=== PATIENT | male | born 1970 | race Caucasian/White ===

== ENCOUNTER 2016-05-10 11:49 | Emergency (ER) | payer OTHER | END 2016-05-10 15:48 | disposition home or self-care (01) | DX: K57.30 Diverticulosis of large intestine without perforation or abscess without bleeding (principal); R74.0 Nonspecific elevation of levels of transaminase and lactic acid dehydrogenase [LDH]; K76.0 Fatty (change of) liver, not elsewhere classified; F10.10 Alcohol abuse, uncomplicated; I10 Essential (primary) hypertension; Z79.82 Long term (current) use of aspirin ==

== ENCOUNTER 2018-08-27 08:00 | Outpatient (CLI) | payer OTHER | END 2018-08-27 23:59 | disposition home or self-care (01) | LOC: LAB.R 08:00 | PROVIDERS: ATTEND Family Medicine | DX: R21 Rash and other nonspecific skin eruption (principal) | CPT/HCPCS: 87070; 87077; 87181; 87205 ==

== ENCOUNTER 2019-07-21 15:35 | Outpatient (CLI) | payer OTHER ==
[2019-07-21 18:18] LABS: BASOPHILS # (AUTO) 0.1 10^3/uL (0.0-0.1); BASOPHILS % (AUTO) 0.9 %; EOSINOPHILS % (AUTO) 0.4 %; HGB - HEMOGLOBIN 16.4 g/dL (14.0-18.0); LYMPHOCYTES # (AUTO) 1.3 10^3/uL (1.5-3.5); LYMPHOCYTES % (AUTO) 12.2 %; MEAN CORPUSCULAR HEMOGLOBIN 33.3 pg (27.0-31.0); MEAN CORPUSCULAR HGB CONC 33.5 g/dL (32.0-36.0); MEAN CORPUSCULAR VOLUME 99.4 fL (80.0-94.0); MEAN PLATELET VOLUME 9.2 fL (7.4-11.4); MONOCYTES # (AUTO) 1.2 10^3/uL (0.0-1.0); MONOCYTES % (AUTO) 11.7 %; NEUTROPHILS # (AUTO) 7.9 10^3/uL (1.5-6.6); NEUTROPHILS % (AUTO) 74.4 %; PLT - PLATELET COUNT 211 10^3/uL (130-450); RED BLOOD COUNT 4.93 10^6/uL (4.70-6.10); RED CELL DISTRIBUTION WIDTH 13.1 % (12.0-15.0); WHITE BLOOD COUNT 10.6 x10^3/uL (4.8-10.8)
[2019-07-21 18:40] LABS: HB2 TOTAL 16.8 g/dL; HEMOGLOBIN A1C 0.66 g/dL; HEMOGLOBIN A1C % 5.7 % (4.6-6.2)
[2019-07-21 18:43] LABS: ALBUMIN 4.1 g/dL (3.2-5.5); ALBUMIN/GLOBULIN RATIO 1.1 (1.0-2.2); ALKALINE PHOSPHATASE 159 IU/L (42-121); ALT ALANINE AMINOTRANSFERASE 44 IU/L (10-60); AST ASPARTATE AMINOTRANSFERASE 69 IU/L (10-42); BUN - BLOOD UREA NITROGEN 8 mg/dL (6-20); CARBON DIOXIDE - CO2 22 mmol/L (21-32); CHLORIDE 97 mmol/L (101-111); CHOL/HDL RATIO 3.6 (<5.0); CHOLESTEROL 208 mg/dL; CREATININE 0.8 mg/dL (0.6-1.2); GLUCOSE 164 mg/dL (70-100); HDL CHOLESTEROL 58 mg/dL; LDL CHOLESTEROL,CALCULATED 132 mg/dL; LDL/HDL RATIO 2.3 (<3.6); SODIUM 133 mmol/L (135-145); TOTAL PROTEIN 7.8 g/dL (6.7-8.2); VLDL CHOLESTEROL 18 mg/dL
== END 2019-07-21 23:59 | disposition home or self-care (01) ==
LOC: LAB.WCP 15:35
PROVIDERS: ATTEND Physician Assistant Medical
DX: F10.10 Alcohol abuse, uncomplicated (principal); R74.8 Abnormal levels of other serum enzymes; I10 Essential (primary) hypertension; R73.01 Impaired fasting glucose; G89.29 Other chronic pain; M79.673 Pain in unspecified foot
CPT/HCPCS: 36415; 80053; 80061; 82607; 83036; 83721; 84443; 85025

== ENCOUNTER 2019-07-21 15:59 | Outpatient (CLI) | payer OTHER ==
--- NOTE | 2019-07-21 18:37 | XRAY Report ---
Reason: COUGH, CHRONIC Procedure Date: 07/21/2019 Accession Number: [id number] / [id number] Procedure: XR - Chest 2 View X-Ray CPT Code: 14009 Final Report FULL RESULT: EXAM: CHEST RADIOGRAPHY EXAM DATE: 07/21/2019 04:04 PM. CLINICAL HISTORY: COUGH, CHRONIC. COMPARISON: ABDOMEN/PELVIS W/O 05/10/2016 12:24 PM. TECHNIQUE: 2 views. FINDINGS: Lungs/Pleura: No focal opacities evident. No peribronchial cuffing or interstitial abnormality. No pleural effusion. No pneumothorax. Normal volumes. Mediastinum: Heart and mediastinal contours are unremarkable. Other: None. IMPRESSION: Normal 2-view chest radiography. [facility]
--- NOTE | 2019-07-21 18:39 | XRAY Report ---
Reason: COUGH, CHRONIC, FOOT PAIN, CHRONIC Procedure Date: 07/21/2019 Accession Number: [id number] / [id number] Procedure: XR - Foot 2 View BILAT CPT Code: Final Report FULL RESULT: EXAMS: 1. Right Foot Radiography 2. Left Foot Radiography EXAM DATE: 07/21/2019 04:04 PM. CLINICAL HISTORY: FOOT PAIN, CHRONIC. COMPARISON: None. TECHNIQUE: 3 views each foot. FINDINGS: Right: Bones: Normal. No fractures or bone lesions. Joints: Normal. No subluxations. Soft Tissues: Normal. No soft tissue swelling. Left: Bones: Bipartite medial and lateral first metatarsal sesamoids. No fractures or bone lesions. Joints: Normal. No subluxations. Soft Tissues: Normal. No soft tissue swelling. IMPRESSION: Normal bilateral feet radiography. [facility]
== END 2019-07-21 16:00 | disposition home or self-care (01) ==
LOC: DI 15:59
PROVIDERS: ATTEND Physician Assistant Medical
DX: R05 Cough (principal); M79.671 Pain in right foot; M79.672 Pain in left foot
CPT/HCPCS: 71046

== ENCOUNTER 2019-12-20 07:14 | Outpatient (CLI) | payer OTHER ==
[2019-12-20 12:35] LABS: CREATININE 0.7 mg/dL (0.6-1.2)
[2019-12-20 12:54] LABS: HB2 TOTAL 16.3 g/dL; HEMOGLOBIN A1C 0.61 g/dL; HEMOGLOBIN A1C % 5.6 % (4.6-6.2)
== END 2019-12-20 23:59 | disposition home or self-care (01) ==
LOC: LAB.WCP 07:14
PROVIDERS: ATTEND Physician Assistant Medical
DX: R73.01 Impaired fasting glucose (principal); R74.8 Abnormal levels of other serum enzymes; G89.29 Other chronic pain; Z12.5 Encounter for screening for malignant neoplasm of prostate; M79.673 Pain in unspecified foot
CPT/HCPCS: 36415; 80048; 82607; 83036; 84153

== ENCOUNTER 2020-02-03 12:41 | Outpatient (CLI) | payer OTHER | END 2020-02-03 12:42 | disposition home or self-care (01) | LOC: COV 12:41 | PROVIDERS: ATTEND Family Medicine | DX: Z20.828 Contact with and (suspected) exposure to other viral communicable diseases (principal) ==

== ENCOUNTER 2021-02-23 08:00 | Outpatient (CLI) | payer OTHER ==
[2021-02-23 11:46] LABS: BASOPHILS # (AUTO) 0.1 10^3/uL (0.0-0.1); BASOPHILS % (AUTO) 0.9 %; EOSINOPHILS # (AUTO) 0.1 10^3/uL (0.0-0.7); EOSINOPHILS % (AUTO) 1.9 %; HCT - HEMATOCRIT 45.6 % (42.0-52.0); HGB - HEMOGLOBIN 15.2 g/dL (14.0-18.0); LYMPHOCYTES # (AUTO) 2.3 10^3/uL (1.5-3.5); LYMPHOCYTES % (AUTO) 35.5 %; MEAN CORPUSCULAR HEMOGLOBIN 34.1 pg (27.0-31.0); MEAN CORPUSCULAR HGB CONC 33.3 g/dL (32.0-36.0); MEAN CORPUSCULAR VOLUME 102.2 fL (80.0-94.0); MEAN PLATELET VOLUME 10.5 fL (7.4-11.4); MONOCYTES # (AUTO) 0.8 10^3/uL (0.0-1.0); MONOCYTES % (AUTO) 12.8 %; NEUTROPHILS # (AUTO) 3.1 10^3/uL (1.5-6.6); NEUTROPHILS % (AUTO) 48.1 %; PLT - PLATELET COUNT 152 10^3/uL (130-450); RED BLOOD COUNT 4.46 10^6/uL (4.70-6.10); RED CELL DISTRIBUTION WIDTH 12.7 % (12.0-15.0); WHITE BLOOD COUNT 6.4 x10^3/uL (4.8-10.8)
[2021-02-23 12:10] LABS: ALBUMIN 3.8 g/dL (3.2-5.5); ALBUMIN/GLOBULIN RATIO 1.2 (1.0-2.2); ALKALINE PHOSPHATASE 217 IU/L (42-121); ALT ALANINE AMINOTRANSFERASE 113 IU/L (10-60); AST ASPARTATE AMINOTRANSFERASE 152 IU/L (10-42); BILIRUBIN,TOTAL 2.5 mg/dL (0.2-1.0); BUN - BLOOD UREA NITROGEN 8 mg/dL (6-20); CALCIUM 9.3 mg/dL (8.5-10.3); CARBON DIOXIDE - CO2 24 mmol/L (21-32); CHLORIDE 99 mmol/L (101-111); CHOL/HDL RATIO 3.3 (<5.0); CHOLESTEROL 192 mg/dL; CREATININE 0.7 mg/dL (0.6-1.2); GFR - MDRD 118 (>89); GLUCOSE 131 mg/dL (70-100); HDL CHOLESTEROL 58 mg/dL; LDL CHOLESTEROL,CALCULATED 102 mg/dL; LDL/HDL RATIO 1.8 (<3.6); POTASSIUM 3.8 mmol/L (3.5-5.0); SODIUM 136 mmol/L (135-145); TOTAL PROTEIN 7.1 g/dL (6.7-8.2); TRIGLYCERIDES 158 mg/dL; VLDL CHOLESTEROL 32 mg/dL
[2021-02-23 12:22] LABS: THYROID STIMULATING HORMONE 2.18 uIU/mL (0.34-5.60)
[2021-02-23 12:52] LABS: ESTIMATED AVERAGE GLUCOSE 100 mg/dL (70-100); HEMOGLOBIN A1c% 5.1 % (4.27-6.07)
== END 2021-02-23 23:59 | disposition home or self-care (01) ==
LOC: LAB.WCP 08:00
PROVIDERS: ATTEND Physician Assistant Medical
DX: Z00.00 Encounter for general adult medical examination without abnormal findings (principal); R73.01 Impaired fasting glucose; E78.00 Pure hypercholesterolemia, unspecified; Z12.5 Encounter for screening for malignant neoplasm of prostate; B35.1 Tinea unguium
CPT/HCPCS: 36415; 80053; 80061; 80076; 82248; 83036; 83721; 84153; 84443; 85025

== ENCOUNTER 2022-07-15 07:58 | Outpatient (CLI) | payer OTHER | END 2022-07-15 07:59 | disposition critical access hospital (66) | LOC: EMS 07:58 | DX: R53.1 Weakness (principal) | CPT/HCPCS: A0425; A0429 ==

== ENCOUNTER 2022-07-15 08:20 | Inpatient (IN) | payer OTHER ==
--- NOTE | 2022-07-15 08:49 | ED Physician Documentation ---
PD HPI SYNCOPE - Stated complaint Stated Complaint: GENERALIZED WEAKNESS/DEPRESSED - Chief complaint Chief Complaint: General - History obtained from History obtained from: Patient - History of Present Illness Witnessed: Unwitnessed (he had weakness with slump/fall to ground without apparent injury.Unable to get up due to weakness. Mother called eMS.) Timing - onset: Today (General weakness for the last several days to week progressively worse. Slumped to the floor with weakness and could not get up today. EMS was called. History of alcoholism that has been worse the last month since getting laid off from a long-term job. History of depression and alcoholism.) Preceding symptoms: Light headed, Generalized weakness. No: Headache, Chest pain, Abdominal pain Associated symptoms: No: Headache, Chest pain Contributing factors: Decreased PO intake (per Mother, but has been drinking alcohol (and not much other intake) for the past several weeks.). No: Recent med change Injury occurred: No: Head injury, Neck injury Treatment [employer]: Fluids Similar symptoms before: Has not had sx before (mother states he has not had this degree of weakness nor alcohol intkae in the past.) Recently seen: Not recently seen Review of Systems Constitutional: reports: Fatigue. denies: Fever, Chills, Weight Loss Nose: denies: Rhinorrhea / runny nose, Congestion Throat: denies: Sore throat Cardiac: denies: Chest pain / pressure, Palpitations Respiratory: denies: Dyspnea, Cough GI: denies: Abdominal Pain, Nausea, Vomiting, Diarrhea Skin: reports: Other (has gotten jaundice color the past 1-2 weeks.) Neurologic: reports: Generalized weakness, Near syncope (today), Confused, Altered mental status (worsening the past several days.). denies: Syncope PD PAST MEDICAL HISTORY - Past Medical History Cardiovascular: Hypertension Endocrine/Autoimmune: None Musculoskeletal: Other (the patient has had steady weight gain over the past 25 years. Had been fit when younger, in . then did not regulate eating and is now over 400 lbs. As recent as a month ago, though, he was ambulatory and went to work daily. ) - Present Medications Home Medications: Ambulatory Orders Medication Instructions Recorded Confirmed Omeprazole 20 mg PO DAILY 05/10/16 07/15/22 Gabapentin [Neurontin] 2 cap PO TID 07/15/22 07/15/22 - Allergies Allergies/Adverse Reactions: Allergies Allergy/AdvReac Type Severity Reaction Status Date / Time No Known Drug Allergies Allergy Verified 05/10/16 11:59 - Living Situation Living Situation: reports: With family (mother) Living Arrangement: reports: At home, Other (patient had been in when younger. Did 2 tours and then discharged. Worked at a company in [employer] the past 25 years. the company structure changed and he was laid off 4 weeks ago. got more depressed when that happened and had been drinking more heavily, not eating, getting weaker 4 wks. ) - Social History Does the pt smoke?: No Smoking Status: Never smoker Does the pt drink ETOH?: Yes ETOH Use: Other (drinking regularly with some liver involvement for many years. Particularly heavy drinking the past 4 weeks. ) Does the pt have substance abuse?: No - POLST Patient has POLST: No PD ED PE NORMAL - Vitals Vital signs reviewed: Yes - General General: Other (BMI 61. General weakness with unable to lift legs up off cart. ) - HEENT HEENT: Atraumatic - Neck Neck: Supple, no meningeal sign, No adenopathy - Cardiac Cardiac: RRR, No murmur - Respiratory Respiratory: No respiratory distress, Clear bilaterally - Abdomen Abdomen: Normal bowel sounds, Soft, Non distended. No: No organomegaly (unable to really palpate liver size due to obesity. ) - Back Back: No CVA TTP - Derm Derm: No: Normal color (jaundice and icteric.) Results - Vitals Vitals: Vital Signs - 24 hr 07/15/22 07/15/22 08:25 10:00 Temperature 36.4 C L Heart Rate 100 99 Respiratory 28 H 28 H Rate Blood Pressure 120/72 129/71 O2 Saturation 96 95 Oxygen O2 Source Room air - Labs Labs: Laboratory Tests 07/15/22 07/15/22 07/15/22 09:54 09:54 09:54 WBC 6.4 RBC 3.85 L Hgb 13.1 L Hct 37.2 L MCV 96.6 H MCH 34.0 H MCHC 35.2 RDW 12.8 Plt Count 79 L MPV 9.5 Neut # (Auto) 5.1 Lymph # (Auto) 0.4 L [place] # (Auto) 0.9 Eos # (Auto) 0.0 Baso # (Auto) 0.0 Absolute Nucleated RBC 0.00 Nucleated RBC % 0.0 Sodium 114 L* Potassium 4.0 Chloride 83 L Carbon Dioxide 15 L Anion Gap 16.0 H BUN 8 Creatinine 0.6 Estimated GFR (MDRD) 141 Glucose 149 H Calcium 8.4 L Magnesium 1.7 Total Bilirubin 13.0 H AST 153 H ALT 47 Alkaline Phosphatase 382 H Ammonia 69.6 H Total Creatine Kinase 393 H Total Protein 6.6 L Albumin 3.0 L Globulin 3.6 Albumin/Globulin Ratio 0.8 L Lipase 36 TSH Ethyl Alcohol 103.7 SARS-CoV-2 (PCR) 07/15/22 07/15/22 09:54 10:12 WBC RBC Hgb Hct MCV MCH MCHC RDW Plt Count MPV Neut # (Auto) Lymph # (Auto) [place] # (Auto) Eos # (Auto) Baso # (Auto) Absolute Nucleated RBC Nucleated RBC % Sodium Potassium Chloride Carbon Dioxide Anion Gap BUN Creatinine Estimated GFR (MDRD) Glucose Calcium Magnesium Total Bilirubin AST ALT Alkaline Phosphatase Ammonia Total Creatine Kinase Total Protein Albumin Globulin Albumin/Globulin Ratio Lipase TSH 2.59 Ethyl Alcohol SARS-CoV-2 (PCR) NOT DETECTED PD Medical Decision Making - ED course Complexity details: reviewed results, re-evaluated patient, considered differential, d/w patient, d/w family (mother) Reviewed Lab Results: Patient with severe hyponatremia at 114. Kidney function is adequate. His bilirubin is severely elevated at 13. Alk phos and lipase are normal. Seems like primary alcoholic liver disease. Amylase is 70. Likely exacerbated by recent poor oral intake and dehydration and possible viral illness. I ordered CBC and chemistry panel as well as more specific tests of lipase and ammonia level. Looking for source of infection, we did do a respiratory panel and a viral viral test, and chest x-ray. Social Determinants of Health: lives with mother. Is not getting counseling currently. Heavy alcohol use and will no doubt get withdrawal. acute liver injury from alcohol. low sodium from poor nutrition. ED course: The patient with acute general weakness over the last week or 2. He has had a little bit of a cough and general malaise according to himself and his mother. His mother is supplementing information as he is somewhat confused. Reportedly the patient has been drinking alcohol heavily over the last 4 weeks in particular though a long-term issue as well. He was laid off from his job of 25 years 4 weeks ago and has been more depressed than baseline and drinking more heavily. He has not been eating much in the last week or so and had some cough. He was now weak enough to be unable to get up on his own and EMS was called. He was given some IV fluids. He did have obvious icterus and some jaundice. Consideration also for electrolyte abnormality and ammonia level given the apparently new jaundice. These were ordered reviewed and evaluated as noted above. His sodium level was critically low and would be likely main force causing his general weakness and confusion. However the elevated pneumonia may be contributing as well and consider also just dehydration. His ALK level was fairly low at this point so I would be prepared for withdrawal and we will watch for that. Subsequently talking with the hospitalist, given the above test results and the patient condition, it was decided to place the patient in the ICU for closer observation. Potential for seizures, altered mental status, respiratory problems etc. - Critical Care Time(min): 50 Time Includes: Direct patient care, Reassess patient, Document care Data interpretation: Labs, Pulse ox, CXR Procedures excluded from critical care time: EKG Departure - Departure Disposition: 66 [facility] DC/Xfer Clinical Impression: Acute hyponatremia, Elevated bilirubin, Alcoholic liver disease, Alcoholism, Depression, Dehydration Condition: Stable Discharge Date/Time: 07/15/22 11:58
[2022-07-15] MEDS ORDERED: THIAMINE INJ 100 MG in SODIUM CHLORIDE 0.9% 50 ML IV STA (09:44)
[2022-07-15] MEDS ORDERED: SODIUM CHLORIDE 0.9% 1,000 ML IV STA ×2 (09:44→11:14)
[2022-07-15] MEDS ORDERED: THIAMINE INJ 100 MG, MAGNESIUM SULFATE 2 GM, MULTIVITAMIN 10 ML, FOLIC ACID INJ 1 MG in... IV ONE ×5 (09:44)
[2022-07-15 09:59] LABS: BASOPHILS % (AUTO) 0.3 %; EOSINOPHILS % (AUTO) 0.2 %; HCT - HEMATOCRIT 37.2 % (42.0-52.0); HGB - HEMOGLOBIN 13.1 g/dL (14.0-18.0); LYMPHOCYTES # (AUTO) 0.4 10^3/uL (1.5-3.5); LYMPHOCYTES % (AUTO) 5.5 %; MEAN CORPUSCULAR HGB CONC 35.2 g/dL (32.0-36.0); MEAN CORPUSCULAR VOLUME 96.6 fL (80.0-94.0); MEAN PLATELET VOLUME 9.5 fL (7.4-11.4); MONOCYTES # (AUTO) 0.9 10^3/uL (0.0-1.0); MONOCYTES % (AUTO) 13.5 %; NEUTROPHILS # (AUTO) 5.1 10^3/uL (1.5-6.6); NEUTROPHILS % (AUTO) 79.9 %; PLT - PLATELET COUNT 79 10^3/uL (130-450); RED BLOOD COUNT 3.85 10^6/uL (4.70-6.10); RED CELL DISTRIBUTION WIDTH 12.8 % (12.0-15.0); WHITE BLOOD COUNT 6.4 x10^3/uL (4.8-10.8)
[2022-07-15 10:13] LABS: ALBUMIN/GLOBULIN RATIO 0.8 (1.0-2.2); CALCIUM 8.4 mg/dL (8.5-10.3); CREATININE 0.6 mg/dL (0.6-1.2); ETOH - ETHANOL 103.7 mg/dL; MAGNESIUM 1.7 mg/dL (1.7-2.8); TOTAL PROTEIN 6.6 g/dL (6.7-8.2)
[2022-07-15] MEDS ORDERED: PROCHLORPERAZINE 10 MG/2 ML VIAL IVP PRN (11:15)
[2022-07-15] MEDS ORDERED: LORazepam 1 MG TABLET PO PRN (11:23)
[2022-07-15] MEDS ORDERED: MULTIVITAMIN 10 ML, THIAMINE INJ 100 MG, FOLIC ACID INJ 1 MG in SODIUM CHLORIDE 0.9% 1,... IV SCH (12:00)
[2022-07-15 12:41] LABS: INR 1.8 (0.8-1.2); PT - PROTHROMBIN TIME 19.3 secs (9.9-12.6)
[2022-07-15 12:46] LABS: BASOPHILS % (AUTO) 0.3 %; EOSINOPHILS % (AUTO) 0.3 %; HCT - HEMATOCRIT 37.7 % (42.0-52.0); HGB - HEMOGLOBIN 13.3 g/dL (14.0-18.0); LYMPHOCYTES # (AUTO) 0.6 10^3/uL (1.5-3.5); LYMPHOCYTES % (AUTO) 9.1 %; MEAN CORPUSCULAR HEMOGLOBIN 34.2 pg (27.0-31.0); MEAN CORPUSCULAR HGB CONC 35.3 g/dL (32.0-36.0); MEAN CORPUSCULAR VOLUME 96.9 fL (80.0-94.0); MEAN PLATELET VOLUME 9.9 fL (7.4-11.4); MONOCYTES # (AUTO) 0.9 10^3/uL (0.0-1.0); MONOCYTES % (AUTO) 12.7 %; NEUTROPHILS # (AUTO) 5.4 10^3/uL (1.5-6.6); NEUTROPHILS % (AUTO) 76.9 %; PLT - PLATELET COUNT 87 10^3/uL (130-450); RED BLOOD COUNT 3.89 10^6/uL (4.70-6.10); RED CELL DISTRIBUTION WIDTH 12.9 % (12.0-15.0); WHITE BLOOD COUNT 7.1 x10^3/uL (4.8-10.8)
[2022-07-15 12:49] LABS: ALBUMIN/GLOBULIN RATIO 0.9 (1.0-2.2); CALCIUM 8.3 mg/dL (8.5-10.3); CREATININE 0.6 mg/dL (0.6-1.2); TOTAL PROTEIN 6.5 g/dL (6.7-8.2)
[2022-07-15 12:55] LABS: CALCIUM, IONIZED 1.04 mmol/L (1.15-1.33); VBG PH 7.397 (7.31-7.41)
[2022-07-15 12:58] LABS: MAGNESIUM 1.7 mg/dL (1.7-2.8); PHOSPHORUS 1.8 mg/dL (2.5-4.6)
--- NOTE | 2022-07-15 12:58 | PHARMACY PROGRESS NOTE ---
- Best Possible Medication History Admit Date and Time: 07/15/22 1115 Processed by: Pharmacy Medication History completed: Yes Patient Interview: Completed Secondary Source(s): Pharmacy records (Pt never picked up Santa at [facility] or [facility].) As the person ultimately responsible for medication therapy, providers are able to order a medication from an existing home medication list in [facility] via the "Reconcile Routine" prior to Confirmation of that medication by sales support manager. Such practice is discouraged except when the physician, in their clinical judgment, deems that a medical need exists for a medication without regard to previous use.
[2022-07-15 13:08] LABS: MUDS CUTOFF CONCENTRATIONS CUTOFF CONC BELOW:
[2022-07-15 13:35] LABS: AMPHETAMINE SCREEN,URINE NEGATIVE (NEGATIVE); BARBITURATE SCREEN,UR NEGATIVE (NEGATIVE); BENZODIAZEPINES SCREEN, URINE NEGATIVE (NEGATIVE); COCAINE SCREEN URINE NEGATIVE (NEGATIVE); METHADONE SCREEN, URINE NEGATIVE (NEGATIVE); METHAMPHETAMINES SCREEN, URINE NEGATIVE (NEGATIVE); OPIATE SCREEN, URINE NEGATIVE (NEGATIVE); OXYCODONE SCREEN, URINE NEGATIVE (NEGATIVE); PROPOXYPHENE SCREEN, URINE NEGATIVE (NEGATIVE); THC CANNABINOID SCREEN, URINE NEGATIVE (NEGATIVE); TRICYCLIC ANTIDEPRESSANT,URINE NEGATIVE (NEGATIVE)
[2022-07-15] MEDS: chlordiazePOXIDE 25 MG CAPSULE PO SCH ×2 (14:17→20:14)
[2022-07-15] MEDS: MAGNESIUM OXIDE 400 MG TABLET PO SCH ×2 (15:15→21:45)
--- NOTE | 2022-07-15 15:16 | HISTORY & PHYSICAL EXAMINATION ---
Chief Complaint - Chief Complaint Chief Complaint: Weakness, fall at home and too weak to get up History of Present Illness - Admitted From Admitted From:: ED - History Obtained From History obtained from: ED provider, the patient, the patient's mother at bedside - History of Present Illness HPI Comment/Other: This is a 52-year-old white male with a history of morbid obesity, alcohol abuse who remotely went through 2 months of inpatient alcohol rehab, history of hypertension and neuropathy. The patient has been a drinker of about 5 beers per day, 16 ounce steel beer. He has been compliant with amlodipine for blood pressure, prior to that used to take lisinopril. He also goes to a specialist for his neuropathy and takes gabapentin, saw a work from home for his redness of his anterior shins. 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 He became very depressed because of this, became a recluse and did not go out of the house, did not reach out to any friends or even have contact with family. He would order his beer to be delivered by [employer] from a [employer] store. He started to increase his beer intake up to 12 large cans or more, of beer per day. In the last several days he has had worsened weakness and did not get out of the bed much and ate nothing for a week. He did continue to drink beer. He denied any fevers, nausea, vomiting, or diarrhea. In the last 2 days he said he was feeling weaker when walking to the bathroom, and his knees felt like they were going to buckle. This morning when he got out of bed after walking down a flight of stairs, his knees did buckle and he fell forward. He does not think he landed on his face, or knees. He did not blackout, since he remembers the entire event. He was too weak to get up and crawled in the direction of the couch but was too weak to get onto the couch. He then called his mother. The family called an ambulance who brought him to the ER. In the ED he was found to have morbid obesity, he weighs 194.5 kg with a BMI of 61.5, he was feeling weak and had photophobia, he could not reposition himself in his bed or turn independently due to weakness. Nurses had to help him undress into a gown and hold a urinal, because he said his arms were too weak to hold it. VS were stable. Lab work showed that he has severe Hyponatremia with sodium of 114, normal BUN/creatinine, AST 153, ALT 47, Alk phos 382, ammonia 69, Calcium 8.3, phosphorus 1.8, albumin 3.0. White blood count 6.4, hemoglobin 13.1 with MCV 96 point, plt count 79, INR elevated at 1.8. A serum alcohol level is 103. His last alcohol drink was last night. He did admit that he was very depressed and that he has been a recluse. He did not say he was suicidal or had any ideas. The mother at bedside adds that his sister thinks he has severe PTSD from serving in the [employer]. The patient himself is asking for Social Work to help him get into alcohol rehab again. Right now, the patient complains of dyspnea, as he is supine at this moment, but does not have any pain. He does describe GERD symptoms currently and says that his hands and fingers are shaking and his jaw is starting to shake Patient will be admitted to the ICU on the Hospitalist service to manage early alcohol withdrawal, severe hyponatremia likely from beer potomania, and alcoholic liver disease. History - Past Medical History Cardiovascular: reports: Hypertension Neuro: reports: Peripheral neuropathy Psych: reports: Depression Derm: reports: Other Other Past Medical History: unknown skin disorder - Family & Social History Family History: Mother: Alive and Well, Father: Alive and Well, Sister: Alive and Well Living arrangement: At home Living Situation: Alone Social History Notes: He lives alone in an apartment. He normally drives a car. He has been self isolating for the past 1 month and admits that he is very depressed. He smokes no cigarettes, uses no marijuana or any illicit drugs. Alcohol is beer intake, up to 12 beers per day of 16 ounce cans - POLST Patient has POLST: No Meds/Allgy - Home Medications Home Medications: Ambulatory Orders Medication Instructions Recorded Confirmed Omeprazole 20 mg PO DAILY 05/10/16 07/15/22 Gabapentin [Neurontin] 2 cap PO TID 07/15/22 07/15/22 - Allergies Allergies/Adverse Reactions: Allergies Allergy/AdvReac Type Severity Reaction Status Date / Time No Known Drug Allergies Allergy Verified 05/10/16 11:59 Review of Systems - Constitutional Constitutional: reports: Fatigue, Weakness, Poor appetite, Weight gain (He tells his parents that he is just sick of how morbidly overweight he is which makes him depressed) - Respiratory Respiratory: reports: Orthopnea - Gastrointestinal Gastrointestinal: reports: Diarrhea (On and off for the past 2-week), Reflux/heartburn - Musculoskeletal Musculoskeletal: reports: Muscle weakness - Integumentary Integumentary: reports: Rash (of anterior shins) - Neurological Neurological: reports: Other (Numbness, pain and tingling of feet, Gabapentin helps. 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) - Psychiatric Psychiatric: reports: Depression (He denies being suicidal or having any ideas) - All Other Systems All Other Systems: reports: Reviewed and negative Exam - Vital Signs Reviewed Vital Signs: Yes Vital Signs: Vital Signs x48h Temp Pulse Pulse Resp BP BP Pulse Ox 07/15/22 15:00 105 H 125/73 31 L 07/15/22 13:00 98 29 H 138/74 H 95 07/15/22 12:00 36.5 C 97 30 H 158/78 H 97 07/15/22 11:54 98 30 H 159/91 H 96 07/15/22 10:00 99 28 H 129/71 95 07/15/22 08:25 36.4 C L 100 28 H 120/72 96 O2 Flow Rate 07/15/22 15:00 93 07/15/22 13:00 07/15/22 12:00 07/15/22 11:54 07/15/22 10:00 07/15/22 08:25 - Physical Exam General Appearance: positive: Mild distress (He is grunting while breathing, is supine in bed) Eyes Bilateral: positive: EOMI, Other (Sclerae are icteric. There is no nys tagmus) ENT: positive: Dry mucous membranes Neck: positive: Other (Cannot evaluate JVP due to morbid obese) Respiratory: positive: Breath sounds nml (Anteriorly, however very distant breath sounds because of his morbid obesity) Cardiovascular: positive: Regular rate & rhythm (Very distant heart sounds, no murmurs are appreciated) Abdomen: positive: Other (Morbidly obese with a pannus. Nontender. Cannot rule out organomegaly or ascites. No guarding or rebound. No spider medusa veins. Probably normal bowel sounds.) Skin: positive: Warm, Dry, Other (icteric) Extremities: positive: Non-tender, Other (1+ edema to the knees, 1+ edema of the posterior thighs. Anterior shins have a red rash that is raised.) Neurologic/Psychiatric: positive: Oriented x3, Other (His jaw is tremulous and hands are shaking. He is moving all extremities spontaneously but very slowly and with great effort. He could bend his knees minimally. Could not push against resistance. Sensation was not tested.) Conclusion/Plan - Problem List (1) Hyponatremia Conclusion/Plan: This is in the presence of volume overload making beer potomania the most likely etiology. In addition he is eating no solids for about a week. Plan: Admit the patient to the ICU, on telemetry Start rehydration with NS The goal sodium correction is 6 to 8 mEq per 24 hours Free water restriction ordered in his diet Follow serum sodium every 6 hours Follow BMP daily Follow Mag, Ca and phosphate daily and replace if low Possibly we will need to use a loop diuretic for diuresing his edema (2) Alcoholism Conclusion/Plan: He was already been chronically drinking 5 16-oz cans of beer per day, then over the last 1 month, as he got more depressed, this has increased to 12 cans/day or more. He is already starting to get tremulous, in early withdrawal. Plan: We will order a CIWA protocol with IV as needed Ativan dosing We will start scheduled Librium 25 mg every 6 hours We will start banana bag and plan to give this for several days. We will transition over to MVI and thiamine orally when he starts to take a diet He is requesting help from his alcohol abuse and has already been in inpatient rehab for 2 months, when he was younger. We will ask for social work to see him in consultation while here Currently he is lucid, alert and oriented x3 and not encephalopathic. With an ammonia level mildly elevated at 70, will not order Lactulose. Follow his clinical status and folloe his ammonia level daily. Will continue his gabapentin for his neuropathy (3) Elevated LFTs Conclusion/Plan: These are consistent with alcohol use with AST greater than ALT, elevated INR and thrombocytopenia. Bilirubin and elevated alk phos could be from liver disease but also consider gallbladder however he gives no complaints of pain, nausea or vomiting. His calculated MELD score (new) is 23 points, which gives him a 27-32% estimated 3-month mortality. Plan: Avoid hepatotoxins Follow liver tests daily Consider CT abdomen/pelvis His condition is considered critical (4) GERD (gastroesophageal reflux disease) Conclusion/Plan: He denies any hematemesis or melena Plan: We will order Pepcid twice daily as stress ulcer prrophylaxis, not his home dose of omeprazole once daily His DVT prophylaxis will not be with Lovenox, will use SCDs (5) Diarrhea Conclusion/Plan: He denied to me any nausea, vomiting or diarrhea but told his nurse he gets intermittent watery diarrhea for the past 2 weeks. It is over the last 1 week that he is taking in no solids, only liquids in the form of beer. Plan: We will test his stool for bacteria and C. difficile If these are negative, then we could begin as needed Imodium, However with his elevated ammonia level we will also be considering the use of Lactulose, which will add to diarrhea (6) Edema Conclusion/Plan: The patient may have right heart failure from his morbid obesity and obesity hypoventilation syndrome. Alternatively he may have cardiomyopathy from his alcohol intake. No EKG was done in the ER therefore an EKG was ordered once he entered the ICU. The EKG showed (I interpreted) sinus tachycardia, rate 100, incomplete left bundle branch block, left anterior fascicular block, poor R wave progression. There is no old EKG available for comparison. Plan: We will obtain a complete Echo Once we see his I's and O's, we will very likely start a loop diuretic which will probably help eliminate free water as we give IV NS and also will treat the leg edema. (7) Weakness Conclusion/Plan: He has severe generalized muscle weakness, was too weak to even hold his urinal. He does have a mild CK elevation in the 300s, which could have happened from the fall he sustained this morning. 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 Plan: We will give IV fluid in the form of a banana bag at 100 cc/hr, until he can orally hydrate and take a diet Follow CK daily He will eventually need PT and OT evaluation (8) Morbid obesity with BMI of 60.0-69.9, adult Conclusion/Plan: Some portion of his weight is water weight, by clinical eval but he has already been previously morbidly obese even before this excessive fluid intake Plan: This complicates all of his care including any chance for a liver transplant We will order regular diet, he has no appetite yet however. We will order nutrition consult I have asked staff to try to get him a bariatric bed (9) Depression Conclusion/Plan: His mother describes that he has been depressed at a low level for many years and by losing his job 1 month ago this was "the last straw" and he spiraled into being a recluse, self isolating, drinking more than double the alcohol he usually drinks and not eating. His mom says that he did not describe any suicidal ideations Plan: Will order social work consult, to determine if one-to-one monitoring is needed If he survives this ICU stay and if his liver has some recovery, he wants treatment for his severe depression, also his alcoholism (10) Hx of essential hypertension Conclusion/Plan: He says he used to be on lisinopril and more recently on amlodipine. However the reconciled medication list shows no blood pressure meds. His blood pressure here is running normal in the 120s over 80s. Plan: No BP meds need to be started currently (11) Intertriginous dermatitis associated with moisture Conclusion/Plan: The patient has a dark red rash in all of his many skin folds. He has no history of diabetes but does have somewhat elevated glucose on a spot glucose check. The patient may have developed pancreatic insufficiency and DM, from his many years of alcohol abuse, or have DM associated with his morbid obesity. Plan: Will order nystatin powder empirically to skin folds We will obtain an A1c - Lab Results Fish Bones: 07/15/22 12:26 07/15/22 17:31 - Diagnostic Imaging Results Diagnostic Imaging Results: positive: Final report reviewed - EKG Results EKG Interpreted Independently: Yes EKG Comparison: Old EKG unavailable EKG Findings: Sinus tachycardia, rate 100, incomplete left bundle branch block with QRS duration 107 msec, LAFB, PRWP. No old EKG available for comparison. - Other Other Results/Comments: Attestation: The patient is expected to be discharged or transferred to another facility within 96 hours: Yes.
[2022-07-15] MEDS: NEUTRA-PHOS 250 MG TABLET PO SCH ×2 (15:33→18:21)
[2022-07-15] MEDS: SODIUM CHLORIDE FLUSH 0.9% 10 ML SYRINGE IVP SCH (18:10)
[2022-07-15] MEDS: ONDANSETRON 4 MG/2 ML VIAL IVP PRN (19:06)
[2022-07-15] MEDS: LORazepam 2 MG/ML VIAL IVP PRN (19:10)
[2022-07-15] MEDS: NYSTATIN POWDER 15 GM TOP SCH (20:13)
[2022-07-15] MEDS: CALCIUM CARBONATE CHEW 500 MG TABLET PO SCH (20:15)
[2022-07-15] MEDS ORDERED: FAMOTIDINE 20 MG TABLET PO SCH (21:00)
[2022-07-15] MEDS: GABAPENTIN 300 MG CAPSULE PO SCH (21:44)
[2022-07-15] MEDS: FAMOTIDINE 20 MG TABLET PO SCH (21:44)
[2022-07-16] MEDS: CALCIUM CARBONATE CHEW 500 MG TABLET PO SCH (01:00)
[2022-07-16] MEDS: SODIUM CHLORIDE FLUSH 0.9% 10 ML SYRINGE IVP SCH ×4 (01:00→20:46)
[2022-07-16] MEDS: chlordiazePOXIDE 25 MG CAPSULE PO SCH ×4 (01:00→17:31)
[2022-07-16] MEDS: ZINC OXIDE 20% OINT 30 GM TUBE TOP PRN ×2 (01:56→20:45)
[2022-07-16 04:45] LABS: BASOPHILS % (AUTO) 0.4 %; EOSINOPHILS # (AUTO) 0.1 10^3/uL (0.0-0.7); EOSINOPHILS % (AUTO) 1.1 %; HCT - HEMATOCRIT 33.7 % (42.0-52.0); LYMPHOCYTES # (AUTO) 0.6 10^3/uL (1.5-3.5); LYMPHOCYTES % (AUTO) 12.3 %; MEAN CORPUSCULAR HEMOGLOBIN 34.4 pg (27.0-31.0); MEAN CORPUSCULAR HGB CONC 35.6 g/dL (32.0-36.0); MEAN CORPUSCULAR VOLUME 96.6 fL (80.0-94.0); MEAN PLATELET VOLUME 9.7 fL (7.4-11.4); MONOCYTES # (AUTO) 0.8 10^3/uL (0.0-1.0); MONOCYTES % (AUTO) 17.6 %; NEUTROPHILS # (AUTO) 3.2 10^3/uL (1.5-6.6); NEUTROPHILS % (AUTO) 68.2 %; PLT - PLATELET COUNT 76 10^3/uL (130-450); RED BLOOD COUNT 3.49 10^6/uL (4.70-6.10); RED CELL DISTRIBUTION WIDTH 13.2 % (12.0-15.0); WHITE BLOOD COUNT 4.7 x10^3/uL (4.8-10.8)
[2022-07-16 04:51] LABS: VBG PH 7.461 (7.31-7.41)
[2022-07-16 04:52] LABS: CALCIUM, IONIZED 0.99 mmol/L (1.15-1.33)
[2022-07-16] MEDS ORDERED: CALCIUM GLUCONATE IN NS 0.9% 2,000 MG/100 ML BAG IV ONE (04:52)
[2022-07-16 05:05] LABS: ALBUMIN 2.5 g/dL (3.2-5.5); ALBUMIN/GLOBULIN RATIO 0.8 (1.0-2.2); BILIRUBIN,TOTAL 15.2 mg/dL (0.2-1.0); CALCIUM 7.8 mg/dL (8.5-10.3); CREATININE 0.8 mg/dL (0.6-1.2); PHOSPHORUS 1.7 mg/dL (2.5-4.6); POTASSIUM 3.8 mmol/L (3.5-5.0); TOTAL PROTEIN 5.8 g/dL (6.7-8.2)
[2022-07-16] MEDS ORDERED: POTASSIUM CHLORIDE 20 MEQ TABLET PO ONE (05:16)
--- NOTE | 2022-07-16 06:16 | PROVIDER PROGRESS NOTE ---
Objective - Vital Signs/Intake & Output Vital Signs: Vital Signs x48h Temp Pulse Resp BP Pulse Ox O2 Flow Rate 07/16/22 05:00 95 22 95/62 91 L 3 07/16/22 04:00 100 17 108/61 98 3 07/16/22 03:00 36.7 C 98 25 H 94/57 L 98 3 07/16/22 01:00 100 22 112/66 98 3 07/15/22 23:16 105 H 17 110/65 97 3 Intake & Output: Intake & Output 07/13/22 07/14/22 07/15/22 07/16/22 22:59 23:59 23:59 23:59 Intake Total 2721.0 1140.2 Output Total 550 0 Balance 2171.0 1140.2 - Lab Results Fish Bones: 07/16/22 04:27 07/16/22 04:27 Other Labs: Lab Results x24hrs 07/16/22 07/16/22 07/16/22 Range/Units 04:27 04:27 04:27 WBC (4.8-10.8) x10^3/uL RBC (4.70-6.10) 10^6/uL Hgb (14.0-18.0) g/dL Hct (42.0-52.0) % MCV (80.0-94.0) fL MCH (27.0-31.0) pg MCHC (32.0-36.0) g/dL RDW (12.0-15.0) % Plt Count (130-450) 10^3/uL MPV (7.4-11.4) fL Neut # (Auto) (1.5-6.6) 10^3/uL Lymph # (Auto) (1.5-3.5) 10^3/uL [place] # (Auto) (0.0-1.0) 10^3/uL Eos # (Auto) (0.0-0.7) 10^3/uL Baso # (Auto) (0.0-0.1) 10^3/uL Absolute Nucleated RBC x10^3/uL Nucleated RBC % /100WBC PT (9.9-12.6) secs INR (0.8-1.2) VBG pH 7.461 H (7.31-7.41) Ionized Calcium 0.99 L (1.15-1.33) mmol/L Sodium (135-145) mmol/L Potassium (3.5-5.0) mmol/L Chloride (101-111) mmol/L Carbon Dioxide (21-32) mmol/L Anion Gap (6-13) BUN (6-20) mg/dL Creatinine (0.6-1.2) mg/dL Estimated GFR (MDRD) (>89) Glucose (70-100) mg/dL Calcium (8.5-10.3) mg/dL Phosphorus (2.5-4.6) mg/dL Magnesium (1.7-2.8) mg/dL Total Bilirubin (0.2-1.0) mg/dL AST (10-42) IU/L ALT (10-60) IU/L Alkaline Phosphatase (42-121) IU/L Ammonia 105.0 H* (7-35) umol/L Total Creatine Kinase 383 H (22-269) IU/L Total Protein (6.7-8.2) g/dL Albumin (3.2-5.5) g/dL Globulin (2.1-4.2) g/dL Albumin/Globulin Ratio (1.0-2.2) Lipase (22-51) U/L TSH (0.34-5.60) uIU/mL Nasal Screen MRSA (PCR) (NEGATIVE) Stl C. diff Tox B Gene (NEGATIVE) Urine Opiates Screen (NEGATIVE) Ur Oxycodone Screen (NEGATIVE) Urine Methadone Screen (NEGATIVE) Ur Propoxyphene Screen (NEGATIVE) Ur Barbiturates Screen (NEGATIVE) Ur Tricyclics Screen (NEGATIVE) Ur Phencyclidine Scrn (NEGATIVE) Ur Amphetamine Screen (NEGATIVE) U Methamphetamines Scrn (NEGATIVE) U Benzodiazepines Scrn (NEGATIVE) Urine Cocaine Screen (NEGATIVE) U Cannabinoids Screen (NEGATIVE) Ethyl Alcohol mg/dL SARS-CoV-2 (PCR) 07/16/22 07/16/22 07/16/22 Range/Units 04:27 04:27 02:05 WBC 4.7 L (4.8-10.8) x10^3/uL RBC 3.49 L (4.70-6.10) 10^6/uL Hgb 12.0 L (14.0-18.0) g/dL Hct 33.7 L (42.0-52.0) % MCV 96.6 H (80.0-94.0) fL MCH 34.4 H (27.0-31.0) pg MCHC 35.6 (32.0-36.0) g/dL RDW 13.2 (12.0-15.0) % Plt Count 76 L (130-450) 10^3/uL MPV 9.7 (7.4-11.4) fL Neut # (Auto) 3.2 (1.5-6.6) 10^3/uL Lymph # (Auto) 0.6 L (1.5-3.5) 10^3/uL [place] # (Auto) 0.8 (0.0-1.0) 10^3/uL Eos # (Auto) 0.1 (0.0-0.7) 10^3/uL Baso # (Auto) 0.0 (0.0-0.1) 10^3/uL Absolute Nucleated RBC 0.00 x10^3/uL Nucleated RBC % 0.0 /100WBC PT (9.9-12.6) secs INR (0.8-1.2) VBG pH (7.31-7.41) Ionized Calcium (1.15-1.33) mmol/L Sodium 116 L* (135-145) mmol/L Potassium 3.8 (3.5-5.0) mmol/L Chloride 87 L (101-111) mmol/L Carbon Dioxide 18 L (21-32) mmol/L Anion Gap 11.0 (6-13) BUN 10 (6-20) mg/dL Creatinine 0.8 (0.6-1.2) mg/dL Estimated GFR (MDRD) 101 (>89) Glucose 150 H (70-100) mg/dL Calcium 7.8 L (8.5-10.3) mg/dL Phosphorus 1.7 L (2.5-4.6) mg/dL Magnesium 2.0 (1.7-2.8) mg/dL Total Bilirubin 15.2 H (0.2-1.0) mg/dL AST 145 H (10-42) IU/L ALT 46 (10-60) IU/L Alkaline Phosphatase 316 H (42-121) IU/L Ammonia (7-35) umol/L Total Creatine Kinase (22-269) IU/L Total Protein 5.8 L (6.7-8.2) g/dL Albumin 2.5 L (3.2-5.5) g/dL Globulin 3.3 (2.1-4.2) g/dL Albumin/Globulin Ratio 0.8 L (1.0-2.2) Lipase (22-51) U/L TSH (0.34-5.60) uIU/mL Nasal Screen MRSA (PCR) (NEGATIVE) Stl C. diff Tox B Gene NEGATIVE (NEGATIVE) Urine Opiates Screen (NEGATIVE) Ur Oxycodone Screen (NEGATIVE) Urine Methadone Screen (NEGATIVE) Ur Propoxyphene Screen (NEGATIVE) Ur Barbiturates Screen (NEGATIVE) Ur Tricyclics Screen (NEGATIVE) Ur Phencyclidine Scrn (NEGATIVE) Ur Amphetamine Screen (NEGATIVE) U Methamphetamines Scrn (NEGATIVE) U Benzodiazepines Scrn (NEGATIVE) Urine Cocaine Screen (NEGATIVE) U Cannabinoids Screen (NEGATIVE) Ethyl Alcohol mg/dL SARS-CoV-2 (PCR) 07/15/22 07/15/22 07/15/22 Range/Units 23:57 17:31 12:59 WBC (4.8-10.8) x10^3/uL RBC (4.70-6.10) 10^6/uL Hgb (14.0-18.0) g/dL Hct (42.0-52.0) % MCV (80.0-94.0) fL MCH (27.0-31.0) pg MCHC (32.0-36.0) g/dL RDW (12.0-15.0) % Plt Count (130-450) 10^3/uL MPV (7.4-11.4) fL Neut # (Auto) (1.5-6.6) 10^3/uL Lymph # (Auto) (1.5-3.5) 10^3/uL [place] # (Auto) (0.0-1.0) 10^3/uL Eos # (Auto) (0.0-0.7) 10^3/uL Baso # (Auto) (0.0-0.1) 10^3/uL Absolute Nucleated RBC x10^3/uL Nucleated RBC % /100WBC PT (9.9-12.6) secs INR (0.8-1.2) VBG pH (7.31-7.41) Ionized Calcium (1.15-1.33) mmol/L Sodium 119 L* 116 L* (135-145) mmol/L Potassium (3.5-5.0) mmol/L Chloride (101-111) mmol/L Carbon Dioxide (21-32) mmol/L Anion Gap (6-13) BUN (6-20) mg/dL Creatinine (0.6-1.2) mg/dL Estimated GFR (MDRD) (>89) Glucose (70-100) mg/dL Calcium (8.5-10.3) mg/dL Phosphorus (2.5-4.6) mg/dL Magnesium (1.7-2.8) mg/dL Total Bilirubin (0.2-1.0) mg/dL AST (10-42) IU/L ALT (10-60) IU/L Alkaline Phosphatase (42-121) IU/L Ammonia (7-35) umol/L Total Creatine Kinase (22-269) IU/L Total Protein (6.7-8.2) g/dL Albumin (3.2-5.5) g/dL Globulin (2.1-4.2) g/dL Albumin/Globulin Ratio (1.0-2.2) Lipase (22-51) U/L TSH (0.34-5.60) uIU/mL Nasal Screen MRSA (PCR) (NEGATIVE) Stl C. diff Tox B Gene (NEGATIVE) Urine Opiates Screen NEGATIVE (NEGATIVE) Ur Oxycodone Screen NEGATIVE (NEGATIVE) Urine Methadone Screen NEGATIVE (NEGATIVE) Ur Propoxyphene Screen NEGATIVE (NEGATIVE) Ur Barbiturates Screen NEGATIVE (NEGATIVE) Ur Tricyclics Screen NEGATIVE (NEGATIVE) Ur Phencyclidine Scrn NEGATIVE (NEGATIVE) Ur Amphetamine Screen NEGATIVE (NEGATIVE) U Methamphetamines Scrn NEGATIVE (NEGATIVE) U Benzodiazepines Scrn NEGATIVE (NEGATIVE) Urine Cocaine Screen NEGATIVE (NEGATIVE) U Cannabinoids Screen NEGATIVE (NEGATIVE) Ethyl Alcohol mg/dL SARS-CoV-2 (PCR) 07/15/22 07/15/22 07/15/22 Range/Units 12:47 12:36 12:26 WBC (4.8-10.8) x10^3/uL RBC (4.70-6.10) 10^6/uL Hgb (14.0-18.0) g/dL Hct (42.0-52.0) % MCV (80.0-94.0) fL MCH (27.0-31.0) pg MCHC (32.0-36.0) g/dL RDW (12.0-15.0) % Plt Count (130-450) 10^3/uL MPV (7.4-11.4) fL Neut # (Auto) (1.5-6.6) 10^3/uL Lymph # (Auto) (1.5-3.5) 10^3/uL [place] # (Auto) (0.0-1.0) 10^3/uL Eos # (Auto) (0.0-0.7) 10^3/uL Baso # (Auto) (0.0-0.1) 10^3/uL Absolute Nucleated RBC x10^3/uL Nucleated RBC % /100WBC PT (9.9-12.6) secs INR (0.8-1.2) VBG pH 7.397 (7.31-7.41) Ionized Calcium 1.04 L (1.15-1.33) mmol/L Sodium 115 L* (135-145) mmol/L Potassium 4.0 (3.5-5.0) mmol/L Chloride 85 L (101-111) mmol/L Carbon Dioxide 15 L (21-32) mmol/L Anion Gap 15.0 H (6-13) BUN 8 (6-20) mg/dL Creatinine 0.6 (0.6-1.2) mg/dL Estimated GFR (MDRD) 141 (>89) Glucose 136 H (70-100) mg/dL Calcium 8.3 L (8.5-10.3) mg/dL Phosphorus 1.8 L (2.5-4.6) mg/dL Magnesium 1.7 (1.7-2.8) mg/dL Total Bilirubin 13.0 H (0.2-1.0) mg/dL AST 155 H (10-42) IU/L ALT 44 (10-60) IU/L Alkaline Phosphatase 382 H (42-121) IU/L Ammonia (7-35) umol/L Total Creatine Kinase (22-269) IU/L Total Protein 6.5 L (6.7-8.2) g/dL Albumin 3.0 L (3.2-5.5) g/dL Globulin 3.5 (2.1-4.2) g/dL Albumin/Globulin Ratio 0.9 L (1.0-2.2) Lipase (22-51) U/L TSH (0.34-5.60) uIU/mL Nasal Screen MRSA (PCR) (NEGATIVE) Stl C. diff Tox B Gene (NEGATIVE) Urine Opiates Screen (NEGATIVE) Ur Oxycodone Screen (NEGATIVE) Urine Methadone Screen (NEGATIVE) Ur Propoxyphene Screen (NEGATIVE) Ur Barbiturates Screen (NEGATIVE) Ur Tricyclics Screen (NEGATIVE) Ur Phencyclidine Scrn (NEGATIVE) Ur Amphetamine Screen (NEGATIVE) U Methamphetamines Scrn (NEGATIVE) U Benzodiazepines Scrn (NEGATIVE) Urine Cocaine Screen (NEGATIVE) U Cannabinoids Screen (NEGATIVE) Ethyl Alcohol mg/dL SARS-CoV-2 (PCR) 07/15/22 07/15/22 07/15/22 Range/Units 12:26 12:26 11:58 WBC 7.1 (4.8-10.8) x10^3/uL RBC 3.89 L (4.70-6.10) 10^6/uL Hgb 13.3 L (14.0-18.0) g/dL Hct 37.7 L (42.0-52.0) % MCV 96.9 H (80.0-94.0) fL MCH 34.2 H (27.0-31.0) pg MCHC 35.3 (32.0-36.0) g/dL RDW 12.9 (12.0-15.0) % Plt Count 87 L (130-450) 10^3/uL MPV 9.9 (7.4-11.4) fL Neut # (Auto) 5.4 (1.5-6.6) 10^3/uL Lymph # (Auto) 0.6 L (1.5-3.5) 10^3/uL [place] # (Auto) 0.9 (0.0-1.0) 10^3/uL Eos # (Auto) 0.0 (0.0-0.7) 10^3/uL Baso # (Auto) 0.0 (0.0-0.1) 10^3/uL Absolute Nucleated RBC 0.00 x10^3/uL Nucleated RBC % 0.0 /100WBC PT 19.3 H (9.9-12.6) secs INR 1.8 H (0.8-1.2) VBG pH (7.31-7.41) Ionized Calcium (1.15-1.33) mmol/L Sodium (135-145) mmol/L Potassium (3.5-5.0) mmol/L Chloride (101-111) mmol/L Carbon Dioxide (21-32) mmol/L Anion Gap (6-13) BUN (6-20) mg/dL Creatinine (0.6-1.2) mg/dL Estimated GFR (MDRD) (>89) Glucose (70-100) mg/dL Calcium (8.5-10.3) mg/dL Phosphorus (2.5-4.6) mg/dL Magnesium (1.7-2.8) mg/dL Total Bilirubin (0.2-1.0) mg/dL AST (10-42) IU/L ALT (10-60) IU/L Alkaline Phosphatase (42-121) IU/L Ammonia (7-35) umol/L Total Creatine Kinase (22-269) IU/L Total Protein (6.7-8.2) g/dL Albumin (3.2-5.5) g/dL Globulin (2.1-4.2) g/dL Albumin/Globulin Ratio (1.0-2.2) Lipase (22-51) U/L TSH (0.34-5.60) uIU/mL Nasal Screen MRSA (PCR) NEGATIVE (NEGATIVE) Stl C. diff Tox B Gene (NEGATIVE) Urine Opiates Screen (NEGATIVE) Ur Oxycodone Screen (NEGATIVE) Urine Methadone Screen (NEGATIVE) Ur Propoxyphene Screen (NEGATIVE) Ur Barbiturates Screen (NEGATIVE) Ur Tricyclics Screen (NEGATIVE) Ur Phencyclidine Scrn (NEGATIVE) Ur Amphetamine Screen (NEGATIVE) U Methamphetamines Scrn (NEGATIVE) U Benzodiazepines Scrn (NEGATIVE) Urine Cocaine Screen (NEGATIVE) U Cannabinoids Screen (NEGATIVE) Ethyl Alcohol mg/dL SARS-CoV-2 (PCR) 07/15/22 07/15/22 07/15/22 Range/Units 10:12 09:54 09:54 WBC (4.8-10.8) x10^3/uL RBC (4.70-6.10) 10^6/uL Hgb (14.0-18.0) g/dL Hct (42.0-52.0) % MCV (80.0-94.0) fL MCH (27.0-31.0) pg MCHC (32.0-36.0) g/dL RDW (12.0-15.0) % Plt Count (130-450) 10^3/uL MPV (7.4-11.4) fL Neut # (Auto) (1.5-6.6) 10^3/uL Lymph # (Auto) (1.5-3.5) 10^3/uL [place] # (Auto) (0.0-1.0) 10^3/uL Eos # (Auto) (0.0-0.7) 10^3/uL Baso # (Auto) (0.0-0.1) 10^3/uL Absolute Nucleated RBC x10^3/uL Nucleated RBC % /100WBC PT (9.9-12.6) secs INR (0.8-1.2) VBG pH (7.31-7.41) Ionized Calcium (1.15-1.33) mmol/L Sodium (135-145) mmol/L Potassium (3.5-5.0) mmol/L Chloride (101-111) mmol/L Carbon Dioxide (21-32) mmol/L Anion Gap (6-13) BUN (6-20) mg/dL Creatinine (0.6-1.2) mg/dL Estimated GFR (MDRD) (>89) Glucose (70-100) mg/dL Calcium (8.5-10.3) mg/dL Phosphorus (2.5-4.6) mg/dL Magnesium (1.7-2.8) mg/dL Total Bilirubin (0.2-1.0) mg/dL AST (10-42) IU/L ALT (10-60) IU/L Alkaline Phosphatase (42-121) IU/L Ammonia 69.6 H (7-35) umol/L Total Creatine Kinase (22-269) IU/L Total Protein (6.7-8.2) g/dL Albumin (3.2-5.5) g/dL Globulin (2.1-4.2) g/dL Albumin/Globulin Ratio (1.0-2.2) Lipase (22-51) U/L TSH 2.59 (0.34-5.60) uIU/mL Nasal Screen MRSA (PCR) (NEGATIVE) Stl C. diff Tox B Gene (NEGATIVE) Urine Opiates Screen (NEGATIVE) Ur Oxycodone Screen (NEGATIVE) Urine Methadone Screen (NEGATIVE) Ur Propoxyphene Screen (NEGATIVE) Ur Barbiturates Screen (NEGATIVE) Ur Tricyclics Screen (NEGATIVE) Ur Phencyclidine Scrn (NEGATIVE) Ur Amphetamine Screen (NEGATIVE) U Methamphetamines Scrn (NEGATIVE) U Benzodiazepines Scrn (NEGATIVE) Urine Cocaine Screen (NEGATIVE) U Cannabinoids Screen (NEGATIVE) Ethyl Alcohol mg/dL SARS-CoV-2 (PCR) NOT DETECTED 07/15/22 07/15/22 Range/Units 09:54 09:54 WBC 6.4 (4.8-10.8) x10^3/uL RBC 3.85 L (4.70-6.10) 10^6/uL Hgb 13.1 L (14.0-18.0) g/dL Hct 37.2 L (42.0-52.0) % MCV 96.6 H (80.0-94.0) fL MCH 34.0 H (27.0-31.0) pg MCHC 35.2 (32.0-36.0) g/dL RDW 12.8 (12.0-15.0) % Plt Count 79 L (130-450) 10^3/uL MPV 9.5 (7.4-11.4) fL Neut # (Auto) 5.1 (1.5-6.6) 10^3/uL Lymph # (Auto) 0.4 L (1.5-3.5) 10^3/uL [place] # (Auto) 0.9 (0.0-1.0) 10^3/uL Eos # (Auto) 0.0 (0.0-0.7) 10^3/uL Baso # (Auto) 0.0 (0.0-0.1) 10^3/uL Absolute Nucleated RBC 0.00 x10^3/uL Nucleated RBC % 0.0 /100WBC PT (9.9-12.6) secs INR (0.8-1.2) VBG pH (7.31-7.41) Ionized Calcium (1.15-1.33) mmol/L Sodium 114 L* (135-145) mmol/L Potassium 4.0 (3.5-5.0) mmol/L Chloride 83 L (101-111) mmol/L Carbon Dioxide 15 L (21-32) mmol/L Anion Gap 16.0 H (6-13) BUN 8 (6-20) mg/dL Creatinine 0.6 (0.6-1.2) mg/dL Estimated GFR (MDRD) 141 (>89) Glucose 149 H (70-100) mg/dL Calcium 8.4 L (8.5-10.3) mg/dL Phosphorus (2.5-4.6) mg/dL Magnesium 1.7 (1.7-2.8) mg/dL Total Bilirubin 13.0 H (0.2-1.0) mg/dL AST 153 H (10-42) IU/L ALT 47 (10-60) IU/L Alkaline Phosphatase 382 H (42-121) IU/L Ammonia (7-35) umol/L Total Creatine Kinase 393 H (22-269) IU/L Total Protein 6.6 L (6.7-8.2) g/dL Albumin 3.0 L (3.2-5.5) g/dL Globulin 3.6 (2.1-4.2) g/dL Albumin/Globulin Ratio 0.8 L (1.0-2.2) Lipase 36 (22-51) U/L TSH (0.34-5.60) uIU/mL Nasal Screen MRSA (PCR) (NEGATIVE) Stl C. diff Tox B Gene (NEGATIVE) Urine Opiates Screen (NEGATIVE) Ur Oxycodone Screen (NEGATIVE) Urine Methadone Screen (NEGATIVE) Ur Propoxyphene Screen (NEGATIVE) Ur Barbiturates Screen (NEGATIVE) Ur Tricyclics Screen (NEGATIVE) Ur Phencyclidine Scrn (NEGATIVE) Ur Amphetamine Screen (NEGATIVE) U Methamphetamines Scrn (NEGATIVE) U Benzodiazepines Scrn (NEGATIVE) Urine Cocaine Screen (NEGATIVE) U Cannabinoids Screen (NEGATIVE) Ethyl Alcohol 103.7 mg/dL SARS-CoV-2 (PCR) Assessment/Plan - Problem List (1) Acute hyponatremia Impression: worsening. 119 to 116. add NaCl 1gm po BID
[2022-07-16] MEDS: NEUTRA-PHOS 250 MG TABLET PO SCH ×2 (06:35→08:09)
[2022-07-16] MEDS: GABAPENTIN 300 MG CAPSULE PO SCH ×3 (06:35→21:55)
[2022-07-16] MEDS: NYSTATIN POWDER 15 GM TOP SCH ×2 (08:09→20:45)
[2022-07-16] MEDS: SODIUM CHLORIDE 1 GM TABLET PO SCH ×3 (08:09→20:45)
[2022-07-16] MEDS: FAMOTIDINE 20 MG TABLET PO SCH ×2 (08:09→20:45)
[2022-07-16] MEDS: ONDANSETRON 4 MG/2 ML VIAL IVP PRN (08:12)
[2022-07-16] MEDS: LACTULOSE 10 GM /15 ML UDC PO SCH (08:51)
[2022-07-16 09:42] LABS: FOLATE 8.12 ng/mL (5.90 - >24.8)
[2022-07-16 11:04] LABS: ESTIMATED AVERAGE GLUCOSE 105 mg/dL (70-100); HEMOGLOBIN A1c% 5.3 % (4.27-6.07)
[2022-07-16] MEDS: THIAMINE 100 MG TABLET PO SCH (11:30)
[2022-07-16] MEDS: PRENATAL VITAMIN TABLET PO SCH (11:30)
[2022-07-16] MEDS: LACTOBACILLUS RHAMNOSUS GG CAPSULE PO SCH (11:30)
[2022-07-16] MEDS ORDERED: PSYLLIUM PACKET PO ONE (12:00)
--- NOTE | 2022-07-16 13:33 | PROVIDER PROGRESS NOTE ---
Subjective - Prog Note Date Prog Note Date: 07/16/22 Prog Note Time: 13:26 - Subjective Pt reports feeling: Improved Subjective: Pt states he's feeling "better" but would like some rest. Current Medications - Current Medications Current Medications: Active Medications Generic Name Dose Route Start Last Admin Trade Name Freq PRN Reason Stop Dose Admin Chlordiazepoxide HCl 25 mg 07/15/22 13:30 07/16/22 11:30 Chlordiazepoxide 25 Mg Capsule PO 25 mg Q6HR KANU Administration Famotidine 20 mg 07/15/22 21:00 07/16/22 08:09 Famotidine 20 Mg Tablet PO 20 mg BID KANU Administration Gabapentin 600 mg 07/15/22 22:00 07/16/22 06:35 Gabapentin 300 Mg Capsule PO 600 mg TID KANU Administration Sodium Chloride 1,000 mls @ 250 mls/hr 07/16/22 14:00 Normal Saline 0.9% IV .Q4H KANU Lactobacillus Rhamnosus 1 cap 07/16/22 11:00 07/16/22 11:30 Lactobacillus Rhamnosus Gg Capsule PO 1 cap DAILY KANU Administration Lactulose 10 gm 07/16/22 09:00 07/16/22 08:51 Lactulose 10 Gm /15 Ml Udc PO 10 gm DAILY KANU Administration Lorazepam 2 mg 07/15/22 12:50 07/15/22 19:10 Lorazepam 2 Mg/Ml Vial IVP 2 mg Q30M PRN Administration CIWA >8 Protocol Multi-Ingredient Ointment 1 applic 07/16/22 01:24 07/16/22 01:56 Zinc Oxide 20% Oint 30 Gm Tube TOP 1 applic PRN PRN Administration Skin Care Nystatin 1 applic 07/15/22 21:00 07/16/22 08:09 Nystatin Powder 15 Gm TOP 1 applic BID KANU Administration Ondansetron HCl 4 mg 07/15/22 11:15 07/16/22 08:12 Ondansetron 4 Mg/2 Ml Vial IVP 4 mg Q6HR PRN Administration Nausea / Vomiting Multivit/Folic Acid/Iron 1 tab 07/16/22 11:00 07/16/22 11:30 Vitamin Tablet PO 1 tab DAILYWM KANU Administration Prochlorperazine Edisylate 10 mg 07/15/22 11:15 Prochlorperazine 10 Mg/2 Ml Vial IVP Q6HR PRN Nausea / Vomiting Sodium Chloride 10 ml 07/15/22 17:00 07/16/22 08:08 Sodium Chloride Flush 0.9% 10 Ml Syringe IVP 10 ml 0100,0900,1700 KANU Administration Sodium Chloride 10 ml 07/15/22 11:15 Sodium Chloride Flush 0.9% 10 Ml Syringe IVP PRN PRN NEEDED PER PROVIDER ORDERS Sodium Chloride 1 gm 07/16/22 06:14 07/16/22 08:10 Sodium Chloride 1 Gm Tablet PO Not Given BID KANU Thiamine HCl 100 mg 07/16/22 11:00 07/16/22 11:30 Thiamine 100 Mg Tablet PO 100 mg DAILY KANU Administration Omeprazole 20 mg PO DAILY 05/10/16 Gabapentin [Neurontin] 2 cap PO TID 07/15/22 Objective - Vital Signs/Intake & Output Vital Signs: Vital Signs x48h Temp Pulse Resp BP Pulse Ox O2 Flow Rate 07/16/22 13:00 93 20 89/50 L 100 3 07/16/22 12:00 100 25 H 91/54 L 99 3 07/16/22 11:00 96 23 93/53 L 95 3 07/16/22 10:04 91 16 95/63 96 3 07/16/22 09:00 95 17 95/61 98 3 07/16/22 08:16 104/56 L 07/16/22 08:00 36.7 C 92 22 93 2 07/16/22 07:00 96 21 113/67 98 3 Intake & Output: Intake & Output 07/13/22 07/14/22 07/15/22 07/16/22 22:59 23:59 23:59 23:59 Intake Total 2721.0 1790.2 Output Total 550 442 Balance 2171.0 1348.2 - Objective General Appearance: positive: Mild distress (Grunting with breathing, bed raised.) Neck: positive: Other (Difficulty with evaluating JVD) Respiratory: positive: Breath sounds nml (Listened anteriorly, with distant so unding breath sounds d/t obesity.) Cardiovascular: positive: Regular rate & rhythm (Reg rate and rhythym, distant heart sounds.), Irregularly irregular Abdomen: positive: Non-tender, No organomegaly, Other (No guarding, rebound, or tenderness) Skin: positive: Warm Neurologic/Psychiatric: positive: Oriented x3 (Speaking in full sentences.) - Lab Results Fish Bones: 07/16/22 04:27 07/16/22 17:33 Other Labs: Lab Results x24hrs 07/16/22 07/16/22 07/16/22 Range/Units 11:26 04:27 04:27 WBC (4.8-10.8) x10^3/uL RBC (4.70-6.10) 10^6/uL Hgb (14.0-18.0) g/dL Hct (42.0-52.0) % MCV (80.0-94.0) fL MCH (27.0-31.0) pg MCHC (32.0-36.0) g/dL RDW (12.0-15.0) % Plt Count (130-450) 10^3/uL MPV (7.4-11.4) fL Neut # (Auto) (1.5-6.6) 10^3/uL Lymph # (Auto) (1.5-3.5) 10^3/uL [place] # (Auto) (0.0-1.0) 10^3/uL Eos # (Auto) (0.0-0.7) 10^3/uL Baso # (Auto) (0.0-0.1) 10^3/uL Absolute Nucleated RBC x10^3/uL Nucleated RBC % /100WBC VBG pH 7.461 H (7.31-7.41) Ionized Calcium 0.99 L (1.15-1.33) mmol/L Sodium 116 L* (135-145) mmol/L Potassium (3.5-5.0) mmol/L Chloride (101-111) mmol/L Carbon Dioxide (21-32) mmol/L Anion Gap (6-13) BUN (6-20) mg/dL Creatinine (0.6-1.2) mg/dL Estimated GFR (MDRD) (>89) Glucose (70-100) mg/dL Estimat Average Glucose (70-100) mg/dL Hemoglobin A1c % (4.27-6.07) % Calcium (8.5-10.3) mg/dL Phosphorus (2.5-4.6) mg/dL Magnesium (1.7-2.8) mg/dL Total Bilirubin (0.2-1.0) mg/dL AST (10-42) IU/L ALT (10-60) IU/L Alkaline Phosphatase (42-121) IU/L Ammonia (7-35) umol/L Total Creatine Kinase (22-269) IU/L Total Protein (6.7-8.2) g/dL Albumin (3.2-5.5) g/dL Globulin (2.1-4.2) g/dL Albumin/Globulin Ratio (1.0-2.2) Vitamin B12 404 (180-914) pg/mL Folate 8.12 (5.90 - >24.8) ng/mL Nasal Screen MRSA (PCR) (NEGATIVE) Stl C. diff Tox B Gene (NEGATIVE) Urine Opiates Screen (NEGATIVE) Ur Oxycodone Screen (NEGATIVE) Urine Methadone Screen (NEGATIVE) Ur Propoxyphene Screen (NEGATIVE) Ur Barbiturates Screen (NEGATIVE) Ur Tricyclics Screen (NEGATIVE) Ur Phencyclidine Scrn (NEGATIVE) Ur Amphetamine Screen (NEGATIVE) U Methamphetamines Scrn (NEGATIVE) U Benzodiazepines Scrn (NEGATIVE) Urine Cocaine Screen (NEGATIVE) U Cannabinoids Screen (NEGATIVE) 07/16/22 07/16/22 07/16/22 Range/Units 04:27 04:27 04:27 WBC (4.8-10.8) x10^3/uL RBC (4.70-6.10) 10^6/uL Hgb (14.0-18.0) g/dL Hct (42.0-52.0) % MCV (80.0-94.0) fL MCH (27.0-31.0) pg MCHC (32.0-36.0) g/dL RDW (12.0-15.0) % Plt Count (130-450) 10^3/uL MPV (7.4-11.4) fL Neut # (Auto) (1.5-6.6) 10^3/uL Lymph # (Auto) (1.5-3.5) 10^3/uL [place] # (Auto) (0.0-1.0) 10^3/uL Eos # (Auto) (0.0-0.7) 10^3/uL Baso # (Auto) (0.0-0.1) 10^3/uL Absolute Nucleated RBC x10^3/uL Nucleated RBC % /100WBC VBG pH (7.31-7.41) Ionized Calcium (1.15-1.33) mmol/L Sodium (135-145) mmol/L Potassium (3.5-5.0) mmol/L Chloride (101-111) mmol/L Carbon Dioxide (21-32) mmol/L Anion Gap (6-13) BUN (6-20) mg/dL Creatinine (0.6-1.2) mg/dL Estimated GFR (MDRD) (>89) Glucose (70-100) mg/dL Estimat Average Glucose 105 H (70-100) mg/dL Hemoglobin A1c % 5.3 (4.27-6.07) % Calcium (8.5-10.3) mg/dL Phosphorus (2.5-4.6) mg/dL Magnesium (1.7-2.8) mg/dL Total Bilirubin (0.2-1.0) mg/dL AST (10-42) IU/L ALT (10-60) IU/L Alkaline Phosphatase (42-121) IU/L Ammonia 105.0 H* (7-35) umol/L Total Creatine Kinase 383 H (22-269) IU/L Total Protein (6.7-8.2) g/dL Albumin (3.2-5.5) g/dL Globulin (2.1-4.2) g/dL Albumin/Globulin Ratio (1.0-2.2) Vitamin B12 (180-914) pg/mL Folate (5.90 - >24.8) ng/mL Nasal Screen MRSA (PCR) (NEGATIVE) Stl C. diff Tox B Gene (NEGATIVE) Urine Opiates Screen (NEGATIVE) Ur Oxycodone Screen (NEGATIVE) Urine Methadone Screen (NEGATIVE) Ur Propoxyphene Screen (NEGATIVE) Ur Barbiturates Screen (NEGATIVE) Ur Tricyclics Screen (NEGATIVE) Ur Phencyclidine Scrn (NEGATIVE) Ur Amphetamine Screen (NEGATIVE) U Methamphetamines Scrn (NEGATIVE) U Benzodiazepines Scrn (NEGATIVE) Urine Cocaine Screen (NEGATIVE) U Cannabinoids Screen (NEGATIVE) 07/16/22 07/16/22 07/16/22 Range/Units 04:27 04:27 02:05 WBC 4.7 L (4.8-10.8) x10^3/uL RBC 3.49 L (4.70-6.10) 10^6/uL Hgb 12.0 L (14.0-18.0) g/dL Hct 33.7 L (42.0-52.0) % MCV 96.6 H (80.0-94.0) fL MCH 34.4 H (27.0-31.0) pg MCHC 35.6 (32.0-36.0) g/dL RDW 13.2 (12.0-15.0) % Plt Count 76 L (130-450) 10^3/uL MPV 9.7 (7.4-11.4) fL Neut # (Auto) 3.2 (1.5-6.6) 10^3/uL Lymph # (Auto) 0.6 L (1.5-3.5) 10^3/uL [place] # (Auto) 0.8 (0.0-1.0) 10^3/uL Eos # (Auto) 0.1 (0.0-0.7) 10^3/uL Baso # (Auto) 0.0 (0.0-0.1) 10^3/uL Absolute Nucleated RBC 0.00 x10^3/uL Nucleated RBC % 0.0 /100WBC VBG pH (7.31-7.41) Ionized Calcium (1.15-1.33) mmol/L Sodium 116 L* (135-145) mmol/L Potassium 3.8 (3.5-5.0) mmol/L Chloride 87 L (101-111) mmol/L Carbon Dioxide 18 L (21-32) mmol/L Anion Gap 11.0 (6-13) BUN 10 (6-20) mg/dL Creatinine 0.8 (0.6-1.2) mg/dL Estimated GFR (MDRD) 101 (>89) Glucose 150 H (70-100) mg/dL Estimat Average Glucose (70-100) mg/dL Hemoglobin A1c % (4.27-6.07) % Calcium 7.8 L (8.5-10.3) mg/dL Phosphorus 1.7 L (2.5-4.6) mg/dL Magnesium 2.0 (1.7-2.8) mg/dL Total Bilirubin 15.2 H (0.2-1.0) mg/dL AST 145 H (10-42) IU/L ALT 46 (10-60) IU/L Alkaline Phosphatase 316 H (42-121) IU/L Ammonia (7-35) umol/L Total Creatine Kinase (22-269) IU/L Total Protein 5.8 L (6.7-8.2) g/dL Albumin 2.5 L (3.2-5.5) g/dL Globulin 3.3 (2.1-4.2) g/dL Albumin/Globulin Ratio 0.8 L (1.0-2.2) Vitamin B12 (180-914) pg/mL Folate (5.90 - >24.8) ng/mL Nasal Screen MRSA (PCR) (NEGATIVE) Stl C. diff Tox B Gene NEGATIVE (NEGATIVE) Urine Opiates Screen (NEGATIVE) Ur Oxycodone Screen (NEGATIVE) Urine Methadone Screen (NEGATIVE) Ur Propoxyphene Screen (NEGATIVE) Ur Barbiturates Screen (NEGATIVE) Ur Tricyclics Screen (NEGATIVE) Ur Phencyclidine Scrn (NEGATIVE) Ur Amphetamine Screen (NEGATIVE) U Methamphetamines Scrn (NEGATIVE) U Benzodiazepines Scrn (NEGATIVE) Urine Cocaine Screen (NEGATIVE) U Cannabinoids Screen (NEGATIVE) 07/15/22 07/15/22 07/15/22 Range/Units 23:57 17:31 12:59 WBC (4.8-10.8) x10^3/uL RBC (4.70-6.10) 10^6/uL Hgb (14.0-18.0) g/dL Hct (42.0-52.0) % MCV (80.0-94.0) fL MCH (27.0-31.0) pg MCHC (32.0-36.0) g/dL RDW (12.0-15.0) % Plt Count (130-450) 10^3/uL MPV (7.4-11.4) fL Neut # (Auto) (1.5-6.6) 10^3/uL Lymph # (Auto) (1.5-3.5) 10^3/uL [place] # (Auto) (0.0-1.0) 10^3/uL Eos # (Auto) (0.0-0.7) 10^3/uL Baso # (Auto) (0.0-0.1) 10^3/uL Absolute Nucleated RBC x10^3/uL Nucleated RBC % /100WBC VBG pH (7.31-7.41) Ionized Calcium (1.15-1.33) mmol/L Sodium 119 L* 116 L* (135-145) mmol/L Potassium (3.5-5.0) mmol/L Chloride (101-111) mmol/L Carbon Dioxide (21-32) mmol/L Anion Gap (6-13) BUN (6-20) mg/dL Creatinine (0.6-1.2) mg/dL Estimated GFR (MDRD) (>89) Glucose (70-100) mg/dL Estimat Average Glucose (70-100) mg/dL Hemoglobin A1c % (4.27-6.07) % Calcium (8.5-10.3) mg/dL Phosphorus (2.5-4.6) mg/dL Magnesium (1.7-2.8) mg/dL Total Bilirubin (0.2-1.0) mg/dL AST (10-42) IU/L ALT (10-60) IU/L Alkaline Phosphatase (42-121) IU/L Ammonia (7-35) umol/L Total Creatine Kinase (22-269) IU/L Total Protein (6.7-8.2) g/dL Albumin (3.2-5.5) g/dL Globulin (2.1-4.2) g/dL Albumin/Globulin Ratio (1.0-2.2) Vitamin B12 (180-914) pg/mL Folate (5.90 - >24.8) ng/mL Nasal Screen MRSA (PCR) (NEGATIVE) Stl C. diff Tox B Gene (NEGATIVE) Urine Opiates Screen NEGATIVE (NEGATIVE) Ur Oxycodone Screen NEGATIVE (NEGATIVE) Urine Methadone Screen NEGATIVE (NEGATIVE) Ur Propoxyphene Screen NEGATIVE (NEGATIVE) Ur Barbiturates Screen NEGATIVE (NEGATIVE) Ur Tricyclics Screen NEGATIVE (NEGATIVE) Ur Phencyclidine Scrn NEGATIVE (NEGATIVE) Ur Amphetamine Screen NEGATIVE (NEGATIVE) U Methamphetamines Scrn NEGATIVE (NEGATIVE) U Benzodiazepines Scrn NEGATIVE (NEGATIVE) Urine Cocaine Screen NEGATIVE (NEGATIVE) U Cannabinoids Screen NEGATIVE (NEGATIVE) 07/15/22 Range/Units 11:58 WBC (4.8-10.8) x10^3/uL RBC (4.70-6.10) 10^6/uL Hgb (14.0-18.0) g/dL Hct (42.0-52.0) % MCV (80.0-94.0) fL MCH (27.0-31.0) pg MCHC (32.0-36.0) g/dL RDW (12.0-15.0) % Plt Count (130-450) 10^3/uL MPV (7.4-11.4) fL Neut # (Auto) (1.5-6.6) 10^3/uL Lymph # (Auto) (1.5-3.5) 10^3/uL [place] # (Auto) (0.0-1.0) 10^3/uL Eos # (Auto) (0.0-0.7) 10^3/uL Baso # (Auto) (0.0-0.1) 10^3/uL Absolute Nucleated RBC x10^3/uL Nucleated RBC % /100WBC VBG pH (7.31-7.41) Ionized Calcium (1.15-1.33) mmol/L Sodium (135-145) mmol/L Potassium (3.5-5.0) mmol/L Chloride (101-111) mmol/L Carbon Dioxide (21-32) mmol/L Anion Gap (6-13) BUN (6-20) mg/dL Creatinine (0.6-1.2) mg/dL Estimated GFR (MDRD) (>89) Glucose (70-100) mg/dL Estimat Average Glucose (70-100) mg/dL Hemoglobin A1c % (4.27-6.07) % Calcium (8.5-10.3) mg/dL Phosphorus (2.5-4.6) mg/dL Magnesium (1.7-2.8) mg/dL Total Bilirubin (0.2-1.0) mg/dL AST (10-42) IU/L ALT (10-60) IU/L Alkaline Phosphatase (42-121) IU/L Ammonia (7-35) umol/L Total Creatine Kinase (22-269) IU/L Total Protein (6.7-8.2) g/dL Albumin (3.2-5.5) g/dL Globulin (2.1-4.2) g/dL Albumin/Globulin Ratio (1.0-2.2) Vitamin B12 (180-914) pg/mL Folate (5.90 - >24.8) ng/mL Nasal Screen MRSA (PCR) NEGATIVE (NEGATIVE) Stl C. diff Tox B Gene (NEGATIVE) Urine Opiates Screen (NEGATIVE) Ur Oxycodone Screen (NEGATIVE) Urine Methadone Screen (NEGATIVE) Ur Propoxyphene Screen (NEGATIVE) Ur Barbiturates Screen (NEGATIVE) Ur Tricyclics Screen (NEGATIVE) Ur Phencyclidine Scrn (NEGATIVE) Ur Amphetamine Screen (NEGATIVE) U Methamphetamines Scrn (NEGATIVE) U Benzodiazepines Scrn (NEGATIVE) Urine Cocaine Screen (NEGATIVE) U Cannabinoids Screen (NEGATIVE) ABX Reporting Has patient been on IV antibiotics over the past 48 hours?: No Assessment/Plan - Problem List (1) Hyponatremia Impression: Continue rehydration with NS The goal sodium correction is 6 to 8 mEq per 24 hours Free water restriction ordered in his diet Follow serum sodium every 6 hours Follow BMP daily Follow Mag, Ca and phosphate daily and replace if low Possibly we will need to use a loop diuretic for diuresing his edema (2) Alcoholism Impression: IV ativan prn Continue Librium 25mg every 6 hours Continue banana bag and plan to give over several days. Transition over to multivitamin inj and thiamine orally when able to start oral diet Continue gabapentin for neuropathy (3) Elevated LFTs Impression: Avoid hepatotoxins Follow liver tests daily
[2022-07-16] MEDS: SODIUM CHLORIDE 0.9% 1,000 ML IV SCH ×3 (14:20→22:01)
[2022-07-16] MEDS ORDERED: SODIUM CHLORIDE 0.9% 1,000 ML IV ONE (17:19)
[2022-07-16 17:53] LABS: GLUCOSE, URINE (UA) NEGATIVE (NEGATIVE); KETONES,URINE (UA) TRACE mg/dL (NEGATIVE); LEUKOCYTE ESTERASE, URINE TRACE (NEGATIVE); NITRITE,URINE POSITIVE (NEGATIVE); OCCULT BLOOD,URINE LARGE (NEGATIVE); PH,URINE 5.5 PH (5.0-7.5); PROTEIN,URINE 30 mg/dL (NEGATIVE); UROBILINOGEN,URINE 2 E.U./dL (NORMAL)
[2022-07-16 17:57] LABS: BILIRUBIN,URINE LARGE (NEGATIVE); CLARITY,URINE CLOUDY (CLEAR); ICTOTEST,URINE POSITIVE
[2022-07-16 18:19] LABS: SQUAMOUS EPITHELIAL CELL,UR FEW Squamous (<= Few)
[2022-07-16 18:20] LABS: BACTERIA,URINE Few /HPF (None Seen); CASTS, URINE 3-5 Course Granular /LPF
--- NOTE | 2022-07-16 18:53 | Ultrasound Report ---
PROCEDURE: Duplex Ext Veins Right INDICATIONS: right leg pain and hypotension TECHNIQUE: Real-time imaging, as well as color and pulse Doppler interrogation, were performed of the lower extr emity deep veins from the inguinal ligament to the popliteal fossa. COMPARISON: None. FINDINGS: Limited exam with poor visualization of multiple segments of the deep venous extremity vei ns due to body habitus and lower extremity soft tissue thickness. In particular the calf veins are no t well identified. The deep veins are normally compressible, and free of intraluminal thrombus. [place] r and pulse Doppler demonstrate normal phasic intraluminal flow. There is normal augmentation respon se to distal compression maneuver. IMPRESSION: No gross evidence of DVT. Limited study due to body habitus. Reviewed by: Javier Ley MD on 07/16/2022 6:52 PM PDT Approved by: Javier Ley MD on 07/16/2022 6:52 PM PDT Station ID: [id number]
[2022-07-16] MEDS ORDERED: SODIUM CHLORIDE 0.9% 1,000 ML IV SCH (19:00)
--- NOTE | 2022-07-16 19:45 | ANESTHESIA PROCEDURE NOTE ---
Anesth Central Line Template - Central Line Central Line Preparation: Consent Obtained, Time out completed, Ultrasound used, Sterile prep and drape Central line location: Right IJ Central line type: Triple lumen Central line catheter tip site resides: Superior vena cava (SVC) Central line aftercare: Chlorhexidine disc placed, Secured, Placement confirmed, No complications, Pt tolerated well Other Info/Details: Right neck prepped with chlorohexadine. Full sterile drape, gown, gloves and mask utilized. Right IJ identified under ultrasound. Total of 4ml of 1% lidocaine injected for skin localization. Vein accesses with 18G introducer needle under US guidance. Wire advanced with ease. A triple lumen catheter was inserted over the wire and advanced 20cm. Wire removed. All ports aspirate heme and flush with ease. Line sutured in place. CXR shows tip at cavoatrial junction.
--- NOTE | 2022-07-16 20:16 | XRAY Report ---
PROCEDURE: Chest for Line Placement INDICATIONS: Central Line Placement TECHNIQUE: One view of the chest was acquired. COMPARISON: 07/21/2019. FINDINGS: Surgical changes and devices: There is a right internal jugular catheter with the tip in the region of the cavoatrial junction. Lungs and pleura: No definite pneumothorax, with evaluation limited by semiupright technique. No ple ural effusions. There is pulmonary vascular prominence suggestive of mild edema. Mediastinum: Mediastinal contours appear widened which may be due to portable technique and low lung volumes. Heart size is at upper limits of normal. Bones and chest wall: No suspicious bony lesions. Overlying soft tissues appear unremarkable. IMPRESSION: 1. No definite evidence of pneumothorax. 2. Pulmonary vascular prominence just of a mild pulmonary edema. Reviewed by: Arnulfo Toscano MD on 07/16/2022 8:15 PM PDT Approved by: Arnulfo Toscano MD on 07/16/2022 8:15 PM PDT Station ID: [id number]
[2022-07-16] MEDS: SODIUM CHLORIDE FLUSH 0.9% 10 ML SYRINGE IVP PRN ×4 (20:46→22:55)
[2022-07-16 21:19] LABS: CALCIUM 7.9 mg/dL (8.5-10.3); CREATININE 0.8 mg/dL (0.6-1.2); POTASSIUM 3.9 mmol/L (3.5-5.0)
[2022-07-17] MEDS: chlordiazePOXIDE 25 MG CAPSULE PO SCH ×4 (00:14→18:06)
[2022-07-17] MEDS: SODIUM CHLORIDE FLUSH 0.9% 10 ML SYRINGE IVP PRN ×5 (00:15→22:04)
[2022-07-17] MEDS: NOREPINEPHRINE/0.9 % NS 8 MG/250 ML BAG IV SCH ×2 (00:15→18:07)
[2022-07-17 05:24] LABS: BASOPHILS # (AUTO) 0.1 10^3/uL (0.0-0.1); BASOPHILS % (AUTO) 0.7 %; EOSINOPHILS # (AUTO) 0.3 10^3/uL (0.0-0.7); EOSINOPHILS % (AUTO) 4.3 %; HCT - HEMATOCRIT 34.6 % (42.0-52.0); HGB - HEMOGLOBIN 12.1 g/dL (14.0-18.0); LYMPHOCYTES % (AUTO) 13.4 %; MEAN CORPUSCULAR HEMOGLOBIN 34.7 pg (27.0-31.0); MEAN CORPUSCULAR VOLUME 99.1 fL (80.0-94.0); MEAN PLATELET VOLUME 9.5 fL (7.4-11.4); MONOCYTES % (AUTO) 13.5 %; NEUTROPHILS # (AUTO) 4.8 10^3/uL (1.5-6.6); NEUTROPHILS % (AUTO) 67.1 %; NRBC ABSOLUTE COUNT (AUTO) 0.02 x10^3/uL; NUCLEATED RED BLOOD CELLS AUTO 0.3 /100WBC; PLT - PLATELET COUNT 118 10^3/uL (130-450); RED BLOOD COUNT 3.49 10^6/uL (4.70-6.10); RED CELL DISTRIBUTION WIDTH 13.9 % (12.0-15.0); WHITE BLOOD COUNT 7.2 x10^3/uL (4.8-10.8)
[2022-07-17 05:25] LABS: CALCIUM, IONIZED 1.09 mmol/L (1.15-1.33); VBG PH 7.341 (7.31-7.41)
[2022-07-17 05:36] LABS: PHOSPHORUS 2.1 mg/dL (2.5-4.6)
[2022-07-17 05:39] LABS: ALBUMIN 2.7 g/dL (3.2-5.5); ALBUMIN/GLOBULIN RATIO 0.8 (1.0-2.2); BILIRUBIN,TOTAL 20.4 mg/dL (0.2-1.0); CALCIUM 8.3 mg/dL (8.5-10.3); CREATININE 0.7 mg/dL (0.6-1.2)
[2022-07-17] MEDS: SODIUM CHLORIDE 0.9% 1,000 ML IV SCH ×2 (06:02→20:11)
[2022-07-17] MEDS: GABAPENTIN 300 MG CAPSULE PO SCH ×3 (06:02→21:04)
[2022-07-17] MEDS: NEUTRA-PHOS 250 MG TABLET PO SCH ×2 (06:18→08:24)
[2022-07-17] MEDS: SODIUM CHLORIDE 1 GM TABLET PO SCH ×2 (08:21→21:04)
[2022-07-17] MEDS: CALCIUM CARBONATE CHEW 500 MG TABLET PO SCH ×2 (08:21→12:20)
[2022-07-17] MEDS: PRENATAL VITAMIN TABLET PO SCH (08:23)
[2022-07-17] MEDS: FAMOTIDINE 20 MG TABLET PO SCH ×2 (08:24→21:04)
[2022-07-17] MEDS: THIAMINE 100 MG TABLET PO SCH (08:24)
[2022-07-17] MEDS: LACTOBACILLUS RHAMNOSUS GG CAPSULE PO SCH (08:24)
[2022-07-17] MEDS: LACTULOSE 10 GM /15 ML UDC PO SCH (08:25)
[2022-07-17] MEDS: NYSTATIN POWDER 15 GM TOP SCH ×3 (08:31→21:04)
[2022-07-17] MEDS: ZINC OXIDE 20% OINT 30 GM TUBE TOP PRN ×2 (08:31→21:04)
[2022-07-17] MEDS: SODIUM CHLORIDE FLUSH 0.9% 10 ML SYRINGE IVP SCH ×3 (09:05→21:29)
[2022-07-17] MEDS: CARBOXYMETHYLCELLULOSE OPHTH DROPS EACHEYE PRN ×2 (12:28→21:40)
--- NOTE | 2022-07-17 14:50 | CT Report ---
PROCEDURE: ABDOMEN/PELVIS WO INDICATIONS: rising bilirubin TECHNIQUE: Noncontrast 5 mm thick sections acquired from the diaphragms to the symphysis. 5 mm coronal and sagi ttal reformats were then performed. For radiation dose reduction, the following was used: automated exposure control, adjustment of mA and/or kV according to patient size. COMPARISON: 05/10/2016 FINDINGS: Image quality: Study limited secondary to moderate patient motion artifact, patient positioning, and patient's upper extremities positioned over his abdomen which causes significant hardening artifact.. The lateral most margins of the right abdomen and pelvis have been excluded on this study. Lung bases: Bibasilar atelectasis. Possible trace right pleural effusion. Mild patchy groundglass op acities of the left lower lobe. Small hiatal hernia. Heart: Heart size is normal. Coronary artery calcifications. ABDOMEN: Liver: Mild hepatomegaly. No findings of biliary ductal dilatation. No focal intrahepatic abnormali ties. Gallbladder:Unremarkable. Biliary ducts: Unremarkable. No biliary ductal dilatation. Pancreas: Pancreas is normal in shape and contour without peripancreatic inflammation. Spleen: Mild splenomegaly. Adrenal Glands: No adrenal nodules. Kidneys and Ureters: Bilateral kidneys demonstrate normal size without hydronephrosis. Bilateral ur eters are normal in course and caliber. No perinephric or periureteral stranding. Stomach and Bowel: Stomach, small bowel loops, and colon are unremarkable. Mild colonic diverticu losis of the descending colon and descending colon without evidence for acute diverticulitis. Peritoneum: No abnormal intraperitoneal fluid. No free air. Ventral Wall: No hernia. Abdominal Nodes: No retroperitoneal or mesenteric adenopathy by size criteria. Vessels: Aorta and inferior vena cava are normal in size. Atherosclerotic vascular calcifications. PELVIS: Pelvic Organs: Unremarkable as visualized. Bladder: Unremarkable. Urinary bladder wall is normal for degree of distention. Pelvic Nodes: No pathologically enlarged pelvic lymph nodes. Miscellaneous: No inguinal hernias seen. Bones: No acute compression fractures. No suspicious osseous lesions. IMPRESSION: 1. Limited CT evaluation of the abdomen and pelvis as described above. Within these limitations, no a cute abnormalities identified. 2. Mild hepatosplenomegaly. No evidence for biliary ductal dilatation. 3. Colonic diverticulosis without acute diverticulitis. 4. Atherosclerotic vascular disease. 5. Mild patchy groundglass opacities of the left lower lobe as well as dependent bilateral lung bases . Findings are likely related to atelectasis. However, early airspace disease/pneumonia may have a si milar appearance. Recommend clinical correlation. Reviewed by: Juan José Coronado MD on 07/17/2022 1:49 PM [place] Approved by: Juan José Coronado MD on 07/17/2022 1:49 PM [place] Station ID: [id number]
[2022-07-17 18:10] LABS: CALCIUM, IONIZED 1.1 mmol/L (1.15-1.33); VBG PH 7.31 (7.31-7.41)
--- NOTE | 2022-07-17 20:42 | PROVIDER PROGRESS NOTE ---
Progress Note July 17, 2022 8:20 PM With yesterday evening's hypotension, I asked anesthesia to put in a central line. That was placed last night. And I also started Levophed on him. No clear reason for why this patient is hypotensive. Patient is still slightly sluggish, speech is slowed and slightly slurred. But no tremors, no tachycardia. He has responded to the Levophed I started yesterday. Mean arterial pressure has been greater than 65 and at most he needed 6 mics. Urine output improved. He says other than back pain from being in the hospital bed, he does not have any change in discomfort or pain. He denies any chest pain. Relies on the nurses completely for transitioning him in the bed. He cannot roll over on his own, and he does try and sit up and stand but were afraid he is going to fall. We have been using a Kaci lift. Mom is at the bedside today. I was not able to speak to her at the bedside. But I did call her at home to let her know that I did a CAT scan looking for causes for his liver failure. Bilirubin continues to rise. Patient really does not describe any increased pain or nausea in his abdomen or epigastrium or right upper quadrant. The CT scan shows bibasilar atelectasis, mild patchy groundglass opacities at the lung bases. The liver has mild hepatomegaly, but no biliary ductal dilatation, no focal intrahepatic abnormalities. The biliary ducts are unremarkable. The pancreas is normal in shape and contour without peripancreatic inflammation. Mild splenomegaly. Kidneys do not have hydrone phrosis. Small bowel is unremarkable. Exam: Temperature is 37.2. Heart rate is 89. Blood pressure is 106/54. Respirations 15. 97% on room air. Morbidly obese white male at 201 kg, 5 foot 10 inches tall He is speaking to me, speech is slow, psychomotor slowing but he recognizes in the hospital, that his mom is here, but he cannot remember how he got here Neck is too thick for me to assess for JVD but it is supple Coarse upper airway sounds in the mid lungs, diminished breath sounds at the bases, occasional cough but no respiratory distress. He falls asleep and has snoring open mouth breathing. Regular rate and rhythm with distant cardiac tones A hugely obese abdomen pannus that I really cannot feel for any organomegaly. No tenderness. Hypoactive bowel sounds. Tello catheter is draining dark lesvia urine. Legs are huge, with 1+ edema. Neurologically psychomotor slowing of speech and thought process, forgetful Skin has a fungal rash of armpits, intertriginous folds, pannus Labs: Sodium on admission is 114, he is 124 since July 17. Potassium is 4.0, chloride 94, BUN 12, creatinine 0.7, fasting glucose 130, calcium 8.3, phosphorus 2.1 Bilirubin is 20.4 and was 13 on admission. It has been steadily rising. AST is 132. Came down a little bit from yesterday's 145. He was 153 on admission. ALT is normal today. Alk phos is 312. Ammonia is 78.8. CK is 201. I looked at urinalysis yesterday to see if he had a UTI. He was nitrite positive, trace leukocyte Estrace, but he had squamous cells and a few bacteria. Culture has no growth between yesterday and today. I did blood cultures yesterday looking for infection causing his hypotension and blood cultures are negative. Radiology: Abdomen pelvis CT was ordered because of hypotension, rising bili and results stated in HPI. Chest x-ray was ordered yesterday because I was looking for infection again. He had pulmonary vascular prominence, mild. But no acute infiltrate. I check troponin yesterday to make sure there is no [place], troponin was 35. Repeat troponin 3 hours later was 27. Not significant. Assessment/plan 1. Hypotension. Differential diagnosis for me included infection, [place], drug reaction. Bleeding. So far my work-up has been negative for any any signs of [place], and no source of infection identified other than sketchy infiltrate on CT of the chest. Hemoglobin is stable. No hematochezia. No hematemesis I put him on Levophed and he is responded to that with good urine output, improved blood pressure. But again no clear reason why he is hypotensive. I am still little loss to explain the hypotension. We will continue to support with Levophed. 2. Liver failure. As manifested by rising bilirubin. But CT of the abdomen does not show stones, only mild cirrhosis. I have discussed the MELD score with his mom. Explained that he does have a high risk of mortality from this especially in the next 3 months. She is hopeful that he will able to stop drinking and that his liver will recover. At this time I explained that it is mainly supportive care that I will offer with IV fluids for hydration, antiemetics, pain medicine, etc. I did discuss the case with radiology yesterday evening. I did discuss MRCP and whether this would help me make a diagnosis. However with no stone seen on CT, no gallbladder pathology or ductal dilatation, and MRCP would not be helpful at this time according to radiology 3. Hyponatremia. Slowly resolving with normal saline IV fluids. Restriction of free water. He still has edema but have avoided giving him loop diuretic to avoid intravascular depletion. 4. Alcohol abuse. Has been transition from banana bag to oral vitamins in the form of multivitamin with folic acid, and thiamine. He is still on Librium 25 mg p.o. every 6 hours. This may be contributing to some of his sedation. As such I will stop that. Physical therapy is trying to work with this gentleman. Big risk for falling and his weight is alarming with regards to the damage due to himself or someone else. We will could try to slowly work with him. Hopefully he will be able to return to home with home health rehab. 5. Hepatic encephalopathy with an ammonia level of 105 yesterday. He is on lactulose and today's ammonia level is 78.8. I do not know how much of his encephalopathy is from the ammonia or the Librium. I am hoping with stopping the Librium he will wake up a little bit more. 6. Hypocalcemia. Calcium carbonate 1250 mg every 4 hours x2 doses. Recheck tomorrow.
[2022-07-17] MEDS: LORazepam 2 MG/ML VIAL IVP PRN ×2 (21:29→22:04)
[2022-07-18] MEDS: SODIUM CHLORIDE FLUSH 0.9% 10 ML SYRINGE IVP PRN ×2 (05:16)
[2022-07-18] MEDS: GABAPENTIN 300 MG CAPSULE PO SCH ×2 (05:17→13:13)
[2022-07-18 06:11] LABS: CALCIUM, IONIZED 1.11 mmol/L (1.15-1.33); VBG PH 7.257 (7.31-7.41)
[2022-07-18 06:13] LABS: BASOPHILS # (AUTO) 0.1 10^3/uL (0.0-0.1); BASOPHILS % (AUTO) 0.8 %; EOSINOPHILS # (AUTO) 0.2 10^3/uL (0.0-0.7); EOSINOPHILS % (AUTO) 2.5 %; HCT - HEMATOCRIT 33.7 % (42.0-52.0); HGB - HEMOGLOBIN 11.8 g/dL (14.0-18.0); LYMPHOCYTES # (AUTO) 1.1 10^3/uL (1.5-3.5); MEAN CORPUSCULAR HEMOGLOBIN 35.2 pg (27.0-31.0); MEAN CORPUSCULAR VOLUME 100.6 fL (80.0-94.0); MEAN PLATELET VOLUME 9.2 fL (7.4-11.4); MONOCYTES # (AUTO) 1.4 10^3/uL (0.0-1.0); NEUTROPHILS # (AUTO) 4.8 10^3/uL (1.5-6.6); NEUTROPHILS % (AUTO) 63.1 %; PLT - PLATELET COUNT 140 10^3/uL (130-450); RED BLOOD COUNT 3.35 10^6/uL (4.70-6.10); RED CELL DISTRIBUTION WIDTH 14.7 % (12.0-15.0); WHITE BLOOD COUNT 7.7 x10^3/uL (4.8-10.8)
[2022-07-18 06:41] LABS: ALBUMIN 2.4 g/dL (3.2-5.5); ALBUMIN/GLOBULIN RATIO 0.7 (1.0-2.2); BILIRUBIN,TOTAL 21.9 mg/dL (0.2-1.0); CALCIUM 8.2 mg/dL (8.5-10.3); CREATININE 0.7 mg/dL (0.6-1.2); MAGNESIUM 2.3 mg/dL (1.7-2.8); PHOSPHORUS 2.8 mg/dL (2.5-4.6); POTASSIUM 3.8 mmol/L (3.5-5.0); TOTAL PROTEIN 5.8 g/dL (6.7-8.2)
[2022-07-18] MEDS ORDERED: POTASSIUM CHLORIDE 20 MEQ TABLET PO ONE (08:00)
[2022-07-18] MEDS: SODIUM CHLORIDE 0.9% 1,000 ML IV SCH ×2 (09:10→22:40)
[2022-07-18] MEDS: LACTULOSE 10 GM /15 ML UDC PO SCH ×2 (09:10→21:07)
[2022-07-18] MEDS: CALCIUM CARBONATE CHEW 500 MG TABLET PO SCH ×2 (09:10→13:13)
[2022-07-18] MEDS: NYSTATIN POWDER 15 GM TOP SCH ×2 (09:10→21:14)
[2022-07-18] MEDS: PRENATAL VITAMIN TABLET PO SCH (09:11)
[2022-07-18] MEDS: FAMOTIDINE 20 MG TABLET PO SCH ×2 (09:11→21:08)
[2022-07-18] MEDS: SODIUM CHLORIDE 1 GM TABLET PO SCH ×2 (09:11→21:14)
[2022-07-18] MEDS: LACTOBACILLUS RHAMNOSUS GG CAPSULE PO SCH (09:11)
[2022-07-18] MEDS: SODIUM CHLORIDE FLUSH 0.9% 10 ML SYRINGE IVP SCH ×2 (09:11→16:25)
[2022-07-18] MEDS: NOREPINEPHRINE/0.9 % NS 8 MG/250 ML BAG IV SCH ×2 (09:15→16:24)
[2022-07-18] MEDS: THIAMINE 100 MG TABLET PO SCH (09:15)
[2022-07-18] MEDS ORDERED: FUROSEMIDE 40 MG/4 ML VIAL IVP STA (13:23)
[2022-07-18] MEDS: LORazepam 2 MG/ML VIAL IVP PRN (18:08)
--- NOTE | 2022-07-18 18:37 | PROVIDER PROGRESS NOTE ---
Progress Note July 18, 2022 6:30 PM The patient continues to have psychomotor slowing with slurred speech. He will respond to my voice, is awake, he knows he is in the hospital. But when I found him this morning he was laying almost completely on his back, and was attempting to feed himself laying on his back. His food tray was at a 45 degree angle with pancakes on his chest, around his neck. I told him that he cannot eat laying down and he has to be set up. I also let the nurses know. Levophed has still been ongoing since July 16. His mean arterial pressure is 65-68. Systolic is in the low 90s. Urine output was at 25 cc an hour this morning, and is dropped to less than 20 cc an hour this afternoon. Creatinine continues to be normal. No fever, no chills, no cough. No abdominal pain. He says that other than aching all over, he really does not have any new complaints. Exam: Temperature is 36.7, heart rate 94, blood pressure 105/56. Respirations 20. He is 99% saturated on 3 L. He is altered between 3 L and 2 L since admission on July 15. Fluid balance has been positive since admission. As of today he is overall +9414 cc at the time of this dictation. He is a morbidly obese, slow to respond white male with severe jaundice. Moist oral mucosa I really cannot access neck for JVD because of his short neck and obesity Diminished breath sounds at the bases, slow unlabored respiration, overall poor air movement due to his weight probably causing compression atelectasis but no respiratory distress. Distant cardiac tones of regular rate and rhythm Abdomen is hugely obese, soft, hypoactive bowel sounds. Using the heel of my hand I press deeply in the right upper quadrant, epigastrium, umbilicus area, and cannot reproduce any pain whatsoever. He says none of this hurts. It does not feel comfortable having me palpating that deeply but it does not hurt. Tello is draining brown-lesvia urine Extremities are hugely obese, edematous and he is moving all extremities. Neurologically psychomotor slowing, sometimes takes quite a bit of time to think about what have asked him and then respond. Sometimes up to a 10-second pause. He is moving all extremities spontaneously. No tremor, no asterixis. Lab: Sodium 114 on admission and is now 128. He continues to slowly rise Potassium is 3.8, BUN 14, creatinine 0.7. In spite of his hypotension and low urine output, his creatinine has remained normal Total bili is 21.9. Yesterday he was 20.4. On admission he was 13.0. AST continues to slowly go down at 112. ALT has been normal and is 51 today. When he was admitted we were worried about rhabdo because of his fall, and his CK was 393. Today CK is 171. White cell count has been normal throughout his stay and is 7.7 today. Hemoglobin is 11.8. Platelets 140. When he was admitted platelets were 79. Abdomen and pelvis CT were done because of hypotension and I was looking for source of infection and his liver had mild hepatosplenomegaly but no biliary ductal dilatation, no diverticulitis, and he had patchy groundglass opacities of the left lower lobe. Assessment/plan 1. Hypotension. With diminishing urine output. Differential diagnosis that I have thought about included infection, [place], drug reaction, GI bleeding. Troponin has been negative. White cell count and other indication of infection with fever and has not been present. Urinalysis has been done and negative. Blood cultures have been done and negative. Hemoglobin is slowly drifting down but no evidence of GI bleed causing hypotension or hepatic encephalopathy.CT of the abdomen is not identifying any source of infection such as cholecystitis, pancreatitis, common bile duct stone etc. Levophed ordered July 16. And it is working at keeping his blood pressure up but no clear reason that I can see for his hypotension. Plan: Continue blood pressure support with Levophed. I may consider changing to dopamine said it is vasoconstrictive. I worry about him going into hepatorenal failure.Lasix 40 mg IV push x1 to see if I can increase his urine output 2. Liver failure. Liver enzymes have improved but bilirubin continues to rise. I did consult with Dr. Pa who is on-call gastroenterology for [facility]. She says that bilirubin will lag behind liver enzymes and improving. She recommends increasing the lactulose, starting rifaximin at 550 mg, and I asked about steroids. She feels that as long as there is no GI bleed, and that there is no indication of infection, he could tolerate 1 mg/kg of methylprednisolone. When I explained that he is 200 kg she did not feel that 200 mg of methylprednisolone will be indicated and asked me to just aim for 40 mg a day for 5 days. I will also add pantoprazole 40 mg IV push daily to be stomach protective. I discussed this problem with his mom again today. Went over all the details. She feels like she wants to keep a positive attitude because this is her son and she does not want to think about him dying. She wants to know what we are going to do after he is recovered. I did know quite what she was referring to but she asked about rehab. I explained that we would give him a list of rehab facilities. If he is at all interested in doing that social work can expedite his getting there. But he has to want to do it on his own. 3. Hyponatremia that is resolving with normal saline IV fluids. Restriction of free water. He has gained 6 kg, most likely water weight with his edema. He is over 9 L positive with fluid balance. Plan: Lasix 40 mg IV push once and reassess labs tomorrow as well as weight 4. Alcohol abuse. Initially was on banana bags. Transition to a multivitamin orally. He was on Librium and CIWA protocol. Librium was stopped July 17. So far still psychomotor slowing. I am hoping that the lactulose increase will help. 5. Hepatic encephalopathy. Increase lactulose dose.I will go from 10 mg p.o. daily to 10 mg p.o. twice daily. In reviewing his med list he is on gabapentin 600 mg p.o. 3 times daily. I am trying to diminish as much sedation as possible so we will stop that and reassess to see if he really needs it. I am also hoping it will decrease the amount of sedative effect he is getting 6. Hypocalcemia. Repeat calcium is 8.2 but when corrected for albumin is normal. Continue to monitor and supplement.
[2022-07-18] MEDS ORDERED: PANTOPRAZOLE 40 MG VIAL IVP SCH (19:00)
[2022-07-18] MEDS: methylPREDNISolone SUCCINATE 40 MG/ML VIAL IVP SCH (19:59)
[2022-07-18] MEDS: rifAXIMin 550 MG TABLET PO SCH (21:11)
[2022-07-19 04:29] LABS: BASOPHILS % (AUTO) 0.4 %; EOSINOPHILS % (AUTO) 0.4 %; HCT - HEMATOCRIT 37.9 % (42.0-52.0); HGB - HEMOGLOBIN 12.5 g/dL (14.0-18.0); LYMPHOCYTES # (AUTO) 0.5 10^3/uL (1.5-3.5); LYMPHOCYTES % (AUTO) 8.5 %; MEAN CORPUSCULAR HEMOGLOBIN 34.2 pg (27.0-31.0); MEAN CORPUSCULAR VOLUME 103.6 fL (80.0-94.0); MEAN PLATELET VOLUME 8.8 fL (7.4-11.4); MONOCYTES # (AUTO) 0.3 10^3/uL (0.0-1.0); MONOCYTES % (AUTO) 5.4 %; NEUTROPHILS # (AUTO) 4.4 10^3/uL (1.5-6.6); NEUTROPHILS % (AUTO) 80.9 %; PLT - PLATELET COUNT 124 10^3/uL (130-450); RED BLOOD COUNT 3.66 10^6/uL (4.70-6.10); RED CELL DISTRIBUTION WIDTH 15.1 % (12.0-15.0); WHITE BLOOD COUNT 5.4 x10^3/uL (4.8-10.8)
[2022-07-19 04:41] LABS: ALBUMIN 2.5 g/dL (3.2-5.5); ALBUMIN/GLOBULIN RATIO 0.7 (1.0-2.2); BILIRUBIN,TOTAL 23.8 mg/dL (0.2-1.0); CALCIUM 8.3 mg/dL (8.5-10.3); CREATININE 1.1 mg/dL (0.6-1.2); POTASSIUM 4.2 mmol/L (3.5-5.0); TOTAL PROTEIN 6.1 g/dL (6.7-8.2)
[2022-07-19] MEDS: SODIUM CHLORIDE FLUSH 0.9% 10 ML SYRINGE IVP SCH ×2 (09:48→10:31)
[2022-07-19] MEDS: FAMOTIDINE 20 MG TABLET PO SCH (09:49)
[2022-07-19] MEDS: SODIUM CHLORIDE 1 GM TABLET PO SCH ×2 (09:51→23:22)
[2022-07-19] MEDS: THIAMINE 100 MG TABLET PO SCH (09:51)
[2022-07-19] MEDS: LACTOBACILLUS RHAMNOSUS GG CAPSULE PO SCH (09:52)
[2022-07-19] MEDS: LACTULOSE 10 GM /15 ML UDC PO SCH ×2 (09:53→21:13)
[2022-07-19] MEDS: PRENATAL VITAMIN TABLET PO SCH (10:22)
[2022-07-19] MEDS: rifAXIMin 550 MG TABLET PO SCH ×2 (10:24→23:22)
[2022-07-19] MEDS: methylPREDNISolone SUCCINATE 40 MG/ML VIAL IVP SCH ×2 (10:26→10:30)
[2022-07-19] MEDS: PANTOPRAZOLE 40 MG TABLET PO SCH (11:01)
[2022-07-19] MEDS: SODIUM CHLORIDE 0.9% 1,000 ML IV SCH (12:36)
[2022-07-19] MEDS: NYSTATIN POWDER 15 GM TOP SCH ×2 (12:37→21:21)
--- NOTE | 2022-07-19 13:04 | PROVIDER PROGRESS NOTE ---
Subjective - Prog Note Date Prog Note Date: 07/19/22 Prog Note Time: 13:02 - Subjective Pt reports feeling: No change Subjective: Patient continues to have slurred speech. He is responsive to orders, is awake, and knows he's in the ICU. He's been moved to a bariatric bed this morning. Mom helped to feed him this morning. Objective - Vital Signs/Intake & Output Vital Signs: Vital Signs x48h Temp Pulse Resp BP Pulse Ox O2 Flow Rate 07/19/22 12:00 91 18 127/73 94 1 07/19/22 11:40 1 07/19/22 11:00 90 14 114/75 98 1 07/19/22 10:00 87 14 125/77 97 1 07/19/22 09:45 37.0 C 07/19/22 09:00 87 14 125/77 97 1 07/19/22 07:00 90 20 122/62 97 1 07/19/22 06:00 91 18 106/65 97 1 Intake & Output: Intake & Output 07/16/22 07/17/22 07/18/22 07/19/22 23:59 23:59 23:59 23:59 Intake Total 4660.200 2723.249 2996.313 1144.188 Output Total 663 9186 392 9694 Balance 3997.200 7486.697 2721.313 -10.812 - Objective General Appearance: positive: Other (Obese and jaundiced) Neck: positive: Other (Hard to determine JVD due to body habitus) Respiratory: positive: No respiratory distress, Other (No respiratory distress, distant lung sounds more likely than not d/t body habitus) Cardiovascular: positive: Other (Regular rate and rhytym but sounds are distant more likely than not d/t body habitus.) Abdomen: positive: Non-tender, Abnml bowel sounds (hypoactive) Skin: positive: Other (Jaundiced, L inverted nipple, L upper outer quad with oozing sebaceous cyst, and bilateral non blanching erythamatous buttocks.) Neurologic/Psychiatric: positive: Oriented x3, Slurred/abnml speech (Slurred speech more likely than not d/t liver encephalopathy.) - Lab Results Fish Bones: 07/19/22 04:04 07/19/22 04:04 Other Labs: Lab Results x24hrs 07/19/22 07/19/22 Range/Units 04:04 04:04 WBC 5.4 (4.8-10.8) x10^3/uL RBC 3.66 L (4.70-6.10) 10^6/uL Hgb 12.5 L (14.0-18.0) g/dL Hct 37.9 L (42.0-52.0) % MCV 103.6 H (80.0-94.0) fL MCH 34.2 H (27.0-31.0) pg MCHC 33.0 (32.0-36.0) g/dL RDW 15.1 H (12.0-15.0) % Plt Count 124 L (130-450) 10^3/uL MPV 8.8 (7.4-11.4) fL Neut # (Auto) 4.4 (1.5-6.6) 10^3/uL Lymph # (Auto) 0.5 L (1.5-3.5) 10^3/uL Owsley # (Auto) 0.3 (0.0-1.0) 10^3/uL Eos # (Auto) 0.0 (0.0-0.7) 10^3/uL Baso # (Auto) 0.0 (0.0-0.1) 10^3/uL Absolute Nucleated RBC 0.00 x10^3/uL Nucleated RBC % 0.0 /100WBC Sodium 127 L (135-145) mmol/L Potassium 4.2 (3.5-5.0) mmol/L Chloride 98 L (101-111) mmol/L Carbon Dioxide 19 L (21-32) mmol/L Anion Gap 10.0 (6-13) BUN 18 (6-20) mg/dL Creatinine 1.1 (0.6-1.2) mg/dL Estimated GFR (MDRD) 70 L (>89) Glucose 158 H (70-100) mg/dL Calcium 8.3 L (8.5-10.3) mg/dL Total Bilirubin 23.8 H (0.2-1.0) mg/dL AST 109 H (10-42) IU/L ALT 53 (10-60) IU/L Alkaline Phosphatase 342 H (42-121) IU/L Total Protein 6.1 L (6.7-8.2) g/dL Albumin 2.5 L (3.2-5.5) g/dL Globulin 3.6 (2.1-4.2) g/dL Albumin/Globulin Ratio 0.7 L (1.0-2.2) Assessment/Plan - Problem List (1) Alcoholic liver disease Impression: Bilirubin continues to rise (07/18: 21.9, today 07/19:23.8). Per last note, consult with Dr. Pa states increasing lactulose dose, starting rifaximin 550 along w/ methylprednisolone 1mg/kg for the treatment of his alcoholic liver disease and pantoprazole 40mg IV push for stomach ulcer protection. However, Dr. Pa did not feel it necessary to give 200mg of steroids and aim for 40mg a day for 5 days. As such, patient is to continue lactulose, rifaximin 550mg, 40mg methylpredisolone, and pantoprazole 40mg IV push for the management of Alcoholic liver disease and failure. Monitor for improvement. MELD 3.0 score is 29 points which equates to an estimated 76.5% indication for short term survival and approximately a 19.6% chance of mortality for patient's with end stage liver disease for considerations for liver transplant. Maddrey discrimination score is 54.6 points at this time, where >32 indicateds poor prognosis and would benefit from glucocorticoid therapy. Patient is currently on mehtylpredisolone. (2) Hepatic encephalopathy Impression: Patient has his dose of lactulose increased from 10mg po daily to twice daily. Pt still shows psychomotor slowing, will consider increasing dose but will monitor for now. (3) Hyponatremia Impression: Hypornatremia slowly improving with normal saline IV fluids. Continue to restrict free water. (4) Alcoholism Impression: Initially was on banana bags and transitioned to multivit orally. Was on librium and CIWA protocol, but librium stopped 07/17. Pt is on lactulose with should help with the psychomotor slowing, however, this is still present at this time. Will continue to monitor. (5) Hypocalcemia Impression: Repeat calcium is 8.3 today, will continue to monitor and supplement.
[2022-07-19] MEDS: OFLOXACIN 0.3% OPHTH DROPS EACHEYE SCH (23:22)
[2022-07-20] MEDS: NOREPINEPHRINE/0.9 % NS 8 MG/250 ML BAG IV SCH ×2 (00:57→15:41)
[2022-07-20] MEDS: SODIUM CHLORIDE FLUSH 0.9% 10 ML SYRINGE IVP SCH ×4 (01:05→15:42)
[2022-07-20] MEDS: OFLOXACIN 0.3% OPHTH DROPS EACHEYE SCH ×6 (01:05→21:35)
[2022-07-20] MEDS: SODIUM CHLORIDE 0.9% 1,000 ML IV SCH ×2 (01:06→15:42)
[2022-07-20] MEDS: PANTOPRAZOLE 40 MG TABLET PO SCH (06:07)
[2022-07-20] MEDS ORDERED: PANTOPRAZOLE 40 MG TABLET PO SCH (07:00)
[2022-07-20 08:33] LABS: BASOPHILS % (AUTO) 0.3 %; EOSINOPHILS % (AUTO) 0.4 %; HCT - HEMATOCRIT 36.3 % (42.0-52.0); HGB - HEMOGLOBIN 12.4 g/dL (14.0-18.0); LYMPHOCYTES # (AUTO) 0.7 10^3/uL (1.5-3.5); LYMPHOCYTES % (AUTO) 9.3 %; MEAN CORPUSCULAR HEMOGLOBIN 34.8 pg (27.0-31.0); MEAN CORPUSCULAR HGB CONC 34.2 g/dL (32.0-36.0); MEAN PLATELET VOLUME 8.6 fL (7.4-11.4); MONOCYTES % (AUTO) 13.5 %; NEUTROPHILS # (AUTO) 5.6 10^3/uL (1.5-6.6); NEUTROPHILS % (AUTO) 74.7 %; PLT - PLATELET COUNT 147 10^3/uL (130-450); RED BLOOD COUNT 3.56 10^6/uL (4.70-6.10); RED CELL DISTRIBUTION WIDTH 15.8 % (12.0-15.0); WHITE BLOOD COUNT 7.4 x10^3/uL (4.8-10.8)
[2022-07-20 08:55] LABS: ALBUMIN 2.4 g/dL (3.2-5.5); ALBUMIN/GLOBULIN RATIO 0.7 (1.0-2.2); BILIRUBIN,TOTAL 21.3 mg/dL (0.2-1.0); CALCIUM 8.4 mg/dL (8.5-10.3); CREATININE 0.9 mg/dL (0.6-1.2); POTASSIUM 3.8 mmol/L (3.5-5.0); TOTAL PROTEIN 5.8 g/dL (6.7-8.2)
[2022-07-20] MEDS: LACTULOSE 10 GM /15 ML UDC PO SCH ×2 (09:06→21:34)
[2022-07-20] MEDS: rifAXIMin 550 MG TABLET PO SCH ×2 (09:08→21:35)
[2022-07-20] MEDS: PRENATAL VITAMIN TABLET PO SCH (09:10)
[2022-07-20] MEDS: LACTOBACILLUS RHAMNOSUS GG CAPSULE PO SCH (09:11)
[2022-07-20] MEDS: SODIUM CHLORIDE 1 GM TABLET PO SCH ×2 (09:12→21:35)
[2022-07-20] MEDS: THIAMINE 100 MG TABLET PO SCH (09:13)
[2022-07-20] MEDS: NYSTATIN POWDER 15 GM TOP SCH ×2 (09:25→21:35)
--- NOTE | 2022-07-20 11:05 | PROVIDER PROGRESS NOTE ---
Subjective - Prog Note Date Prog Note Date: 07/20/22 Prog Note Time: 11:34 - Subjective Subjective: he is laying on his back, fork in right hand, asleep and food in his mouth. wakes to say he's eating and I told him that he has to sit up to eat bc he could aspirate. Denies pain, just sleepy. Current Medications - Current Medications Current Medications: Active Medications Carboxymethylcellulose (Carboxymethylcellulose Ophth Drops) 1 drops EACHEYE PRN PRN PRN Reason: Dry Eye Last Admin: 07/17/22 21:40 Dose: 1 drops Sodium Chloride (Normal Saline 0.9%) 1,000 mls @ 75 mls/hr IV .[id number] [facility] Last Admin: 07/20/22 01:06 Dose: 75 mls/hr NOREPINEPHRINE/0.9 % NS (Levophed 8 Mg/250-0.9% Nacl) 8 mg in 250 mls @ 15 mls/hr IV .[id number] [facility]; Protocol Last Admin: 07/20/22 00:57 Dose: Not Given Lactobacillus Rhamnosus (Lactobacillus Rhamnosus Gg Capsule) 1 cap PO DAILY [facility] Last Admin: 07/20/22 09:11 Dose: 1 cap Lactulose (Lactulose 10 Gm /15 Ml Udc) 10 gm PO BID [facility] Last Admin: 07/20/22 09:06 Dose: 10 gm Lorazepam (Lorazepam 2 Mg/Ml Vial) 2 mg IVP Q30M PRN; Protocol PRN Reason: CIWA >8 Last Admin: 07/18/22 18:08 Dose: 2 mg Methylprednisolone (Methylprednisolone Succinate 40 Mg/Ml Vial) 40 mg IVP DAILY [facility] Last Admin: 07/19/22 10:30 Dose: 40 mg Multi-Ingredient Ointment (Zinc Oxide 20% Oint 30 Gm Tube) 1 applic TOP PRN PRN PRN Reason: Skin Care Last Admin: 07/17/22 21:04 Dose: 1 applic Nystatin (Nystatin Powder 15 Gm) 1 applic TOP BID [facility] Last Admin: 07/20/22 09:25 Dose: 1 applic Ofloxacin (Ofloxacin 0.3% Ophth Drops) 2 drops EACHEYE Q4HR [facility] Stop: 07/22/22 08:59 Last Admin: 07/20/22 09:15 Dose: 2 drops Ondansetron HCl (Ondansetron 4 Mg/2 Ml Vial) 4 mg IVP Q6HR PRN PRN Reason: Nausea / Vomiting Last Admin: 07/16/22 08:12 Dose: 4 mg Pantoprazole Sodium (Pantoprazole 40 Mg Tablet) 40 mg PO QDAC [facility] Last Admin: 07/20/22 06:07 Dose: 40 mg Multivit/Folic Acid/Iron ( Vitamin Tablet) 1 tab PO DAILYWM [facility] Last Admin: 07/20/22 09:10 Dose: 1 tab Prochlorperazine Edisylate (Prochlorperazine 10 Mg/2 Ml Vial) 10 mg IVP Q6HR PRN PRN Reason: Nausea / Vomiting Rifaximin (Rifaximin 550 Mg Tablet) 550 mg PO BID [facility] Last Admin: 07/20/22 09:08 Dose: 550 mg Sodium Chloride (Sodium Chloride Flush 0.9% 10 Ml Syringe) 10 ml IVP 0100,0900,1700 [facility] Last Admin: 07/20/22 09:13 Dose: 10 ml Sodium Chloride (Sodium Chloride Flush 0.9% 10 Ml Syringe) 10 ml IVP PRN PRN PRN Reason: NEEDED PER PROVIDER ORDERS Last Admin: 07/18/22 05:16 Dose: 10 ml Sodium Chloride (Sodium Chloride 1 Gm Tablet) 1 gm PO BID [facility] Last Admin: 07/20/22 09:12 Dose: 1 gm Sodium Chloride (Sodium Chloride Flush 0.9% 10 Ml Syringe) 20 ml IVP PRN PRN PRN Reason: After Blood Draw Last Admin: 07/18/22 05:16 Dose: 20 ml Thiamine HCl (Thiamine 100 Mg Tablet) 100 mg PO DAILY [facility] Last Admin: 07/20/22 09:13 Dose: 100 mg Zinc Oxide (Cod Liver Oil/Zinc Oxide 113 Gm Tube) 113 gm TOP PRN PRN PRN Reason: Skin Care Omeprazole 20 mg PO DAILY 05/10/16 Gabapentin [Neurontin] 2 cap PO TID 07/15/22 Objective - Vital Signs/Intake & Output Reviewed Vital Signs: Yes Vital Signs: Vital Signs x48h Temp Pulse Resp BP Pulse Ox O2 Flow Rate 07/20/22 10:00 84 12 103/59 L 92 07/20/22 09:00 88 17 100/65 93 07/20/22 08:00 36.7 C 91 17 121/73 94 1 07/20/22 07:00 84 13 109/75 95 1 07/20/22 06:00 87 18 123/75 96 1 07/20/22 05:00 87 16 119/81 H 96 1 07/20/22 04:00 92 20 134/83 H 96 1 Intake & Output: Intake & Output 07/17/22 07/18/22 07/19/22 07/20/22 23:59 23:59 23:59 23:59 Intake Total 2723.249 2996.313 8924.338 3079.5 Output Total 7596 455 5608 817 Balance 1426.792 1191.313 249.094 210.5 - Objective General Appearance: positive: No acute distress, Lethargic, Other (jaundiced super obese white male, asleep with his fork in his hand and food in his mouth) Eyes Bilateral: positive: PERRL, EOMI Eyes: OU Scleral icterus ENT: positive: No signs of dehydration Neck: negative: Stiff neck Respiratory: positive: No respiratory distress, Other (very quiet air movement, unlabored. Has ALE by exam and observation. No previous hx of that.) Cardiovascular: positive: Regular rate & rhythm Abdomen: positive: Non-tender, Nml bowel sounds, Other (Tello draining brown, unable to assess for organomegaly due to super large panus) Skin: positive: Warm, Dry Extremities: positive: Full ROM, Pedal edema Neurologic/Psychiatric: positive: Oriented x3, CN's nml (2-12), Motor nml - Lab Results Fish Bones: 07/20/22 08:27 07/20/22 08:27 Other Labs: Lab Results x24hrs 07/20/22 07/20/22 Range/Units 08:27 08:27 WBC 7.4 (4.8-10.8) x10^3/uL RBC 3.56 L (4.70-6.10) 10^6/uL Hgb 12.4 L (14.0-18.0) g/dL Hct 36.3 L (42.0-52.0) % MCV 102.0 H (80.0-94.0) fL MCH 34.8 H (27.0-31.0) pg MCHC 34.2 (32.0-36.0) g/dL RDW 15.8 H (12.0-15.0) % Plt Count 147 (130-450) 10^3/uL MPV 8.6 (7.4-11.4) fL Neut # (Auto) 5.6 (1.5-6.6) 10^3/uL Lymph # (Auto) 0.7 L (1.5-3.5) 10^3/uL Gates # (Auto) 1.0 (0.0-1.0) 10^3/uL Eos # (Auto) 0.0 (0.0-0.7) 10^3/uL Baso # (Auto) 0.0 (0.0-0.1) 10^3/uL Absolute Nucleated RBC 0.00 x10^3/uL Nucleated RBC % 0.0 /100WBC Sodium 131 L (135-145) mmol/L Potassium 3.8 (3.5-5.0) mmol/L Chloride 103 (101-111) mmol/L Carbon Dioxide 21 (21-32) mmol/L Anion Gap 7.0 (6-13) BUN 22 H (6-20) mg/dL Creatinine 0.9 (0.6-1.2) mg/dL Estimated GFR (MDRD) 88 L (>89) Glucose 133 H (70-100) mg/dL Calcium 8.4 L (8.5-10.3) mg/dL Total Bilirubin 21.3 H (0.2-1.0) mg/dL AST 95 H (10-42) IU/L ALT 56 (10-60) IU/L Alkaline Phosphatase 361 H (42-121) IU/L Total Protein 5.8 L (6.7-8.2) g/dL Albumin 2.4 L (3.2-5.5) g/dL Globulin 3.4 (2.1-4.2) g/dL Albumin/Globulin Ratio 0.7 L (1.0-2.2) ABX Reporting Has patient been on IV antibiotics over the past 48 hours?: No Assessment/Plan - Problem List (1) Liver failure without hepatic coma Impression: From alcoholic liver disease. He presented as months of increasing beer drinking since he lost his job. On admission his bili and LFTs were elevated. INR 1.8. While his LFTs were improving, his bili lagged and continued to rise. I ordered a CT of abd to make sure I wasn't missing gallbladder disease or intraductal dilatation and that was negative. I did ask radiology if I needed to do an MRCP and he advised it wasn't necessary. Bili Peaked yesterday 07/19 at 23.8. Today is the first day it has come down slightly. Per phone call consult with Dr. Pa from GI @ [facility] on 07/19, she advised me to increase lactulose dose, starting rifaximin 550 along w/ methylprednisolone 1mg/kg for the treatment of his alcoholic liver disease and pantoprazole 40mg IV push for stomach ulcer protection. However, Dr. Pa did not feel it necessary to give 200mg of steroids and aim for 40mg a day for 5 days. My phone call to Dr. Pa was not a formal consult and was only an attempt on my part to seek advice in making sure I was maximizing his treatment. I don't know if my addition of meds made a difference or he was going to improve anyway, but I am cautiously optimistic about an improved prognosis if his bili is coming down. He is still w psychomotor slowing and keeps on being found asleep with food in his mouth when I examine him and have reiterated to staff to be in room with him when he eats or sit him up. MELD 3.0 score is 29 points which equates to an estimated 76.5% indication for short term survival and approximately a 19.6% chance of mortality for patient's with end stage liver disease for considerations for liver transplant. Maddrey discrimination score is 54.6 points at this time, where >32 indicateds poor prognosis and would benefit from glucocorticoid therapy. Patient is currently on methylpredisolone. Plan: continue the solumedrol 40 mg IVP for 5 days, the last dose would be 07/22/22 continue the lactulose 10 gram po bid continue rifaximin will continue daily CMP. (2) Hepatic encephalopathy Impression: Patient has his dose of lactulose increased from 10mg po daily to twice daily. While he is definitely more awake, responsive and oriented, pt still shows psychomotor slowing, will consider increasing dose but will monitor for now. He already has loose stools twice a day and I don't want to give him more diarrhea. (3) buttock skin rash I noticed it on exam when we rolled him over to a new bariatric bed yesterday. It covers the skin of both buttocks and is a result of being on his back and having the loose stool. WE are using wipes to clean and those wipes have barrier cream on them. I have also ordered nystatin powder to cover the rash as well as use in his intertriginous folds. While the skin is red and nonblanching, there is no skin ulcers or tears. (4) Hyponatremia Impression: On admission, he presented is almost meeting the criteria for beer Potomania. He was severely hyponatremic but not hypokalemic. Sodium in September admission was 114. By July 16 he was 118. By July 17 he was 124. July 18 he was 128 and today he is 131. So he is improving slowly as I would want for hyponatremia. I have not had to use D5. Plan: Continue using 1 L a day of normal saline until he is adequately taking enough p.o. intake on his own. (5) Alcoholism Impression: Initially was on banana bags and transitioned to multivit orally. Was on librium and CIWA protocol, but librium stopped 07/17. Pt is on lactulose with should help with the psychomotor slowing, however, this is still present at this time. Will continue to monitor. His mom would like him to go to rehab again. And I explained to her that we will certainly give him options and list of places for him to use. And we will even help him get there. But he has to make sure that leap himself. (6) Hypocalcemia Impression: Today's calcium is 8.4. Using low normal albumin at 3.2, his corrected calcium is 9. As such she is in normal range and does not need supplementation today. (7) Right breast nipple inversion Outpatient work up with mammo (8) boil Left anterior thigh that has come to a head. Apply hot compress today and if doesn't drain on it's own I will I&D. Area is ~2 cm. Domed. No surrounding cellulitis. Qualifiers: Liver failure chronicity: subacute Qualified Code(s): K72.00 - Acute and subacute hepatic failure without coma
[2022-07-20] MEDS: SODIUM CHLORIDE FLUSH 0.9% 10 ML SYRINGE IVP PRN (21:40)
[2022-07-21] MEDS: SODIUM CHLORIDE FLUSH 0.9% 10 ML SYRINGE IVP SCH ×3 (01:07→17:31)
[2022-07-21] MEDS: OFLOXACIN 0.3% OPHTH DROPS EACHEYE SCH ×6 (01:07→20:24)
[2022-07-21] MEDS: NOREPINEPHRINE/0.9 % NS 8 MG/250 ML BAG IV SCH (02:39)
[2022-07-21] MEDS: CALCIUM CARBONATE CHEW 500 MG TABLET PO PRN (04:14)
[2022-07-21] MEDS: SODIUM CHLORIDE FLUSH 0.9% 10 ML SYRINGE IVP PRN (04:19)
[2022-07-21] MEDS: COD LIVER OIL/ZINC OXIDE 113 GM TUBE TOP PRN ×2 (04:20→21:34)
[2022-07-21 04:34] LABS: BASOPHILS % (AUTO) 0.5 %; RED CELL DISTRIBUTION WIDTH 16.7 % (12.0-15.0)
[2022-07-21 04:36] LABS: EOSINOPHILS # (AUTO) 0.2 10^3/uL (0.0-0.7); EOSINOPHILS % (AUTO) 3.7 %; HCT - HEMATOCRIT 35.2 % (42.0-52.0); HGB - HEMOGLOBIN 11.8 g/dL (14.0-18.0); LYMPHOCYTES # (AUTO) 0.9 10^3/uL (1.5-3.5); LYMPHOCYTES % (AUTO) 14.7 %; MEAN CORPUSCULAR HEMOGLOBIN 34.7 pg (27.0-31.0); MEAN CORPUSCULAR HGB CONC 33.5 g/dL (32.0-36.0); MEAN CORPUSCULAR VOLUME 103.5 fL (80.0-94.0); MEAN PLATELET VOLUME 8.6 fL (7.4-11.4); MONOCYTES % (AUTO) 17.2 %; NEUTROPHILS # (AUTO) 3.6 10^3/uL (1.5-6.6); NEUTROPHILS % (AUTO) 61.4 %; PLT - PLATELET COUNT 146 10^3/uL (130-450); WHITE BLOOD COUNT 5.9 x10^3/uL (4.8-10.8)
[2022-07-21 04:46] LABS: CALCIUM, IONIZED 1.17 mmol/L (1.15-1.33); VBG PH 7.323 (7.31-7.41)
[2022-07-21 04:49] LABS: ALBUMIN 2.3 g/dL (3.2-5.5); ALBUMIN/GLOBULIN RATIO 0.7 (1.0-2.2); BILIRUBIN,TOTAL 18.2 mg/dL (0.2-1.0); CALCIUM 8.3 mg/dL (8.5-10.3); CREATININE 0.8 mg/dL (0.6-1.2); POTASSIUM 3.6 mmol/L (3.5-5.0); TOTAL PROTEIN 5.6 g/dL (6.7-8.2)
[2022-07-21] MEDS ORDERED: POTASSIUM CHLOR 20 MEQ/100 ML 20 MEQ/100 ML BAG IV ONE (04:51)
[2022-07-21 04:57] LABS: MAGNESIUM 2.2 mg/dL (1.7-2.8); PHOSPHORUS 2.3 mg/dL (2.5-4.6)
[2022-07-21] MEDS: PANTOPRAZOLE 40 MG TABLET PO SCH (06:08)
[2022-07-21] MEDS: SODIUM CHLORIDE 0.9% 1,000 ML IV SCH ×2 (06:10→17:30)
[2022-07-21] MEDS: PRENATAL VITAMIN TABLET PO SCH (07:50)
[2022-07-21] MEDS: LACTULOSE 10 GM /15 ML UDC PO SCH (07:50)
[2022-07-21] MEDS: LACTOBACILLUS RHAMNOSUS GG CAPSULE PO SCH (07:50)
[2022-07-21] MEDS: NYSTATIN POWDER 15 GM TOP SCH ×2 (07:51→20:13)
[2022-07-21] MEDS: methylPREDNISolone SUCCINATE 40 MG/ML VIAL IVP SCH (07:51)
[2022-07-21] MEDS: THIAMINE 100 MG TABLET PO SCH (07:52)
[2022-07-21] MEDS ORDERED: POTASSIUM PHOSPHATE 15 MMOL in SODIUM CHLORIDE 0.9% 250 ML IV ONE (08:00)
[2022-07-21] MEDS: SODIUM CHLORIDE 1 GM TABLET PO SCH ×2 (08:02→20:13)
[2022-07-21] MEDS: rifAXIMin 550 MG TABLET PO SCH ×2 (08:02→20:13)
--- NOTE | 2022-07-21 12:17 | PROVIDER PROGRESS NOTE ---
Progress Note July 21, 2022 11:59 AM He is supine. Has finished his breakfast. Glasses are half on half off and he readjust them for me so he can see me. Get the glasses on, and then promptly falls back asleep. But he denies any pain, cough, shortness of breath. Active Medications Calcium Carbonate/Glycine (Calcium Carbonate Chew 500 Mg Tablet) 500 mg PO BID PRN PRN Reason: Heartburn Last Admin: 07/21/22 04:14 Dose: 500 mg Carboxymethylcellulose (Carboxymethylcellulose Ophth Drops) 1 drops EACHEYE PRN PRN PRN Reason: Dry Eye Last Admin: 07/17/22 21:40 Dose: 1 drops Sodium Chloride (Normal Saline 0.9%) 1,000 mls @ 75 mls/hr IV .[id number] [facility] Last Infusion: 07/21/22 07:50 Dose: 75 mls/hr NOREPINEPHRINE/0.9 % NS (Levophed 8 Mg/250-0.9% Nacl) 8 mg in 250 mls @ 15 mls/hr IV .[id number] [facility]; Protocol Last Admin: 07/21/22 02:39 Dose: Not Given Lactobacillus Rhamnosus (Lactobacillus Rhamnosus Gg Capsule) 1 cap PO DAILY [facility] Last Admin: 07/21/22 07:50 Dose: 1 cap Lactulose (Lactulose 10 Gm /15 Ml Udc) 10 gm PO BID [facility] Last Admin: 07/21/22 07:50 Dose: 10 gm Lorazepam (Lorazepam 2 Mg/Ml Vial) 2 mg IVP Q30M PRN; Protocol PRN Reason: CIWA >8 Last Admin: 07/18/22 18:08 Dose: 2 mg Methylprednisolone (Methylprednisolone Succinate 40 Mg/Ml Vial) 40 mg IVP DAILY [facility] Last Admin: 07/21/22 07:51 Dose: 40 mg Multi-Ingredient Ointment (Zinc Oxide 20% Oint 30 Gm Tube) 1 applic TOP PRN PRN PRN Reason: Skin Care Last Admin: 07/17/22 21:04 Dose: 1 applic Nystatin (Nystatin Powder 15 Gm) 1 applic TOP BID [facility] Last Admin: 07/21/22 07:51 Dose: 1 applic Ofloxacin (Ofloxacin 0.3% Ophth Drops) 2 drops EACHEYE Q4HR [facility] Stop: 07/22/22 08:59 Last Admin: 07/21/22 07:51 Dose: 2 drops Ofloxacin (Ofloxacin 0.3% Ophth Drops) 2 drops EACHEYE QID [facility] Stop: 07/23/22 09:01 Ondansetron HCl (Ondansetron 4 Mg/2 Ml Vial) 4 mg IVP Q6HR PRN PRN Reason: Nausea / Vomiting Last Admin: 07/16/22 08:12 Dose: 4 mg Pantoprazole Sodium (Pantoprazole 40 Mg Tablet) 40 mg PO QDAC [facility] Last Admin: 07/21/22 06:08 Dose: 40 mg Multivit/Folic Acid/Iron ( Vitamin Tablet) 1 tab PO DAILYWM [facility] Last Admin: 07/21/22 07:50 Dose: 1 tab Prochlorperazine Edisylate (Prochlorperazine 10 Mg/2 Ml Vial) 10 mg IVP Q6HR PRN PRN Reason: Nausea / Vomiting Rifaximin (Rifaximin 550 Mg Tablet) 550 mg PO BID [facility] Last Admin: 07/21/22 08:02 Dose: 550 mg Sodium Chloride (Sodium Chloride Flush 0.9% 10 Ml Syringe) 10 ml IVP 0100,0900,1700 [facility] Last Admin: 07/21/22 07:52 Dose: 10 ml Sodium Chloride (Sodium Chloride Flush 0.9% 10 Ml Syringe) 10 ml IVP PRN PRN PRN Reason: NEEDED PER PROVIDER ORDERS Last Admin: 07/20/22 21:40 Dose: 30 ml Sodium Chloride (Sodium Chloride 1 Gm Tablet) 1 gm PO BID [facility] Last Admin: 07/21/22 08:02 Dose: 1 gm Sodium Chloride (Sodium Chloride Flush 0.9% 10 Ml Syringe) 20 ml IVP PRN PRN PRN Reason: After Blood Draw Last Admin: 07/21/22 04:19 Dose: 20 ml Thiamine HCl (Thiamine 100 Mg Tablet) 100 mg PO DAILY [facility] Last Admin: 07/21/22 07:52 Dose: 100 mg Zinc Oxide (Cod Liver Oil/Zinc Oxide 113 Gm Tube) 113 gm TOP PRN PRN PRN Reason: Skin Care Last Admin: 07/21/22 04:20 Dose: 1 applic Home: Omeprazole 20 mg PO DAILY 05/10/16 Gabapentin [Neurontin] 2 cap PO TID 07/15/22 Exam: Temperature 37.1, heart rate 89, blood pressure 130/90, respirations 24, 95% on room air 5 feet 10 inches tall, 210 kg when he was admitted he was 194 kg. Yesterday's urine output was 1427. This morning he has urinated 595 since midnight last night. Still encephalopathic with psychomotor slowing. Continues to know where he is, what town it is, and why he is here. Conjunctivitis markedly improved/started eyedrops. Distant cardiac tones with a regular rate and rhythm No respiratory distress with clear lungs that are diminished at the bases Huge abdominal pannus from superobesity with quiet bowel sounds, nontender and he is eating anywhere between 25 to 100% of his meals. He is having approximately 2 semiformed bowel movements a day with his lactulose. Extremities continue to have 1+ edema of his legs, buttock. Skin of buttock has a rash on it but there is no skin breakdown. Left anterior thigh boil has ruptured on its own and is draining serosanguineous fluid. The redness and heat have diminished considerably Neurological: Oriented to place, person, and why he is here. Not oriented to time. Psychomotor slowing still present with slow but then takes slurred speech but slowly improving every day. Lab: Sodium 135. Since admission he has been slowly responding to IV fluids where sodium was 114 on admission and today he is normal at 135. Potassium 3.6. BUN 23, creatinine 0.8. Fasting glucose 113. Calcium is 8.3 and corrected calcium is normal. Phosphorus low at 2.3. Magnesium normal at 2.2 Bilirubin peaked at 23.8 on July 19. He is 18.2 today. AST is 121, ALT is 61, alk phos 330. White cell count is normal at 5.9. Throughout his entire stay he has not had an elevated white cell count. Hemoglobin 11.8. Hematocrit 35.2. Platelets dropped to 76 on July 16 and he is 146 today Assessment/Plan (1) Liver failure without hepatic coma Impression: From alcoholic liver disease. NO change from yesterday. He presented as months of increasing beer drinking since he lost his job. On admission his bili and LFTs were elevated. INR 1.8. While his LFTs were improving, his bili lagged and continued to rise. I ordered a CT of abd to make sure I wasn't missing gallbladder disease or intraductal dilatation and that was negative. I did ask radiology if I needed to do an MRCP and he advised it wasn't necessary. Bili Peaked 07/19 at 23.8. Bili has been slowly coming down since that day. Per phone call consult with Dr. Pa from GI @ [facility] on 07/19, she advised me to increase lactulose dose, starting rifaximin 550 along w/ methylprednisolone 1mg/kg for the treatment of his alcoholic liver disease and pantoprazole 40mg IV push for stomach ulcer protection. However, Dr. Pa did not feel it necessary to give 200mg of steroids and aim for 40mg a day for 5 days. My phone call to Dr. Pa was not a formal consult and was only an attempt on my part to seek advice in making sure I was maximizing his treatment. I don't know if my addition of meds made a difference or he was going to improve anyway, but I am cautiously optimistic about an improved prognosis if his bili is coming down. He is still w psychomotor slowing and keeps on being found asleep with food in his mouth when I examine him and have reiterated to staff to be in room with him when he eats or sit him up. MELD 3.0 score is 29 points which equates to an estimated 76.5% indication for short term survival and approximately a 19.6% chance of mortality for patient's with end stage liver disease for considerations for liver transplant. Maddrey discrimination score is 54.6 points at this time, where >32 indicateds poor prognosis and would benefit from glucocorticoid therapy. Patient is currently on methylpredisolone. Plan: continue the solumedrol 40 mg IVP for 5 days, the last dose would be 07/22/22, tomorrow continue the lactulose 10 gram po bid continue rifaximin will continue daily CMP. (2) Hepatic encephalopathy Impression: Patient has his dose of lactulose increased from 10mg po daily to twice daily. While he is definitely more awake, responsive and oriented, pt still shows psychomotor slowing, will consider increasing dose but will monitor for now. He already has loose stools twice a day and I don't want to give him more diarrhea. (3) buttock skin rash I noticed it on exam when we rolled him over to a new bariatric bed 07/19. It covers the skin of both buttocks and is a result of being on his back and having the loose stool. WE are using wipes to clean and those wipes have barrier cream on them. I have also ordered nystatin powder to cover the rash as well as use in his intertriginous folds. While the skin is red and nonblanching, there is no skin ulcers or tears. (4) Hyponatremia finally resolved as of today Impression: On admission, he presented is almost meeting the criteria for beer Potomania. He was severely hyponatremic but not hypokalemic. Sodium in September admission was 114. By July 16 he was 118. By July 17 he was 124. July 18 he was 128 and today he is 135. Plan: Continue using 1 L a day of normal saline until he is adequately taking enough p.o. intake on his own. (5) Alcoholism Impression: Initially was on banana bags and transitioned to multivit orally. Was on librium and CIWA protocol, but librium stopped 07/17. Pt is on lactulose with should help with the psychomotor slowing, however, this is still present at this time. Will continue to monitor. His mom would like him to go to rehab again. And I explained to her that we will certainly give him options and list of places for him to use. And we will even help him get there. But he has to make sure that leap himself. (6) Hypocalcemia Impression: Today's calcium is 8.2. Using low normal albumin at 3.2, his corrected calcium is 9. As such he is in normal range and does not need supplementation today. (7) Right breast nipple inversion Outpatient work up with mammo (8) boil Left anterior thigh that has come to a head. Patient scratched it and boil ruptured, no cellulitis. Qualifiers: Liver failure chronicity: subacute Qualified Code(s): K72.00 - Acute and subacute hepatic failure without coma (9) conjunctivitis almost resolved. (10) Hypotension From the to the he required Levophed to keep his blood pressure up and to maintain his urine output. 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 It was still on the market so I discontinued it today. I look for signs of infection. Repeated blood cultures, urinalysis, chest x-ray and no source of infection found. He may have been intravascularly depleted due to cirrhosis and alcoholism. He was not having an VT. No lactic acidosis. In any case is all resolved and I will take the norepi off the MAR
[2022-07-21 14:42] LABS: PHOSPHORUS 2.3 mg/dL (2.5-4.6); POTASSIUM 3.9 mmol/L (3.5-5.0)
[2022-07-21] MEDS: NEUTRA-PHOS 250 MG TABLET PO SCH ×2 (14:58→17:30)
[2022-07-21] MEDS: LACTULOSE 10 GM/15 ML BOTTLE PO SCH (20:24)
[2022-07-22] MEDS: OFLOXACIN 0.3% OPHTH DROPS EACHEYE SCH ×7 (00:08→20:14)
[2022-07-22] MEDS: SODIUM CHLORIDE 0.9% 1,000 ML IV SCH ×2 (00:11→06:38)
[2022-07-22] MEDS: SODIUM CHLORIDE FLUSH 0.9% 10 ML SYRINGE IVP SCH ×3 (01:53→15:34)
[2022-07-22] MEDS: SODIUM CHLORIDE FLUSH 0.9% 10 ML SYRINGE IVP PRN ×2 (01:53→05:00)
[2022-07-22] MEDS: COD LIVER OIL/ZINC OXIDE 113 GM TUBE TOP PRN ×2 (02:24→23:47)
[2022-07-22 05:28] LABS: CALCIUM, IONIZED 1.17 mmol/L (1.15-1.33); MEAN CORPUSCULAR HEMOGLOBIN 34.4 pg (27.0-31.0); VBG PH 7.311 (7.31-7.41)
[2022-07-22 05:34] LABS: BASOPHILS % (AUTO) 0.3 %; EOSINOPHILS # (AUTO) 0.1 10^3/uL (0.0-0.7); EOSINOPHILS % (AUTO) 1.1 %; HCT - HEMATOCRIT 35.8 % (42.0-52.0); HGB - HEMOGLOBIN 11.9 g/dL (14.0-18.0); LYMPHOCYTES % (AUTO) 15.3 %; MEAN CORPUSCULAR HGB CONC 33.2 g/dL (32.0-36.0); MEAN CORPUSCULAR VOLUME 103.5 fL (80.0-94.0); MEAN PLATELET VOLUME 8.6 fL (7.4-11.4); MONOCYTES % (AUTO) 15.5 %; NEUTROPHILS % (AUTO) 62.4 %; PLT - PLATELET COUNT 154 10^3/uL (130-450); RED BLOOD COUNT 3.46 10^6/uL (4.70-6.10); WHITE BLOOD COUNT 6.3 x10^3/uL (4.8-10.8)
[2022-07-22 05:40] LABS: ALBUMIN 2.2 g/dL (3.2-5.5); ALBUMIN/GLOBULIN RATIO 0.7 (1.0-2.2); BILIRUBIN,TOTAL 16.7 mg/dL (0.2-1.0); CALCIUM 8.4 mg/dL (8.5-10.3); CREATININE 0.7 mg/dL (0.6-1.2); MAGNESIUM 2.3 mg/dL (1.7-2.8); PHOSPHORUS 2.9 mg/dL (2.5-4.6); POTASSIUM 3.6 mmol/L (3.5-5.0); TOTAL PROTEIN 5.5 g/dL (6.7-8.2)
[2022-07-22] MEDS ORDERED: POTASSIUM CHLORIDE 20 MEQ TABLET PO ONE ×2 (06:00→11:10)
[2022-07-22] MEDS: PANTOPRAZOLE 40 MG TABLET PO SCH (06:20)
[2022-07-22] MEDS: LACTULOSE 10 GM/15 ML BOTTLE PO SCH ×2 (08:19→20:14)
[2022-07-22] MEDS: methylPREDNISolone SUCCINATE 40 MG/ML VIAL IVP SCH (08:34)
[2022-07-22] MEDS: rifAXIMin 550 MG TABLET PO SCH ×2 (08:44→20:14)
[2022-07-22] MEDS: LACTOBACILLUS RHAMNOSUS GG CAPSULE PO SCH (08:44)
[2022-07-22] MEDS: PRENATAL VITAMIN TABLET PO SCH (08:45)
[2022-07-22] MEDS: SODIUM CHLORIDE 1 GM TABLET PO SCH ×2 (08:45→20:14)
[2022-07-22] MEDS: THIAMINE 100 MG TABLET PO SCH (08:46)
[2022-07-22] MEDS: ENOXAPARIN 40 MG/0.4 ML SYRINGE SUBQ SCH (08:51)
[2022-07-22] MEDS: NYSTATIN POWDER 15 GM TOP SCH ×2 (09:45→20:14)
[2022-07-22 13:13] LABS: GLUCOSE, URINE (UA) 250 mg/dL (NEGATIVE); KETONES,URINE (UA) NEGATIVE (NEGATIVE); LEUKOCYTE ESTERASE, URINE SMALL (NEGATIVE); NITRITE,URINE POSITIVE (NEGATIVE); OCCULT BLOOD,URINE MODERATE (NEGATIVE); PROTEIN,URINE NEGATIVE (NEGATIVE); UROBILINOGEN,URINE 2 E.U./dL (NORMAL)
[2022-07-22 13:19] LABS: BILIRUBIN,URINE LARGE (NEGATIVE); CLARITY,URINE HAZY (CLEAR); ICTOTEST,URINE POSITIVE
--- NOTE | 2022-07-22 13:20 | PROVIDER PROGRESS NOTE ---
Progress Note July 30, 2022 1:13 PM Continues to be encephalopathic. But he is appropriate. But nursing reports that I am usually seeing him in the morning or when I have just woken him up. He is sometimes on the phone chattering away with a normal conversation patterning so I am may be getting him at the wrong time of the day. He is complaining of right upper quadrant pain. He is already had an abdomen pelvis CT on July 17 as I was looking for any type of obstructive lesions that were giving him his elevated bilirubin. That was negative. He continues to be eating 100% of his food. White cell count is normal. No fever. Bilirubin continues to come down today. Exam: Temperature is 37 degrees, heart rate 81, blood pressure 124/74, respirations 16, 95% on room air 210 kg, 5 feet 10 inches tall.Water intake is picking up. Today's fluid intake was 1620 cc. This contributed substantially to his overall intake of 3590. He did urinate 1315cc as of this note. Jaundice is fading. Still jaundiced, still yellow but not nearly as intense as he was 2 days ago. I really cannot assess his neck for JVD because of the girth but it is supple Diminished breath sounds in the axilla and anteriorly but no crackles, rhonchi, wheezing and no increased respiratory effort or tachypnea. Nipple inversion without any breast masses still present. Regular rate and rhythm Hugely obese pannus with hypoactive bowel sounds. I hear normal bowel sounds, and Although he is complaining of right upper quadrant pain earlier this morning, my current exam shows no pain at all. I pressed very hard in his right upper quadrant and epigastrium and there is no pain. Still having up to 2 liquid stools a day due to the lactulose. But his buttocks are improving. Instead of being so intensely red and irritated, the redness is starting to fade. No open ulcers. No skin breakdown. Extremities very large because of his obesity, and he had 2+ edema, which is gr adually fading. Still has trace to 1+ edema but it is getting better. Skin exam had the breakdown of his buttocks, and he had the boil on his left anterior thigh that he scratched on his own and interrupted 2 days ago. There is no surrounding cellulitis or heat around that small boil. Alert and oriented to person, place, not so much the date. Following commands. Speech is slow and normal. And again nursing comments that he is much faster and much more alert but I seem to be catching him when he is asleep and waking him up. Lab: Sodium is now been normal since July 21 at 137 Potassium has been normal today. 3.6. BUN is 21, creatinine is 0.7. Bilirubin continues to come down to 16.7. He peaked at 23.8. AST is 113. ALT is 67. White cell count is normal at 6.3. Hemoglobin 11.9. Platelets 154 Nursing was concerned about the color of his urine. It is dark yellow/lesvia. Moderate occult blood, positive nitrites, large bilirubin, urobilinogen is high, small amount of leukocyte esterase, squamous cells present, many bacteria (culture was done July 16 and it was negative) culture will be submitted today Assessment/Plan (1) Liver failure without hepatic coma Impression: From alcoholic liver disease. No substantial changes on exam for 2 days. He presented as months of increasing beer drinking since he lost his job. On admission his bili and LFTs were elevated. INR 1.8. While his LFTs were improving, his bili lagged and continued to rise. I ordered a CT of abd to make sure I wasn't missing gallbladder disease or intraductal dilatation and that was negative. I did ask radiology if I needed to do an MRCP and he advised it wasn't necessary. Bili Peaked 07/19 at 23.8. Bili has been slowly coming down since that day. Per phone call consult with Dr. Pa from GI @ [facility] on 07/19, she advised me to increase lactulose dose, starting rifaximin 550 along w/ methylprednisolone 1mg/kg for the treatment of his alcoholic liver disease and pantoprazole 40mg IV push for stomach ulcer protection. However, Dr. Pa did not feel it necessary to give 200mg of steroids and aim for 40mg a day for 5 days. My phone call to Dr. Pa was not a formal consult and was only an attempt on my part to seek advice in making sure I was maximizing his treatment. I don't know if my addition of meds made a difference or he was going to improve anyway, but I am cautiously optimistic about an improved prognosis if his bili is coming down. He is still w psychomotor slowing and keeps on being found asleep with food in his mouth when I examine him and have reiterated to staff to be in room with him when he eats or sit him up. But today the RN notes that he is very chatty. He is on the phone talking to people. Talking with mom. Family. I seem to be catching him when I am waking him up. MELD 3.0 score is 29 points which equates to an estimated 76.5% indication for short term survival and approximately a 19.6% chance of mortality for patient's with end stage liver disease for considerations for liver transplant. Maddrey discrimination score is 54.6 points at this time, where >32 indicateds poor prognosis and would benefit from glucocorticoid therapy. Patient is currently on methylpredisolone Day #5. Plan: continue the solumedrol 40 mg IVP for 5 days, the last dose would be today so I will stop continue the lactulose 10 gram po bid continue rifaximin will continue daily CMP. continue with PT/OT (2) Hepatic encephalopathy Impression: Patient has his dose of lactulose increased from 10mg po daily to twice daily. While he is definitely more awake, responsive and oriented, pt still shows psychomotor slowing. He already has loose stools twice a day and I don't want to give him more diarrhea I am not increasing his dose. I had also stopped his gabapentin. He was on 600 mg twice a day. Nursing asked today if he should be resumed on that medicine and I am holding off on that until he is more alert. Physical therapy work with him today. They used a Kaci lift to get him up to a chair. He did struggle to maintain his alertness during their evaluation and therapy. He had some knee pain. He is requiring max assist. Required max assist for sitting balance as well. He is dependent in the bed and needs help to sit upright, or to rollover. Not able to use his left arm to help himself. But was able to use his right arm to reach his face and here for grooming. He fatigues very easily. They want to continue skilled OT and PT services to address his poor bed mobility, transfers, balance, activities of daily living independence, and strength to enable him to return to his previous level of function where he was completely independent. I am anticipating he is getting need prolonged rehab at a [facility] facility to get him to that point. (3) buttock skin rash I noticed it on exam when we rolled him over to a new bariatric bed 07/19. It covers the skin of both buttocks and is a result of being on his back and having the loose stool. WE are using wipes to clean and those wipes have barrier cream on them. I have also ordered nystatin powder to cover the rash as well as use in his intertriginous folds. While the skin is red and nonblanching, there is no skin ulcers or tears. Nursing also asked if he should be in his home clotrimazole. I explained that he is on nystatin here so I do not think he needs his home clotrimazole. However he does take mometasone steroid ointment for his lower extremities. And I will order that for him. (4) Hyponatremia finally resolved as of 07/21 Impression: On admission, he presented is almost meeting the criteria for beer Potomania. He was severely hyponatremic but not hypokalemic. Sodium on admission was 114. By July 16 he was 118. By July 17 he was 124. July 18 he was 128 and by 07/21 he was 135. Today he is 137. Plan: stop NS and reiterate that he is on restricted oral fluid intake to 1500 cc/day (5) Alcoholism Impression: Initially was on banana bags and transitioned to multivit orally. Was on librium and CIWA protocol, but librium stopped 07/17. Pt is on lactulose with should help with the psychomotor slowing, however, this is still present at this time. Will continue to monitor. His mom would like him to go to rehab again. And I explained to her that we will certainly give him options and list of places for him to use. And we will even help him get there. But he has to make sure that leap himself. (6) Hypocalcemia Impression: His corrected calcium using low normal albumin p.o. of 3.2 is 9.2. He does not need calcium supplementation. (7) Right breast nipple inversion Outpatient work up with mammo (8) boil Left anterior thigh that has come to a head. Patient scratched it and boil ruptured, no cellulitis. Qualifiers: Liver failure chronicity: subacute Qualified Code(s): K72.00 - Acute and subacute hepatic failure without coma (9) conjunctivitis almost resolved. (10) Hypotension From the to the he required Levophed to keep his blood pressure up and to maintain his urine output. He has been off of it since licensed optical dispenser hours of the . It was still on the market so I discontinued it today. I look for signs of infection. Repeated blood cultures, urinalysis, chest x-ray and no source of infection found. He may have been intravascularly depleted due to cirrhosis and alcoholism. He was not having an NM. No lactic acidosis. (11) Abnormal urinary constituents. His first urinalysis was also as abnormal but was negative in its growth. He does not have any symptoms of urgency, and frequency but with a psychomotor slowing identified contrast his history. But he does not have a fever, he does not have an elevated white cell count. I will not treat this abnormal urina lysis unless culture comes back positive
[2022-07-22 13:24] LABS: BACTERIA,URINE Many /HPF (None Seen); CASTS, URINE 0-2 WBC Casts /LPF; RBC,URINE 0-5 /HPF (0-5); SQUAMOUS EPITHELIAL CELL,UR FEW Squamous (<= Few)
[2022-07-22] MEDS: traMADol 50 MG TABLET PO PRN (20:14)
[2022-07-22] MEDS: CLOTRIMAZOLE 1% CREAM 15 GM TUBE TOP SCH (20:16)
[2022-07-22] MEDS ORDERED: MOMETASONE TOP SCH (21:00)
[2022-07-22] MEDS: ZINC OXIDE 20% OINT 30 GM TUBE TOP PRN (23:47)
[2022-07-22] MEDS: MOMETASONE FUROATE 0.1% TOP PRN (23:47)
[2022-07-23] MEDS: LORazepam 2 MG/ML VIAL IVP PRN (00:08)
[2022-07-23] MEDS: SODIUM CHLORIDE FLUSH 0.9% 10 ML SYRINGE IVP SCH ×3 (01:05→15:59)
[2022-07-23] MEDS: PANTOPRAZOLE 40 MG TABLET PO SCH (06:04)
[2022-07-23 06:11] LABS: BASOPHILS % (AUTO) 0.4 %; EOSINOPHILS % (AUTO) 1.2 %; HCT - HEMATOCRIT 36.2 % (42.0-52.0); HGB - HEMOGLOBIN 12.2 g/dL (14.0-18.0); LYMPHOCYTES % (AUTO) 16.9 %; MEAN CORPUSCULAR HEMOGLOBIN 34.7 pg (27.0-31.0); MEAN CORPUSCULAR HGB CONC 33.7 g/dL (32.0-36.0); MEAN CORPUSCULAR VOLUME 102.8 fL (80.0-94.0); MEAN PLATELET VOLUME 8.7 fL (7.4-11.4); MONOCYTES % (AUTO) 12.4 %; NEUTROPHILS % (AUTO) 62.7 %; PLT - PLATELET COUNT 162 10^3/uL (130-450); RED BLOOD COUNT 3.52 10^6/uL (4.70-6.10); RED CELL DISTRIBUTION WIDTH 17.2 % (12.0-15.0); WHITE BLOOD COUNT 6.7 x10^3/uL (4.8-10.8)
[2022-07-23 06:17] LABS: ABNORMAL LYMPHS % (MANUAL) 0 %
[2022-07-23 06:32] LABS: CALCIUM, IONIZED 1.16 mmol/L (1.15-1.33); VBG PH 7.317 (7.31-7.41)
[2022-07-23 06:36] LABS: ALBUMIN 2.4 g/dL (3.2-5.5); ALBUMIN/GLOBULIN RATIO 0.8 (1.0-2.2); BILIRUBIN,TOTAL 15.6 mg/dL (0.2-1.0); CALCIUM 8.4 mg/dL (8.5-10.3); CREATININE 0.7 mg/dL (0.6-1.2); MAGNESIUM 2.4 mg/dL (1.7-2.8); PHOSPHORUS 2.9 mg/dL (2.5-4.6); POTASSIUM 3.7 mmol/L (3.5-5.0); TOTAL PROTEIN 5.5 g/dL (6.7-8.2)
[2022-07-23 07:04] LABS: BAND NEUTROPHILS % (MANUAL) 11 %; BASOPHILS # (MANUAL) 0.1 10^3/uL (0-0.1); BASOPHILS % (MANUAL) 1 %; DIFFERENTIAL COMMENT MANUAL DIFFERENTIAL; EOSINOPHILS # (MANUAL) 0.2 10^3/uL (0-0.7); LYMPHOCYTES # (MANUAL) 0.9 10^3/uL (1.5-3.5); LYMPHOCYTES % (MANUAL) 12 %; METAMYELOCYTES % (MANUAL) 1 %; MONOCYTES # (MANUAL) 0.9 10^3/uL (0.0-1.0); MYELOCYTES % (MANUAL) 1 %; NEUTROPHILS # (MANUAL) 4.4 10^3/uL (1.5-6.6); REACTIVE LYMPHS % (MANUAL) 2 %
[2022-07-23] MEDS ORDERED: POTASSIUM CHLORIDE 20 MEQ TABLET PO ONE (08:00)
[2022-07-23] MEDS: ENOXAPARIN 40 MG/0.4 ML SYRINGE SUBQ SCH (08:11)
[2022-07-23] MEDS: PRENATAL VITAMIN TABLET PO SCH (08:11)
[2022-07-23] MEDS: CARBOXYMETHYLCELLULOSE OPHTH DROPS EACHEYE PRN (08:12)
[2022-07-23] MEDS: THIAMINE 100 MG TABLET PO SCH (08:12)
[2022-07-23] MEDS: LACTOBACILLUS RHAMNOSUS GG CAPSULE PO SCH (08:12)
[2022-07-23] MEDS: SODIUM CHLORIDE 1 GM TABLET PO SCH ×2 (08:12→20:22)
[2022-07-23] MEDS: CALCIUM CARBONATE CHEW 500 MG TABLET PO PRN (08:12)
[2022-07-23] MEDS: ZINC OXIDE 20% OINT 30 GM TUBE TOP PRN ×2 (08:12→20:22)
[2022-07-23] MEDS: LACTULOSE 10 GM/15 ML BOTTLE PO SCH ×2 (08:13→20:22)
[2022-07-23] MEDS: NYSTATIN POWDER 15 GM TOP SCH ×2 (08:13→20:23)
[2022-07-23] MEDS: MOMETASONE FUROATE 0.1% TOP PRN (08:14)
[2022-07-23] MEDS: OFLOXACIN 0.3% OPHTH DROPS EACHEYE SCH ×4 (08:15→20:23)
[2022-07-23] MEDS: CLOTRIMAZOLE 1% CREAM 15 GM TUBE TOP SCH ×2 (08:15→20:22)
[2022-07-23] MEDS: rifAXIMin 550 MG TABLET PO SCH ×2 (09:12→20:22)
--- NOTE | 2022-07-23 19:18 | PROVIDER PROGRESS NOTE ---
Subjective - Subjective Pt reports feeling: Improved (His mother at bedside answered for him and was wiping his forehead at the time) Objective - Vital Signs/Intake & Output Vital Signs: Vital Signs Temp Pulse Resp BP Pulse Ox 07/23/22 15:27 36.6 C 100 23 111/83 H 95 Intake & Output: Intake & Output 07/20/22 07/21/22 07/22/22 07/23/22 23:59 23:59 23:59 23:59 Intake Total 2635.0 3590.0 3062.50 1030 Output Total 1427 1315 1265 985 Balance 1208.0 2275.0 1797.50 45 - Objective General Appearance: positive: No acute distress, Lethargic Eyes Bilateral: positive: EOMI, Other (Eyes are half closed, he closes them completely at midsentence but only speaks in short sentences. Sclerae are ictric.) Eyes: OU Scleral icterus ENT: positive: ENT inspection nml, Other (Poor oral hygiene) Neck: positive: Other (Cannot evaluate JVP due to morbid obesity) Respiratory: positive: No respiratory distress Cardiovascular: positive: Regular rate & rhythm Abdomen: positive: Other (Very obese with a very large pannus down to knees, red skin in folds. Dark, icteric skin) Skin: positive: Warm, Dry, Other (ictyeric) Extremities: positive: Non-tender, Other (4+ edema to the hips, lower arms also edematous) Neurologic/Psychiatric: positive: Oriented x3, Depressed mood/affect, Other (Lethargic, speaks in short sentences. Eyes are mostly closed.) - Lab Results Fish Bones: 07/26/22 06:35 07/28/22 06:00 Other Labs: Lab Results x24hrs 07/23/22 07/23/22 07/23/22 Range/Units 11:25 05:45 05:45 WBC (4.8-10.8) x10^3/uL RBC (4.70-6.10) 10^6/uL Hgb (14.0-18.0) g/dL Hct (42.0-52.0) % MCV (80.0-94.0) fL MCH (27.0-31.0) pg MCHC (32.0-36.0) g/dL RDW (12.0-15.0) % Plt Count (130-450) 10^3/uL MPV (7.4-11.4) fL Neut # (Auto) Lymph # (Auto) Patrick # (Auto) Eos # (Auto) Baso # (Auto) Absolute Nucleated RBC Total Counted Band Neuts % (Manual) (0 - 10) % Reactive Lymphs % (Man) % Abnorm Lymph % (Manual) % Metamyelocytes % ( - 0) % Myelocytes % ( - 0) % Nucleated RBC % Neutrophils # (Manual) (1.5-6.6) 10^3/uL Lymphocytes # (Manual) (1.5-3.5) 10^3/uL Monocytes # (Manual) (0.0-1.0) 10^3/uL Eosinophils # (Manual) (0-0.7) 10^3/uL Basophils # (Manual) (0-0.1) 10^3/uL Differential Comment RBC Morph Micro Appear (NORMAL) VBG pH 7.317 (7.31-7.41) Ionized Calcium 1.16 (1.15-1.33) mmol/L Sodium 141 (135-145) mmol/L Potassium 3.7 (3.5-5.0) mmol/L Chloride 108 (101-111) mmol/L Carbon Dioxide 25 (21-32) mmol/L Anion Gap 8.0 (6-13) BUN 20 (6-20) mg/dL Creatinine 0.7 (0.6-1.2) mg/dL Estimated GFR (MDRD) 118 (>89) Glucose 104 H (70-100) mg/dL Calcium 8.4 L (8.5-10.3) mg/dL Phosphorus 2.9 (2.5-4.6) mg/dL Magnesium 2.4 (1.7-2.8) mg/dL Total Bilirubin 15.6 H (0.2-1.0) mg/dL AST 119 H (10-42) IU/L ALT 75 H (10-60) IU/L Alkaline Phosphatase 300 H (42-121) IU/L Ammonia 46.9 H (7-35) umol/L Total Protein 5.5 L (6.7-8.2) g/dL Albumin 2.4 L (3.2-5.5) g/dL Globulin 3.1 (2.1-4.2) g/dL Albumin/Globulin Ratio 0.8 L (1.0-2.2) 07/23/22 Range/Units 05:45 WBC 6.7 (4.8-10.8) x10^3/uL RBC 3.52 L (4.70-6.10) 10^6/uL Hgb 12.2 L (14.0-18.0) g/dL Hct 36.2 L (42.0-52.0) % MCV 102.8 H (80.0-94.0) fL MCH 34.7 H (27.0-31.0) pg MCHC 33.7 (32.0-36.0) g/dL RDW 17.2 H (12.0-15.0) % Plt Count 162 (130-450) 10^3/uL MPV 8.7 (7.4-11.4) fL Neut # (Auto) Not Reportable Lymph # (Auto) Not Reportable Patrick # (Auto) Not Reportable Eos # (Auto) Not Reportable Baso # (Auto) Not Reportable Absolute Nucleated RBC Not Reportable Total Counted 100 Band Neuts % (Manual) 11 H (0 - 10) % Reactive Lymphs % (Man) 2 % Abnorm Lymph % (Manual) 0 % Metamyelocytes % 1 H ( - 0) % Myelocytes % 1 H ( - 0) % Nucleated RBC % Not Reportable Neutrophils # (Manual) 4.4 (1.5-6.6) 10^3/uL Lymphocytes # (Manual) 0.9 L (1.5-3.5) 10^3/uL Monocytes # (Manual) 0.9 (0.0-1.0) 10^3/uL Eosinophils # (Manual) 0.2 (0-0.7) 10^3/uL Basophils # (Manual) 0.1 (0-0.1) 10^3/uL Differential Comment MANUAL DIFFERENTIAL RBC Morph Micro Appear 1+ HYPOCHROMASIA (NORMAL) VBG pH (7.31-7.41) Ionized Calcium (1.15-1.33) mmol/L Sodium (135-145) mmol/L Potassium (3.5-5.0) mmol/L Chloride (101-111) mmol/L Carbon Dioxide (21-32) mmol/L Anion Gap (6-13) BUN (6-20) mg/dL Creatinine (0.6-1.2) mg/dL Estimated GFR (MDRD) (>89) Glucose (70-100) mg/dL Calcium (8.5-10.3) mg/dL Phosphorus (2.5-4.6) mg/dL Magnesium (1.7-2.8) mg/dL Total Bilirubin (0.2-1.0) mg/dL AST (10-42) IU/L ALT (10-60) IU/L Alkaline Phosphatase (42-121) IU/L Ammonia (7-35) umol/L Total Protein (6.7-8.2) g/dL Albumin (3.2-5.5) g/dL Globulin (2.1-4.2) g/dL Albumin/Globulin Ratio (1.0-2.2) Assessment/Plan - Problem List (1) Liver failure without hepatic coma Impression: From alcoholic liver disease. No substantial changes on exam for 2 days. He presented as months of increasing beer drinking since he lost his job. On admission his bili and LFTs were elevated. INR 1.8. While his LFTs were improving, his bili lagged and continued to rise. He got a CT of abd to check for gallbladder disease or intraductal dilatation and that was negative. We did ask radiology if I needed to do an MRCP and he advised it wasn't necessary. Bili peaked on 07/19 at 23.8. Bili has been slowly coming down since that day. Per phone call consult with Dr. Pa from GI @ [facility] on 07/19, she advised us to increase lactulose dose, starting rifaximin 550 along w/ methylprednisolone 1mg/kg for the treatment of his alcoholic liver disease and pantoprazole 40mg IV push for stomach ulcer protection. However, Dr. Pa did not feel it necessary to give 200mg of steroids and aim for 40mg a day for 5 days. The phone call to Dr. Pa was not a formal consult and was only an attempt to seek advice in maximizing his treatment. He still has psychomotor slowing and keeps on being found asleep with food in his mouth (the last Hospitalist reiterated to staff to be in room with him when he eats or to sit him up). MELD 3.0 score is 29 points which equates to an estimated 76.5% indication for short term survival and approximately a 19.6% chance of mortality for patient's with end stage liver disease for considerations for liver transplant. Maddrey discrimination score is 54.6 points, and >32 indicates poor prognosis and would benefit from glucocorticoid therapy. Patient received solumedrol 40 mg IVP for 5 days, the last dose was on 07/22/22. Plan: continue the lactulose 10 gram po bid continue rifaximin will continue following daily CMP. continue trying to work with PT/OT, he has not been able to even sit up and dangle yet, due to generalized weakness (2) Hepatic encephalopathy Impression: Patient has his dose of lactulose increased from 10mg po daily to twice daily. While he is definitely more awake, responsive and oriented, pt still shows psychomotor slowing. He already has loose stools once -twice a day. We have also stopped his gabapentin which may have added to lethargy. He was on 600 mg twice a day. Physical therapy work with him today. They again used a Kaci lift to get him up to a chair.He is requiring max assist. Required max assist for sitting balance as well. He is dependent in the bed and needs help to sit upright, or to rollover. Able to use his right arm to reach his face for grooming. He fatigues very easily. They want to continue skilled OT and PT services to address his poor bed mobility, transfers, balance, activities of daily living independence, and strength to enable him to return to his previous level of function where he was completely independent. Plan: Continue Lctulose, Rifaximin and I am anticipating he will need prolonged rehab at a [facility] facility to get him back to being independant (3) Skin rash He has a red rash covering the skin of both buttocks and is a result of being on his back and having the loose stool. Plan: Cont wipes to clean and those wipes have barrier cream on them. Cont Nystatin powder to cover the rash as well as use in his intertriginous folds. While the skin is red and nonblanching, there is no skin ulcers or tears. Nursing also asked if he should be in his home clotrimazole. I explained that he is on nystatin here so I do not think he needs his home clotrimazole. However he does take mometasone steroid ointment for his lower extremities. And I will order that for him. (4) Alcoholism Impression: Initially was on banana bags and transitioned to multivit orally. Was on librium and CIWA protocol, but librium stopped 07/17. Pt is on lactulose with should help with the psychomotor slowing, however, this is still present at this time. Will continue to monitor. His mom would like him to go to rehab again. And I explained to her that we will certainly give him options and list of places for him to use. And we will even help him get there. But he has to make sure that leap himself. (5) Weakness He was so weak at admission that he had fallen before coming to the ER, and could not lift up his buttock in his bed by pushing up using his legs. He also admitted that over the past week beore admission, he had been mostly on his couch, hardly got up, did not eat, had his beer delivered to him by [employer]. Plan: PT and OT have started to work with him. Yesterday 07/22 was the first day that he was out of bed, was raised using a Kaci lift to sit in a bariatric chair. Continue with rehab as planned and he will likely need a SNF, due to severe deconditioning, which started from being bedridden at home (6) Right breast nipple inversion Outpatient work up with mammo (7) Boil Left anterior thigh that has come to a head. Patient scratched it and boil ruptured, no cellulitis. Qualifiers: Liver failure chronicity: subacute Qualified Code(s): K72.00 - Acute and subacute hepatic failure without coma (8) Conjunctivitis Resolved with eye drops (9) Hyponatremia Impression: Resolved as of 07/21 On admission, he presented is almost meeting the criteria for beer potomania. He was severely hyponatremic but not hypokalemic. Sodium on admission was 114. By July 16 Na was 118. By July 17 Na was 124. July 18 Na was 128 and by 07/21 his Na was 135. Today 07/23 Na is 141. A daily salt tablet was added (by Telemedicine dr). Plan: We have stopped NS He is on restricted oral fluid intake to 1500 cc/day (10) Hypotension From the to the he required Levophed to keep his blood pressure up and to maintain his urine output. He has been off of it since button sawyer hours of the . It was still on the market so I discontinued it today. I look for signs of infection. Repeated blood cultures, urinalysis, chest x-ray and no source of infection found. He may have been intravascularly depleted due to cirrhosis and alcoholism. He was not having an CT. No lactic acidosis. (11) Abnormal urinary constituents. His first urinalysis was also as abnormal but was negative in its growth. He does not have any symptoms of urgency, and frequency but with a psychomotor slowing. But he did not have a fever, he does not have an elevated white cell count. Plan: We did not treat this abnormal urinalysis unless culture comes back positive Qualifiers: Liver failure chronicity: subacute Qualified Code(s): K72.00 - Acute and subacute hepatic failure without coma
[2022-07-23] MEDS: traMADol 50 MG TABLET PO PRN (20:22)
[2022-07-24] MEDS: SODIUM CHLORIDE FLUSH 0.9% 10 ML SYRINGE IVP SCH ×2 (01:09→08:49)
[2022-07-24 05:11] LABS: BASOPHILS % (AUTO) 0.7 %; EOSINOPHILS % (AUTO) 3.4 %; HCT - HEMATOCRIT 36.1 % (42.0-52.0); HGB - HEMOGLOBIN 11.8 g/dL (14.0-18.0); MEAN CORPUSCULAR HGB CONC 32.7 g/dL (32.0-36.0); MEAN PLATELET VOLUME 8.7 fL (7.4-11.4); MONOCYTES % (AUTO) 10.5 %; NEUTROPHILS % (AUTO) 60.6 %; PLT - PLATELET COUNT 132 10^3/uL (130-450); RED BLOOD COUNT 3.47 10^6/uL (4.70-6.10); RED CELL DISTRIBUTION WIDTH 17.2 % (12.0-15.0); WHITE BLOOD COUNT 7.1 x10^3/uL (4.8-10.8)
[2022-07-24 05:16] LABS: ABNORMAL LYMPHS % (MANUAL) 0 %
[2022-07-24 05:24] LABS: ALBUMIN/GLOBULIN RATIO 0.7 (1.0-2.2); BILIRUBIN,TOTAL 14.8 mg/dL (0.2-1.0); CALCIUM 8.2 mg/dL (8.5-10.3); CREATININE 0.7 mg/dL (0.6-1.2); POTASSIUM 3.6 mmol/L (3.5-5.0)
[2022-07-24 05:36] LABS: BAND NEUTROPHILS % (MANUAL) 16 %; BASOPHILS # (MANUAL) 0.1 10^3/uL (0-0.1); BASOPHILS % (MANUAL) 1 %; EOSINOPHILS # (MANUAL) 0.2 10^3/uL (0-0.7); LYMPHOCYTES # (MANUAL) 1.6 10^3/uL (1.5-3.5); LYMPHOCYTES % (MANUAL) 23 %; METAMYELOCYTES % (MANUAL) 2 %; MONOCYTES # (MANUAL) 0.4 10^3/uL (0.0-1.0); MYELOCYTES % (MANUAL) 4 %; NEUTROPHILS # (MANUAL) 4.4 10^3/uL (1.5-6.6)
[2022-07-24 05:38] LABS: DIFFERENTIAL COMMENT MANUAL DIFFERENTIAL
[2022-07-24] MEDS: PANTOPRAZOLE 40 MG TABLET PO SCH (06:25)
[2022-07-24] MEDS ORDERED: POTASSIUM CHLORIDE 20 MEQ TABLET PO ONE (08:00)
[2022-07-24] MEDS: LACTOBACILLUS RHAMNOSUS GG CAPSULE PO SCH (08:47)
[2022-07-24] MEDS: rifAXIMin 550 MG TABLET PO SCH ×2 (08:47→20:53)
[2022-07-24] MEDS: ENOXAPARIN 40 MG/0.4 ML SYRINGE SUBQ SCH ×2 (08:47→20:52)
[2022-07-24] MEDS: THIAMINE 100 MG TABLET PO SCH (08:47)
[2022-07-24] MEDS: LACTULOSE 10 GM/15 ML BOTTLE PO SCH ×3 (08:48→22:42)
[2022-07-24] MEDS: CARBOXYMETHYLCELLULOSE OPHTH DROPS EACHEYE PRN (08:48)
[2022-07-24] MEDS: SODIUM CHLORIDE 1 GM TABLET PO SCH (08:48)
[2022-07-24] MEDS: OFLOXACIN 0.3% OPHTH DROPS EACHEYE SCH ×4 (08:48→20:52)
[2022-07-24] MEDS: PRENATAL VITAMIN TABLET PO SCH (08:48)
[2022-07-24] MEDS: CLOTRIMAZOLE 1% CREAM 15 GM TUBE TOP SCH ×2 (08:50→20:52)
[2022-07-24] MEDS: NYSTATIN POWDER 15 GM TOP SCH ×2 (08:50→20:53)
[2022-07-24] MEDS: FUROSEMIDE 20 MG/2 ML VIAL IVP SCH (11:33)
[2022-07-24] MEDS: traMADol 50 MG TABLET PO PRN ×2 (11:36→18:24)
--- NOTE | 2022-07-24 15:22 | PROVIDER PROGRESS NOTE ---
Assessment/Plan - Problem List (1) Liver failure without hepatic coma Qualifiers: Liver failure chronicity: subacute Qualified Code(s): K72.00 - Acute and subacute hepatic failure without coma Assessment/Plan: From alcoholic liver disease. He presented as months of increasing beer drinking since he lost his job. On admission his bili and LFTs were elevated. INR 1.8. While his LFTs were improving, his bili lagged and continued to rise. He got a CT of abd to check for gallbladder disease or intraductal dilatation and that was negative. Bili peaked on 07/19 at 23.8. Bili has been slowly coming down since that day. Per phone call consult with Dr. Pa from GI @ [facility] on 07/19, she advised us to increase lactulose dose, starting rifaximin 550 along w/ methylprednisolone 1mg/kg for the treatment of his alcoholic liver disease and pantoprazole 40mg IV push for stomach ulcer protection. However, Dr. Pa did not feel it necessary to give 200mg of steroids and aim for 40mg a day for 5 days. The phone call to Dr. Pa was not a formal consult and was only an attempt to seek advice in maximizing his treatment. He still has psychomotor slowing and keeps on being found asleep with food in his mouth (the last Hospitalist reiterated to staff to be in room with him when he eats or to sit him up). MELD 3.0 score is 29 points which equates to an estimated 76.5% indication for short term survival and approximately a 19.6% chance of mortality for patient's with end stage liver disease for considerations for liver transplant. Maddrey discrimination score is 54.6 points, and >32 indicates poor prognosis and would benefit from glucocorticoid therapy. Patient received solumedrol 40 mg IVP for 5 days, the last dose was on 07/22/22. Plan: continue the lactulose 10 gram po bid continue rifaximin will continue following daily CMP. continue trying to work with PT/OT. Now that he is out of the ICU on MedSurg status, will promote him getting into a chair even with a Kaci lift (2) Hepatic encephalopathy Impression: Patient has his dose of lactulose increased from 10mg po daily to twice daily. While he is definitely more awake, responsive and oriented, pt still shows psychomotor slowing. He already has loose stools once -twice a day. We have also stopped his gabapentin which may have added to lethargy. He was on 600 mg twice a day at home. Physical therapy work with him today. They used a Kaci lift to get him up to a chair. He did struggle to maintain his alertness during their evaluation and therapy. He had some knee pain. He is requiring max assist. Required max assist for sitting balance as well. He is dependent in the bed and needs help to sit upright, or to rollover. Not able to use his left arm to help himself. But was able to use his right arm to reach his face and here for grooming. He fatigues very easily. They want to continue skilled OT and PT services to address his poor bed mobility, transfers, balance, activities of daily living independence, and strength to enable him to return to his previous level of function where he was completely independent. I am anticipating he is getting need prolonged rehab at a retirement facility to get him to that point. (3) Skin rash He has a red rash covering the skin of both buttocks and is a result of being on his back and having the loose stool. WE are using wipes to clean and those wipes have barrier cream on them. I have also ordered nystatin powder to cover the rash as well as use in his intertriginous folds. While the skin is red and nonblanching, there is no skin ulcers or tears. Nursing also asked if he should be in his home clotrimazole. I explained that he is on nystatin here so I do not think he needs his home clotrimazole. However he does take mometasone steroid ointment for his lower extremities. And I will order that for him. (4) Alcoholism Impression: Initially was on banana bags and transitioned to multivit orally. Was on librium and CIWA protocol, but librium stopped 07/17. Pt is on lactulose with should help with the psychomotor slowing, however, this is still present at this time. Will continue to monitor. His mom would like him to go to rehab again. And I explained to her that we will certainly give him options and list of places for him to use. And we will even help him get there. But he has to make sure that leap himself. (5) Weakness He was so weak at admission that he had fallen before coming to the ER, and could not lift up his buttock in his bed by pushing up using his legs. He also admitted that over the past week beore admission, he had been mostly on his couch, hardly got up, did not eat, had his beer delivered to him by [employer]. Plan: PT and OT have started to work with him. Today is the first day that he has been out of bed, was raised using a Kaci lift to sit in a bariatric chair. Continue with rehab as planned and he will likely need a SNF, due to severe deconditioning which started from being bedridden at home (6) Right breast nipple inversion Outpatient work up with mammo (7) Boil Left anterior thigh that has come to a head. Patient scratched it and boil ruptured, no cellulitis. Qualifiers: Liver failure chronicity: subacute Qualified Code(s): K72.00 - Acute and subacute hepatic failure without coma (8) Conjunctivitis Resolved on eye drops (9) Hyponatremia Impression: Resolved as of 07/21 On admission, he presented is almost meeting the criteria for beer potomania. He was severely hyponatremic but not hypokalemic. Sodium on admission was 114. By July 16 Na was 118. By July 17 Na was 124. July 18 Na was 128 and by 07/21 his Na was 135. On 07/23 Na is 141. A daily salt tablet was added (by Telemedicine Dr). We have stopped NS Plan: Will stop the salt tablet He is on restricted oral fluid intake Will start Lasix (10) Hypotension From the to the he required Levophed to keep his blood pressure up and to maintain his urine output. He has been off of it since bedspread cutter hand hours of the . It was still on the market so I discontinued it today. I look for signs of infection. Repeated blood cultures, urinalysis, chest x-ray and no source of infection found. He may have been intravascularly depleted due to cirrhosis and alcoholism. He was not having an OK. No lactic acidosis. (11) Abnormal urinary constituents. His first urinalysis was also as abnormal but was negative in its growth. He does not have any symptoms of urgency, and frequency but with a psychomotor slowing. But he did not have a fever, he does not have an elevated white cell count. Plan: We did not treat this abnormal urinalysis unless culture comes back positive - Current Meds Current Meds: Current Medications Generic Name Dose Route Start Last Admin Trade Name Freq PRN Reason Stop Dose Admin Calcium Carbonate/Glycine 500 mg 07/21/22 03:51 07/23/22 08:12 Calcium Carbonate Chew 500 Mg Tablet PO 500 mg BID PRN Administration Heartburn Carboxymethylcellulose 1 drops 07/17/22 08:19 07/24/22 08:48 Carboxymethylcellulose Ophth Drops EACHEYE 1 drops PRN PRN Administration Dry Eye Clotrimazole 15 applic 07/22/22 21:00 07/24/22 08:50 Clotrimazole 1% Cream 15 Gm Tube TOP 1 applic BID KANU Administration Furosemide 20 mg 07/24/22 11:00 07/24/22 11:33 Furosemide 20 Mg/2 Ml Vial IVP 20 mg DAILY KANU Administration Lactobacillus Rhamnosus 1 cap 07/16/22 11:00 07/24/22 08:47 Lactobacillus Rhamnosus Gg Capsule PO 1 cap DAILY KANU Administration Lactulose 10 gm 07/24/22 14:00 07/24/22 14:10 Lactulose 10 Gm/15 Ml Bottle PO 10 gm TID KANU Administration Multi-Ingredient Ointment 1 applic 07/16/22 01:24 07/23/22 20:22 Zinc Oxide 20% Oint 30 Gm Tube TOP 1 applic PRN PRN Administration Skin Care Nystatin 1 applic 07/15/22 21:00 07/24/22 08:50 Nystatin Powder 15 Gm TOP 15 applic BID KANU Administration Ofloxacin 2 drops 07/22/22 09:00 07/24/22 11:33 Ofloxacin 0.3% Ophth Drops EACHEYE 07/27/22 08:59 1 drops QID KANU Administration Ondansetron HCl 4 mg 07/15/22 11:15 07/16/22 08:12 Ondansetron 4 Mg/2 Ml Vial IVP 4 mg Q6HR PRN Administration Nausea / Vomiting Pantoprazole Sodium 40 mg 07/19/22 11:00 07/24/22 06:25 Pantoprazole 40 Mg Tablet PO 40 mg QDAC KANU Administration Mometasone Furoate 1 each 07/22/22 17:00 07/23/22 08:14 0.1% Ointment TOP 1 each BID PRN Administration ITCHING Multivit/Folic Acid/Iron 1 tab 07/16/22 11:00 07/24/22 08:48 Vitamin Tablet PO 1 tab DAILYWM KANU Administration Prochlorperazine Edisylate 10 mg 07/15/22 11:15 07/22/22 23:58 Prochlorperazine 10 Mg/2 Ml Vial IVP 10 mg Q6HR PRN Administration Nausea / Vomiting Rifaximin 550 mg 07/18/22 21:00 07/24/22 08:47 Rifaximin 550 Mg Tablet PO 550 mg BID KANU Administration Sodium Chloride 10 ml 07/15/22 11:15 07/22/22 01:53 Sodium Chloride Flush 0.9% 10 Ml Syringe IVP 10 ml PRN PRN Administration NEEDED PER PROVIDER ORDERS Sodium Chloride 20 ml 07/16/22 22:36 07/22/22 05:00 Sodium Chloride Flush 0.9% 10 Ml Syringe IVP 20 ml PRN PRN Administration After Blood Draw Thiamine HCl 100 mg 07/16/22 11:00 07/24/22 08:47 Thiamine 100 Mg Tablet PO 100 mg DAILY KANU Administration Tramadol HCl 25 mg 07/22/22 18:35 07/24/22 11:36 Tramadol 50 Mg Tablet PO 25 mg Q4HR PRN Administration Moderate Pain (Level 4-6) Zinc Oxide 113 gm 07/19/22 17:01 07/22/22 23:47 Cod Liver Oil/Zinc Oxide 113 Gm Tube TOP 1 applic PRN PRN Administration Skin Care - Lab Result Fish Bone Diagrams: 07/26/22 06:35 07/28/22 06:00 - Additional Planning My Orders: My Active Orders 07/24/22 10:49 Echo Transthoracic w/Definity [ECHO] Routine 07/24/22 11:00 FUROSEMIDE INJ 20mg VIAL [LASIX INJ 20mg VIAL] 20 mg IVP DAILY 07/24/22 11:34 Telemetry-Discontinue [RC] .ONCE 07/24/22 14:00 Lactulose 10 gm PO TID Subjective - Subjective Patient Reports: Other (He is minimally more active but still keeps his eyes closed most of the day, answers in short sentences but has no complaints) Objective Vital Signs: Vital Signs - 24 hr 07/23/22 07/23/22 07/24/22 15:27 19:38 00:00 Temperature 36.6 C 36.9 C Heart Rate [ 100 93 89 Monitoring electrodes] Respiratory 23 21 18 Rate Blood Pressure 117/64 124/79 [Left Radial artery] Blood Pressure 111/83 H [Right Radial artery] O2 Saturation 95 94 96 07/24/22 07/24/22 07/24/22 05:00 07:39 08:32 Temperature 36.6 C 36.7 C Heart Rate [ 85 95 Monitoring electrodes] Respiratory 17 19 Rate Blood Pressure 115/66 [Left Radial artery] Blood Pressure 123/71 [Right Radial artery] O2 Saturation 97 95 07/24/22 12:21 Temperature 36.9 C Heart Rate [ 92 Monitoring electrodes] Respiratory 19 Rate Blood Pressure [Left Radial artery] Blood Pressure 109/74 [Right Radial artery] O2 Saturation 93 Oxygen O2 Source Room air I&O (Last 24 Hrs): Intake and Output Totals x24h 07/22/22 07/23/22 07/24/22 23:59 23:59 23:59 Intake Total 3062.50 1030 600 Output Total 1265 1145 890 Balance 1797.50 -115 -290 General: Other (Lethargic) HEENT: Mucous membr. moist/pink, Other (icteric sclerae) Neck: Other (Cannot evaluate JVP due to morbid obesity) Neuro: Other (Has generalized weakness. Is lethargic, mostly keeps his eyes closed, answers in short sentences) Cardiovascular: Regular rate Respiratory: No respiratory distress Abdomen: Other (Distended with firmness, possible fluid wave, morbidly obese with pannus nearly down to his knees. Redness and skin fold) Genitourinary: Other (Has Tello catheter in) Extremities: Other (4+ edema of the lower extremities up to the hips) - Results Results: Laboratory Results WBC 7.1 x10^3/uL (4.8-10.8) 07/24/22 05:04 RBC 3.47 10^6/uL (4.70-6.10) L 07/24/22 05:04 Hgb 11.8 g/dL (14.0-18.0) L 07/24/22 05:04 Hct 36.1 % (42.0-52.0) L 07/24/22 05:04 MCV 104.0 fL (80.0-94.0) H 07/24/22 05:04 MCH 34.0 pg (27.0-31.0) H 07/24/22 05:04 MCHC 32.7 g/dL (32.0-36.0) 07/24/22 05:04 RDW 17.2 % (12.0-15.0) H 07/24/22 05:04 Plt Count 132 10^3/uL (130-450) 07/24/22 05:04 MPV 8.7 fL (7.4-11.4) 07/24/22 05:04 Neut # (Auto) Not Reportable 07/24/22 05:04 Lymph # (Auto) Not Reportable 07/24/22 05:04 Coffey # (Auto) Not Reportable 07/24/22 05:04 Eos # (Auto) Not Reportable 07/24/22 05:04 Baso # (Auto) Not Reportable 07/24/22 05:04 Absolute Nucleated RBC Not Reportable 07/24/22 05:04 Total Counted 100 07/24/22 05:04 Band Neuts % (Manual) 16 % (0-10) H 07/24/22 05:04 Reactive Lymphs % (Man) 2 % 07/23/22 05:45 Abnorm Lymph % (Manual) 0 % 07/24/22 05:04 Metamyelocytes % 2 % (-0) H 07/24/22 05:04 Myelocytes % 4 % (-0) H 07/24/22 05:04 Nucleated RBC % Not Reportable 07/24/22 05:04 Neutrophils # (Manual) 4.4 10^3/uL (1.5-6.6) 07/24/22 05:04 Lymphocytes # (Manual) 1.6 10^3/uL (1.5-3.5) 07/24/22 05:04 Monocytes # (Manual) 0.4 10^3/uL (0.0-1.0) 07/24/22 05:04 Eosinophils # (Manual) 0.2 10^3/uL (0-0.7) 07/24/22 05:04 Basophils # (Manual) 0.1 10^3/uL (0-0.1) 07/24/22 05:04 Differential Comment MANUAL DIFFERENTIAL 07/24/22 05:04 RBC Morph Micro Appear 2+ TARGET CELLS (NORMAL) 1+ HYPOCHROMASIA (NORMAL) 07/24/22 05:04 RBC Morph Micro Appear 2+ TARGET CELLS (NORMAL) 1+ HYPOCHROMASIA (NORMAL) 07/24/22 05:04 PT 19.3 secs (9.9-12.6) H 07/15/22 12:26 INR 1.8 (0.8-1.2) H 07/15/22 12:26 VBG pH 7.317 (7.31-7.41) 07/23/22 05:45 Ionized Calcium 1.16 mmol/L (1.15-1.33) 07/23/22 05:45 Sodium 138 mmol/L (135-145) 07/24/22 05:04 Potassium 3.6 mmol/L (3.5-5.0) 07/24/22 05:04 Chloride 107 mmol/L (101-111) 07/24/22 05:04 Carbon Dioxide 25 mmol/L (21-32) 07/24/22 05:04 Anion Gap 6.0 (6-13) 07/24/22 05:04 BUN 20 mg/dL (6-20) 07/24/22 05:04 Creatinine 0.7 mg/dL (0.6-1.2) 07/24/22 05:04 Estimated GFR (MDRD) 118 (>89) 07/24/22 05:04 Glucose 100 mg/dL (70-100) 07/24/22 05:04 Estimat Average Glucose 105 mg/dL (70-100) H 07/16/22 04:27 Hemoglobin A1c % 5.3 % (4.27-6.07) 07/16/22 04:27 Calcium 8.2 mg/dL (8.5-10.3) L 07/24/22 05:04 Phosphorus 2.9 mg/dL (2.5-4.6) 07/23/22 05:45 Magnesium 2.4 mg/dL (1.7-2.8) 07/23/22 05:45 Total Bilirubin 14.8 mg/dL (0.2-1.0) H 07/24/22 05:04 AST 136 IU/L (10-42) H 07/24/22 05:04 ALT 85 IU/L (10-60) H 07/24/22 05:04 Alkaline Phosphatase 282 IU/L (42-121) H 07/24/22 05:04 Ammonia 51.6 umol/L (7-35) H 07/24/22 05:04 Total Creatine Kinase 171 IU/L (22-269) 07/18/22 05:18 Troponin I High Sens 27.6 ng/L (2.3-19.7) H* 07/16/22 20:52 Total Protein 5.0 g/dL (6.7-8.2) L 07/24/22 05:04 Albumin 2.0 g/dL (3.2-5.5) L 07/24/22 05:04 Globulin 3.0 g/dL (2.1-4.2) 07/24/22 05:04 Albumin/Globulin Ratio 0.7 (1.0-2.2) L 07/24/22 05:04 Lipase 36 U/L (22-51) 07/15/22 09:54 Vitamin B12 404 pg/mL (180-914) 07/16/22 04:27 Folate 8.12 ng/mL (5.90 - >24.8) 07/16/22 04:27 TSH 2.59 uIU/mL (0.34-5.60) 07/15/22 09:54 Urine Color DARK YELLOW 07/22/22 12:50 Urine Clarity HAZY (CLEAR) 07/22/22 12:50 Urine pH 6.0 PH (5.0-7.5) 07/22/22 12:50 Ur Specific [place] 1.020 (1.002-1.030) 07/22/22 12:50 Urine Protein NEGATIVE mg/dL (NEGATIVE) 07/22/22 12:50 Urine Glucose (UA) 250 mg/dL (NEGATIVE) H 07/22/22 12:50 Urine Ketones NEGATIVE mg/dL (NEGATIVE) 07/22/22 12:50 Urine Occult Blood MODERATE (NEGATIVE) H 07/22/22 12:50 Urine Nitrite POSITIVE (NEGATIVE) H 07/22/22 12:50 Urine Bilirubin LARGE (NEGATIVE) H 07/22/22 12:50 Urine Urobilinogen 2 E.U./dL (NORMAL) H 07/22/22 12:50 Ur Leukocyte Esterase SMALL (NEGATIVE) H 07/22/22 12:50 Urine RBC 0-5 /HPF (0-5) 07/22/22 12:50 Urine WBC 6-10 /HPF (0-3) H 07/22/22 12:50 Ur Squamous Epith Cells FEW Squamous (<= Few) 07/22/22 12:50 Urine Bacteria Many /HPF (None Seen) H 07/22/22 12:50 Urine Casts 0-2 WBC Casts /LPF 07/22/22 12:50 Urine Culture Comments INDICATED 07/22/22 12:50 Nasal Screen MRSA (PCR) NEGATIVE (NEGATIVE) 07/15/22 11:58 Stl C. diff Tox B Gene NEGATIVE (NEGATIVE) 07/16/22 02:05 Urine Opiates Screen NEGATIVE (NEGATIVE) 07/15/22 12:59 Ur Oxycodone Screen NEGATIVE (NEGATIVE) 07/15/22 12:59 Urine Methadone Screen NEGATIVE (NEGATIVE) 07/15/22 12:59 Ur Propoxyphene Screen NEGATIVE (NEGATIVE) 07/15/22 12:59 Ur Barbiturates Screen NEGATIVE (NEGATIVE) 07/15/22 12:59 Ur Tricyclics Screen NEGATIVE (NEGATIVE) 07/15/22 12:59 Ur Phencyclidine Scrn NEGATIVE (NEGATIVE) 07/15/22 12:59 Ur Amphetamine Screen NEGATIVE (NEGATIVE) 07/15/22 12:59 U Methamphetamines Scrn NEGATIVE (NEGATIVE) 07/15/22 12:59 U Benzodiazepines Scrn NEGATIVE (NEGATIVE) 07/15/22 12:59 Urine Cocaine Screen NEGATIVE (NEGATIVE) 07/15/22 12:59 U Cannabinoids Screen NEGATIVE (NEGATIVE) 07/15/22 12:59 Ethyl Alcohol 103.7 mg/dL 07/15/22 09:54 SARS-CoV-2 (PCR) NOT DETECTED 07/15/22 10:12
[2022-07-24] MEDS: ZINC OXIDE 20% OINT 30 GM TUBE TOP PRN (17:38)
[2022-07-24] MEDS: SODIUM CHLORIDE FLUSH 0.9% 10 ML SYRINGE IVP PRN (17:47)
[2022-07-24] MEDS: CALCIUM CARBONATE CHEW 500 MG TABLET PO PRN (18:15)
[2022-07-25 05:53] LABS: BASOPHILS # (AUTO) 0.1 10^3/uL (0.0-0.1); BASOPHILS % (AUTO) 0.7 %; EOSINOPHILS # (AUTO) 0.1 10^3/uL (0.0-0.7); EOSINOPHILS % (AUTO) 1.7 %; HCT - HEMATOCRIT 36.6 % (42.0-52.0); HGB - HEMOGLOBIN 11.8 g/dL (14.0-18.0); LYMPHOCYTES # (AUTO) 1.2 10^3/uL (1.5-3.5); LYMPHOCYTES % (AUTO) 14.5 %; MEAN CORPUSCULAR HEMOGLOBIN 33.5 pg (27.0-31.0); MEAN CORPUSCULAR HGB CONC 32.2 g/dL (32.0-36.0); MEAN PLATELET VOLUME 9.4 fL (7.4-11.4); MONOCYTES # (AUTO) 0.8 10^3/uL (0.0-1.0); MONOCYTES % (AUTO) 9.2 %; NEUTROPHILS # (AUTO) 5.6 10^3/uL (1.5-6.6); NEUTROPHILS % (AUTO) 69.1 %; PLT - PLATELET COUNT 142 10^3/uL (130-450); RED BLOOD COUNT 3.52 10^6/uL (4.70-6.10); RED CELL DISTRIBUTION WIDTH 17.2 % (12.0-15.0); WHITE BLOOD COUNT 8.1 x10^3/uL (4.8-10.8)
[2022-07-25 06:09] LABS: ALBUMIN 2.1 g/dL (3.2-5.5); ALBUMIN/GLOBULIN RATIO 0.6 (1.0-2.2); BILIRUBIN,TOTAL 17.3 mg/dL (0.2-1.0); CALCIUM 8.4 mg/dL (8.5-10.3); CREATININE 0.8 mg/dL (0.6-1.2); POTASSIUM 3.4 mmol/L (3.5-5.0); TOTAL PROTEIN 5.4 g/dL (6.7-8.2)
[2022-07-25] MEDS: LACTULOSE 10 GM/15 ML BOTTLE PO SCH ×3 (06:49→21:58)
[2022-07-25] MEDS: PANTOPRAZOLE 40 MG TABLET PO SCH (06:49)
[2022-07-25] MEDS: LACTOBACILLUS RHAMNOSUS GG CAPSULE PO SCH (08:00)
[2022-07-25] MEDS: PRENATAL VITAMIN TABLET PO SCH (08:00)
[2022-07-25] MEDS: ENOXAPARIN 40 MG/0.4 ML SYRINGE SUBQ SCH ×2 (08:00→21:55)
[2022-07-25] MEDS: rifAXIMin 550 MG TABLET PO SCH ×2 (08:00→21:55)
[2022-07-25] MEDS: THIAMINE 100 MG TABLET PO SCH (08:00)
[2022-07-25] MEDS: FUROSEMIDE 20 MG/2 ML VIAL IVP SCH (08:00)
[2022-07-25] MEDS: CLOTRIMAZOLE 1% CREAM 15 GM TUBE TOP SCH ×2 (08:01→21:56)
[2022-07-25] MEDS: OFLOXACIN 0.3% OPHTH DROPS EACHEYE SCH ×4 (08:01→21:55)
[2022-07-25] MEDS: NYSTATIN POWDER 15 GM TOP SCH ×2 (08:01→21:55)
[2022-07-25] MEDS: POTASSIUM CHLORIDE 10 MEQ CAPSULE PO SCH (14:28)
--- NOTE | 2022-07-25 18:12 | PROVIDER PROGRESS NOTE ---
Assessment/Plan - Problem List (1) Liver failure without hepatic coma Qualifiers: Liver failure chronicity: subacute Qualified Code(s): K72.00 - Acute and subacute hepatic failure without coma Assessment/Plan: He has liver failure from alcoholic liver disease. He presented with months of increased beer drinking after he lost his job. On admission his bili and LFTs were elevated. INR 1.8. While his LFTs were improving, his bili improvement lagg ed. He got a CT of abd to check for gallbladder disease or intraductal dilatation and that was negative. We did ask radiology if I needed to do an MRCP and he advised it wasn't necessary. Labs were all reviewed. Bili peaked on 07/19 at 23.8. Bili has plateaued at 14-16. Per phone call consult with Dr. Pa from GI @ [facility] on 07/19, she advised us to increase lactulose dose, starting rifaximin 550 along w/ methylprednisolone 1mg/kg for the treatment of his alcoholic liver disease and pantoprazole 40mg IV push for stomach ulcer protection. However, Dr. Pa did not feel it necessary to give 200mg of steroids and aim for 40mg a day for 5 days. The phone call to Dr. Pa was not a formal consult and was only an attempt to seek advice in maximizing his treatment. He had psychomotor slowing until today 07/26. His Maddrey score is 54.6 points, and >32 indicates poor prognosis and would benefit from glucocorticoid therapy. Patient received solumedrol 40 mg IVP for 5 days, the last dose was on 07/22/22. His MELD score is 29 points which equates to an estimated 76.5% indication for short term survival and approximately a 19.6% chance of mortality for patient's with end stage liver disease for considerations for liver transplant. Plan: continue the lactulose titrating to 2 loose BM's/day continue rifaximin will continue following daily CMP. continue to work with PT/OT (2) Hepatic encephalopathy Impression: Improved: Today he is alert, able to keep eyes open and speaks with normal sentences but still has some psychomotor slowing, and generalized weakness, wants to be in bed.. Physical therapy worked with him today. A Kaci lift needed to be used to put him in a bariatric chair. He kept requesting to be put back into bed Plan: Cont PT and OT and he will likley need prolonged rehab at a long term facility Will adjust Lactulose for elevated Ammonia and titrate to 2 BMs/day. (3) Anasarca He developed anasarca while in the ICU from receiving iv saline for his severe hyponatremia. He was also on a salt tablet daily. The salt tablet was stopped 2 days ago. IV Lasix was started. His fluid restriction was changed from free water restriction to a total liquid restricted down to 2000 cc/day (1000 cc with meals, 1000 cc for nursing) Plan: Continue with IV Lasix Follow BMP daily and magnesium daily Follow I's and O's and daily weight. (4) Skin rash Rash covering the skin of both buttocks and is a result of being on his back and having the loose stool. Plan: Continue hygiene and nystatin powder Shower planned when he can tolerate sitting in a bariatric chair in shower (5) Weakness He had fallen before coming to the ER and was so weak at admission that he could not lift up his buttocks when in his bed by pushing up using his legs. He also admitted that over the past week before admission, he had been mostly on his couch, hardly got up, did not eat, had his beer delivered to him by [employer]. Plan: Cont PT and OT Hope to have him at least use bedside commode Continue with rehab as planned and he will likely need a SNF, due to severe deconditioning which started from being bedridden at home (6) Alcoholism Impression: Initially he was on iv banana bags and transitioned to multivit and thiamin orally whgen he was able to swallow. He needed librium and CIWA protocol, but librium stopped 07/17. Pt is on lactulose for his high Ammonia level and confusion and psychomotor slowing. Plan: Continue present meds and abstinence from alcohol. (7) Right breast nipple inversion Plan: Outpatient work up with mammo (8) Hyponatremia Resolved as of 07/21 On admission, he presented is almost meeting the criteria for beer potomania. He was severely hyponatremic at 114 but not hypokalemic. He was on saline in the ICU. A daily salt tablet was added (by Telemedicine ). By July 16 Na was 118. By July 17 Na was 124. July 18 Na was 128 and by 07/21 his Na was 135. On 07/23 Na was 141. Plan: Remain off the the salt tablet, due to persistent anasarca Cont on restricted total fluid intake/day Cont Lasix for the anasarca Follow BMP daily (9) Hypotension Resolved From July 16 to the he required Levophed to keep his blood pressure up and to maintain his urine output. We looked for signs of infection, repeated blood cultures, urinalysis, chest x-ray and no source of infection was found. He was not having an NC. No lactic acidosis. Suspect he was intravascularly depleted due to cirrhosis and alcoholism. (10) Abnormal urinary constituents. His first urinalysis showed bacteriuria but was negative in its growth. He did not have any symptoms of urgency, and frequency but did have AMS (psychomotor slowing). He did not have a fever or an elevated white cell count. We did not treat this abnormal urinalysis (11) Boil Left anterior thigh that has come to a head. Patient scratched it and boil ruptured, no cellulitis. (12) Conjunctivitis Resolved on eye drops - Current Meds Current Meds: Current Medications Generic Name Dose Route Start Last Admin Trade Name Freq PRN Reason Stop Dose Admin Calcium Carbonate/Glycine 500 mg 07/21/22 03:51 07/24/22 18:15 Calcium Carbonate Chew 500 Mg Tablet PO 500 mg BID PRN Administration Heartburn Carboxymethylcellulose 1 drops 07/17/22 08:19 07/24/22 08:48 Carboxymethylcellulose Ophth Drops EACHEYE 1 drops PRN PRN Administration Dry Eye Clotrimazole 15 applic 07/22/22 21:00 07/25/22 08:01 Clotrimazole 1% Cream 15 Gm Tube TOP 15 applic BID KANU Administration Enoxaparin Sodium 40 mg 07/24/22 09:41 07/25/22 08:00 Enoxaparin 40 Mg/0.4 Ml Syringe SUBQ 40 mg BID KANU Administration Furosemide 20 mg 07/24/22 11:00 07/25/22 08:00 Furosemide 20 Mg/2 Ml Vial IVP 20 mg DAILY KANU Administration Lactobacillus Rhamnosus 1 cap 07/16/22 11:00 07/25/22 08:00 Lactobacillus Rhamnosus Gg Capsule PO 1 cap DAILY KANU Administration Lactulose 10 gm 07/24/22 14:00 07/25/22 14:23 Lactulose 10 Gm/15 Ml Bottle PO 10 gm TID KANU Administration Multi-Ingredient Ointment 1 applic 07/16/22 01:24 07/24/22 17:38 Zinc Oxide 20% Oint 30 Gm Tube TOP 1 applic PRN PRN Administration Skin Care Nystatin 1 applic 07/15/22 21:00 07/25/22 08:01 Nystatin Powder 15 Gm TOP 1 applic BID KANU Administration Ofloxacin 2 drops 07/22/22 09:00 07/25/22 17:11 Ofloxacin 0.3% Ophth Drops EACHEYE 07/27/22 08:59 2 drops QID KANU Administration Ondansetron HCl 4 mg 07/15/22 11:15 07/16/22 08:12 Ondansetron 4 Mg/2 Ml Vial IVP 4 mg Q6HR PRN Administration Nausea / Vomiting Pantoprazole Sodium 40 mg 07/19/22 11:00 07/25/22 06:49 Pantoprazole 40 Mg Tablet PO 40 mg QDAC KANU Administration Mometasone Furoate 1 each 07/22/22 17:00 07/23/22 08:14 0.1% Ointment TOP 1 each BID PRN Administration ITCHING Potassium Chloride 20 meq 07/25/22 12:00 07/25/22 14:28 Potassium Chloride 10 Meq Capsule PO 20 meq DAILYWM KANU Administration Multivit/Folic Acid/Iron 1 tab 07/16/22 11:00 07/25/22 08:00 Vitamin Tablet PO 1 tab DAILYWM KANU Administration Prochlorperazine Edisylate 10 mg 07/15/22 11:15 07/22/22 23:58 Prochlorperazine 10 Mg/2 Ml Vial IVP 10 mg Q6HR PRN Administration Nausea / Vomiting Rifaximin 550 mg 07/18/22 21:00 07/25/22 08:00 Rifaximin 550 Mg Tablet PO 550 mg BID KANU Administration Sodium Chloride 10 ml 07/15/22 11:15 07/24/22 17:47 Sodium Chloride Flush 0.9% 10 Ml Syringe IVP 30 ml PRN PRN Administration NEEDED PER PROVIDER ORDERS Sodium Chloride 20 ml 07/16/22 22:36 07/22/22 05:00 Sodium Chloride Flush 0.9% 10 Ml Syringe IVP 20 ml PRN PRN Administration After Blood Draw Thiamine HCl 100 mg 07/16/22 11:00 07/25/22 08:00 Thiamine 100 Mg Tablet PO 100 mg DAILY KANU Administration Tramadol HCl 25 mg 07/22/22 18:35 07/24/22 18:24 Tramadol 50 Mg Tablet PO 25 mg Q4HR PRN Administration Moderate Pain (Level 4-6) Zinc Oxide 113 gm 07/19/22 17:01 07/22/22 23:47 Cod Liver Oil/Zinc Oxide 113 Gm Tube TOP 1 applic PRN PRN Administration Skin Care - Lab Result Fish Bone Diagrams: 07/26/22 06:35 07/28/22 06:00 - Additional Planning My Orders: My Active Orders 07/25/22 12:00 Potassium Chloride [Micro-K] 20 meq PO DAILYWM Subjective - Subjective Patient Reports: Other (More talkative today, keeps his eyes open when talking but still has generalized weakness, prefers to be in a bed and not sitting up in a chair) Objective Vital Signs: Vital Signs - 24 hr 07/24/22 07/24/22 07/25/22 20:00 23:30 04:32 Temperature 36.2 C L 36.6 C 37.0 C Heart Rate [ 91 86 Brachial] Heart Rate [ 86 Monitoring electrodes] Heart Rate [ Radial] Respiratory 24 24 22 Rate Blood Pressure 105/65 [Left Brachial artery] Blood Pressure 109/61 102/56 L [Right Radial artery] O2 Saturation 94 97 97 07/25/22 07/25/22 07/25/22 08:20 11:27 16:00 Temperature 36.3 C L 36.4 C L 36.4 C L Heart Rate [ 113 H Brachial] Heart Rate [ Monitoring electrodes] Heart Rate [ 91 84 Radial] Respiratory 22 24 24 Rate Blood Pressure [Left Brachial artery] Blood Pressure 135/78 H 91/51 L 93/54 L [Right Radial artery] O2 Saturation 100 97 94 Oxygen O2 Source Room air I&O (Last 24 Hrs): Intake and Output Totals x24h 07/23/22 07/24/22 07/25/22 23:59 23:59 23:59 Intake Total 1030 1290 480 Output Total 1145 1165 1250 Balance -115 125 -770 General: Alert, Other (Icteric) HEENT: Mucous membr. moist/pink, Other (Icteric sclerae) Neck: Other (Cannot evaluate JVP due to morbid obesity) Neuro: Alert, Non Focal, Other (Starting to keep his eyes open much more and speaks in longer sentences) Cardiovascular: Regular rate Respiratory: No respiratory distress Abdomen: Other (Distended, firm, possible fluid wave, has morbid obesity with a pannus down to his knees. Redness and skin fold) Extremities: No clubbing, Other (3+ edema to the groin) - Results Results: Laboratory Results WBC 8.1 x10^3/uL (4.8-10.8) 07/25/22 05:43 RBC 3.52 10^6/uL (4.70-6.10) L 07/25/22 05:43 Hgb 11.8 g/dL (14.0-18.0) L 07/25/22 05:43 Hct 36.6 % (42.0-52.0) L 07/25/22 05:43 MCV 104.0 fL (80.0-94.0) H 07/25/22 05:43 MCH 33.5 pg (27.0-31.0) H 07/25/22 05:43 MCHC 32.2 g/dL (32.0-36.0) 07/25/22 05:43 RDW 17.2 % (12.0-15.0) H 07/25/22 05:43 Plt Count 142 10^3/uL (130-450) 07/25/22 05:43 MPV 9.4 fL (7.4-11.4) 07/25/22 05:43 Neut # (Auto) 5.6 10^3/uL (1.5-6.6) 07/25/22 05:43 Lymph # (Auto) 1.2 10^3/uL (1.5-3.5) L 07/25/22 05:43 [place] # (Auto) 0.8 10^3/uL (0.0-1.0) 07/25/22 05:43 Eos # (Auto) 0.1 10^3/uL (0.0-0.7) 07/25/22 05:43 Baso # (Auto) 0.1 10^3/uL (0.0-0.1) 07/25/22 05:43 Absolute Nucleated RBC 0.00 x10^3/uL 07/25/22 05:43 Total Counted 100 07/24/22 05:04 Band Neuts % (Manual) 16 % (0-10) H 07/24/22 05:04 Reactive Lymphs % (Man) 2 % 07/23/22 05:45 Abnorm Lymph % (Manual) 0 % 07/24/22 05:04 Metamyelocytes % 2 % (-0) H 07/24/22 05:04 Myelocytes % 4 % (-0) H 07/24/22 05:04 Nucleated RBC % 0.0 /100WBC 07/25/22 05:43 Neutrophils # (Manual) 4.4 10^3/uL (1.5-6.6) 07/24/22 05:04 Lymphocytes # (Manual) 1.6 10^3/uL (1.5-3.5) 07/24/22 05:04 Monocytes # (Manual) 0.4 10^3/uL (0.0-1.0) 07/24/22 05:04 Eosinophils # (Manual) 0.2 10^3/uL (0-0.7) 07/24/22 05:04 Basophils # (Manual) 0.1 10^3/uL (0-0.1) 07/24/22 05:04 Differential Comment MANUAL DIFFERENTIAL 07/24/22 05:04 RBC Morph Micro Appear 2+ TARGET CELLS (NORMAL) 1+ HYPOCHROMASIA (NORMAL) 07/24/22 05:04 RBC Morph Micro Appear 2+ TARGET CELLS (NORMAL) 1+ HYPOCHROMASIA (NORMAL) 07/24/22 05:04 PT 19.3 secs (9.9-12.6) H 07/15/22 12:26 INR 1.8 (0.8-1.2) H 07/15/22 12:26 VBG pH 7.317 (7.31-7.41) 07/23/22 05:45 Ionized Calcium 1.16 mmol/L (1.15-1.33) 07/23/22 05:45 Sodium 137 mmol/L (135-145) 07/25/22 05:43 Potassium 3.4 mmol/L (3.5-5.0) L 07/25/22 05:43 Chloride 106 mmol/L (101-111) 07/25/22 05:43 Carbon Dioxide 24 mmol/L (21-32) 07/25/22 05:43 Anion Gap 7.0 (6-13) 07/25/22 05:43 BUN 21 mg/dL (6-20) H 07/25/22 05:43 Creatinine 0.8 mg/dL (0.6-1.2) 07/25/22 05:43 Estimated GFR (MDRD) 101 (>89) 07/25/22 05:43 Glucose 112 mg/dL (70-100) H 07/25/22 05:43 Estimat Average Glucose 105 mg/dL (70-100) H 07/16/22 04:27 Hemoglobin A1c % 5.3 % (4.27-6.07) 07/16/22 04:27 Calcium 8.4 mg/dL (8.5-10.3) L 07/25/22 05:43 Phosphorus 2.9 mg/dL (2.5-4.6) 07/23/22 05:45 Magnesium 2.4 mg/dL (1.7-2.8) 07/23/22 05:45 Total Bilirubin 17.3 mg/dL (0.2-1.0) H 07/25/22 05:43 AST 117 IU/L (10-42) H 07/25/22 05:43 ALT 88 IU/L (10-60) H 07/25/22 05:43 Alkaline Phosphatase 277 IU/L (42-121) H 07/25/22 05:43 Ammonia 51.6 umol/L (7-35) H 07/24/22 05:04 Total Creatine Kinase 171 IU/L (22-269) 07/18/22 05:18 Troponin I High Sens 27.6 ng/L (2.3-19.7) H* 07/16/22 20:52 Total Protein 5.4 g/dL (6.7-8.2) L 07/25/22 05:43 Albumin 2.1 g/dL (3.2-5.5) L 07/25/22 05:43 Globulin 3.3 g/dL (2.1-4.2) 07/25/22 05:43 Albumin/Globulin Ratio 0.6 (1.0-2.2) L 07/25/22 05:43 Lipase 36 U/L (22-51) 07/15/22 09:54 Vitamin B12 404 pg/mL (180-914) 07/16/22 04:27 Folate 8.12 ng/mL (5.90 - >24.8) 07/16/22 04:27 TSH 2.59 uIU/mL (0.34-5.60) 07/15/22 09:54 Urine Color DARK YELLOW 07/22/22 12:50 Urine Clarity HAZY (CLEAR) 07/22/22 12:50 Urine pH 6.0 PH (5.0-7.5) 07/22/22 12:50 Ur Specific [place] 1.020 (1.002-1.030) 07/22/22 12:50 Urine Protein NEGATIVE mg/dL (NEGATIVE) 07/22/22 12:50 Urine Glucose (UA) 250 mg/dL (NEGATIVE) H 07/22/22 12:50 Urine Ketones NEGATIVE mg/dL (NEGATIVE) 07/22/22 12:50 Urine Occult Blood MODERATE (NEGATIVE) H 07/22/22 12:50 Urine Nitrite POSITIVE (NEGATIVE) H 07/22/22 12:50 Urine Bilirubin LARGE (NEGATIVE) H 07/22/22 12:50 Urine Urobilinogen 2 E.U./dL (NORMAL) H 07/22/22 12:50 Ur Leukocyte Esterase SMALL (NEGATIVE) H 07/22/22 12:50 Urine RBC 0-5 /HPF (0-5) 07/22/22 12:50 Urine WBC 6-10 /HPF (0-3) H 07/22/22 12:50 Ur Squamous Epith Cells FEW Squamous (<= Few) 07/22/22 12:50 Urine Bacteria Many /HPF (None Seen) H 07/22/22 12:50 Urine Casts 0-2 WBC Casts /LPF 07/22/22 12:50 Urine Culture Comments INDICATED 07/22/22 12:50 Nasal Screen MRSA (PCR) NEGATIVE (NEGATIVE) 07/15/22 11:58 Stl C. diff Tox B Gene NEGATIVE (NEGATIVE) 07/16/22 02:05 Urine Opiates Screen NEGATIVE (NEGATIVE) 07/15/22 12:59 Ur Oxycodone Screen NEGATIVE (NEGATIVE) 07/15/22 12:59 Urine Methadone Screen NEGATIVE (NEGATIVE) 07/15/22 12:59 Ur Propoxyphene Screen NEGATIVE (NEGATIVE) 07/15/22 12:59 Ur Barbiturates Screen NEGATIVE (NEGATIVE) 07/15/22 12:59 Ur Tricyclics Screen NEGATIVE (NEGATIVE) 07/15/22 12:59 Ur Phencyclidine Scrn NEGATIVE (NEGATIVE) 07/15/22 12:59 Ur Amphetamine Screen NEGATIVE (NEGATIVE) 07/15/22 12:59 U Methamphetamines Scrn NEGATIVE (NEGATIVE) 07/15/22 12:59 U Benzodiazepines Scrn NEGATIVE (NEGATIVE) 07/15/22 12:59 Urine Cocaine Screen NEGATIVE (NEGATIVE) 07/15/22 12:59 U Cannabinoids Screen NEGATIVE (NEGATIVE) 07/15/22 12:59 Ethyl Alcohol 103.7 mg/dL 07/15/22 09:54 SARS-CoV-2 (PCR) NOT DETECTED 07/15/22 10:12
[2022-07-26] MEDS: PANTOPRAZOLE 40 MG TABLET PO SCH (06:42)
[2022-07-26] MEDS: LACTULOSE 10 GM/15 ML BOTTLE PO SCH ×2 (06:42→14:30)
[2022-07-26 07:35] LABS: BASOPHILS # (AUTO) 0.1 10^3/uL (0.0-0.1); BASOPHILS % (AUTO) 0.8 %; EOSINOPHILS # (AUTO) 0.1 10^3/uL (0.0-0.7); EOSINOPHILS % (AUTO) 1.8 %; HCT - HEMATOCRIT 34.6 % (42.0-52.0); HGB - HEMOGLOBIN 11.6 g/dL (14.0-18.0); LYMPHOCYTES # (AUTO) 1.1 10^3/uL (1.5-3.5); LYMPHOCYTES % (AUTO) 14.5 %; MEAN CORPUSCULAR HEMOGLOBIN 34.6 pg (27.0-31.0); MEAN CORPUSCULAR HGB CONC 33.5 g/dL (32.0-36.0); MEAN CORPUSCULAR VOLUME 103.3 fL (80.0-94.0); MEAN PLATELET VOLUME 10.2 fL (7.4-11.4); MONOCYTES # (AUTO) 0.7 10^3/uL (0.0-1.0); MONOCYTES % (AUTO) 8.4 %; NEUTROPHILS # (AUTO) 5.5 10^3/uL (1.5-6.6); NEUTROPHILS % (AUTO) 70.4 %; PLT - PLATELET COUNT 130 10^3/uL (130-450); RED BLOOD COUNT 3.35 10^6/uL (4.70-6.10); RED CELL DISTRIBUTION WIDTH 17.3 % (12.0-15.0); WHITE BLOOD COUNT 7.9 x10^3/uL (4.8-10.8)
[2022-07-26 07:41] LABS: ALBUMIN 2.1 g/dL (3.2-5.5); ALBUMIN/GLOBULIN RATIO 0.6 (1.0-2.2); BILIRUBIN,TOTAL 16.2 mg/dL (0.2-1.0); CALCIUM 8.1 mg/dL (8.5-10.3); CREATININE 0.7 mg/dL (0.6-1.2); POTASSIUM 3.4 mmol/L (3.5-5.0); TOTAL PROTEIN 5.4 g/dL (6.7-8.2)
[2022-07-26] MEDS: THIAMINE 100 MG TABLET PO SCH (08:07)
[2022-07-26] MEDS: PRENATAL VITAMIN TABLET PO SCH (08:07)
[2022-07-26] MEDS: POTASSIUM CHLORIDE 10 MEQ CAPSULE PO SCH (08:07)
[2022-07-26] MEDS: rifAXIMin 550 MG TABLET PO SCH ×2 (08:08→22:41)
[2022-07-26] MEDS: CLOTRIMAZOLE 1% CREAM 15 GM TUBE TOP SCH ×2 (08:08→22:41)
[2022-07-26] MEDS: ENOXAPARIN 40 MG/0.4 ML SYRINGE SUBQ SCH ×2 (08:08→22:41)
[2022-07-26] MEDS: OFLOXACIN 0.3% OPHTH DROPS EACHEYE SCH ×4 (08:08→22:41)
[2022-07-26] MEDS: LACTOBACILLUS RHAMNOSUS GG CAPSULE PO SCH (08:08)
[2022-07-26] MEDS: NYSTATIN POWDER 15 GM TOP SCH ×2 (08:09→22:41)
[2022-07-26] MEDS: FUROSEMIDE 20 MG/2 ML VIAL IVP SCH (08:09)
--- NOTE | 2022-07-26 14:56 | PROVIDER PROGRESS NOTE ---
Assessment/Plan - Problem List (1) Liver failure without hepatic coma Qualifiers: Liver failure chronicity: subacute Qualified Code(s): K72.00 - Acute and subacute hepatic failure without coma Assessment/Plan: He has liver failure from alcoholic liver disease. He presented with months of increased beer drinking after he lost his job. On admission his bili and LFTs were elevated. INR 1.8. While his LFTs were improving, his bili improvement lagg ed. He got a CT of abd to check for gallbladder disease or intraductal dilatation and that was negative. We did ask radiology if I needed to do an MRCP and he advised it wasn't necessary. Labs were all reviewed. Bili peaked on 07/19 at 23.8. Bili has plateaued at 14-16. Per phone call consult with Dr. Pa from GI @ [facility] on 07/19, she advised us to increase lactulose dose, starting rifaximin 550 along w/ methylprednisolone 1mg/kg for the treatment of his alcoholic liver disease and pantoprazole 40mg IV push for stomach ulcer protection. However, Dr. Pa did not feel it necessary to give 200mg of steroids and aim for 40mg a day for 5 days. The phone call to Dr. Pa was not a formal consult and was only an attempt to seek advice in maximizing his treatment. He had psychomotor slowing until today 07/26. His Maddrey score is 54.6 points, and >32 indicates poor prognosis and would benefit from glucocorticoid therapy. Patient received solumedrol 40 mg IVP for 5 days, the last dose was on 07/22/22. His MELD score is 29 points which equates to an estimated 76.5% indication for short term survival and approximately a 19.6% chance of mortality for patient's with end stage liver disease for considerations for liver transplant. Plan: continue the lactulose titrating to 2 loose BM's/day continue rifaximin will continue following daily CMP. continue to work with PT/OT (2) Hepatic encephalopathy Impression: Improved: Today he is alert, oriented, able to keep eyes open and speaks with normal sentences and has no psychomotor slowing. Patient had his dose of lactulose increased from 10mg po twice daily to TID and c/o many loose BMs a day. We have had him off his gabapentin which may have added to lethargy and today he is requesting it, for his neuropathy. Physical therapy worked with him today. He was able to shuffle several steps to sit up in a chair. With OT he is addressing his poor bed mobility, transfers, activities. Plan: Cont PT and OT and he will likley need prolonged rehab at a retirement facility Will remove Tello and encourage using the commode and a urinal, he may use bedside commode or bathroom toilet. Will decrease Lactulose and titrate to 2 BMs/day. (3) Anasarca He developed anasarca while in the ICU from receiving iv saline for his severe hyponatremia. He was also on a salt tablet daily. The salt tablet was stopped 2 days ago. IV Lasix was started. His fluid restriction was changed from free water restriction to a total liquid restricted down to 2000 cc/day (1000 cc with meals, 1000 cc for nursing) Plan: Continue with IV Lasix Follow BMP daily and magnesium daily Follow I's and O's and daily weight. 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 Plan: Continue hygiene and nystatin powder We will order shower (5) Weakness He had fallen before coming to the ER and was so weak at admission that he could not lift up his buttocks when in his bed by pushing up using his legs. He also admitted that over the past week before admission, he had been mostly on his couch, hardly got up, did not eat, had his beer delivered to him by [employer]. Plan: Cont PT and OT We will allow use of the toilet in the bathroom or may use bedside We will discontinue his Tello since he is awake now and can hold a urinal Continue with rehab as planned and he will likely need a SNF, due to severe deconditioning which started from being bedridden at home (6) Alcoholism Impression: Initially he was on iv banana bags and transitioned to multivit and thiamin orally whgen he was able to swallow. He needed librium and CIWA protocol, but librium stopped 07/17. Pt is on lactulose for his high Ammonia level and confusion and psychomotor slowing. Plan: Continue present meds and abstinence from alcohol. We will have the patient seen for substance abuse with social work evmaricruz. now that he is communicative (7) Right breast nipple inversion Plan: Outpatient work up with mammo (8) Hyponatremia Resolved as of 07/21 On admission, he presented is almost meeting the criteria for beer potomania. He was severely hyponatremic at 114 but not hypokalemic. He was on saline in the ICU. A daily salt tablet was added (by Telemedicine Dr). By July 16 Na was 118. By July 17 Na was 124. July 18 Na was 128 and by 07/21 his Na was 135. On 07/23 Na was 141. Plan: Remain off the the salt tablet, due to persistent anasarca Cont on restricted total fluid intake/day Cont Lasix for the anasarca Follow BMP daily (9) Hypotension Resolved From July 16 to the he required Levophed to keep his blood pressure up and to maintain his urine output. We looked for signs of infection, repeated blood cultures, urinalysis, chest x-ray and no source of infection was found. He was not having an DC. No lactic acidosis. Suspect he was intravascularly depleted due to cirrhosis and alcoholism. (10) Abnormal urinary constituents. His first urinalysis showed bacteriuria but was negative in its growth. He did not have any symptoms of urgency, and frequency but did have AMS (psychomotor slowing). He did not have a fever or an elevated white cell count. We did not treat this abnormal urinalysis (11) Boil Left anterior thigh that has come to a head. Patient scratched it and boil ruptured, no cellulitis. (12) Conjunctivitis Resolved on eye drops - Current Meds Current Meds: Current Medications Generic Name Dose Route Start Last Admin Trade Name Freq PRN Reason Stop Dose Admin Calcium Carbonate/Glycine 500 mg 07/21/22 03:51 07/24/22 18:15 Calcium Carbonate Chew 500 Mg Tablet PO 500 mg BID PRN Administration Heartburn Carboxymethylcellulose 1 drops 07/17/22 08:19 07/24/22 08:48 Carboxymethylcellulose Ophth Drops EACHEYE 1 drops PRN PRN Administration Dry Eye Clotrimazole 15 applic 07/22/22 21:00 07/26/22 08:08 Clotrimazole 1% Cream 15 Gm Tube TOP 15 applic BID KANU Administration Enoxaparin Sodium 40 mg 07/24/22 09:41 07/26/22 08:08 Enoxaparin 40 Mg/0.4 Ml Syringe SUBQ 40 mg BID KANU Administration Furosemide 20 mg 07/24/22 11:00 07/26/22 08:09 Furosemide 20 Mg/2 Ml Vial IVP 20 mg DAILY KANU Administration Lactobacillus Rhamnosus 1 cap 07/16/22 11:00 07/26/22 08:08 Lactobacillus Rhamnosus Gg Capsule PO 1 cap DAILY KANU Administration Lactulose 10 gm 07/24/22 14:00 07/26/22 14:30 Lactulose 10 Gm/15 Ml Bottle PO 10 gm TID KANU Administration Multi-Ingredient Ointment 1 applic 07/16/22 01:24 07/24/22 17:38 Zinc Oxide 20% Oint 30 Gm Tube TOP 1 applic PRN PRN Administration Skin Care Nystatin 1 applic 07/15/22 21:00 07/26/22 08:09 Nystatin Powder 15 Gm TOP 1 applic BID KANU Administration Ofloxacin 2 drops 07/22/22 09:00 07/26/22 13:13 Ofloxacin 0.3% Ophth Drops EACHEYE 07/27/22 08:59 2 drops QID KANU Administration Ondansetron HCl 4 mg 07/15/22 11:15 07/16/22 08:12 Ondansetron 4 Mg/2 Ml Vial IVP 4 mg Q6HR PRN Administration Nausea / Vomiting Pantoprazole Sodium 40 mg 07/19/22 11:00 07/26/22 06:42 Pantoprazole 40 Mg Tablet PO 40 mg QDAC KANU Administration Mometasone Furoate 1 each 07/22/22 17:00 07/23/22 08:14 0.1% Ointment TOP 1 each BID PRN Administration ITCHING Potassium Chloride 20 meq 07/25/22 12:00 07/26/22 08:07 Potassium Chloride 10 Meq Capsule PO 20 meq DAILYWM KANU Administration Multivit/Folic Acid/Iron 1 tab 07/16/22 11:00 07/26/22 08:07 Vitamin Tablet PO 1 tab DAILYWM KANU Administration Prochlorperazine Edisylate 10 mg 07/15/22 11:15 07/22/22 23:58 Prochlorperazine 10 Mg/2 Ml Vial IVP 10 mg Q6HR PRN Administration Nausea / Vomiting Rifaximin 550 mg 07/18/22 21:00 07/26/22 08:08 Rifaximin 550 Mg Tablet PO 550 mg BID KANU Administration Sodium Chloride 10 ml 07/15/22 11:15 07/24/22 17:47 Sodium Chloride Flush 0.9% 10 Ml Syringe IVP 30 ml PRN PRN Administration NEEDED PER PROVIDER ORDERS Sodium Chloride 20 ml 07/16/22 22:36 07/22/22 05:00 Sodium Chloride Flush 0.9% 10 Ml Syringe IVP 20 ml PRN PRN Administration After Blood Draw Thiamine HCl 100 mg 07/16/22 11:00 07/26/22 08:07 Thiamine 100 Mg Tablet PO 100 mg DAILY KANU Administration Tramadol HCl 25 mg 07/22/22 18:35 07/24/22 18:24 Tramadol 50 Mg Tablet PO 25 mg Q4HR PRN Administration Moderate Pain (Level 4-6) Zinc Oxide 113 gm 07/19/22 17:01 07/22/22 23:47 Cod Liver Oil/Zinc Oxide 113 Gm Tube TOP 1 applic PRN PRN Administration Skin Care - Lab Result Fish Bone Diagrams: 07/26/22 06:35 07/26/22 06:35 - Additional Planning My Orders: My Active Orders 07/26/22 Lunch Hepatic/Renal Diet [DIET] 07/26/22 11:59 Shower [RC] ONCE 07/27/22 05:00 AMMONIA [CHEM] DAILYLAB CMP [COMPREHENSIVE METABOLIC PANEL] [CHEM] DAILYLAB 07/28/22 05:00 CMP [COMPREHENSIVE METABOLIC PANEL] [CHEM] DAILYLAB 07/29/22 05:00 CMP [COMPREHENSIVE METABOLIC PANEL] [CHEM] DAILYLAB Subjective - Subjective Patient Reports: Feeling Better, Other (He is sitting up in a chair and requesting to go back to bed to eat, says that he likes having his Tello in o that he does not have to get out of bed to urinate, is asking why he has not been getting in his Gabapentin) Objective Vital Signs: Vital Signs - 24 hr 07/25/22 07/25/22 07/26/22 16:00 20:00 00:11 Temperature 36.4 C L 36.4 C L 36.5 C Heart Rate [ 113 H Brachial] Heart Rate [ 92 102 H Radial] Respiratory 24 22 24 Rate Blood Pressure 93/54 L 90/54 L 95/55 L [Right Radial artery] O2 Saturation 94 97 98 07/26/22 07/26/22 07/26/22 04:00 08:00 12:00 Temperature 36.4 C L 36.9 C 36.9 C Heart Rate [ Brachial] Heart Rate [ 80 80 88 Radial] Respiratory 24 Rate Blood Pressure 115/62 99/54 L 108/69 [Right Radial artery] O2 Saturation 98 99 100 Oxygen O2 Source Room air I&O (Last 24 Hrs): Intake and Output Totals x24h 07/24/22 07/25/22 07/26/22 23:59 23:59 23:59 Intake Total 1290 1070 870 Output Total 1165 1950 1275 Balance 125 -880 -405 General: Alert, Oriented x3, Other (Morbidly obese, anicteric) HEENT: Mucous membr. moist/pink, Other (Icteric skin and sclerae) Neck: Supple, Other (Cannot evaluate JVP due to morbid obesity) Neuro: Alert, Other (No longer has psychomotor slowing today) Cardiovascular: Regular rate Respiratory: No respiratory distress Abdomen: Other (Distended and massively obese, with a pannus nearly down to his knees. Red skin is in his skin fold) Genitourinary: Other (Has a Tello in place) Extremities: Other (4+ edema to his posterior hip) - Results Results: Laboratory Results WBC 7.9 x10^3/uL (4.8-10.8) 07/26/22 06:35 RBC 3.35 10^6/uL (4.70-6.10) L 07/26/22 06:35 Hgb 11.6 g/dL (14.0-18.0) L 07/26/22 06:35 Hct 34.6 % (42.0-52.0) L 07/26/22 06:35 MCV 103.3 fL (80.0-94.0) H 07/26/22 06:35 MCH 34.6 pg (27.0-31.0) H 07/26/22 06:35 MCHC 33.5 g/dL (32.0-36.0) 07/26/22 06:35 RDW 17.3 % (12.0-15.0) H 07/26/22 06:35 Plt Count 130 10^3/uL (130-450) 07/26/22 06:35 MPV 10.2 fL (7.4-11.4) 07/26/22 06:35 Neut # (Auto) 5.5 10^3/uL (1.5-6.6) 07/26/22 06:35 Lymph # (Auto) 1.1 10^3/uL (1.5-3.5) L 07/26/22 06:35 [place] # (Auto) 0.7 10^3/uL (0.0-1.0) 07/26/22 06:35 Eos # (Auto) 0.1 10^3/uL (0.0-0.7) 07/26/22 06:35 Baso # (Auto) 0.1 10^3/uL (0.0-0.1) 07/26/22 06:35 Absolute Nucleated RBC 0.00 x10^3/uL 07/26/22 06:35 Total Counted 100 07/24/22 05:04 Band Neuts % (Manual) 16 % (0-10) H 07/24/22 05:04 Reactive Lymphs % (Man) 2 % 07/23/22 05:45 Abnorm Lymph % (Manual) 0 % 07/24/22 05:04 Metamyelocytes % 2 % (-0) H 07/24/22 05:04 Myelocytes % 4 % (-0) H 07/24/22 05:04 Nucleated RBC % 0.0 /100WBC 07/26/22 06:35 Neutrophils # (Manual) 4.4 10^3/uL (1.5-6.6) 07/24/22 05:04 Lymphocytes # (Manual) 1.6 10^3/uL (1.5-3.5) 07/24/22 05:04 Monocytes # (Manual) 0.4 10^3/uL (0.0-1.0) 07/24/22 05:04 Eosinophils # (Manual) 0.2 10^3/uL (0-0.7) 07/24/22 05:04 Basophils # (Manual) 0.1 10^3/uL (0-0.1) 07/24/22 05:04 Differential Comment MANUAL DIFFERENTIAL 07/24/22 05:04 RBC Morph Micro Appear 2+ TARGET CELLS (NORMAL) 1+ HYPOCHROMASIA (NORMAL) 07/24/22 05:04 RBC Morph Micro Appear 2+ TARGET CELLS (NORMAL) 1+ HYPOCHROMASIA (NORMAL) 07/24/22 05:04 PT 19.3 secs (9.9-12.6) H 07/15/22 12:26 INR 1.8 (0.8-1.2) H 07/15/22 12:26 VBG pH 7.317 (7.31-7.41) 07/23/22 05:45 Ionized Calcium 1.16 mmol/L (1.15-1.33) 07/23/22 05:45 Sodium 138 mmol/L (135-145) 07/26/22 06:35 Potassium 3.4 mmol/L (3.5-5.0) L 07/26/22 06:35 Chloride 106 mmol/L (101-111) 07/26/22 06:35 Carbon Dioxide 24 mmol/L (21-32) 07/26/22 06:35 Anion Gap 8.0 (6-13) 07/26/22 06:35 BUN 21 mg/dL (6-20) H 07/26/22 06:35 Creatinine 0.7 mg/dL (0.6-1.2) 07/26/22 06:35 Estimated GFR (MDRD) 118 (>89) 07/26/22 06:35 Glucose 123 mg/dL (70-100) H 07/26/22 06:35 Estimat Average Glucose 105 mg/dL (70-100) H 07/16/22 04:27 Hemoglobin A1c % 5.3 % (4.27-6.07) 07/16/22 04:27 Calcium 8.1 mg/dL (8.5-10.3) L 07/26/22 06:35 Phosphorus 2.9 mg/dL (2.5-4.6) 07/23/22 05:45 Magnesium 2.4 mg/dL (1.7-2.8) 07/23/22 05:45 Total Bilirubin 16.2 mg/dL (0.2-1.0) H 07/26/22 06:35 AST 103 IU/L (10-42) H 07/26/22 06:35 ALT 85 IU/L (10-60) H 07/26/22 06:35 Alkaline Phosphatase 269 IU/L (42-121) H 07/26/22 06:35 Ammonia 46.7 umol/L (7-35) H 07/26/22 08:31 Total Creatine Kinase 171 IU/L (22-269) 07/18/22 05:18 Troponin I High Sens 27.6 ng/L (2.3-19.7) H* 07/16/22 20:52 Total Protein 5.4 g/dL (6.7-8.2) L 07/26/22 06:35 Albumin 2.1 g/dL (3.2-5.5) L 07/26/22 06:35 Globulin 3.3 g/dL (2.1-4.2) 07/26/22 06:35 Albumin/Globulin Ratio 0.6 (1.0-2.2) L 07/26/22 06:35 Lipase 36 U/L (22-51) 07/15/22 09:54 Vitamin B12 404 pg/mL (180-914) 07/16/22 04:27 Folate 8.12 ng/mL (5.90 - >24.8) 07/16/22 04:27 TSH 2.59 uIU/mL (0.34-5.60) 07/15/22 09:54 Urine Color DARK YELLOW 07/22/22 12:50 Urine Clarity HAZY (CLEAR) 07/22/22 12:50 Urine pH 6.0 PH (5.0-7.5) 07/22/22 12:50 Ur Specific [place] 1.020 (1.002-1.030) 07/22/22 12:50 Urine Protein NEGATIVE mg/dL (NEGATIVE) 07/22/22 12:50 Urine Glucose (UA) 250 mg/dL (NEGATIVE) H 07/22/22 12:50 Urine Ketones NEGATIVE mg/dL (NEGATIVE) 07/22/22 12:50 Urine Occult Blood MODERATE (NEGATIVE) H 07/22/22 12:50 Urine Nitrite POSITIVE (NEGATIVE) H 07/22/22 12:50 Urine Bilirubin LARGE (NEGATIVE) H 07/22/22 12:50 Urine Urobilinogen 2 E.U./dL (NORMAL) H 07/22/22 12:50 Ur Leukocyte Esterase SMALL (NEGATIVE) H 07/22/22 12:50 Urine RBC 0-5 /HPF (0-5) 07/22/22 12:50 Urine WBC 6-10 /HPF (0-3) H 07/22/22 12:50 Ur Squamous Epith Cells FEW Squamous (<= Few) 07/22/22 12:50 Urine Bacteria Many /HPF (None Seen) H 07/22/22 12:50 Urine Casts 0-2 WBC Casts /LPF 07/22/22 12:50 Urine Culture Comments INDICATED 07/22/22 12:50 Nasal Screen MRSA (PCR) NEGATIVE (NEGATIVE) 07/15/22 11:58 Stl C. diff Tox B Gene NEGATIVE (NEGATIVE) 07/16/22 02:05 Urine Opiates Screen NEGATIVE (NEGATIVE) 07/15/22 12:59 Ur Oxycodone Screen NEGATIVE (NEGATIVE) 07/15/22 12:59 Urine Methadone Screen NEGATIVE (NEGATIVE) 07/15/22 12:59 Ur Propoxyphene Screen NEGATIVE (NEGATIVE) 07/15/22 12:59 Ur Barbiturates Screen NEGATIVE (NEGATIVE) 07/15/22 12:59 Ur Tricyclics Screen NEGATIVE (NEGATIVE) 07/15/22 12:59 Ur Phencyclidine Scrn NEGATIVE (NEGATIVE) 07/15/22 12:59 Ur Amphetamine Screen NEGATIVE (NEGATIVE) 07/15/22 12:59 U Methamphetamines Scrn NEGATIVE (NEGATIVE) 07/15/22 12:59 U Benzodiazepines Scrn NEGATIVE (NEGATIVE) 07/15/22 12:59 Urine Cocaine Screen NEGATIVE (NEGATIVE) 07/15/22 12:59 U Cannabinoids Screen NEGATIVE (NEGATIVE) 07/15/22 12:59 Ethyl Alcohol 103.7 mg/dL 07/15/22 09:54 SARS-CoV-2 (PCR) NOT DETECTED 07/15/22 10:12
[2022-07-26] MEDS ORDERED: traMADol 50 MG TABLET PO PRN (14:57)
[2022-07-27] MEDS: PANTOPRAZOLE 40 MG TABLET PO SCH (06:28)
[2022-07-27 06:58] LABS: ALBUMIN/GLOBULIN RATIO 0.6 (1.0-2.2); BILIRUBIN,TOTAL 15.4 mg/dL (0.2-1.0); CALCIUM 8.2 mg/dL (8.5-10.3); CREATININE 0.7 mg/dL (0.6-1.2); POTASSIUM 3.4 mmol/L (3.5-5.0); TOTAL PROTEIN 5.2 g/dL (6.7-8.2)
[2022-07-27] MEDS ORDERED: LACTULOSE 10 GM/15 ML BOTTLE PO SCH (08:00)
[2022-07-27] MEDS: ENOXAPARIN 40 MG/0.4 ML SYRINGE SUBQ SCH ×2 (09:31→21:58)
[2022-07-27] MEDS: POTASSIUM CHLORIDE 10 MEQ CAPSULE PO SCH (09:32)
[2022-07-27] MEDS: rifAXIMin 550 MG TABLET PO SCH ×2 (09:32→21:57)
[2022-07-27] MEDS: FUROSEMIDE 20 MG/2 ML VIAL IVP SCH (09:32)
[2022-07-27] MEDS: LACTOBACILLUS RHAMNOSUS GG CAPSULE PO SCH (09:32)
[2022-07-27] MEDS: THIAMINE 100 MG TABLET PO SCH (09:32)
[2022-07-27] MEDS: PRENATAL VITAMIN TABLET PO SCH (09:33)
[2022-07-27] MEDS: SODIUM CHLORIDE FLUSH 0.9% 10 ML SYRINGE IVP PRN (09:33)
[2022-07-27] MEDS: traMADol 50 MG TABLET PO SCH ×2 (09:33→21:58)
[2022-07-27] MEDS: CLOTRIMAZOLE 1% CREAM 15 GM TUBE TOP SCH ×2 (10:18→21:57)
[2022-07-27] MEDS: NYSTATIN POWDER 15 GM TOP SCH ×2 (10:19→21:57)
[2022-07-27] MEDS: ZINC OXIDE 20% OINT 30 GM TUBE TOP PRN ×2 (12:45→13:42)
[2022-07-27] MEDS: GABAPENTIN 300 MG CAPSULE PO SCH ×2 (14:40→21:57)
--- NOTE | 2022-07-27 17:19 | PROVIDER PROGRESS NOTE ---
Assessment/Plan - Problem List (1) Liver failure without hepatic coma Qualifiers: Liver failure chronicity: subacute Qualified Code(s): K72.00 - Acute and subacute hepatic failure without coma Assessment/Plan: He has liver failure from alcoholic liver disease. He presented with months of increased beer drinking after he lost his job. On admission his bili and LFTs were elevated. INR 1.8. While his LFTs were improving, his bili improvement lagg ed. He got a CT of abd to check for gallbladder disease or intraductal dilatation and that was negative. We did ask radiology if I needed to do an MRCP and he advised it wasn't necessary. Labs were all reviewed. Bili peaked on 07/19 at 23.8. Bili has plateaued at 14-16. Per phone call consult with Dr. Pa from GI @ [facility] on 07/19, she advised us to increase lactulose dose, starting rifaximin 550 along w/ methylprednisolone 1mg/kg for the treatment of his alcoholic liver disease and pantoprazole 40mg IV push for stomach ulcer protection. However, Dr. Pa did not feel it necessary to give 200mg of steroids and aim for 40mg a day for 5 days. The phone call to Dr. Pa was not a formal consult and was only an attempt to seek advice in maximizing his treatment. He had psychomotor slowing until today 07/26. His Maddrey score is 54.6 points, and >32 indicates poor prognosis and would benefit from glucocorticoid therapy. Patient received solumedrol 40 mg IVP for 5 days, the last dose was on 07/22/22. His MELD score is 29 points which equates to an estimated 76.5% indication for short term survival and approximately a 19.6% chance of mortality for patient's with end stage liver disease for considerations for liver transplant. Plan: continue the lactulose titrating to 2 loose BM's/day continue rifaximin will continue following daily CMP. continue to work with PT/OT (2) Hepatic encephalopathy Impression: Improved: Yesterday and today he is alert, oriented, able to keep eyes open and speaks with normal sentences and has no psychomotor slowing. Patient had his dose of lactulose increased and c/o many loose BMs a day. We have had him off his gabapentin which may have added to lethargy and today he is requesting it, for his neuropathy. Physical therapy describes that he was able to shuffle several steps to sit up in a chair. With OT he is addressing his poor bed mobility, transfers, activities. Plan: Cont PT and OT and plan is for rehab at a senior care facility Ordered removal of Tello 07/26 and I encouraged using the commode and a urinal, and he may use bedside commode or bathroom toilet. Will decrease Lactulose to once a day and titrate to 2 BMs/day. I updated his mother about his status, outside the room today (3) Anasarca He developed anasarca while in the ICU from receiving iv saline for his severe hyponatremia. He was also on a salt tablet daily. The salt tablet was stopped 2 days ago. IV Lasix daily was started. His fluid restriction was changed from free water restriction to a total liquid restricted down to 2000 cc/day (1000 cc with meals, 1000 cc for nursing) Plan: Continue with IV Lasix Follow BMP daily and magnesium daily Follow I's and O's and daily weight. An Echo with Definbrian was ordered, as he may have alcoholic cardiomyopathy adding to the leg edema (4) Skin rash Rash covering the skin of both buttocks and is a result of being on his back and having the loose stool. Plan: Continue hygiene and nystatin powder We will order shower (5) Weakness He had fallen before coming to the ER and was so weak at admission that he could not lift up his buttocks when in his bed by pushing up using his legs. He also admitted that over the past week before admission, he had been mostly on his couch, hardly got up, did not eat, had his beer delivered to him by [employer]. Plan: Cont PT and OT We will allow use of the toilet in the bathroom or may use bedside commode Ordered discontinue his Tello on 07/27 since he was awake and can hold a urinal Continue with rehab as planned and he will likely need a SNF, due to severe deconditioning which started from being bedridden at home (6) Alcoholism Impression: Initially he was on iv banana bags and transitioned to multivit and thiamin orally whgen he was able to swallow. He needed librium and CIWA protocol, but librium stopped 07/17. Pt is on lactulose for his high Ammonia level and confusion and psychomotor slowing. Plan: Continue present meds and abstinence from alcohol. We will have the patient seen for substance abuse with social work re-eval, now that he is communicative (7) Right breast nipple inversion Plan: Outpatient work up with mammo (8) Hyponatremia Resolved as of 07/21 On admission, he presented is almost meeting the criteria for beer potomania. He was severely hyponatremic at 114 but not hypokalemic. He was on saline in the ICU. A daily salt tablet was added (by Telemedicine ). By July 16 Na was 118. By July 17 Na was 124. July 18 Na was 128 and by 07/21 his Na was 135. On 07/23 Na was 141. Plan: Remain off the the salt tablet, due to persistent anasarca Cont on restricted total fluid intake/day Cont Lasix for the anasarca Follow BMP daily (9) Hypotension Resolved From July 16 to the he required Levophed to keep his blood pressure up and to maintain his urine output. We looked for signs of infection, repeated blood cultures, urinalysis, chest x-ray and no source of infection was found. Priscilla bennett was not having an IA. No lactic acidosis. Suspect he was intravascularly depleted due to cirrhosis and alcoholism. (10) Abnormal urinary constituents. His first urinalysis showed bacteriuria but was negative in its growth. He did not have any symptoms of urgency, and frequency but did have AMS (psychomotor slowing). He did not have a fever or an elevated white cell count. We did not treat this abnormal urinalysis (11) Boil Left anterior thigh that has come to a head. Patient scratched it and boil ruptured, no cellulitis. (12) Conjunctivitis Resolved on eye drops - Current Meds Current Meds: Current Medications Generic Name Dose Route Start Last Admin Trade Name Freq PRN Reason Stop Dose Admin Calcium Carbonate/Glycine 500 mg 07/21/22 03:51 07/24/22 18:15 Calcium Carbonate Chew 500 Mg Tablet PO 500 mg BID PRN Administration Heartburn Carboxymethylcellulose 1 drops 07/17/22 08:19 07/24/22 08:48 Carboxymethylcellulose Ophth Drops EACHEYE 1 drops PRN PRN Administration Dry Eye Clotrimazole 15 applic 07/22/22 21:00 07/27/22 10:18 Clotrimazole 1% Cream 15 Gm Tube TOP 1 applic BID KANU Administration Enoxaparin Sodium 40 mg 07/24/22 09:41 07/27/22 09:31 Enoxaparin 40 Mg/0.4 Ml Syringe SUBQ 40 mg BID KANU Administration Furosemide 20 mg 07/24/22 11:00 07/27/22 09:32 Furosemide 20 Mg/2 Ml Vial IVP 20 mg DAILY KANU Administration Gabapentin 600 mg 07/27/22 14:00 07/27/22 14:40 Gabapentin 300 Mg Capsule PO 600 mg TID KANU Administration Lactobacillus Rhamnosus 1 cap 07/16/22 11:00 07/27/22 09:32 Lactobacillus Rhamnosus Gg Capsule PO 1 cap DAILY KANU Administration Multi-Ingredient Ointment 1 applic 07/16/22 01:24 07/27/22 13:42 Zinc Oxide 20% Oint 30 Gm Tube TOP 1 applic PRN PRN Administration Skin Care Nystatin 1 applic 07/15/22 21:00 07/27/22 10:19 Nystatin Powder 15 Gm TOP 1 applic BID KANU Administration Ondansetron HCl 4 mg 07/15/22 11:15 07/16/22 08:12 Ondansetron 4 Mg/2 Ml Vial IVP 4 mg Q6HR PRN Administration Nausea / Vomiting Pantoprazole Sodium 40 mg 07/19/22 11:00 07/27/22 06:28 Pantoprazole 40 Mg Tablet PO 40 mg QDAC KANU Administration Mometasone Furoate 1 each 07/22/22 17:00 07/23/22 08:14 0.1% Ointment TOP 1 each BID PRN Administration ITCHING Potassium Chloride 30 meq 07/27/22 08:00 07/27/22 09:32 Potassium Chloride 10 Meq Capsule PO 30 meq DAILYWM KANU Administration Multivit/Folic Acid/Iron 1 tab 07/16/22 11:00 07/27/22 09:33 Vitamin Tablet PO 1 tab DAILYWM KANU Administration Prochlorperazine Edisylate 10 mg 07/15/22 11:15 07/22/22 23:58 Prochlorperazine 10 Mg/2 Ml Vial IVP 10 mg Q6HR PRN Administration Nausea / Vomiting Rifaximin 550 mg 07/18/22 21:00 07/27/22 09:32 Rifaximin 550 Mg Tablet PO 550 mg BID KANU Administration Sodium Chloride 10 ml 07/15/22 11:15 07/27/22 09:33 Sodium Chloride Flush 0.9% 10 Ml Syringe IVP 10 ml PRN PRN Administration NEEDED PER PROVIDER ORDERS Sodium Chloride 20 ml 07/16/22 22:36 07/22/22 05:00 Sodium Chloride Flush 0.9% 10 Ml Syringe IVP 20 ml PRN PRN Administration After Blood Draw Thiamine HCl 100 mg 07/16/22 11:00 07/27/22 09:32 Thiamine 100 Mg Tablet PO 100 mg DAILY KANU Administration Tramadol HCl 25 mg 07/27/22 09:00 07/27/22 09:33 Tramadol 50 Mg Tablet PO Not Given BID KANU Zinc Oxide 113 gm 07/19/22 17:01 07/22/22 23:47 Cod Liver Oil/Zinc Oxide 113 Gm Tube TOP 1 applic PRN PRN Administration Skin Care - Lab Result Fish Bone Diagrams: 07/26/22 06:35 07/27/22 06:31 - Additional Planning My Orders: My Active Orders 07/27/22 08:00 Potassium Chloride [Micro-K] 30 meq PO DAILYWM 07/27/22 09:00 traMADol [Ultram] 25 mg PO BID 07/27/22 14:00 Gabapentin [Neurontin] 600 mg PO TID 07/28/22 05:00 AMMONIA [CHEM] DAILYLAB CMP [COMPREHENSIVE METABOLIC PANEL] [CHEM] DAILYLAB MAGNESIUM [CHEM] DAILYLAB 07/28/22 09:00 Lactulose 10 gm PO DAILY 07/29/22 05:00 CMP [COMPREHENSIVE METABOLIC PANEL] [CHEM] DAILYLAB Subjective - Subjective Patient Reports: Resting Comfortably (He apologized that he forgot to get OOB for all meals) Objective Vital Signs: Vital Signs - 24 hr 07/27/22 07/27/22 00:50 08:32 Temperature 36.6 C Heart Rate [ 80 89 Radial] Respiratory 18 20 Rate Blood Pressure 112/67 [Left Radial artery] Blood Pressure 113/59 L [Right Radial artery] O2 Saturation 98 99 Oxygen O2 Source Room air I&O (Last 24 Hrs): Intake and Output Totals x24h 07/25/22 07/26/22 07/27/22 23:59 23:59 23:59 Intake Total 1070 1050 1030 Output Total 1950 1275 100 Balance -880 -225 930 General: Alert, Oriented x3 HEENT: Mucous membr. moist/pink, Other (Icteric) Neck: Other (Cannot evaluate JVD P due to morbid obesity) Neuro: Alert, Non Focal Cardiovascular: Regular rate Respiratory: No respiratory distress Abdomen: Other (Distended plus obese with a pannus down to his knees, red skin in full) Extremities: No clubbing, Other (2+ edema to the posterior thighs) - Results Results: Laboratory Results WBC 7.9 x10^3/uL (4.8-10.8) 07/26/22 06:35 RBC 3.35 10^6/uL (4.70-6.10) L 07/26/22 06:35 Hgb 11.6 g/dL (14.0-18.0) L 07/26/22 06:35 Hct 34.6 % (42.0-52.0) L 07/26/22 06:35 MCV 103.3 fL (80.0-94.0) H 07/26/22 06:35 MCH 34.6 pg (27.0-31.0) H 07/26/22 06:35 MCHC 33.5 g/dL (32.0-36.0) 07/26/22 06:35 RDW 17.3 % (12.0-15.0) H 07/26/22 06:35 Plt Count 130 10^3/uL (130-450) 07/26/22 06:35 MPV 10.2 fL (7.4-11.4) 07/26/22 06:35 Neut # (Auto) 5.5 10^3/uL (1.5-6.6) 07/26/22 06:35 Lymph # (Auto) 1.1 10^3/uL (1.5-3.5) L 07/26/22 06:35 [place] # (Auto) 0.7 10^3/uL (0.0-1.0) 07/26/22 06:35 Eos # (Auto) 0.1 10^3/uL (0.0-0.7) 07/26/22 06:35 Baso # (Auto) 0.1 10^3/uL (0.0-0.1) 07/26/22 06:35 Absolute Nucleated RBC 0.00 x10^3/uL 07/26/22 06:35 Total Counted 100 07/24/22 05:04 Band Neuts % (Manual) 16 % (0-10) H 07/24/22 05:04 Reactive Lymphs % (Man) 2 % 07/23/22 05:45 Abnorm Lymph % (Manual) 0 % 07/24/22 05:04 Metamyelocytes % 2 % (-0) H 07/24/22 05:04 Myelocytes % 4 % (-0) H 07/24/22 05:04 Nucleated RBC % 0.0 /100WBC 07/26/22 06:35 Neutrophils # (Manual) 4.4 10^3/uL (1.5-6.6) 07/24/22 05:04 Lymphocytes # (Manual) 1.6 10^3/uL (1.5-3.5) 07/24/22 05:04 Monocytes # (Manual) 0.4 10^3/uL (0.0-1.0) 07/24/22 05:04 Eosinophils # (Manual) 0.2 10^3/uL (0-0.7) 07/24/22 05:04 Basophils # (Manual) 0.1 10^3/uL (0-0.1) 07/24/22 05:04 Differential Comment MANUAL DIFFERENTIAL 07/24/22 05:04 RBC Morph Micro Appear 2+ TARGET CELLS (NORMAL) 1+ HYPOCHROMASIA (NORMAL) 07/24/22 05:04 RBC Morph Micro Appear 2+ TARGET CELLS (NORMAL) 1+ HYPOCHROMASIA (NORMAL) 07/24/22 05:04 PT 19.3 secs (9.9-12.6) H 07/15/22 12:26 INR 1.8 (0.8-1.2) H 07/15/22 12:26 VBG pH 7.317 (7.31-7.41) 07/23/22 05:45 Ionized Calcium 1.16 mmol/L (1.15-1.33) 07/23/22 05:45 Sodium 136 mmol/L (135-145) 07/27/22 06:31 Potassium 3.4 mmol/L (3.5-5.0) L 07/27/22 06:31 Chloride 105 mmol/L (101-111) 07/27/22 06:31 Carbon Dioxide 24 mmol/L (21-32) 07/27/22 06:31 Anion Gap 7.0 (6-13) 07/27/22 06:31 BUN 19 mg/dL (6-20) 07/27/22 06:31 Creatinine 0.7 mg/dL (0.6-1.2) 07/27/22 06:31 Estimated GFR (MDRD) 118 (>89) 07/27/22 06:31 Glucose 122 mg/dL (70-100) H 07/27/22 06:31 Estimat Average Glucose 105 mg/dL (70-100) H 07/16/22 04:27 Hemoglobin A1c % 5.3 % (4.27-6.07) 07/16/22 04:27 Calcium 8.2 mg/dL (8.5-10.3) L 07/27/22 06:31 Phosphorus 2.9 mg/dL (2.5-4.6) 07/23/22 05:45 Magnesium 2.0 mg/dL (1.7-2.8) 07/27/22 06:31 Total Bilirubin 15.4 mg/dL (0.2-1.0) H 07/27/22 06:31 AST 105 IU/L (10-42) H 07/27/22 06:31 ALT 83 IU/L (10-60) H 07/27/22 06:31 Alkaline Phosphatase 269 IU/L (42-121) H 07/27/22 06:31 Ammonia 44.1 umol/L (7-35) H 07/27/22 06:31 Total Creatine Kinase 171 IU/L (22-269) 07/18/22 05:18 Troponin I High Sens 27.6 ng/L (2.3-19.7) H* 07/16/22 20:52 Total Protein 5.2 g/dL (6.7-8.2) L 07/27/22 06:31 Albumin 2.0 g/dL (3.2-5.5) L 07/27/22 06:31 Globulin 3.2 g/dL (2.1-4.2) 07/27/22 06:31 Albumin/Globulin Ratio 0.6 (1.0-2.2) L 07/27/22 06:31 Lipase 36 U/L (22-51) 07/15/22 09:54 Vitamin B12 404 pg/mL (180-914) 07/16/22 04:27 Folate 8.12 ng/mL (5.90 - >24.8) 07/16/22 04:27 TSH 2.59 uIU/mL (0.34-5.60) 07/15/22 09:54 Urine Color DARK YELLOW 07/22/22 12:50 Urine Clarity HAZY (CLEAR) 07/22/22 12:50 Urine pH 6.0 PH (5.0-7.5) 07/22/22 12:50 Ur Specific [place] 1.020 (1.002-1.030) 07/22/22 12:50 Urine Protein NEGATIVE mg/dL (NEGATIVE) 07/22/22 12:50 Urine Glucose (UA) 250 mg/dL (NEGATIVE) H 07/22/22 12:50 Urine Ketones NEGATIVE mg/dL (NEGATIVE) 07/22/22 12:50 Urine Occult Blood MODERATE (NEGATIVE) H 07/22/22 12:50 Urine Nitrite POSITIVE (NEGATIVE) H 07/22/22 12:50 Urine Bilirubin LARGE (NEGATIVE) H 07/22/22 12:50 Urine Urobilinogen 2 E.U./dL (NORMAL) H 07/22/22 12:50 Ur Leukocyte Esterase SMALL (NEGATIVE) H 07/22/22 12:50 Urine RBC 0-5 /HPF (0-5) 07/22/22 12:50 Urine WBC 6-10 /HPF (0-3) H 07/22/22 12:50 Ur Squamous Epith Cells FEW Squamous (<= Few) 07/22/22 12:50 Urine Bacteria Many /HPF (None Seen) H 07/22/22 12:50 Urine Casts 0-2 WBC Casts /LPF 07/22/22 12:50 Urine Culture Comments INDICATED 07/22/22 12:50 Nasal Screen MRSA (PCR) NEGATIVE (NEGATIVE) 07/15/22 11:58 Stl C. diff Tox B Gene NEGATIVE (NEGATIVE) 07/16/22 02:05 Urine Opiates Screen NEGATIVE (NEGATIVE) 07/15/22 12:59 Ur Oxycodone Screen NEGATIVE (NEGATIVE) 07/15/22 12:59 Urine Methadone Screen NEGATIVE (NEGATIVE) 07/15/22 12:59 Ur Propoxyphene Screen NEGATIVE (NEGATIVE) 07/15/22 12:59 Ur Barbiturates Screen NEGATIVE (NEGATIVE) 07/15/22 12:59 Ur Tricyclics Screen NEGATIVE (NEGATIVE) 07/15/22 12:59 Ur Phencyclidine Scrn NEGATIVE (NEGATIVE) 07/15/22 12:59 Ur Amphetamine Screen NEGATIVE (NEGATIVE) 07/15/22 12:59 U Methamphetamines Scrn NEGATIVE (NEGATIVE) 07/15/22 12:59 U Benzodiazepines Scrn NEGATIVE (NEGATIVE) 07/15/22 12:59 Urine Cocaine Screen NEGATIVE (NEGATIVE) 07/15/22 12:59 U Cannabinoids Screen NEGATIVE (NEGATIVE) 07/15/22 12:59 Ethyl Alcohol 103.7 mg/dL 07/15/22 09:54 SARS-CoV-2 (PCR) NOT DETECTED 07/15/22 10:12
[2022-07-28] MEDS: GABAPENTIN 300 MG CAPSULE PO SCH ×3 (05:53→21:35)
[2022-07-28] MEDS: PANTOPRAZOLE 40 MG TABLET PO SCH (05:53)
[2022-07-28 06:25] LABS: ALBUMIN/GLOBULIN RATIO 0.6 (1.0-2.2); BILIRUBIN,TOTAL 14.5 mg/dL (0.2-1.0); CALCIUM 8.1 mg/dL (8.5-10.3); CREATININE 0.9 mg/dL (0.6-1.2); POTASSIUM 3.6 mmol/L (3.5-5.0); TOTAL PROTEIN 5.3 g/dL (6.7-8.2)
[2022-07-28] MEDS: ZINC OXIDE 20% OINT 30 GM TUBE TOP PRN ×2 (07:45→21:57)
[2022-07-28] MEDS: LACTOBACILLUS RHAMNOSUS GG CAPSULE PO SCH (08:05)
[2022-07-28] MEDS: POTASSIUM CHLORIDE 10 MEQ CAPSULE PO SCH (08:05)
[2022-07-28] MEDS: rifAXIMin 550 MG TABLET PO SCH ×2 (08:05→21:35)
[2022-07-28] MEDS: THIAMINE 100 MG TABLET PO SCH (08:06)
[2022-07-28] MEDS: PRENATAL VITAMIN TABLET PO SCH (08:06)
[2022-07-28] MEDS: ENOXAPARIN 40 MG/0.4 ML SYRINGE SUBQ SCH ×2 (09:11→21:36)
[2022-07-28] MEDS: FUROSEMIDE 20 MG/2 ML VIAL IVP SCH (09:11)
[2022-07-28] MEDS: SODIUM CHLORIDE FLUSH 0.9% 10 ML SYRINGE IVP PRN (09:12)
[2022-07-28] MEDS: NYSTATIN POWDER 15 GM TOP SCH ×2 (09:38→21:36)
[2022-07-28] MEDS: LACTULOSE 10 GM/15 ML BOTTLE PO SCH (09:38)
[2022-07-28] MEDS: CLOTRIMAZOLE 1% CREAM 15 GM TUBE TOP SCH ×2 (09:38→21:37)
[2022-07-28] MEDS: traMADol 50 MG TABLET PO SCH ×2 (10:06→22:03)
--- NOTE | 2022-07-28 12:29 | PROVIDER PROGRESS NOTE ---
Assessment/Plan - Problem List (1) Liver failure without hepatic coma Qualifiers: Liver failure chronicity: subacute Qualified Code(s): K72.00 - Acute and subacute hepatic failure without coma Assessment/Plan: He has liver failure from alcoholic liver disease. He presented with months of increased beer drinking after he lost his job. On admission his bili and LFTs were elevated. INR 1.8. While his LFTs were improving, his bili improvement lagg ed. He got a CT of abd to check for gallbladder disease or intraductal dilatation and that was negative. Labs were all reviewed. Bili peaked on 07/19 at 23.8. Bili has plateaued at 14-16. Per phone call consult with Dr. Pa from GI @ [facility] on 07/19, she advised us to increase lactulose dose, start rifaximin 550 along w/ methylprednisolone 1mg/kg for the treatment of his alcoholic liver disease and pantoprazole 40mg IV push for stomach ulcer protection. However, Dr. Pa did not feel it necessary to give 200mg of steroids and aim for 40mg a day for 5 days. He had psychomotor slowing until 07/26. His Maddrey score is 54.6 points, and >32 indicates poor prognosis and would benefit from glucocorticoid therapy. Patient received solumedrol 40 mg IVP for 5 days, the last dose was on 07/22/22. His MELD score is 29 points which equates to an estimated 76.5% indication for short term survival and approximately a 19.6% chance of mortality for patient's with end stage liver disease for considerations for liver transplant. Plan: continue the lactulose, decreased to once daily, titrating to 2 loose BM's/day continue rifaximin will continue following daily CMP. continue to work with PT/OT (2) Hepatic encephalopathy Impression: Improved: He is alert, oriented, able to converse in normal sentences and has no psychomotor slowing. Patient had his dose of lactulose decreased yesterday due to too many BMs a day. We had him off his gabapentin which may have added to the oinitial lethargy and when he requested it for his neuropathy, I restarted it yesterday Physical therapy describes that he was able to shuffle several steps to sit up in a chair and today his gait was more normal. With OT he is working his poor bed mobility, transfers, activities. He told me today, that getting up OOB was getting easier and easier. Plan: Cont PT and OT and plan is for rehab at a detention facility (3) Anasarca He developed anasarca while in the ICU from receiving iv saline for his severe hyponatremia. He was also on a salt tablet daily. The salt tablet was stopped 2 days ago. IV Lasix daily was started. His fluid restriction was changed from free water restriction to a total liquid restricted down to 2000 cc/day (1000 cc with meals, 1000 cc for nursing) Plan: Continue with IV Lasix Follow BMP daily and magnesium daily Follow I's and O's and daily weight. 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 No Echo done yet (we only have business systems technician here Friday through ) (4) Skin rash Rash covering the skin of both buttocks and is a result of being on his back and having the loose stool. A shower was ordered and he sat up in a bariatric chair in shower. Plan: Continue hygiene and nystatin powder (5) Weakness He had fallen before coming to the ER and was so weak at admission that he could not lift up his buttocks, when in his bed, by pushing up using his legs. He also admitted that over the past week before admission, he had been mostly on his couch, hardly got up, did not eat, had his beer delivered to him by [employer]. Plan: Cont PT and OT We will allow use of the toilet in the bathroom or may use bedside commode Continue with rehab as planned and he will likely need a SNF, due to severe deconditioning which started from being bedridden at home (6) Alcoholism Impression: Initially he was on iv banana bags and transitioned to multivit and thiamin orally whgen he was able to swallow. He needed librium and CIWA protocol, but librium stopped 07/17. Pt is on lactulose for his high Ammonia level and confusion and psychomotor slowing, which are improving. Labs are all reviewed: The bilirubin is mostly plateaued around 14, ammonia level has decreased in the last 3 days Plan: Continue present meds and abstinence from alcohol. I ordered to have the patient seen for substance abuse with social work re-eval, now that he is communicative (7) Right breast nipple inversion Plan: Outpatient work up with mammo (8) Morbid obesity BMI 60-69 At admission he weighed about 59 BMI, this increased to BMI of 67 after getting IV fluids and developing anasarca. His morbid obesity makes all of his care more difficult. Plan: Continue IV diuretics to mobilize his edema/anasarca. (9) Hyponatremia Resolved as of 07/21 On admission, he presented is almost meeting the criteria for beer potomania. He was severely hyponatremic at 114 but not hypokalemic. He was on saline in the ICU. A daily salt tablet was added (by Telemedicine Dr). By July 16 Na was 118. By July 17 Na was 124. July 18 Na was 128 and by 07/21 his Na was 135. On 07/23 Na was 141. Plan: Remain off the the salt tablet, due to persistent anasarca Cont on restricted total fluid intake/day Cont Lasix for the anasarca Follow BMP daily (10) Hypotension Resolved From July 16 to the he required Levophed to keep his blood pressure up and to maintain his urine output. We looked for signs of infection, repeated blood cultures, urinalysis, chest x-ray and no source of infection was found. He was not having an NC. No lactic acidosis. Suspect he was intravascularly depleted due to cirrhosis and alcoholism. (11) Abnormal urinary constituents. His first urinalysis showed bacteriuria but was negative in its growth. He did not have any symptoms of urgency, and frequency but did have AMS (psychomotor slowing). He did not have a fever or an elevated white cell count. We did not treat this abnormal urinalysis (12) Boil Left anterior thigh that has come to a head. Patient scratched it and boil ruptu red, no cellulitis. (13) Conjunctivitis Resolved on eye drops - Current Meds Current Meds: Current Medications Generic Name Dose Route Start Last Admin Trade Name Freq PRN Reason Stop Dose Admin Calcium Carbonate/Glycine 500 mg 07/21/22 03:51 07/24/22 18:15 Calcium Carbonate Chew 500 Mg Tablet PO 500 mg BID PRN Administration Heartburn Carboxymethylcellulose 1 drops 07/17/22 08:19 07/24/22 08:48 Carboxymethylcellulose Ophth Drops EACHEYE 1 drops PRN PRN Administration Dry Eye Clotrimazole 15 applic 07/22/22 21:00 07/28/22 09:38 Clotrimazole 1% Cream 15 Gm Tube TOP 1 applic BID KANU Administration Enoxaparin Sodium 40 mg 07/24/22 09:41 07/28/22 09:11 Enoxaparin 40 Mg/0.4 Ml Syringe SUBQ 40 mg BID KANU Administration Furosemide 20 mg 07/24/22 11:00 07/28/22 09:11 Furosemide 20 Mg/2 Ml Vial IVP 20 mg DAILY KANU Administration Gabapentin 600 mg 07/27/22 14:00 07/28/22 05:53 Gabapentin 300 Mg Capsule PO 600 mg TID KANU Administration Lactobacillus Rhamnosus 1 cap 07/16/22 11:00 07/28/22 08:05 Lactobacillus Rhamnosus Gg Capsule PO 1 cap DAILY KANU Administration Lactulose 10 gm 07/28/22 09:00 07/28/22 09:38 Lactulose 10 Gm/15 Ml Bottle PO 10 gm DAILY KANU Administration Multi-Ingredient Ointment 1 applic 07/16/22 01:24 07/28/22 07:45 Zinc Oxide 20% Oint 30 Gm Tube TOP 1 applic PRN PRN Administration Skin Care Nystatin 1 applic 07/15/22 21:00 07/28/22 09:38 Nystatin Powder 15 Gm TOP 1 applic BID KANU Administration Ondansetron HCl 4 mg 07/15/22 11:15 07/16/22 08:12 Ondansetron 4 Mg/2 Ml Vial IVP 4 mg Q6HR PRN Administration Nausea / Vomiting Pantoprazole Sodium 40 mg 07/19/22 11:00 07/28/22 05:53 Pantoprazole 40 Mg Tablet PO 40 mg QDAC KANU Administration Mometasone Furoate 1 each 07/22/22 17:00 07/23/22 08:14 0.1% Ointment TOP 1 each BID PRN Administration ITCHING Potassium Chloride 30 meq 07/27/22 08:00 07/28/22 08:05 Potassium Chloride 10 Meq Capsule PO 30 meq DAILYWM KANU Administration Multivit/Folic Acid/Iron 1 tab 07/16/22 11:00 07/28/22 08:06 Vitamin Tablet PO 1 tab DAILYWM KANU Administration Prochlorperazine Edisylate 10 mg 07/15/22 11:15 03/20/23 23:58 Prochlorperazine 10 Mg/2 Ml Vial IVP 10 mg Q6HR PRN Administration Nausea / Vomiting Rifaximin 550 mg 07/18/22 21:00 07/28/22 08:05 Rifaximin 550 Mg Tablet PO 550 mg BID KANU Administration Sodium Chloride 10 ml 07/15/22 11:15 07/28/22 09:12 Sodium Chloride Flush 0.9% 10 Ml Syringe IVP 10 ml PRN PRN Administration NEEDED PER PROVIDER ORDERS Sodium Chloride 20 ml 07/16/22 22:36 07/22/22 05:00 Sodium Chloride Flush 0.9% 10 Ml Syringe IVP 20 ml PRN PRN Administration After Blood Draw Thiamine HCl 100 mg 07/16/22 11:00 07/28/22 08:06 Thiamine 100 Mg Tablet PO 100 mg DAILY KANU Administration Tramadol HCl 25 mg 07/27/22 09:00 07/28/22 10:06 Tramadol 50 Mg Tablet PO Not Given BID KANU Zinc Oxide 113 gm 07/19/22 17:01 07/22/22 23:47 Cod Liver Oil/Zinc Oxide 113 Gm Tube TOP 1 applic PRN PRN Administration Skin Care - Lab Result Fish Bone Diagrams: 07/26/22 06:35 07/28/22 06:00 - Additional Planning My Orders: My Active Orders 07/27/22 14:00 Gabapentin [Neurontin] 600 mg PO TID 07/28/22 09:00 Lactulose 10 gm PO DAILY 07/29/22 05:00 CMP [COMPREHENSIVE METABOLIC PANEL] [CHEM] DAILYLAB Subjective - Subjective Patient Reports: No Complaints Nursing Reports: Other (He watches the clock to make sure he gets back into bed exactly after the 1 hour and now after the 2-hour order, to be OOB in a chair.) Objective Vital Signs: Vital Signs - 24 hr 07/27/22 07/27/22 07/28/22 18:00 23:47 08:59 Temperature 36.5 C 36.3 C L 36.7 C Heart Rate [ 93 92 90 Radial] Respiratory 20 18 20 Rate Blood Pressure 118/70 111/66 103/52 L [Right Radial artery] O2 Saturation 97 95 97 Oxygen O2 Source Room air I&O (Last 24 Hrs): Intake and Output Totals x24h 07/26/22 07/27/22 07/28/22 23:59 23:59 23:59 Intake Total 1050 1740 570 Output Total 1275 100 250 Balance -225 1640 320 General: Alert, Oriented x3, Other (Had a shower and is less disheveled. Is wearing glasses) HEENT: Mucous membr. moist/pink, Other (Icteric sclera) Neck: Other (Cannot evaluate JVP due to morbid obesity) Neuro: Alert, Non Focal Cardiovascular: Regular rate Respiratory: No respiratory distress Abdomen: Other (Distended and tense, possible fluid wave, nontender, pannus down to his knees. Red skin in full) Extremities: No clubbing, Other (2+ edema to the knees) - Results Results: Laboratory Results WBC 7.9 x10^3/uL (4.8-10.8) 07/26/22 06:35 RBC 3.35 10^6/uL (4.70-6.10) L 07/26/22 06:35 Hgb 11.6 g/dL (14.0-18.0) L 07/26/22 06:35 Hct 34.6 % (42.0-52.0) L 07/26/22 06:35 MCV 103.3 fL (80.0-94.0) H 07/26/22 06:35 MCH 34.6 pg (27.0-31.0) H 07/26/22 06:35 MCHC 33.5 g/dL (32.0-36.0) 07/26/22 06:35 RDW 17.3 % (12.0-15.0) H 07/26/22 06:35 Plt Count 130 10^3/uL (130-450) 07/26/22 06:35 MPV 10.2 fL (7.4-11.4) 07/26/22 06:35 Neut # (Auto) 5.5 10^3/uL (1.5-6.6) 07/26/22 06:35 Lymph # (Auto) 1.1 10^3/uL (1.5-3.5) L 07/26/22 06:35 Floyd # (Auto) 0.7 10^3/uL (0.0-1.0) 07/26/22 06:35 Eos # (Auto) 0.1 10^3/uL (0.0-0.7) 07/26/22 06:35 Baso # (Auto) 0.1 10^3/uL (0.0-0.1) 07/26/22 06:35 Absolute Nucleated RBC 0.00 x10^3/uL 07/26/22 06:35 Total Counted 100 07/24/22 05:04 Band Neuts % (Manual) 16 % (0-10) H 07/24/22 05:04 Reactive Lymphs % (Man) 2 % 07/23/22 05:45 Abnorm Lymph % (Manual) 0 % 07/24/22 05:04 Metamyelocytes % 2 % (-0) H 07/24/22 05:04 Myelocytes % 4 % (-0) H 07/24/22 05:04 Nucleated RBC % 0.0 /100WBC 07/26/22 06:35 Neutrophils # (Manual) 4.4 10^3/uL (1.5-6.6) 07/24/22 05:04 Lymphocytes # (Manual) 1.6 10^3/uL (1.5-3.5) 07/24/22 05:04 Monocytes # (Manual) 0.4 10^3/uL (0.0-1.0) 07/24/22 05:04 Eosinophils # (Manual) 0.2 10^3/uL (0-0.7) 07/24/22 05:04 Basophils # (Manual) 0.1 10^3/uL (0-0.1) 07/24/22 05:04 Differential Comment MANUAL DIFFERENTIAL 07/24/22 05:04 RBC Morph Micro Appear 2+ TARGET CELLS (NORMAL) 1+ HYPOCHROMASIA (NORMAL) 07/24/22 05:04 RBC Morph Micro Appear 2+ TARGET CELLS (NORMAL) 1+ HYPOCHROMASIA (NORMAL) 07/24/22 05:04 PT 19.3 secs (9.9-12.6) H 07/15/22 12:26 INR 1.8 (0.8-1.2) H 07/15/22 12:26 VBG pH 7.317 (7.31-7.41) 07/23/22 05:45 Ionized Calcium 1.16 mmol/L (1.15-1.33) 07/23/22 05:45 Sodium 135 mmol/L (135-145) 07/28/22 06:00 Potassium 3.6 mmol/L (3.5-5.0) 07/28/22 06:00 Chloride 104 mmol/L (101-111) 07/28/22 06:00 Carbon Dioxide 25 mmol/L (21-32) 07/28/22 06:00 Anion Gap 6.0 (6-13) 07/28/22 06:00 BUN 24 mg/dL (6-20) H 07/28/22 06:00 Creatinine 0.9 mg/dL (0.6-1.2) 07/28/22 06:00 Estimated GFR (MDRD) 88 (>89) L 07/28/22 06:00 Glucose 97 mg/dL (70-100) 07/28/22 06:00 Estimat Average Glucose 105 mg/dL (70-100) H 07/16/22 04:27 Hemoglobin A1c % 5.3 % (4.27-6.07) 07/16/22 04:27 Calcium 8.1 mg/dL (8.5-10.3) L 07/28/22 06:00 Phosphorus 2.9 mg/dL (2.5-4.6) 07/23/22 05:45 Magnesium 2.0 mg/dL (1.7-2.8) 07/28/22 06:00 Total Bilirubin 14.5 mg/dL (0.2-1.0) H 07/28/22 06:00 AST 115 IU/L (10-42) H 07/28/22 06:00 ALT 81 IU/L (10-60) H 07/28/22 06:00 Alkaline Phosphatase 269 IU/L (42-121) H 07/28/22 06:00 Ammonia 38.4 umol/L (7-35) H 07/28/22 06:00 Total Creatine Kinase 171 IU/L (22-269) 07/18/22 05:18 Troponin I High Sens 27.6 ng/L (2.3-19.7) H* 07/16/22 20:52 Total Protein 5.3 g/dL (6.7-8.2) L 07/28/22 06:00 Albumin 2.0 g/dL (3.2-5.5) L 07/28/22 06:00 Globulin 3.3 g/dL (2.1-4.2) 07/28/22 06:00 Albumin/Globulin Ratio 0.6 (1.0-2.2) L 07/28/22 06:00 Lipase 36 U/L (22-51) 07/15/22 09:54 Vitamin B12 404 pg/mL (180-914) 07/16/22 04:27 Folate 8.12 ng/mL (5.90 - >24.8) 07/16/22 04:27 TSH 2.59 uIU/mL (0.34-5.60) 07/15/22 09:54 Urine Color DARK YELLOW 07/22/22 12:50 Urine Clarity HAZY (CLEAR) 07/22/22 12:50 Urine pH 6.0 PH (5.0-7.5) 07/22/22 12:50 Ur Specific [place] 1.020 (1.002-1.030) 07/22/22 12:50 Urine Protein NEGATIVE mg/dL (NEGATIVE) 07/22/22 12:50 Urine Glucose (UA) 250 mg/dL (NEGATIVE) H 07/22/22 12:50 Urine Ketones NEGATIVE mg/dL (NEGATIVE) 07/22/22 12:50 Urine Occult Blood MODERATE (NEGATIVE) H 07/22/22 12:50 Urine Nitrite POSITIVE (NEGATIVE) H 07/22/22 12:50 Urine Bilirubin LARGE (NEGATIVE) H 07/22/22 12:50 Urine Urobilinogen 2 E.U./dL (NORMAL) H 07/22/22 12:50 Ur Leukocyte Esterase SMALL (NEGATIVE) H 07/22/22 12:50 Urine RBC 0-5 /HPF (0-5) 07/22/22 12:50 Urine WBC 6-10 /HPF (0-3) H 07/22/22 12:50 Ur Squamous Epith Cells FEW Squamous (<= Few) 07/22/22 12:50 Urine Bacteria Many /HPF (None Seen) H 07/22/22 12:50 Urine Casts 0-2 WBC Casts /LPF 07/22/22 12:50 Urine Culture Comments INDICATED 07/22/22 12:50 Nasal Screen MRSA (PCR) NEGATIVE (NEGATIVE) 07/15/22 11:58 Stl C. diff Tox B Gene NEGATIVE (NEGATIVE) 07/16/22 02:05 Urine Opiates Screen NEGATIVE (NEGATIVE) 07/15/22 12:59 Ur Oxycodone Screen NEGATIVE (NEGATIVE) 07/15/22 12:59 Urine Methadone Screen NEGATIVE (NEGATIVE) 07/15/22 12:59 Ur Propoxyphene Screen NEGATIVE (NEGATIVE) 07/15/22 12:59 Ur Barbiturates Screen NEGATIVE (NEGATIVE) 07/15/22 12:59 Ur Tricyclics Screen NEGATIVE (NEGATIVE) 07/15/22 12:59 Ur Phencyclidine Scrn NEGATIVE (NEGATIVE) 07/15/22 12:59 Ur Amphetamine Screen NEGATIVE (NEGATIVE) 07/15/22 12:59 U Methamphetamines Scrn NEGATIVE (NEGATIVE) 07/15/22 12:59 U Benzodiazepines Scrn NEGATIVE (NEGATIVE) 07/15/22 12:59 Urine Cocaine Screen NEGATIVE (NEGATIVE) 07/15/22 12:59 U Cannabinoids Screen NEGATIVE (NEGATIVE) 07/15/22 12:59 Ethyl Alcohol 103.7 mg/dL 07/15/22 09:54 SARS-CoV-2 (PCR) NOT DETECTED 07/15/22 10:12
[2022-07-28] MEDS: MOMETASONE FUROATE 0.1% TOP PRN (21:57)
[2022-07-29] MEDS: SODIUM CHLORIDE FLUSH 0.9% 10 ML SYRINGE IVP PRN (01:30)
[2022-07-29] MEDS: GABAPENTIN 300 MG CAPSULE PO SCH ×3 (05:32→21:34)
[2022-07-29] MEDS: ZINC OXIDE 20% OINT 30 GM TUBE TOP PRN ×2 (05:32→20:33)
[2022-07-29] MEDS: PANTOPRAZOLE 40 MG TABLET PO SCH (05:33)
[2022-07-29 06:14] LABS: ALBUMIN 1.9 g/dL (3.2-5.5); ALBUMIN/GLOBULIN RATIO 0.6 (1.0-2.2); BILIRUBIN,TOTAL 14.3 mg/dL (0.2-1.0); CALCIUM 7.9 mg/dL (8.5-10.3); CREATININE 1.1 mg/dL (0.6-1.2); POTASSIUM 3.7 mmol/L (3.5-5.0)
[2022-07-29] MEDS: PRENATAL VITAMIN TABLET PO SCH (08:31)
[2022-07-29] MEDS: ENOXAPARIN 40 MG/0.4 ML SYRINGE SUBQ SCH ×2 (08:31→21:34)
[2022-07-29] MEDS: POTASSIUM CHLORIDE 10 MEQ CAPSULE PO SCH (08:31)
[2022-07-29] MEDS: LACTOBACILLUS RHAMNOSUS GG CAPSULE PO SCH (08:31)
[2022-07-29] MEDS: rifAXIMin 550 MG TABLET PO SCH ×2 (08:31→21:34)
[2022-07-29] MEDS: traMADol 50 MG TABLET PO SCH ×2 (08:31→21:19)
[2022-07-29] MEDS: THIAMINE 100 MG TABLET PO SCH (08:31)
[2022-07-29] MEDS: NYSTATIN POWDER 15 GM TOP SCH ×2 (08:33→20:33)
[2022-07-29] MEDS: CLOTRIMAZOLE 1% CREAM 15 GM TUBE TOP SCH ×2 (08:33→20:33)
[2022-07-29] MEDS: LACTULOSE 10 GM/15 ML BOTTLE PO SCH ×2 (08:34→16:51)
[2022-07-29] MEDS: FUROSEMIDE 20 MG/2 ML VIAL IVP SCH (08:34)
[2022-07-29] MEDS ORDERED: FUROSEMIDE 20 MG/2 ML VIAL IVP SCH (14:00)
[2022-07-29] MEDS: MOMETASONE FUROATE 0.1% TOP PRN (16:33)
[2022-07-29] MEDS: CARBOXYMETHYLCELLULOSE OPHTH DROPS EACHEYE PRN (16:36)
[2022-07-29] MEDS ORDERED: LACTULOSE 10 GM /15 ML UDC PO SCH (17:00)
--- NOTE | 2022-07-29 17:54 | PROVIDER PROGRESS NOTE ---
Assessment/Plan - Problem List (1) Liver failure without hepatic coma Qualifiers: Liver failure chronicity: subacute Qualified Code(s): K72.00 - Acute and subacute hepatic failure without coma Assessment/Plan: K72.90 He has liver failure from alcoholic liver disease. He presented with months of increased beer drinking after he lost his job. On admission his bili and LFTs were elevated. INR 1.8. While his LFTs were improving, his bili improvement lagged. He got a CT of abd to check for gallbladder disease or intraductal dilatation and that was negative. Labs were all reviewed. Bili peaked on 07/19 at 23.8. Bili has plateaued at 14-16. Per phone call consult with Dr. Pa from GI @ [facility] on 07/19, she advised us to increase lactulose dose, start rifaximin 550 along w/ methylprednisolone 1mg/kg for the treatment of his alcoholic liver disease and pantoprazole 40mg IV push for stomach ulcer protection. However, Dr. Pa did not feel it necessary to give 200mg of steroids and aim for 40mg a day for 5 days. He had psychomotor slowing until 07/26. His Maddrey score is 54.6 points, and >32 indicates poor prognosis and would benefit from glucocorticoid therapy. Patient received solumedrol 40 mg IVP for 5 days, the last dose was on 07/22/22. His MELD score is 29 points which equates to an estimated 76.5% indication for short term survival and approximately a 19.6% chance of mortality for patient's with end stage liver disease for considerations for liver transplant. Plan: continue the lactulose, titrating to 2 loose BM's/day>> We will increase from once daily to daily but twice a day every other day continue rifaximin will continue following daily CMP. continue to work with PT/OT (2) Hepatic encephalopathy Impression: Improved: He is alert, oriented, able to converse in normal sentences and has no psychomotor slowing. Patient had his dose of lactulose decrease due to too many BMs a day. We had him off his gabapentin which may have added to the initial lethargy and when he requested it for his neuropathy, I restarted it Physical therapy describes that he was able to shuffle several steps to sit up in a chair but his gait has improved in that last 2 days, his gait was more normal. With OT he is working his poor bed mobility, transfers, and activities. He told me that getting up OOB was getting easier and easier. Plan: Since Ammonia level fredy when Lactulose decreased, we will increase from once daily to: daily but twice a day every other day Cont PT and OT and plan is for rehab at a longterm facility (3) Anasarca He developed anasarca while in the ICU from receiving iv saline for his severe hyponatremia. He was also on a salt tablet daily. The salt tablet was stopped several days ago. IV Lasix daily was started. His fluid restriction was changed from free water restriction to a total liquid restricted down to 2000 cc/day (1000 cc with meals, 1000 cc for nursing). RNs have caught his sister trying to sneak him extra fluids. Plan: Continue with IV Lasix>> I tried to make it IV twice daily today and this dropped his blood pressure, it is back to once a day iv Lasix. Follow BMP daily and magnesium daily Follow I's and O's and daily weight. 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 No Echo done yet (we only have it desktop support technician here Friday through ) (4) Hypotension Resolved From July 16 to the he required Levophed to keep his blood pressure up and to maintain his urine output. We looked for signs of infection, repeated blood cultures, urinalysis, chest x-ray and no source of infection was found. He was not having an TN. No lactic acidosis. Suspect he was intravascularly depleted due to cirrhosis and alcoholism. I tried to make it IV BID today 07/29, and that dropped his blood pressure to 99 systolic, so it is back to once a day iv Lasix. (5) Weakness He had fallen before coming to the ER and was so weak at admission that he could not lift up his buttocks, when in his bed, by pushing up using his legs. He also admitted that over the past week before admission, he had been mostly on his couch, hardly got up, did not eat, had his beer delivered to him by [employer]. Plan: Cont PT and OT We will allow use of the toilet in the bathroom or bedside commode Continue with rehab as planned and he will likely need a SNF, due to severe deconditioning which started from being bedridden at home (6) Alcoholism Impression: Initially he was on iv banana bags and transitioned to multivit and thiamin orally whgen he was able to swallow. He needed librium and CIWA protocol, but librium stopped 07/17. Pt is on lactulose for his high Ammonia level and confusion and psychomotor slowing, which are improving. Labs are all reviewed: The bilirubin is mostly plateaued around 14, ammonia level has decreased in the last 3 days Plan: Continue present meds and abstinence from alcohol. I ordered to have the patient seen for substance abuse with social work re-eval, now that he is communicative (7) Right breast nipple inversion Plan: Outpatient work up with mammo (8) Morbid obesity BMI 60-69 At admission he weighed about 59 BMI, this increased to BMI of 67 after getting IV fluids and developing anasarca. His morbid obesity makes all of his care more difficult. Plan: Continue IV diuretics and PT to mobilize his edema/anasarca (9) Skin rash Rash covering the skin of both buttocks and is a result of being on his back and having the loose stool. A shower was ordered and he can now sit up in a bariatric chair in shower. Plan: Continue hygiene and nystatin powder (10) Hyponatremia Resolved as of 07/21 On admission, he presented is almost meeting the criteria for beer potomania. He was severely hyponatremic at 114 but not hypokalemic. He was on saline in the ICU. A daily salt tablet was added (by Telemedicine Dr). By July 16 Na was 118. By July 17 Na was 124. July 18 Na was 128 and by 07/21 his Na was 135. On 07/23 Na was 141. Plan: Remain off the the salt tablet, due to persistent anasarca Cont on restricted total fluid intake/day Cont Lasix for the anasarca Follow BMP daily (11) Abnormal urinalysis His first urinalysis showed bacteriuria but was negative in its growth. He did not have any symptoms of urgency, and frequency but did have AMS (psychomotor slowing). He did not have a fever or an elevated white cell count. We did not treat this abnormal urinalysis (12) Boil Left anterior thigh that has come to a head. Patient scratched it and boil ru ptured, no cellulitis. (13) Conjunctivitis Resolved on eye drops - Current Meds Current Meds: Current Medications Generic Name Dose Route Start Last Admin Trade Name Freq PRN Reason Stop Dose Admin Calcium Carbonate/Glycine 500 mg 07/21/22 03:51 07/24/22 18:15 Calcium Carbonate Chew 500 Mg Tablet PO 500 mg BID PRN Administration Heartburn Carboxymethylcellulose 1 drops 07/17/22 08:19 07/29/22 16:36 Carboxymethylcellulose Ophth Drops EACHEYE 1 drops PRN PRN Administration Dry Eye Clotrimazole 15 applic 07/22/22 21:00 07/29/22 08:33 Clotrimazole 1% Cream 15 Gm Tube TOP 15 applic BID KANU Administration Enoxaparin Sodium 40 mg 07/24/22 09:41 07/29/22 08:31 Enoxaparin 40 Mg/0.4 Ml Syringe SUBQ 40 mg BID KANU Administration Gabapentin 600 mg 07/27/22 14:00 07/29/22 15:23 Gabapentin 300 Mg Capsule PO 600 mg TID KANU Administration Lactobacillus Rhamnosus 1 cap 07/16/22 11:00 07/29/22 08:31 Lactobacillus Rhamnosus Gg Capsule PO 1 cap DAILY KANU Administration Lactulose 10 gm 07/28/22 09:00 07/29/22 08:34 Lactulose 10 Gm/15 Ml Bottle PO 10 gm DAILY KANU Administration Lactulose 10 gm 07/29/22 17:00 07/29/22 16:51 Lactulose 10 Gm/15 Ml Bottle PO Not Given Q48H KANU Multi-Ingredient Ointment 1 applic 07/16/22 01:24 07/29/22 05:32 Zinc Oxide 20% Oint 30 Gm Tube TOP 1 applic PRN PRN Administration Skin Care Nystatin 1 applic 07/15/22 21:00 07/29/22 08:33 Nystatin Powder 15 Gm TOP 1 applic BID KANU Administration Ondansetron HCl 4 mg 07/15/22 11:15 07/16/22 08:12 Ondansetron 4 Mg/2 Ml Vial IVP 4 mg Q6HR PRN Administration Nausea / Vomiting Pantoprazole Sodium 40 mg 07/19/22 11:00 07/29/22 05:33 Pantoprazole 40 Mg Tablet PO 40 mg QDAC KANU Administration Mometasone Furoate 1 each 07/22/22 17:00 07/29/22 16:33 0.1% Ointment TOP 1 each BID PRN Administration ITCHING Potassium Chloride 30 meq 07/27/22 08:00 07/29/22 08:31 Potassium Chloride 10 Meq Capsule PO 30 meq DAILYWM KANU Administration Multivit/Folic Acid/Iron 1 tab 07/16/22 11:00 07/29/22 08:31 Vitamin Tablet PO 1 tab DAILYWM KANU Administration Prochlorperazine Edisylate 10 mg 07/15/22 11:15 07/22/22 23:58 Prochlorperazine 10 Mg/2 Ml Vial IVP 10 mg Q6HR PRN Administration Nausea / Vomiting Rifaximin 550 mg 07/18/22 21:00 07/29/22 08:31 Rifaximin 550 Mg Tablet PO 550 mg BID KANU Administration Sodium Chloride 10 ml 07/15/22 11:15 07/29/22 01:30 Sodium Chloride Flush 0.9% 10 Ml Syringe IVP 10 ml PRN PRN Administration NEEDED PER PROVIDER ORDERS Sodium Chloride 20 ml 07/16/22 22:36 07/22/22 05:00 Sodium Chloride Flush 0.9% 10 Ml Syringe IVP 20 ml PRN PRN Administration After Blood Draw Thiamine HCl 100 mg 07/16/22 11:00 07/29/22 08:31 Thiamine 100 Mg Tablet PO 100 mg DAILY KANU Administration Tramadol HCl 25 mg 07/27/22 09:00 07/29/22 08:31 Tramadol 50 Mg Tablet PO 25 mg BID KANU Administration Zinc Oxide 113 gm 07/19/22 17:01 07/22/22 23:47 Cod Liver Oil/Zinc Oxide 113 Gm Tube TOP 1 applic PRN PRN Administration Skin Care - Lab Result Fish Bone Diagrams: 07/26/22 06:35 07/29/22 05:30 - Additional Planning My Orders: My Active Orders 07/29/22 17:00 Lactulose 10 gm PO Q48H 07/30/22 05:00 AMMONIA [CHEM] DAILYLAB CBC - COMP BLD CT W/AUTO DIFF [HEME] DAILYLAB CMP [COMPREHENSIVE METABOLIC PANEL] [CHEM] DAILYLAB MAGNESIUM [CHEM] DAILYLAB 07/30/22 09:00 FUROSEMIDE INJ 20mg VIAL [LASIX INJ 20mg VIAL] 20 mg IVP DAILY 07/31/22 05:00 AMMONIA [CHEM] DAILYLAB CMP [COMPREHENSIVE METABOLIC PANEL] [CHEM] DAILYLAB MAGNESIUM [CHEM] DAILYLAB 08/01/22 05:00 CMP [COMPREHENSIVE METABOLIC PANEL] [CHEM] DAILYLAB MAGNESIUM [CHEM] DAILYLAB Subjective - Subjective Patient Reports: Feeling Better, Resting Comfortably, Other (He still asks to return to bed, as soon as 2-hour time is over, watches the clock) Nursing Reports: Other (He is no longer demanding and irritable, is cooperative and appreciative) Objective Vital Signs: Vital Signs - 24 hr 07/29/22 07/29/22 07/29/22 00:06 08:15 16:19 Temperature 36.9 C 36.8 C 35.5 C L Heart Rate [ 87 Brachial] Heart Rate [ 87 87 Radial] Respiratory 18 20 17 Rate Blood Pressure 101/60 95/61 121/69 [Right Radial artery] O2 Saturation 98 98 98 Oxygen O2 Source Room air I&O (Last 24 Hrs): Intake and Output Totals x24h 07/27/22 07/28/22 07/29/22 23:59 23:59 23:59 Intake Total 1740 1540 1130 Output Total 100 450 250 Balance 1640 1090 880 General: Alert, Oriented x3, Other (icteric, morbidly obese, cleaned and appears neat) HEENT: Mucous membr. moist/pink, Other (wearing glasses) Neck: Other (Not evaluate JVP due to morbid obese) Neuro: Alert, Other (No nystagmus or tremor) Cardiovascular: Regular rate, No murmurs (Very distant heart sounds due to morbid obesity) Respiratory: No respiratory distress Abdomen: Other (Distended, firm in the upper abdomen, nontender, has a large pannus down to his knees. Skin is red in the fold) Extremities: No clubbing, Other (2+ edema to the knees) - Results Results: Laboratory Results WBC 7.9 x10^3/uL (4.8-10.8) 07/26/22 06:35 RBC 3.35 10^6/uL (4.70-6.10) L 07/26/22 06:35 Hgb 11.6 g/dL (14.0-18.0) L 07/26/22 06:35 Hct 34.6 % (42.0-52.0) L 07/26/22 06:35 MCV 103.3 fL (80.0-94.0) H 07/26/22 06:35 MCH 34.6 pg (27.0-31.0) H 07/26/22 06:35 MCHC 33.5 g/dL (32.0-36.0) 07/26/22 06:35 RDW 17.3 % (12.0-15.0) H 07/26/22 06:35 Plt Count 130 10^3/uL (130-450) 07/26/22 06:35 MPV 10.2 fL (7.4-11.4) 07/26/22 06:35 Neut # (Auto) 5.5 10^3/uL (1.5-6.6) 07/26/22 06:35 Lymph # (Auto) 1.1 10^3/uL (1.5-3.5) L 07/26/22 06:35 [place] # (Auto) 0.7 10^3/uL (0.0-1.0) 07/26/22 06:35 Eos # (Auto) 0.1 10^3/uL (0.0-0.7) 07/26/22 06:35 Baso # (Auto) 0.1 10^3/uL (0.0-0.1) 07/26/22 06:35 Absolute Nucleated RBC 0.00 x10^3/uL 07/26/22 06:35 Total Counted 100 07/24/22 05:04 Band Neuts % (Manual) 16 % (0-10) H 07/24/22 05:04 Reactive Lymphs % (Man) 2 % 07/23/22 05:45 Abnorm Lymph % (Manual) 0 % 07/24/22 05:04 Metamyelocytes % 2 % (-0) H 07/24/22 05:04 Myelocytes % 4 % (-0) H 07/24/22 05:04 Nucleated RBC % 0.0 /100WBC 07/26/22 06:35 Neutrophils # (Manual) 4.4 10^3/uL (1.5-6.6) 07/24/22 05:04 Lymphocytes # (Manual) 1.6 10^3/uL (1.5-3.5) 07/24/22 05:04 Monocytes # (Manual) 0.4 10^3/uL (0.0-1.0) 07/24/22 05:04 Eosinophils # (Manual) 0.2 10^3/uL (0-0.7) 07/24/22 05:04 Basophils # (Manual) 0.1 10^3/uL (0-0.1) 07/24/22 05:04 Differential Comment MANUAL DIFFERENTIAL 07/24/22 05:04 RBC Morph Micro Appear 2+ TARGET CELLS (NORMAL) 1+ HYPOCHROMASIA (NORMAL) 07/24/22 05:04 RBC Morph Micro Appear 2+ TARGET CELLS (NORMAL) 1+ HYPOCHROMASIA (NORMAL) 07/24/22 05:04 PT 19.3 secs (9.9-12.6) H 07/15/22 12:26 INR 1.8 (0.8-1.2) H 07/15/22 12:26 VBG pH 7.317 (7.31-7.41) 07/23/22 05:45 Ionized Calcium 1.16 mmol/L (1.15-1.33) 07/23/22 05:45 Sodium 135 mmol/L (135-145) 07/29/22 05:30 Potassium 3.7 mmol/L (3.5-5.0) 07/29/22 05:30 Chloride 104 mmol/L (101-111) 07/29/22 05:30 Carbon Dioxide 24 mmol/L (21-32) 07/29/22 05:30 Anion Gap 7.0 (6-13) 07/29/22 05:30 BUN 29 mg/dL (6-20) H 07/29/22 05:30 Creatinine 1.1 mg/dL (0.6-1.2) 07/29/22 05:30 Estimated GFR (MDRD) 70 (>89) L 07/29/22 05:30 Glucose 114 mg/dL (70-100) H 07/29/22 05:30 Estimat Average Glucose 105 mg/dL (70-100) H 07/16/22 04:27 Hemoglobin A1c % 5.3 % (4.27-6.07) 07/16/22 04:27 Calcium 7.9 mg/dL (8.5-10.3) L 07/29/22 05:30 Phosphorus 2.9 mg/dL (2.5-4.6) 07/23/22 05:45 Magnesium 2.0 mg/dL (1.7-2.8) 07/28/22 06:00 Total Bilirubin 14.3 mg/dL (0.2-1.0) H 07/29/22 05:30 AST 109 IU/L (10-42) H 07/29/22 05:30 ALT 78 IU/L (10-60) H 07/29/22 05:30 Alkaline Phosphatase 263 IU/L (42-121) H 07/29/22 05:30 Ammonia 53.4 umol/L (7-35) H 07/29/22 09:32 Total Creatine Kinase 171 IU/L (22-269) 07/18/22 05:18 Troponin I High Sens 27.6 ng/L (2.3-19.7) H* 07/16/22 20:52 Total Protein 5.0 g/dL (6.7-8.2) L 07/29/22 05:30 Albumin 1.9 g/dL (3.2-5.5) L 07/29/22 05:30 Globulin 3.1 g/dL (2.1-4.2) 07/29/22 05:30 Albumin/Globulin Ratio 0.6 (1.0-2.2) L 07/29/22 05:30 Lipase 36 U/L (22-51) 07/15/22 09:54 Vitamin B12 404 pg/mL (180-914) 07/16/22 04:27 Folate 8.12 ng/mL (5.90 - >24.8) 07/16/22 04:27 TSH 2.59 uIU/mL (0.34-5.60) 07/15/22 09:54 Urine Color DARK YELLOW 07/22/22 12:50 Urine Clarity HAZY (CLEAR) 07/22/22 12:50 Urine pH 6.0 PH (5.0-7.5) 07/22/22 12:50 Ur Specific [place] 1.020 (1.002-1.030) 07/22/22 12:50 Urine Protein NEGATIVE mg/dL (NEGATIVE) 07/22/22 12:50 Urine Glucose (UA) 250 mg/dL (NEGATIVE) H 07/22/22 12:50 Urine Ketones NEGATIVE mg/dL (NEGATIVE) 07/22/22 12:50 Urine Occult Blood MODERATE (NEGATIVE) H 07/22/22 12:50 Urine Nitrite POSITIVE (NEGATIVE) H 07/22/22 12:50 Urine Bilirubin LARGE (NEGATIVE) H 07/22/22 12:50 Urine Urobilinogen 2 E.U./dL (NORMAL) H 07/22/22 12:50 Ur Leukocyte Esterase SMALL (NEGATIVE) H 07/22/22 12:50 Urine RBC 0-5 /HPF (0-5) 07/22/22 12:50 Urine WBC 6-10 /HPF (0-3) H 07/22/22 12:50 Ur Squamous Epith Cells FEW Squamous (<= Few) 07/22/22 12:50 Urine Bacteria Many /HPF (None Seen) H 07/22/22 12:50 Urine Casts 0-2 WBC Casts /LPF 07/22/22 12:50 Urine Culture Comments INDICATED 07/22/22 12:50 Nasal Screen MRSA (PCR) NEGATIVE (NEGATIVE) 07/15/22 11:58 Stl C. diff Tox B Gene NEGATIVE (NEGATIVE) 07/16/22 02:05 Urine Opiates Screen NEGATIVE (NEGATIVE) 07/15/22 12:59 Ur Oxycodone Screen NEGATIVE (NEGATIVE) 07/15/22 12:59 Urine Methadone Screen NEGATIVE (NEGATIVE) 07/15/22 12:59 Ur Propoxyphene Screen NEGATIVE (NEGATIVE) 07/15/22 12:59 Ur Barbiturates Screen NEGATIVE (NEGATIVE) 07/15/22 12:59 Ur Tricyclics Screen NEGATIVE (NEGATIVE) 07/15/22 12:59 Ur Phencyclidine Scrn NEGATIVE (NEGATIVE) 07/15/22 12:59 Ur Amphetamine Screen NEGATIVE (NEGATIVE) 07/15/22 12:59 U Methamphetamines Scrn NEGATIVE (NEGATIVE) 07/15/22 12:59 U Benzodiazepines Scrn NEGATIVE (NEGATIVE) 07/15/22 12:59 Urine Cocaine Screen NEGATIVE (NEGATIVE) 07/15/22 12:59 U Cannabinoids Screen NEGATIVE (NEGATIVE) 07/15/22 12:59 Ethyl Alcohol 103.7 mg/dL 07/15/22 09:54 SARS-CoV-2 (PCR) NOT DETECTED 07/15/22 10:12
[2022-07-30] MEDS: SODIUM CHLORIDE FLUSH 0.9% 10 ML SYRINGE IVP PRN (01:00)
[2022-07-30] MEDS: CARBOXYMETHYLCELLULOSE OPHTH DROPS EACHEYE PRN (01:10)
[2022-07-30] MEDS: ZINC OXIDE 20% OINT 30 GM TUBE TOP PRN (02:00)
[2022-07-30] MEDS: GABAPENTIN 300 MG CAPSULE PO SCH ×3 (06:07→21:35)
[2022-07-30] MEDS: PANTOPRAZOLE 40 MG TABLET PO SCH (06:07)
[2022-07-30 06:22] LABS: BASOPHILS # (AUTO) 0.1 10^3/uL (0.0-0.1); BASOPHILS % (AUTO) 0.7 %; EOSINOPHILS # (AUTO) 0.1 10^3/uL (0.0-0.7); HCT - HEMATOCRIT 34.5 % (42.0-52.0); HGB - HEMOGLOBIN 11.1 g/dL (14.0-18.0); LYMPHOCYTES # (AUTO) 2.3 10^3/uL (1.5-3.5); LYMPHOCYTES % (AUTO) 19.6 %; MEAN CORPUSCULAR HEMOGLOBIN 33.5 pg (27.0-31.0); MEAN CORPUSCULAR HGB CONC 32.2 g/dL (32.0-36.0); MEAN CORPUSCULAR VOLUME 104.2 fL (80.0-94.0); MEAN PLATELET VOLUME 11.2 fL (7.4-11.4); MONOCYTES # (AUTO) 1.1 10^3/uL (0.0-1.0); NEUTROPHILS # (AUTO) 7.9 10^3/uL (1.5-6.6); NEUTROPHILS % (AUTO) 67.2 %; PLT - PLATELET COUNT 123 10^3/uL (130-450); RED BLOOD COUNT 3.31 10^6/uL (4.70-6.10); RED CELL DISTRIBUTION WIDTH 17.2 % (12.0-15.0); WHITE BLOOD COUNT 11.8 x10^3/uL (4.8-10.8)
[2022-07-30 06:38] LABS: ALBUMIN/GLOBULIN RATIO 0.6 (1.0-2.2); BILIRUBIN,TOTAL 14.3 mg/dL (0.2-1.0); CALCIUM 7.9 mg/dL (8.5-10.3); CREATININE 1.2 mg/dL (0.6-1.2); MAGNESIUM 1.9 mg/dL (1.7-2.8); POTASSIUM 3.7 mmol/L (3.5-5.0); TOTAL PROTEIN 5.5 g/dL (6.7-8.2)
[2022-07-30] MEDS: ENOXAPARIN 40 MG/0.4 ML SYRINGE SUBQ SCH ×2 (08:03→21:35)
[2022-07-30] MEDS: PRENATAL VITAMIN TABLET PO SCH (08:05)
[2022-07-30] MEDS: LACTOBACILLUS RHAMNOSUS GG CAPSULE PO SCH (08:05)
[2022-07-30] MEDS: THIAMINE 100 MG TABLET PO SCH (08:05)
[2022-07-30] MEDS: rifAXIMin 550 MG TABLET PO SCH ×2 (08:05→21:35)
[2022-07-30] MEDS: POTASSIUM CHLORIDE 10 MEQ CAPSULE PO SCH (08:05)
[2022-07-30] MEDS: traMADol 50 MG TABLET PO SCH ×2 (08:07→21:35)
[2022-07-30] MEDS: NYSTATIN POWDER 15 GM TOP SCH ×2 (08:07→21:38)
[2022-07-30] MEDS: CLOTRIMAZOLE 1% CREAM 15 GM TUBE TOP SCH ×2 (08:07→21:36)
[2022-07-30] MEDS: FUROSEMIDE 20 MG/2 ML VIAL IVP SCH (08:08)
[2022-07-30] MEDS: LACTULOSE 10 GM/15 ML BOTTLE PO SCH (08:10)
[2022-07-30] MEDS ORDERED: FUROSEMIDE 20 MG/2 ML VIAL IVP SCH (09:00)
--- NOTE | 2022-07-30 19:20 | PROVIDER PROGRESS NOTE ---
Subjective - Prog Note Date Prog Note Date: 07/30/22 Prog Note Time: 19:18 - Subjective Subjective: Very demanding of the nurses. Very impatient when they do move faster form. There is no planus to his request when he asked him for things such as bring me my water, get me my food, etc. Current Medications - Current Medications Current Medications: Active Medications Calcium Carbonate/Glycine (Calcium Carbonate Chew 500 Mg Tablet) 500 mg PO BID PRN PRN Reason: Heartburn Last Admin: 07/24/22 18:15 Dose: 500 mg Carboxymethylcellulose (Carboxymethylcellulose Ophth Drops) 1 drops EACHEYE PRN PRN PRN Reason: Dry Eye Last Admin: 07/30/22 01:10 Dose: 1 drops Clotrimazole (Clotrimazole 1% Cream 15 Gm Tube) 15 applic TOP BID [facility] Last Admin: 07/30/22 08:07 Dose: 15 applic Enoxaparin Sodium (Enoxaparin 40 Mg/0.4 Ml Syringe) 40 mg SUBQ BID [facility] Last Admin: 07/30/22 08:03 Dose: 40 mg Furosemide (Furosemide 20 Mg/2 Ml Vial) 20 mg IVP DAILY [facility] Last Admin: 07/30/22 08:08 Dose: 20 mg Gabapentin (Gabapentin 300 Mg Capsule) 600 mg PO TID [facility] Last Admin: 07/30/22 17:11 Dose: 600 mg Lactobacillus Rhamnosus (Lactobacillus Rhamnosus Gg Capsule) 1 cap PO DAILY [facility] Last Admin: 07/30/22 08:05 Dose: 1 cap Lactulose (Lactulose 10 Gm/15 Ml Bottle) 10 gm PO DAILY [facility] Last Admin: 07/30/22 08:10 Dose: 10 gm Lactulose (Lactulose 10 Gm/15 Ml Bottle) 10 gm PO Q48H [facility] Last Admin: 07/29/22 16:51 Dose: Not Given Multi-Ingredient Ointment (Zinc Oxide 20% Oint 30 Gm Tube) 1 applic TOP PRN PRN PRN Reason: Skin Care Last Admin: 07/30/22 02:00 Dose: 1 applic Nystatin (Nystatin Powder 15 Gm) 1 applic TOP BID [facility] Last Admin: 07/30/22 08:07 Dose: 1 applic Ondansetron HCl (Ondansetron 4 Mg/2 Ml Vial) 4 mg IVP Q6HR PRN PRN Reason: Nausea / Vomiting Last Admin: 07/16/22 08:12 Dose: 4 mg Pantoprazole Sodium (Pantoprazole 40 Mg Tablet) 40 mg PO QDAC [facility] Last Admin: 07/30/22 06:07 Dose: 40 mg Mometasone Furoate (0.1% Ointment) 1 each TOP BID PRN PRN Reason: ITCHING Last Admin: 07/29/22 16:33 Dose: 1 each Potassium Chloride (Potassium Chloride 10 Meq Capsule) 30 meq PO DAILYWM [facility] Last Admin: 07/30/22 08:05 Dose: 30 meq Multivit/Folic Acid/Iron ( Vitamin Tablet) 1 tab PO DAILYWM [facility] Last Admin: 07/30/22 08:05 Dose: 1 tab Prochlorperazine Edisylate (Prochlorperazine 10 Mg/2 Ml Vial) 10 mg IVP Q6HR PRN PRN Reason: Nausea / Vomiting Last Admin: 07/22/22 23:58 Dose: 10 mg Rifaximin (Rifaximin 550 Mg Tablet) 550 mg PO BID [facility] Last Admin: 07/30/22 08:05 Dose: 550 mg Sodium Chloride (Sodium Chloride Flush 0.9% 10 Ml Syringe) 10 ml IVP PRN PRN PRN Reason: NEEDED PER PROVIDER ORDERS Last Admin: 07/30/22 01:00 Dose: 10 ml Sodium Chloride (Sodium Chloride Flush 0.9% 10 Ml Syringe) 20 ml IVP PRN PRN PRN Reason: After Blood Draw Last Admin: 07/22/22 05:00 Dose: 20 ml Thiamine HCl (Thiamine 100 Mg Tablet) 100 mg PO DAILY [facility] Last Admin: 07/30/22 08:05 Dose: 100 mg Tramadol HCl (Tramadol 50 Mg Tablet) 25 mg PO BID [facility] Last Admin: 07/30/22 08:07 Dose: 25 mg Zinc Oxide (Cod Liver Oil/Zinc Oxide 113 Gm Tube) 113 gm TOP PRN PRN PRN Reason: Skin Care Last Admin: 07/22/22 23:47 Dose: 1 applic Omeprazole 20 mg PO DAILY 05/10/16 Gabapentin [Neurontin] 2 cap PO TID 07/15/22 Clotrimazole 1% Cream [Lotrimin 1% Cream] 1 gm TOP BID 07/22/22 Mometasone Furoate 1 gm TOP BID PRN 07/22/22 Objective - Vital Signs/Intake & Output Reviewed Vital Signs: Yes Vital Signs: Vital Signs x48h Temp Pulse Resp BP Pulse Ox 07/30/22 16:00 36.2 C L 110 H 18 91/58 L 96 Intake & Output: Intake & Output 07/27/22 07/28/22 07/29/22 07/30/22 23:59 23:59 23:59 23:59 Intake Total 1740 1540 1480 1190 Output Total 100 450 250 300 Balance 1640 1090 1230 890 - Objective General Appearance: positive: Alert, Other (Superobese white male in no acute distress. When I last saw him he was still very sleepy but would respond to my voice. He is now much more awake, but not very motivated to move.) Eyes Bilateral: positive: PERRL, EOMI ENT: positive: No signs of dehydration Neck: negative: Stiff neck Respiratory: positive: No respiratory distress. negative: Breath sounds nml (Diminished at the bases), Wheezes, Rales, Rhonchi Cardiovascular: positive: Regular rate & rhythm (Distant cardiac tones) Abdomen: positive: Non-tender, Nml bowel sounds, No distention, Other (Hugely obese pannus that is nontender.) Skin: positive: Warm, Dry Extremities: positive: Full ROM, Pedal edema Neurologic/Psychiatric: positive: Oriented x3, CN's nml (2-12). negative: Motor nml (Severe generalized weakness where he cannot even sit up or roll over on his own) - Lab Results Fish Bones: 07/30/22 06:10 07/30/22 06:10 Other Labs: Lab Results x24hrs 07/30/22 07/30/22 07/30/22 Range/Units 06:10 06:10 06:10 WBC 11.8 H (4.8-10.8) x10^3/uL RBC 3.31 L (4.70-6.10) 10^6/uL Hgb 11.1 L (14.0-18.0) g/dL Hct 34.5 L (42.0-52.0) % MCV 104.2 H (80.0-94.0) fL MCH 33.5 H (27.0-31.0) pg MCHC 32.2 (32.0-36.0) g/dL RDW 17.2 H (12.0-15.0) % Plt Count 123 L (130-450) 10^3/uL MPV 11.2 (7.4-11.4) fL Neut # (Auto) 7.9 H (1.5-6.6) 10^3/uL Lymph # (Auto) 2.3 (1.5-3.5) 10^3/uL [place] # (Auto) 1.1 H (0.0-1.0) 10^3/uL Eos # (Auto) 0.1 (0.0-0.7) 10^3/uL Baso # (Auto) 0.1 (0.0-0.1) 10^3/uL Absolute Nucleated RBC 0.00 x10^3/uL Nucleated RBC % 0.0 /100WBC Sodium 131 L (135-145) mmol/L Potassium 3.7 (3.5-5.0) mmol/L Chloride 102 (101-111) mmol/L Carbon Dioxide 22 (21-32) mmol/L Anion Gap 7.0 (6-13) BUN 31 H (6-20) mg/dL Creatinine 1.2 (0.6-1.2) mg/dL Estimated GFR (MDRD) 63 L (>89) Glucose 119 H (70-100) mg/dL Calcium 7.9 L (8.5-10.3) mg/dL Magnesium 1.9 (1.7-2.8) mg/dL Total Bilirubin 14.3 H (0.2-1.0) mg/dL AST 108 H (10-42) IU/L ALT 80 H (10-60) IU/L Alkaline Phosphatase 283 H (42-121) IU/L Ammonia 53.4 H (7-35) umol/L Total Protein 5.5 L (6.7-8.2) g/dL Albumin 2.0 L (3.2-5.5) g/dL Globulin 3.5 (2.1-4.2) g/dL Albumin/Globulin Ratio 0.6 L (1.0-2.2) Assessment/Plan - Problem List (1) Liver failure without hepatic coma Impression: He has liver failure from alcoholic liver disease. He presented with months of increased beer drinking after he lost his job. On admission his bili and LFTs were elevated. INR 1.8. While his LFTs were improving, his bili improvement lagged. He got a CT of abd to check for gallbladder disease or intraductal dilatation and that was negative. Labs were all reviewed. Bili peaked on 07/19 at 23.8. Bili has plateaued at 14-16. Per phone call consult with Dr. Pa from GI @ [facility] on 07/19, she advised us to increase lactulose dose, start rifaximin 550 along w/ methylprednisolone 1mg/kg for the treatment of his alcoholic liver disease and pantoprazole 40mg IV push for stomach ulcer protection. However, Dr. Pa did not feel it necessary to give 200mg of steroids and aim for 40mg a day for 5 days. He had psychomotor slowing until 07/26. His Maddrey score is 54.6 points, and >32 indicates poor prognosis and would benefit from glucocorticoid therapy. Patient received solumedrol 40 mg IVP for 5 days, the last dose was on 07/22/22. His MELD score is 29 points which equates to an estimated 76.5% indication for short term survival and approximately a 19.6% chance of mortality for patient's with end stage liver disease for considerations for liver transplant. Plan: continue the lactulose, titrating to 2 loose BM's/day>> We will increase from once daily to daily but twice a day every other day continue rifaximin will continue following daily CMP. continue to work with PT/OT. From our perspective, he has reached maximum medical input. I do not think we can get much better with his liver in the acute care setting. I think it would take longer for his bili to get to acceptable levels. As such we will start transitioning to retirement facility for rehab. Barrier to transitioning to rehab will be his bariatric needs. (2) Hepatic encephalopathy Impression: Improved: He is alert, oriented, able to converse in normal sentences and has no psychomotor slowing. Patient had his dose of lactulose decrease due to too many BMs a day. We had him off his gabapentin which may have added to the initial lethargy and when he requested it for his neuropathy, and that was restarted. Physical therapy describes that he was able to shuffle several steps to sit up in a chair but his gait has improved in that last 3 days, his gait was more normal. With OT he is working his poor bed mobility, transfers, and activities. He told me that getting up OOB was getting easier and easier. Plan: Since Ammonia level fredy when Lactulose decreased, we will increase from once daily to: daily but twice a day every other day Cont PT and OT and plan is for rehab at a retirement facility (3) Anasarca He developed anasarca while in the ICU from receiving iv saline for his severe hyponatremia. He was also on a salt tablet daily. The salt tablet was stopped several days ago. IV Lasix daily was started. His fluid restriction was changed from free water restriction to a total liquid restricted down to 2000 cc/day (1000 cc with meals, 1000 cc for nursing). RNs have caught his sister trying to sneak him extra fluids. Weight on admission was 194 kg, weight today is 213 kg. Plan: Continue with IV Lasix>> hospitalist tried to make it IV twice daily today and this dropped his blood pressure, it is back to once a day iv Lasix. Follow BMP daily and magnesium daily Follow I's and O's and daily weight. 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 We looked for signs of infection, repeated blood cultures, urinalysis, chest x-ray and no source of infection was found. He was not having an IN. No lactic acidosis. Suspect he was intravascularly depleted due to cirrhosis and alcoholism. (5) Weakness He had fallen before coming to the ER and was so weak at admission that he could not lift up his buttocks, when in his bed, by pushing up using his legs. He also admitted that over the past week before admission, he had been mostly on his couch, hardly got up, did not eat, had his beer delivered to him by [employer]. Plan: Cont PT and OT We will allow use of the toilet in the bathroom or bedside commode Continue with rehab as planned and he will likely need a SNF, due to severe de conditioning which started from being bedridden at home (6) Alcoholism Impression: Initially he was on iv banana bags and transitioned to multivit and thiamin o rally whgen he was able to swallow. He needed librium and CIWA protocol, but librium stopped 07/17. Pt is on lactulose for his high Ammonia level and confusion and psychomotor slowing, which are improving. Labs are all reviewed: The bilirubin is mostly plateaued around 14, ammonia level has decreased in the last 3 days Plan: Continue present meds and abstinence from alcohol. I ordered to have the patient seen for substance abuse with social work re-eval, now that he is communicative (7) Right breast nipple inversion Plan: Outpatient work up with mammo (8) Morbid obesity BMI 60-69 At admission he weighed about 59 BMI, this increased to BMI of 67 after getting IV fluids and developing anasarca. His morbid obesity makes all of his care more difficult. Plan: Continue IV diuretics and PT to mobilize his edema/anasarca (9) Skin rash Rash covering the skin of both buttocks and is a result of being on his back and having the loose stool. A shower was ordered and he can now sit up in a bariatric chair in shower. Plan: Continue hygiene and nystatin powder (10) Hyponatremia Resolved as of 07/21 On admission, he presented is almost meeting the criteria for beer potomania. He was severely hyponatremic at 114 but not hypokalemic. He was on saline in the ICU. A daily salt tablet was added (by Telemedicine Dr). By July 16 Na was 118. By July 17 Na was 124. July 18 Na was 128 and by his Na was 135. On 07/23 Na was 141. Plan: Remain off the the salt tablet, due to persistent anasarca Cont on restricted total fluid intake/day Cont Lasix for the anasarca Follow BMP daily (11) Abnormal urinalysis His first urinalysis showed bacteriuria but was negative in its growth. He did not have any symptoms of urgency, and frequency but did have AMS (psychomotor slowing). He did not have a fever or an elevated white cell count. We did not treat this abnormal urinalysis (12) Boil Left anterior thigh that has come to a head. Patient scratched it and boil ruptured, no cellulitis. (13) Conjunctivitis Resolved on eye drops
[2022-07-31] MEDS: PANTOPRAZOLE 40 MG TABLET PO SCH (06:33)
[2022-07-31] MEDS: GABAPENTIN 300 MG CAPSULE PO SCH ×3 (06:33→21:14)
[2022-07-31 07:08] LABS: ALBUMIN 1.9 g/dL (3.2-5.5); ALBUMIN/GLOBULIN RATIO 0.6 (1.0-2.2); BILIRUBIN,TOTAL 13.6 mg/dL (0.2-1.0); CALCIUM 7.9 mg/dL (8.5-10.3); CREATININE 1.2 mg/dL (0.6-1.2); MAGNESIUM 1.8 mg/dL (1.7-2.8); POTASSIUM 3.8 mmol/L (3.5-5.0); TOTAL PROTEIN 5.2 g/dL (6.7-8.2)
[2022-07-31] MEDS: CARBOXYMETHYLCELLULOSE OPHTH DROPS EACHEYE PRN (08:17)
[2022-07-31] MEDS: ENOXAPARIN 40 MG/0.4 ML SYRINGE SUBQ SCH ×2 (08:17→21:12)
[2022-07-31] MEDS: ZINC OXIDE 20% OINT 30 GM TUBE TOP PRN (08:17)
[2022-07-31] MEDS: LACTOBACILLUS RHAMNOSUS GG CAPSULE PO SCH (08:18)
[2022-07-31] MEDS: PRENATAL VITAMIN TABLET PO SCH (08:18)
[2022-07-31] MEDS: FUROSEMIDE 20 MG/2 ML VIAL IVP SCH (08:18)
[2022-07-31] MEDS: POTASSIUM CHLORIDE 10 MEQ CAPSULE PO SCH (08:18)
[2022-07-31] MEDS: traMADol 50 MG TABLET PO SCH ×2 (08:18→21:12)
[2022-07-31] MEDS: THIAMINE 100 MG TABLET PO SCH (08:18)
[2022-07-31] MEDS: NYSTATIN POWDER 15 GM TOP SCH ×2 (08:18→21:12)
[2022-07-31] MEDS: rifAXIMin 550 MG TABLET PO SCH ×2 (08:18→21:12)
[2022-07-31] MEDS: CLOTRIMAZOLE 1% CREAM 15 GM TUBE TOP SCH ×2 (08:19→21:11)
[2022-07-31] MEDS: LACTULOSE 10 GM/15 ML BOTTLE PO SCH ×2 (08:19→17:25)
--- NOTE | 2022-07-31 17:31 | PROVIDER PROGRESS NOTE ---
Subjective - Prog Note Date Prog Note Date: 07/31/22 Prog Note Time: 17:29 - Subjective Subjective: I think the patient has reached a stable state with regards to his all of his medical problems. From an acute care perspective there is not much more were going to do. Which is good to continue to monitor. As such I have asked social work and case management to try to transition this patient [place] a [place] [facility] [place] facility. So far all of the nursing homes that the family has identified is where they want him to go have declined taking him. So now we are at the point of using a [facility] [place] list and going down that list. The only request that social work has of us is that we get a recent COVID. Patient is definitely getting more mobile. Working with physical therapy. They see a definite improvement even in the last 2 days. Current Medications - Current Medications Current Medications: Active Medications Calcium Carbonate/Glycine (Calcium Carbonate Chew 500 Mg Tablet) 500 mg PO BID PRN PRN Reason: Heartburn Last Admin: 07/24/22 18:15 Dose: 500 mg Carboxymethylcellulose (Carboxymethylcellulose Ophth Drops) 1 drops EACHEYE PRN PRN PRN Reason: Dry Eye Last Admin: 07/31/22 08:17 Dose: 1 drops Clotrimazole (Clotrimazole 1% Cream 15 Gm Tube) 15 applic TOP BID [facility] Last Admin: 07/31/22 08:19 Dose: 1 applic Enoxaparin Sodium (Enoxaparin 40 Mg/0.4 Ml Syringe) 40 mg SUBQ BID [facility] Last Admin: 07/31/22 08:17 Dose: 40 mg Furosemide (Furosemide 20 Mg/2 Ml Vial) 20 mg IVP DAILY [facility] Last Admin: 07/31/22 08:18 Dose: 20 mg Gabapentin (Gabapentin 300 Mg Capsule) 600 mg PO TID [facility] Last Admin: 07/31/22 14:26 Dose: 600 mg Lactobacillus Rhamnosus (Lactobacillus Rhamnosus Gg Capsule) 1 cap PO DAILY [facility] Last Admin: 07/31/22 08:18 Dose: 1 cap Lactulose (Lactulose 10 Gm/15 Ml Bottle) 10 gm PO DAILY [facility] Last Admin: 07/31/22 08:19 Dose: 10 gm Lactulose (Lactulose 10 Gm/15 Ml Bottle) 10 gm PO Q48H [facility] Last Admin: 07/31/22 17:25 Dose: 10 gm Multi-Ingredient Ointment (Zinc Oxide 20% Oint 30 Gm Tube) 1 applic TOP PRN PRN PRN Reason: Skin Care Last Admin: 07/31/22 08:17 Dose: 1 applic Nystatin (Nystatin Powder 15 Gm) 1 applic TOP BID [facility] Last Admin: 07/31/22 08:18 Dose: 1 applic Ondansetron HCl (Ondansetron 4 Mg/2 Ml Vial) 4 mg IVP Q6HR PRN PRN Reason: Nausea / Vomiting Last Admin: 07/16/22 08:12 Dose: 4 mg Pantoprazole Sodium (Pantoprazole 40 Mg Tablet) 40 mg PO QDAC [facility] Last Admin: 07/31/22 06:33 Dose: 40 mg Mometasone Furoate (0.1% Ointment) 1 each TOP BID PRN PRN Reason: ITCHING Last Admin: 07/29/22 16:33 Dose: 1 each Potassium Chloride (Potassium Chloride 10 Meq Capsule) 30 meq PO DAILYWM [facility] Last Admin: 07/31/22 08:18 Dose: 30 meq Multivit/Folic Acid/Iron ( Vitamin Tablet) 1 tab PO DAILYWM [facility] Last Admin: 07/31/22 08:18 Dose: 1 tab Prochlorperazine Edisylate (Prochlorperazine 10 Mg/2 Ml Vial) 10 mg IVP Q6HR PRN PRN Reason: Nausea / Vomiting Last Admin: 07/22/22 23:58 Dose: 10 mg Rifaximin (Rifaximin 550 Mg Tablet) 550 mg PO BID [facility] Last Admin: 07/31/22 08:18 Dose: 550 mg Sodium Chloride (Sodium Chloride Flush 0.9% 10 Ml Syringe) 10 ml IVP PRN PRN PRN Reason: NEEDED PER PROVIDER ORDERS Last Admin: 07/30/22 01:00 Dose: 10 ml Sodium Chloride (Sodium Chloride Flush 0.9% 10 Ml Syringe) 20 ml IVP PRN PRN PRN Reason: After Blood Draw Last Admin: 07/22/22 05:00 Dose: 20 ml Thiamine HCl (Thiamine 100 Mg Tablet) 100 mg PO DAILY [facility] Last Admin: 07/31/22 08:18 Dose: 100 mg Tramadol HCl (Tramadol 50 Mg Tablet) 25 mg PO BID [facility] Last Admin: 03/29/23 08:18 Dose: 25 mg Zinc Oxide (Cod Liver Oil/Zinc Oxide 113 Gm Tube) 113 gm TOP PRN PRN PRN Reason: Skin Care Last Admin: 07/22/22 23:47 Dose: 1 applic Omeprazole 20 mg PO DAILY 05/10/16 Gabapentin [Neurontin] 2 cap PO TID 07/15/22 Clotrimazole 1% Cream [Lotrimin 1% Cream] 1 gm TOP BID 07/22/22 Mometasone Furoate 1 gm TOP BID PRN 07/22/22 Objective - Vital Signs/Intake & Output Reviewed Vital Signs: Yes Intake & Output: Intake & Output 07/28/22 07/29/22 07/30/22 07/31/22 23:59 23:59 23:59 23:59 Intake Total 1540 1480 1390 200 Output Total 450 250 300 Balance 1090 1230 1090 200 - Objective General Appearance: positive: Alert, Other (Morbidly obese white male. Normal speech patterns.) Eyes Bilateral: positive: PERRL, EOMI ENT: positive: No signs of dehydration Neck: negative: Stiff neck Respiratory: positive: No respiratory distress, Other (Wide AP diameter with diminished breath sounds at the bases). negative: Wheezes, Rales, Rhonchi Cardiovascular: positive: Regular rate & rhythm (Distant cardiac tones) Abdomen: positive: Non-tender, Nml bowel sounds, No distention Skin: positive: Warm, Dry, Other (Marcy intertrigo has definitely improved. The rash on his buttocks from when he was incontinent of urine and stool has improved tremendously with the barrier cream and being able to control his bowels and urine.) Extremities: positive: Full ROM, Pedal edema Neurologic/Psychiatric: positive: Oriented x3, CN's nml (2-12), Motor nml - Lab Results Fish Bones: 07/30/22 06:10 07/31/22 06:30 Other Labs: Lab Results x24hrs 07/31/22 07/31/22 Range/Units 06:30 06:30 Sodium 131 L (135-145) mmol/L Potassium 3.8 (3.5-5.0) mmol/L Chloride 102 (101-111) mmol/L Carbon Dioxide 23 (21-32) mmol/L Anion Gap 6.0 (6-13) BUN 35 H (6-20) mg/dL Creatinine 1.2 (0.6-1.2) mg/dL Estimated GFR (MDRD) 63 L (>89) Glucose 109 H (70-100) mg/dL Calcium 7.9 L (8.5-10.3) mg/dL Magnesium 1.8 (1.7-2.8) mg/dL Total Bilirubin 13.6 H (0.2-1.0) mg/dL AST 102 H (10-42) IU/L ALT 75 H (10-60) IU/L Alkaline Phosphatase 297 H (42-121) IU/L Ammonia 48.1 H (7-35) umol/L Total Protein 5.2 L (6.7-8.2) g/dL Albumin 1.9 L (3.2-5.5) g/dL Globulin 3.3 (2.1-4.2) g/dL Albumin/Globulin Ratio 0.6 L (1.0-2.2) Assessment/Plan - Problem List (1) Liver failure without hepatic coma Impression: He has liver failure from alcoholic liver disease. He presented with months of increased beer drinking after he lost his job. On admission his bili and LFTs were elevated. INR 1.8. While his LFTs were improving, his bili improvement lagged. He got a CT of abd to check for gallbladder disease or intraductal dilatation and that was negative. Labs were all reviewed. Bili peaked on 07/19 at 23.8. Bili has plateaued at 14-16. Per phone call consult with Dr. Pa from GI @ [facility] on 07/19, she advised us to increase lactulose dose, start rifaximin 550 along w/ methylprednisolone 1mg/kg for the treatment of his alcoholic liver disease and pantoprazole 40mg IV push for stomach ulcer protection. However, Dr. Pa did not feel it necessary to give 200mg of steroids and aim for 40mg a day for 5 days. He had psychomotor slowing until 07/26. His Maddrey score is 54.6 points, and >32 indicates poor prognosis and would benefit from glucocorticoid therapy. Patient received solumedrol 40 mg IVP for 5 days, the last dose was on 07/22/22. His MELD score is 29 points which equates to an estimated 76.5% indication for short term survival and approximately a 19.6% chance of mortality for patient's with end stage liver disease for considerations for liver transplant. Plan: continue the lactulose, titrating to 2 loose BM's/day>> We will increase from once daily to daily but twice a day every other day continue rifaximin Decrease daily labs. Go to every third day. continue to work with PT/OT. From our perspective, he has reached maximum medical input. As of 07/29, I do not think we can get much better with his liver in the acute care setting. I think it would take longer for his bili to get to acceptable levels. As such we will [place]ing [place] [facility] [place]. Barrier to transitioning to rehab will be his bariatric needs. (2) Hepatic encephalopathy Impression: Improved: He is alert, oriented, able to converse in normal sentences and has no psychomotor slowing. Patient had his dose of lactulose decrease due to too many BMs a day. We had him off his gabapentin which may have added to the initial lethargy and when he requested it for his neuropathy, and that was restarted. Physical therapy describes that he was able to shuffle several steps to sit up in a chair but his gait has improved in that last 3 days, his gait was more normal. With OT he is working his poor bed mobility, transfers, and activities. He told me that getting up OOB was getting easier and easier. Plan: Since Ammonia level fredy when Lactulose decreased, we will increase from once daily to: daily but twice a day every other day Cont PT and OT and plan is for rehab at a [place] [facility] [place] (3) Anasarca He developed anasarca while in the ICU from receiving iv saline for his severe hyponatremia. He was also on a salt tablet daily. The salt tablet was stopped several days ago. IV Lasix daily was started. His fluid restriction was changed from free water restriction to a total liquid restricted down to 2000 cc/day (1000 cc with meals, 1000 cc for nursing). RNs have caught his sister trying to sneak him extra fluids. Weight on admission was 194 kg, And his weight on July 30 was 213 kg. Today the weight is 171.9 kg. Echocardiogram done today was technically difficult to do because of his size. His ejection fraction is 55%. No regional wall motion abnormality seen. Atria were not well visualized. No significant valvular heart disease was identified. As such cardiac dysfunction is not the cause of his anasarca. He does not have alcoholic cardiomyopathy. Plan: Continue with IV Lasix>> hospitalist tried to make it IV twice daily today and this dropped his blood pressure, it is back to once a day iv Lasix. Follow labs every third day Follow I's and O's and daily weight. I am asking nursing to reweigh him. Either yesterday is 213 kg was an error or today's weight is an error. (4) Hypotension Resolved From July 16 to the he required Levophed to keep his blood pressure up and to maintain his urine output. We looked for signs of infection, repeated blood cultures, urinalysis, chest x-ray and no source of infection was found. He was not having an AR. No lactic acidosis. Suspect he was intravascularly depleted due to cirrhosis and alcoholism. (5) Weakness He had fallen before coming to the ER and was so weak at admission that he could not lift up his buttocks, when in his bed, by pushing up using his legs. He also admitted that over the past week before admission, he had been mostly on his couch, hardly got up, did not eat, had his beer delivered to him by [employer]. Plan: Cont PT and OT We will allow use of the toilet in the bathroom or bedside commode Continue with rehab as planned and he will likely need a SNF, due to severe deconditioning which started from being bedridden at home Social work and case management working closely with [place] and [facility] to see which facility he could go to (6) Alcoholism Impression: Initially he was on iv banana bags and transitioned to multivit and thiamin orally whgen he was able to swallow. He needed librium and CIWA protocol, but librium stopped 07/17. Pt is on lactulose for his high Ammonia level and confusion and psychomotor slowing, which are improving. Labs are all reviewed: The bilirubin is mostly plateaued around 14, ammonia level has decreased in the last 3 days He has met with social work. They have given him opportunities for following up with rehab once he is done with physical rehab. (7) Right breast nipple inversion Plan: Outpatient work up with mammo (8) Morbid obesity BMI 60-69 At admission he weighed about 59 BMI, this increased to BMI of 67 after getting IV fluids and developing anasarca. His morbid obesity makes all of his care more difficult. Plan: Continue IV diuretics and PT to mobilize his edema/anasarca I will also ask nursing to reweigh him today since there seems to be discrepancy between yesterday's weight and today's weight (9) Skin rash Rash covering the skin of both buttocks and is a result of being on his back and having the loose stool. A shower was ordered and he can now sit up in a bariatric chair in shower. Plan: Continue hygiene and nystatin powder (10) Hyponatremia Resolved as of 07/21 On admission, he presented is almost meeting the criteria for beer potomania. He was severely hyponatremic at 114 but not hypokalemic. He was on saline in the ICU. A daily salt tablet was added (by Telemedicine Dr). By July 16 Na was 118. By July 17 Na was 124. July 18 Na was 128 and by 07/21 his Na was 135. On 07/23 Na was 141. Yesterday and today his sodium is 131 Plan: Remain off the the salt tablet, due to persistent anasarca Cont on restricted total fluid intake/day Cont Lasix for the anasarca (11) Abnormal urinalysis His first urinalysis showed bacteriuria but was negative in its growth. He did not have any symptoms of urgency, and frequency but did have AMS (psychomotor slowing). He did not have a fever or an elevated white cell count. We did not treat this abnormal urinalysis (12) Boil Left anterior thigh that has come to a head. Patient scratched it and boil ruptured, no cellulitis. (13) Conjunctivitis Resolved on eye drops
[2022-08-01] MEDS: PANTOPRAZOLE 40 MG TABLET PO SCH (05:11)
[2022-08-01] MEDS: GABAPENTIN 300 MG CAPSULE PO SCH ×3 (05:11→21:12)
[2022-08-01 06:27] LABS: ALBUMIN 1.9 g/dL (3.2-5.5); ALBUMIN/GLOBULIN RATIO 0.5 (1.0-2.2); BILIRUBIN,TOTAL 13.2 mg/dL (0.2-1.0); CALCIUM 8.1 mg/dL (8.5-10.3); MAGNESIUM 1.9 mg/dL (1.7-2.8); POTASSIUM 3.9 mmol/L (3.5-5.0); TOTAL PROTEIN 5.4 g/dL (6.7-8.2)
[2022-08-01] MEDS: traMADol 50 MG TABLET PO SCH ×2 (09:11→21:12)
[2022-08-01] MEDS: THIAMINE 100 MG TABLET PO SCH (09:11)
[2022-08-01] MEDS: PRENATAL VITAMIN TABLET PO SCH (09:11)
[2022-08-01] MEDS: LACTOBACILLUS RHAMNOSUS GG CAPSULE PO SCH (09:12)
[2022-08-01] MEDS: rifAXIMin 550 MG TABLET PO SCH ×2 (09:12→21:12)
[2022-08-01] MEDS: ENOXAPARIN 40 MG/0.4 ML SYRINGE SUBQ SCH ×2 (09:12→21:14)
[2022-08-01] MEDS: POTASSIUM CHLORIDE 10 MEQ CAPSULE PO SCH (09:12)
[2022-08-01] MEDS: FUROSEMIDE 20 MG/2 ML VIAL IVP SCH (09:12)
[2022-08-01] MEDS: CLOTRIMAZOLE 1% CREAM 15 GM TUBE TOP SCH ×2 (09:13→21:18)
[2022-08-01] MEDS: LACTULOSE 10 GM/15 ML BOTTLE PO SCH (09:14)
[2022-08-01] MEDS: NYSTATIN POWDER 15 GM TOP SCH ×2 (09:14→21:17)
--- NOTE | 2022-08-01 12:52 | PROVIDER PROGRESS NOTE ---
Subjective - Prog Note Date Prog Note Date: 08/01/22 Prog Note Time: 12:50 - Subjective Pt reports feeling: Improved Subjective: I came on service July 30. Between that day and now this patient has steadily improved. He is ambulating more and more. He is still requiring some standby assist. The other day he requested that his mother shower him and Occupational Therapy really enforced that he needs to be able to do this on his own. Mom can standby but he really needs to bathe himself. He was able to do so. Toileting is little bit difficult because of his size. It is hard for him to reach around the backside to wipe. But he is able to get up from the bed, walk to the toilet, sit. Wait for the nurse to then wipe him. And then he gets up on his own and goes back to bed. Today he tells me his goal is to walk the length of the hallway. He denies chest pain, palpitations, shortness of breath. Current Medications - Current Medications Current Medications: Active Medications Calcium Carbonate/Glycine (Calcium Carbonate Chew 500 Mg Tablet) 500 mg PO BID PRN PRN Reason: Heartburn Last Admin: 07/24/22 18:15 Dose: 500 mg Carboxymethylcellulose (Carboxymethylcellulose Ophth Drops) 1 drops EACHEYE PRN PRN PRN Reason: Dry Eye Last Admin: 07/31/22 08:17 Dose: 1 drops Clotrimazole (Clotrimazole 1% Cream 15 Gm Tube) 15 applic TOP BID [facility] Last Admin: 08/01/22 09:13 Dose: 15 applic Enoxaparin Sodium (Enoxaparin 40 Mg/0.4 Ml Syringe) 40 mg SUBQ BID [facility] Last Admin: 08/01/22 09:12 Dose: 40 mg Furosemide (Furosemide 20 Mg/2 Ml Vial) 20 mg IVP DAILY [facility] Last Admin: 08/01/22 09:12 Dose: 20 mg Gabapentin (Gabapentin 300 Mg Capsule) 600 mg PO TID [facility] Last Admin: 08/01/22 05:11 Dose: 600 mg Lactobacillus Rhamnosus (Lactobacillus Rhamnosus Gg Capsule) 1 cap PO DAILY [facility] Last Admin: 08/01/22 09:12 Dose: 1 cap Lactulose (Lactulose 10 Gm/15 Ml Bottle) 10 gm PO DAILY [facility] Last Admin: 08/01/22 09:14 Dose: 10 gm Lactulose (Lactulose 10 Gm/15 Ml Bottle) 10 gm PO Q48H [facility] Last Admin: 07/31/22 17:25 Dose: 10 gm Multi-Ingredient Ointment (Zinc Oxide 20% Oint 30 Gm Tube) 1 applic TOP PRN PRN PRN Reason: Skin Care Last Admin: 07/31/22 08:17 Dose: 1 applic Nystatin (Nystatin Powder 15 Gm) 1 applic TOP BID [facility] Last Admin: 08/01/22 09:14 Dose: 1 applic Ondansetron HCl (Ondansetron 4 Mg/2 Ml Vial) 4 mg IVP Q6HR PRN PRN Reason: Nausea / Vomiting Last Admin: 07/16/22 08:12 Dose: 4 mg Pantoprazole Sodium (Pantoprazole 40 Mg Tablet) 40 mg PO QDAC [facility] Last Admin: 08/01/22 05:11 Dose: 40 mg Mometasone Furoate (0.1% Ointment) 1 each TOP BID PRN PRN Reason: ITCHING Last Admin: 07/29/22 16:33 Dose: 1 each Potassium Chloride (Potassium Chloride 10 Meq Capsule) 30 meq PO DAILYWM [facility] Last Admin: 08/01/22 09:12 Dose: 30 meq Multivit/Folic Acid/Iron ( Vitamin Tablet) 1 tab PO DAILYWM [facility] Last Admin: 08/01/22 09:11 Dose: 1 tab Prochlorperazine Edisylate (Prochlorperazine 10 Mg/2 Ml Vial) 10 mg IVP Q6HR PRN PRN Reason: Nausea / Vomiting Last Admin: 07/22/22 23:58 Dose: 10 mg Rifaximin (Rifaximin 550 Mg Tablet) 550 mg PO BID [facility] Last Admin: 08/01/22 09:12 Dose: 550 mg Sodium Chloride (Sodium Chloride Flush 0.9% 10 Ml Syringe) 10 ml IVP PRN PRN PRN Reason: NEEDED PER PROVIDER ORDERS Last Admin: 07/30/22 01:00 Dose: 10 ml Sodium Chloride (Sodium Chloride Flush 0.9% 10 Ml Syringe) 20 ml IVP PRN PRN PRN Reason: After Blood Draw Last Admin: 07/22/22 05:00 Dose: 20 ml Thiamine HCl (Thiamine 100 Mg Tablet) 100 mg PO DAILY [facility] Last Admin: 08/01/22 09:11 Dose: 100 mg Tramadol HCl (Tramadol 50 Mg Tablet) 25 mg PO BID [facility] Last Admin: 08/01/22 09:11 Dose: 25 mg Zinc Oxide (Cod Liver Oil/Zinc Oxide 113 Gm Tube) 113 gm TOP PRN PRN PRN Reason: Skin Care Last Admin: 07/22/22 23:47 Dose: 1 applic Omeprazole 20 mg PO DAILY 05/10/16 Gabapentin [Neurontin] 2 cap PO TID 07/15/22 Clotrimazole 1% Cream [Lotrimin 1% Cream] 1 gm TOP BID 07/22/22 Mometasone Furoate 1 gm TOP BID PRN 07/22/22 Objective - Vital Signs/Intake & Output Vital Signs: Vital Signs x48h Temp Pulse Resp BP Pulse Ox 08/01/22 09:05 36.5 C 86 20 118/77 96 Intake & Output: Intake & Output 07/29/22 07/30/22 07/31/22 08/01/22 23:59 23:59 23:59 23:59 Intake Total 1480 1390 200 180 Output Total 250 300 300 350 Balance 1230 1090 -100 -170 - Objective General Appearance: positive: No acute distress (Still has mild jaundice, and scleral yellowing), Alert (Morbidly obese white male. Sitting in his chair in his room), Other (Yesterday there was question about his weight. He came in and about 198 kg. He peaked at 213 kg on July 30. Yesterday he was 205 kg and today he is 207 kg.) Eyes Bilateral: positive: PERRL, EOMI ENT: positive: No signs of dehydration Neck: positive: Other (Cannot assess for JVD due to neck girth). negative: Stiff neck Respiratory: positive: No respiratory distress, Other (Diminished breath sounds at the lung bases. Gynecomastia. Nipple inversion stable. No breast mass). negative: Wheezes, Rales, Rhonchi Cardiovascular: positive: Regular rate & rhythm (Distant cardiac tonesIn a chest with a very wide AP diameter) Abdomen: positive: Non-tender, Nml bowel sounds, No distention, Other (Superobese abdominal pannus cannot let me assess for organomegaly). negative: Guarding, Rebound Skin: positive: Warm, Dry, Other (The buttock developed a dense red rash that is nonblanching because of incontinence of urine and stool when he was in the ICU. There is no skin breakdown, no ulcers no oozing. The density of the rash is unchanged. Well-circumscribed margins that cover both cheeks.) Extremities: positive: Full ROM, Pedal edema Neurologic/Psychiatric: positive: Oriented x3, CN's nml (2-12), Motor nml - Lab Results Fish Bones: 07/30/22 06:10 08/01/22 05:15 Other Labs: Lab Results x24hrs 08/01/22 07/31/22 Range/Units 05:15 18:35 Sodium 135 (135-145) mmol/L Potassium 3.9 (3.5-5.0) mmol/L Chloride 105 (101-111) mmol/L Carbon Dioxide 24 (21-32) mmol/L Anion Gap 6.0 (6-13) BUN 32 H (6-20) mg/dL Creatinine 1.0 (0.6-1.2) mg/dL Estimated GFR (MDRD) 78 L (>89) Glucose 106 H (70-100) mg/dL Calcium 8.1 L (8.5-10.3) mg/dL Magnesium 1.9 (1.7-2.8) mg/dL Total Bilirubin 13.2 H (0.2-1.0) mg/dL AST 99 H (10-42) IU/L ALT 67 H (10-60) IU/L Alkaline Phosphatase 301 H (42-121) IU/L Total Protein 5.4 L (6.7-8.2) g/dL Albumin 1.9 L (3.2-5.5) g/dL Globulin 3.5 (2.1-4.2) g/dL Albumin/Globulin Ratio 0.5 L (1.0-2.2) SARS-CoV-2 (PCR) NOT DETECTED Assessment/Plan - Problem List (1) Liver failure without hepatic coma Impression: He has liver failure from alcoholic liver disease. He presented with months of increased beer drinking after he lost his job. On admission his bili and LFTs were elevated. INR 1.8. While his LFTs were improving, his bili improvement lagged. He got a CT of abd to check for gallbladder disease or intraductal dilatation and that was negative. Labs were all reviewed. Bili peaked on 07/19 at 23.8. Bili has plateaued at 14-16. Per phone call consult with Dr. Pa from GI @ [facility] on 07/19, she advised us to increase lactulose dose, start rifaximin 550 along w/ methylprednisolone 1mg/kg for the treatment of his alcoholic liver disease and pantoprazole 40mg IV push for stomach ulcer protection. However, Dr. Pa did not feel it necessary to give 200mg of steroids and aim for 40mg a day for 5 days. He had psychomotor slowing until 07/26. His Maddrey score is 54.6 points, and >32 indicates poor prognosis and would benefit from glucocorticoid therapy. Patient received solumedrol 40 mg IVP for 5 days, the last dose was on 07/22/22. His MELD score is 29 points which equates to an estimated 76.5% indication for short term survival and approximately a 19.6% chance of mortality for patient's with end stage liver disease for considerations for liver transplant. Plan: continue the lactulose, titrating to 2 loose BM's/day>> He was on once a day. Then twice a day. Most recent change has been to twice a day every other day and once a day every other day. continue rifaximin Decrease daily labs. Go to every third day. This would be August 04. continue to work with PT/OT. From our perspective, he has reached maximum medical input. , I do not think we can get much better with his liver in the acute care setting. I think it would take longer for his bili to get to acceptable levels. As such we will start transitioning to [facility] facility for rehab. Barrier to transitioning to rehab will be his bariatric needs. Today's avoidable day #4 (2) Hepatic encephalopathy Impression: Improved: He is alert, oriented, able to converse in normal sentences and has no psychomotor slowing. Patient had his dose of lactulose decrease due to too many BMs a day. We had him off his gabapentin which may have added to the initial lethargy and when he requested it for his neuropathy, and that was restarted. He has gone from doing some short shuffling steps to his chair from his bedside. To being able to get up on his own with standby assist to go to the bathroom, and then walked back to the bed. He is getting in and out of the bed on his own. He is spending more time in the bedside chair than in bed. Plan: Since Ammonia level fredy when Lactulose decreased, we will increase from once daily to: daily but twice a day every other day Cont PT and OT and plan is for rehab at a prison facility (3) Anasarca He developed anasarca while in the ICU from receiving iv saline for his severe h yponatremia. He was also on a salt tablet daily. The salt tablet was stopped several days ago. IV Lasix daily was started. His fluid restriction was changed from free water restriction to a total liquid restricted down to 2000 cc/day (1000 cc with meals, 1000 cc for nursing). RNs have caught his sister trying to sneak him extra fluids. Weight on admission was 194 kg, And his weight on July 30 was 213 kg. On 07/31 the weight is 171.9 kg. So I had the nurse zero the bed, and we weighed him. His weight was 205. Today 207. He feels like the weight is coming off of him quite nicely. He likes the ability to be more mobile. He says that the skin of his legs does not feel nearly as tight. Echocardiogram done 07/31 was technically difficult to do because of his size. His ejection fraction is 55%. No regional wall motion abnormality seen. Atria were not well visualized. No significant valvular heart disease was identified. As such cardiac dysfunction is not the cause of his anasarca. He does not have alcoholic cardiomyopathy. Plan: Change Lasix from 20 mg IV push daily to spironolactone 25 mg p.o. twice daily. Follow labs every third day Follow I's and O's and daily weight. (4) Hypotension Resolved From July 16 to the he required Levophed to keep his blood pressure up and to maintain his urine output. We looked for signs of infection, repeated blood cultures, urinalysis, chest x-ray and no source of infection was found. He was not having an CA. No lactic acidosis. Suspect he was intravascularly depleted due to cirrhosis and alcoholism. (5) Weakness He had fallen before coming to the ER and was so weak at admission that he could not lift up his buttocks, when in his bed, by pushing up using his legs. He also admitted that over the past week before admission, he had been mostly on his couch, hardly got up, did not eat, had his beer delivered to him by [employer]. Plan: Cont PT and OT We will allow use of the toilet in the bathroom or bedside commode Continue with rehab as planned and he will likely need a SNF, due to severe deconditioning which started from being bedridden at home Social work and case management working closely with [facility] and [facility] to see which facility he could go to (6) Alcoholism Impression: Initially he was on iv banana bags and transitioned to multivit and thiamin orally whgen he was able to swallow. He needed librium and CIWA protocol, but librium stopped 07/17. Pt is on lactulose for his high Ammonia level and confusion and psychomotor slowing, which are improving. Labs are all reviewed: The bilirubin is mostly plateaued around 14, ammonia level has decreased in the last 3 days He has met with social work. They have given him opportunities for following up with rehab once he is done with physical rehab. (7) Right breast nipple inversion Plan: Outpatient work up with mammo (8) Morbid obesity BMI 60-69 At admission he weighed about 59 BMI, this increased to BMI of 67 after getting IV fluids and developing anasarca. His morbid obesity makes all of his care more difficult. Plan: In the outpatient setting, the patient will need to continue a low calorie diet, improve his mobility to be able to exercise. Stay off alcohol. (9) Skin rash Rash covering the skin of both buttocks and is a result of being on his back and having the loose stool. A shower was ordered and he can now sit up in a bariatric chair in shower. The rash continues to be present. There is been no change in the geographic distribution since it was first identified. Nonblanching red skin. Plan: Continue hygiene and nystatin powder (10) Hyponatremia Resolved as of 07/21 On admission, he presented is almost meeting the criteria for beer potomania. He was severely hyponatremic at 114 but not hypokalemic. He was on saline in the ICU. A daily salt tablet was added (by Telemedicine ). By July 16 Na was 118. By July 17 Na was 124. July 18 Na was 128 and by 07/21 his Na was 135. On 07/23 Na was 141. 07/30 and 07/31 he was 131 and today 135. Plan: Remain off the the salt tablet, due to persistent anasarca Cont on restricted total fluid intake/day Change lasix to spironolactone and monitor how he does w Na and K on 08/04 (11) Abnormal urinalysis His first urinalysis showed bacteriuria but was negative in its growth. He did not have any symptoms of urgency, and frequency but did have AMS (psychomotor slowing). He did not have a fever or an elevated white cell count. We did not treat this abnormal urinalysis (12) Boil Left anterior thigh that has come to a head. Patient scratched it and boil ruptured, no cellulitis. (13) Conjunctivitis Resolved on eye drops
[2022-08-01] MEDS: SPIRONOLACTONE 25 MG TABLET PO SCH (21:12)
[2022-08-02] MEDS: GABAPENTIN 300 MG CAPSULE PO SCH ×3 (05:42→21:23)
[2022-08-02] MEDS: traMADol 50 MG TABLET PO SCH ×2 (08:13→21:22)
--- NOTE | 2022-08-02 08:13 | PROVIDER PROGRESS NOTE ---
Subjective - Prog Note Date Prog Note Date: 08/02/22 Prog Note Time: 08:13 - Subjective Pt reports feeling: Improved Subjective: He is watching the news breakfast show this morning. Has finished eating breakfast. Alert, oriented. Working with physical therapy. Physical therapy shares with me that the patient is ashamed of himself. Does not want to leave the room to exercise. Just wants to do therapy in the room. Current Medications - Current Medications Current Medications: Active Medications Calcium Carbonate/Glycine (Calcium Carbonate Chew 500 Mg Tablet) 500 mg PO BID PRN PRN Reason: Heartburn Last Admin: 07/24/22 18:15 Dose: 500 mg Carboxymethylcellulose (Carboxymethylcellulose Ophth Drops) 1 drops EACHEYE PRN PRN PRN Reason: Dry Eye Last Admin: 07/31/22 08:17 Dose: 1 drops Clotrimazole (Clotrimazole 1% Cream 15 Gm Tube) 15 applic TOP BID [facility] Last Admin: 08/01/22 21:18 Dose: 15 applic Enoxaparin Sodium (Enoxaparin 40 Mg/0.4 Ml Syringe) 40 mg SUBQ BID [facility] Last Admin: 08/01/22 21:14 Dose: 40 mg Gabapentin (Gabapentin 300 Mg Capsule) 600 mg PO TID [facility] Last Admin: 08/02/22 05:42 Dose: 600 mg Lactobacillus Rhamnosus (Lactobacillus Rhamnosus Gg Capsule) 1 cap PO DAILY [facility] Last Admin: 08/01/22 09:12 Dose: 1 cap Lactulose (Lactulose 10 Gm/15 Ml Bottle) 10 gm PO DAILY [facility] Last Admin: 08/01/22 09:14 Dose: 10 gm Lactulose (Lactulose 10 Gm/15 Ml Bottle) 10 gm PO Q48H [facility] Last Admin: 07/31/22 17:25 Dose: 10 gm Multi-Ingredient Ointment (Zinc Oxide 20% Oint 30 Gm Tube) 1 applic TOP PRN PRN PRN Reason: Skin Care Last Admin: 07/31/22 08:17 Dose: 1 applic Nystatin (Nystatin Powder 15 Gm) 1 applic TOP BID [facility] Last Admin: 08/01/22 21:17 Dose: 1 applic Ondansetron HCl (Ondansetron 4 Mg/2 Ml Vial) 4 mg IVP Q6HR PRN PRN Reason: Nausea / Vomiting Last Admin: 07/16/22 08:12 Dose: 4 mg Pantoprazole Sodium (Pantoprazole 40 Mg Tablet) 40 mg PO QDAC [facility] Last Admin: 08/01/22 05:11 Dose: 40 mg Mometasone Furoate (0.1% Ointment) 1 each TOP BID PRN PRN Reason: ITCHING Last Admin: 07/29/22 16:33 Dose: 1 each Potassium Chloride (Potassium Chloride 10 Meq Capsule) 30 meq PO DAILYWM [facility] Last Admin: 08/01/22 09:12 Dose: 30 meq Multivit/Folic Acid/Iron ( Vitamin Tablet) 1 tab PO DAILYWM [facility] Last Admin: 08/01/22 09:11 Dose: 1 tab Prochlorperazine Edisylate (Prochlorperazine 10 Mg/2 Ml Vial) 10 mg IVP Q6HR PRN PRN Reason: Nausea / Vomiting Last Admin: 07/22/22 23:58 Dose: 10 mg Rifaximin (Rifaximin 550 Mg Tablet) 550 mg PO BID [facility] Last Admin: 08/01/22 21:12 Dose: 550 mg Sodium Chloride (Sodium Chloride Flush 0.9% 10 Ml Syringe) 10 ml IVP PRN PRN PRN Reason: NEEDED PER PROVIDER ORDERS Last Admin: 07/30/22 01:00 Dose: 10 ml Sodium Chloride (Sodium Chloride Flush 0.9% 10 Ml Syringe) 20 ml IVP PRN PRN PRN Reason: After Blood Draw Last Admin: 07/22/22 05:00 Dose: 20 ml Spironolactone (Spironolactone 25 Mg Tablet) 25 mg PO BID [facility] Last Admin: 08/01/22 21:12 Dose: 25 mg Thiamine HCl (Thiamine 100 Mg Tablet) 100 mg PO DAILY [facility] Last Admin: 08/01/22 09:11 Dose: 100 mg Tramadol HCl (Tramadol 50 Mg Tablet) 25 mg PO BID [facility] Last Admin: 08/01/22 21:12 Dose: 25 mg Zinc Oxide (Cod Liver Oil/Zinc Oxide 113 Gm Tube) 113 gm TOP PRN PRN PRN Reason: Skin Care Last Admin: 07/22/22 23:47 Dose: 1 applic Omeprazole 20 mg PO DAILY 05/10/16 Gabapentin [Neurontin] 2 cap PO TID 07/15/22 Clotrimazole 1% Cream [Lotrimin 1% Cream] 1 gm TOP BID 07/22/22 Mometasone Furoate 1 gm TOP BID PRN 07/22/22 Objective - Vital Signs/Intake & Output Reviewed Vital Signs: Yes Vital Signs: Vital Signs x48h Temp Pulse Resp BP Pulse Ox 08/02/22 00:18 35.9 C L 82 20 98/55 L 97 Intake & Output: Intake & Output 07/30/22 07/31/22 08/01/22 08/02/22 23:59 23:59 23:59 23:59 Intake Total 2580 568 0484 Output Total 300 300 850 500 Balance 1090 -100 270 -500 - Objective General Appearance: positive: Alert, Other (Jaundice, superobese white male, no acute distress. Alert, oriented, normal speech structure and lucid.) Eyes Bilateral: positive: PERRL, EOMI ENT: positive: No signs of dehydration Neck: negative: Stiff neck Respiratory: positive: No respiratory distress. negative: Breath sounds nml (Reduced at the bases.), Wheezes, Rales, Rhonchi Cardiovascular: positive: Regular rate & rhythm Abdomen: positive: Non-tender, Nml bowel sounds, No distention Skin: positive: Warm, Dry, Other (The red nonblanching discoloration of his skin remains unchanged over the course of his stay here. We thought at first this was a diaper rash from his incontinent urine and stool. But I think it may be some type of permanent rash, eczema?) Extremities: positive: Full ROM, Pedal edema (Getting less and less. 207 kg yesterday. 206.8 today.) Neurologic/Psychiatric: positive: Oriented x3, CN's nml (2-12), Motor nml (Except for generalized weakness. But that has markedly improved from the time I came on service this week to today which is Friday.) - Lab Results Fish Bones: 07/30/22 06:10 08/01/22 05:15 Other Labs: Lab Results x24hrs 07/23/22 Range/Units 05:45 Whole Bld Vitamin B1 138.4 (66.5-200.0) nmol/L Assessment/Plan - Problem List (1) Liver failure without hepatic coma Impression: He has liver failure from alcoholic liver disease. He presented with months of increased beer drinking after he lost his job. On admission his bili and LFTs were elevated. INR 1.8. While his LFTs were improving, his bili improvement lagged. He got a CT of abd to check for gallbladder disease or intraductal dilatation and that was negative. Labs were all reviewed. Bili peaked on 07/19 at 23.8. Bili has plateaued at 14-16. Per phone call consult with Dr. Pa from GI @ [facility] on 07/19, she advised us to increase lactulose dose, start rifaximin 550 along w/ methylprednisolone 1mg/kg for the treatment of his alcoholic liver disease and pantoprazole 40mg IV push for stomach ulcer protection. However, Dr. Pa did not feel it necessary to give 200mg of steroids and aim for 40mg a day for 5 days. He had psychomotor slowing until 07/26. His Maddrey score is 54.6 points, and >32 indicates poor prognosis and would benefit from glucocorticoid therapy. Patient received solumedrol 40 mg IVP for 5 days, the last dose was on 07/22/22. His MELD score is 29 points which equates to an estimated 76.5% indication for short term survival and approximately a 19.6% chance of mortality for patient's with end stage liver disease for considerations for liver transplant. Once he was on the steroids, there was slow improvement and has been very steady. He completed his steroid treatment. And we have him on lactulose once a day alternated with twice a day every other day. He continues on rifaximin, and is working with physical therapy/Occupational Therapy. He has reached maximal medical benefit. Now our treatment is focused on improving his mobility and his strength. Today's avoidable day #5. (2) Hepatic encephalopathy Impression: Improved: He is alert, oriented, able to converse in normal sentences and has no psychomotor slowing. Patient had his dose of lactulose decrease due to too many BMs a day. We had him off his gabapentin which may have added to the initial lethargy and when he requested it for his neuropathy, and that was restarted. He has gone from doing some short shuffling steps to his chair from his bedside. To being able to get up on his own with standby assist to go to the bathroom, and then walked back to the bed. He is getting in and out of the bed on his own. He is spending more time in the bedside chair than in bed. At his worst his ammonia was 105 on July 16. Ammonia has been coming down with the lactulose. He seems to live in the 40s now. On July 31 he was 48.1. We titrate lactulose for bowel movements and baseline mental status stability. Not so much in the number. I will not be changing his lactulose dosing for right now. (3) Anasarca He developed anasarca while in the ICU from receiving iv saline for his severe hyponatremia. He was also on a salt tablet daily. The salt tablet was stopped several days ago. IV Lasix daily was started. His fluid restriction was changed from free water restriction to a total liquid restricted down to 2000 cc/day (1000 cc with meals, 1000 cc for nursing). RNs have caught his sister trying to sneak him extra fluids. Weight on admission was 194 kg, And his weight on July 30 was 213 kg. On 07/31 the weight is 171.9 kg. So I had the nurse zero the bed, and we weighed him. His weight was 205. Today 206.8. He feels like the weight is coming off of him quite nicely. He likes the ability to be more mobile. He says that the skin of his legs does not feel nearly as tight. Echocardiogram done 07/31 was technically difficult to do because of his size. His ejection fraction is 55%. No regional wall motion abnormality seen. Atria were not well visualized. No significant valvular heart disease was identified. As such cardiac dysfunction is not the cause of his anasarca. He does not have alcoholic cardiomyopathy. Lasix IV stopped August 01. Spironolactone 25 mg p.o. twice daily started. Urine output for the day on the was 850 cc. So far he has urinated 500 cc. Plan: . Follow labs every third day Follow I's and O's and daily weight. (4) Hypotension Resolved From July 16 to the he required Levophed to keep his blood pressure up and to maintain his urine output. We looked for signs of infection, repeated blood cultures, urinalysis, chest x-ray and no source of infection was found. He was not having an [facility]. No lactic acidosis. Suspect he was intravascularly depleted due to cirrhosis and alcoholism. A July 22 urine culture grew out Enterococcus. He was not placed on antibiotics for that. Since he does not have a fever, elevated white cell count, and is asymptomatic hospitalist did not treat. (5) Weakness He had fallen before coming to the ER and was so weak at admission that he could not lift up his buttocks, when in his bed, by pushing up using his legs. He also admitted that over the past week before admission, he had been mostly on his couch, hardly got up, did not eat, had his beer delivered to him by [employer]. Plan: Cont PT and OT We will allow use of the toilet in the bathroom or bedside commode Continue with rehab as planned And social work is trying to find a SNF, due to severe deconditioning which started from being bedridden at home Social work and case management working closely with [facility] to see which facility he could go to (6) Alcoholism Impression: Initially he was on iv banana bags and transitioned to multivit and thiamin orally whgen he was able to swallow. He needed librium and CIWA protocol, but librium stopped 07/17. Pt is on lactulose for his high Ammonia level and confusion and psychomotor slowing, which are improving. Labs are all reviewed: The bilirubin is mostly plateaued around 14, ammonia level has decreased He has met with social work. They have given him opportunities for following up with rehab once he is done with physical rehab. (7) Right breast nipple inversion Plan: Outpatient work up with mammo (8) Morbid obesity BMI 60-69 At admission he weighed about 59 BMI, this increased to BMI of 67 after getting IV fluids and developing anasarca. His morbid obesity makes all of his care more difficult. Plan: In the outpatient setting, the patient will need to continue a low calorie diet, improve his mobility to be able to exercise. Stay off alcohol. (9) Skin rash Rash covering the skin of both buttocks and is a result of being on his back and having the loose stool. A shower was ordered and he can now sit up in a bariatric chair in shower. The rash continues to be present. There is been no change in the geographic distribution since it was first identified. Nonblanching red skin. Plan: Continue hygiene and nystatin powder (10) Hyponatremia Resolved as of 07/21 On admission, he presented is almost meeting the criteria for beer potomania. He was severely hyponatremic at 114 but not hypokalemic. He was on saline in the ICU. A daily salt tablet was added (by Telemedicine ). By July 16 Na was 118. By July 17 Na was 124. July 18 Na was 128 and by 07/21 his Na was 135. On 07/23 Na was 141. 07/30 and 07/31 he was 131 and 08/01 he was 135. Plan: Remain off the the salt tablet, due to persistent anasarca Cont on restricted total fluid intake/day Change lasix to spironolactone and monitor how he does w Na and K on 08/04 (11) Abnormal urinalysis His first urinalysis showed bacteriuria but was negative in its growth. He did not have any symptoms of urgency, and frequency but did have AMS (psychomotor slowing). He did not have a fever or an elevated white cell count. We did not treat this abnormal urinalysis (12) Boil Left anterior thigh that has come to a head. Patient scratched it and boil ruptured, no cellulitis. (13) Conjunctivitis Resolved on eye drops
[2022-08-02] MEDS: rifAXIMin 550 MG TABLET PO SCH ×2 (08:14→21:23)
[2022-08-02] MEDS: PANTOPRAZOLE 40 MG TABLET PO SCH (08:14)
[2022-08-02] MEDS: POTASSIUM CHLORIDE 10 MEQ CAPSULE PO SCH (08:14)
[2022-08-02] MEDS: PRENATAL VITAMIN TABLET PO SCH (08:15)
[2022-08-02] MEDS: THIAMINE 100 MG TABLET PO SCH (08:15)
[2022-08-02] MEDS: LACTOBACILLUS RHAMNOSUS GG CAPSULE PO SCH (08:15)
[2022-08-02] MEDS: SPIRONOLACTONE 25 MG TABLET PO SCH ×2 (08:15→21:23)
[2022-08-02] MEDS: CLOTRIMAZOLE 1% CREAM 15 GM TUBE TOP SCH ×2 (08:16→21:31)
[2022-08-02] MEDS: NYSTATIN POWDER 15 GM TOP SCH ×2 (08:18→21:31)
[2022-08-02] MEDS: LACTULOSE 10 GM/15 ML BOTTLE PO SCH ×2 (08:18→17:32)
[2022-08-02] MEDS: ENOXAPARIN 40 MG/0.4 ML SYRINGE SUBQ SCH ×2 (08:21→21:22)
[2022-08-03] MEDS: MOMETASONE FUROATE 0.1% TOP PRN ×2 (00:04→08:13)
[2022-08-03] MEDS: PANTOPRAZOLE 40 MG TABLET PO SCH (05:57)
[2022-08-03] MEDS: GABAPENTIN 300 MG CAPSULE PO SCH ×3 (05:58→21:10)
[2022-08-03] MEDS: ENOXAPARIN 40 MG/0.4 ML SYRINGE SUBQ SCH ×2 (08:11→21:08)
[2022-08-03] MEDS: CLOTRIMAZOLE 1% CREAM 15 GM TUBE TOP SCH ×2 (08:12→21:08)
[2022-08-03] MEDS: traMADol 50 MG TABLET PO SCH ×2 (08:13→21:10)
[2022-08-03] MEDS: NYSTATIN POWDER 15 GM TOP SCH ×2 (08:13→21:08)
[2022-08-03] MEDS: LACTULOSE 10 GM/15 ML BOTTLE PO SCH (08:13)
[2022-08-03] MEDS: POTASSIUM CHLORIDE 10 MEQ CAPSULE PO SCH (08:14)
[2022-08-03] MEDS: LACTOBACILLUS RHAMNOSUS GG CAPSULE PO SCH (08:14)
[2022-08-03] MEDS: THIAMINE 100 MG TABLET PO SCH (08:14)
[2022-08-03] MEDS: rifAXIMin 550 MG TABLET PO SCH ×2 (08:14→21:08)
[2022-08-03] MEDS: SPIRONOLACTONE 25 MG TABLET PO SCH ×2 (08:14→21:12)
[2022-08-03] MEDS: PRENATAL VITAMIN TABLET PO SCH (08:14)
--- NOTE | 2022-08-03 11:43 | PROVIDER PROGRESS NOTE ---
Subjective - Prog Note Date Prog Note Date: 08/03/22 Prog Note Time: 11:43 - Subjective Pt reports feeling: Improved Subjective: Mr. Mcclelland is asking to take a shower by himself. Right now he is standby assist. But he really would like to be able to have the ability to try it on his own. We are worried about his fall risk. He also is having up to 5 bowel movements a day with his lactulose. Wonders if he could decrease the lactulose. Current Medications - Current Medications Current Medications: Active Medications Calcium Carbonate/Glycine (Calcium Carbonate Chew 500 Mg Tablet) 500 mg PO BID PRN PRN Reason: Heartburn Last Admin: 07/24/22 18:15 Dose: 500 mg Carboxymethylcellulose (Carboxymethylcellulose Ophth Drops) 1 drops EACHEYE PRN PRN PRN Reason: Dry Eye Last Admin: 07/31/22 08:17 Dose: 1 drops Clotrimazole (Clotrimazole 1% Cream 15 Gm Tube) 15 applic TOP BID ON LICENSE OF [facility] Last Admin: 08/03/22 08:12 Dose: 15 applic Enoxaparin Sodium (Enoxaparin 40 Mg/0.4 Ml Syringe) 40 mg SUBQ BID ON LICENSE OF [facility] Last Admin: 08/03/22 08:11 Dose: 40 mg Gabapentin (Gabapentin 300 Mg Capsule) 600 mg PO TID ON LICENSE OF [facility] Last Admin: 08/03/22 05:58 Dose: 600 mg Lactobacillus Rhamnosus (Lactobacillus Rhamnosus Gg Capsule) 1 cap PO DAILY ON LICENSE OF [facility] Last Admin: 08/03/22 08:14 Dose: 1 cap Lactulose (Lactulose 10 Gm/15 Ml Bottle) 10 gm PO DAILY ON LICENSE OF [facility] Last Admin: 08/03/22 08:13 Dose: 10 gm Lactulose (Lactulose 10 Gm/15 Ml Bottle) 10 gm PO Q48H ON LICENSE OF [facility] Last Admin: 08/02/22 17:32 Dose: 10 gm Multi-Ingredient Ointment (Zinc Oxide 20% Oint 30 Gm Tube) 1 applic TOP PRN PRN PRN Reason: Skin Care Last Admin: 07/31/22 08:17 Dose: 1 applic Nystatin (Nystatin Powder 15 Gm) 1 applic TOP BID ON LICENSE OF [facility] Last Admin: 08/03/22 08:13 Dose: 1 applic Ondansetron HCl (Ondansetron 4 Mg/2 Ml Vial) 4 mg IVP Q6HR PRN PRN Reason: Nausea / Vomiting Last Admin: 07/16/22 08:12 Dose: 4 mg Pantoprazole Sodium (Pantoprazole 40 Mg Tablet) 40 mg PO QDAC ON LICENSE OF [facility] Last Admin: 08/03/22 05:57 Dose: 40 mg Mometasone Furoate (0.1% Ointment) 1 each TOP BID PRN PRN Reason: ITCHING Last Admin: 08/03/22 08:13 Dose: 1 each Potassium Chloride (Potassium Chloride 10 Meq Capsule) 30 meq PO DAILYWM ON LICENSE OF [facility] Last Admin: 08/03/22 08:14 Dose: 30 meq Multivit/Folic Acid/Iron ( Vitamin Tablet) 1 tab PO DAILYWM ON LICENSE OF [facility] Last Admin: 08/03/22 08:14 Dose: 1 tab Prochlorperazine Edisylate (Prochlorperazine 10 Mg/2 Ml Vial) 10 mg IVP Q6HR PRN PRN Reason: Nausea / Vomiting Last Admin: 07/22/22 23:58 Dose: 10 mg Rifaximin (Rifaximin 550 Mg Tablet) 550 mg PO BID ON LICENSE OF [facility] Last Admin: 08/03/22 08:14 Dose: 550 mg Sodium Chloride (Sodium Chloride Flush 0.9% 10 Ml Syringe) 10 ml IVP PRN PRN PRN Reason: NEEDED PER PROVIDER ORDERS Last Admin: 08/03/22 00:00 Dose: 10 ml Sodium Chloride (Sodium Chloride Flush 0.9% 10 Ml Syringe) 20 ml IVP PRN PRN PRN Reason: After Blood Draw Last Admin: 07/22/22 05:00 Dose: 20 ml Spironolactone (Spironolactone 25 Mg Tablet) 25 mg PO BID ON LICENSE OF [facility] Last Admin: 08/03/22 08:14 Dose: 25 mg Thiamine HCl (Thiamine 100 Mg Tablet) 100 mg PO DAILY ON LICENSE OF [facility] Last Admin: 08/03/22 08:14 Dose: 100 mg Tramadol HCl (Tramadol 50 Mg Tablet) 25 mg PO BID ON LICENSE OF [facility] Last Admin: 08/03/22 08:13 Dose: 25 mg Zinc Oxide (Cod Liver Oil/Zinc Oxide 113 Gm Tube) 113 gm TOP PRN PRN PRN Reason: Skin Care Last Admin: 07/22/22 23:47 Dose: 1 applic Omeprazole 20 mg PO DAILY 05/10/16 Gabapentin [Neurontin] 2 cap PO TID 07/15/22 Clotrimazole 1% Cream [Lotrimin 1% Cream] 1 gm TOP BID 07/22/22 Mometasone Furoate 1 gm TOP BID PRN 07/22/22 Objective - Vital Signs/Intake & Output Reviewed Vital Signs: Yes Vital Signs: Vital Signs x48h Temp Pulse Resp BP Pulse Ox 08/03/22 08:15 37.0 C 95 24 117/73 92 Intake & Output: Intake & Output 07/31/22 08/01/22 08/02/22 08/03/22 23:59 23:59 23:59 23:59 Intake Total 200 1120 420 300 Output Total 300 850 850 175 Balance -100 270 -430 125 - Objective General Appearance: positive: No acute distress, Alert, Other (Severely, morbidly obese white male, comfortable, wearing glasses, watching TV) Eyes Bilateral: positive: PERRL, EOMI ENT: positive: No signs of dehydration Neck: negative: Stiff neck Respiratory: positive: No respiratory distress, Other (Diminished at the bases). negative: Wheezes, Rales, Rhonchi Cardiovascular: positive: Regular rate & rhythm Abdomen: positive: Non-tender, Nml bowel sounds, No distention, Other (Slightly worsening scrotal edema) Skin: positive: Warm, Dry Extremities: positive: Full ROM, Pedal edema (Slightly worse in the last 2 days since I stopped his IV Lasix) Neurologic/Psychiatric: positive: Oriented x3, CN's nml (2-12), Motor nml - Lab Results Fish Bones: 07/30/22 06:10 08/01/22 05:15 Assessment/Plan - Problem List (1) Weakness Impression: He had fallen before coming to the ER and was so weak at admission that he could not lift up his buttocks, when in his bed, by pushing up using his legs. He also admitted that over the past week before admission, he had been mostly on his couch, hardly got up, did not eat, had his beer delivered to him by [employer]. He is now on day #20 of a very prolonged stay for liver failure. Most of it was in the intensive care unit initially and has been severely deconditioned because of that prolonged stay. He has been working with physical therapy, gradually getting stronger. In the week I have been on service (started July 30) he is progressing on a daily basis. He is able to get out of bed now, walk to the bathroom, walk 40 feet. This is in contrast distinction to person who needed 4 people to sit him up in bed 2 weeks ago. Plan: Cont PT and OT Currently working with social work and case management to find placement for him that [place] pays for and accepts a bariatric patient (2) Liver failure without hepatic coma Impression: He has liver failure from alcoholic liver disease. He presented with months of increased beer drinking after he lost his job. On admission his bili and LFTs were elevated. INR 1.8. While his LFTs were improving, his bili improvement lagged. He got a CT of abd to check for gallbladder disease or intraductal dilatation and that was negative. Labs were all reviewed. Bili peaked on 07/19 at 23.8. Bili has plateaued at 14-16. Per phone call consult with Dr. Pa from GI @ [facility] on 07/19, she advised us to increase lactulose dose, start rifaximin 550 along w/ methylprednisolone 1mg/kg for the treatment of his alcoholic liver disease and pantoprazole 40mg IV push for stomach ulcer protection. However, Dr. Pa did not feel it necessary to give 200mg of steroids and aim for 40mg a day for 5 days. He had psychomotor slowing until 07/26. His Maddrey score was 54.6 points, and >32 indicates poor prognosis and would benefit from glucocorticoid therapy. Patient received solumedrol 40 mg IVP for 5 days, the last dose was on 07/22/22. His MELD score was 29 points which equates to an estimated 76.5% indication for short term survival and approximately a 19.6% chance of mortality for patient's with end stage liver disease for considerations for liver transplant. Once he was on the steroids, lactulose, rifaximin there was slow improvement that has been very steady. He completed his steroid treatment. And we have him on lactulose once a day alternated with twice a day every other day. He continues on rifaximin, and is working with physical therapy/Occupational Therapy. He has reached maximal medical benefit. Now our treatment is focused on improving his mobility and his strength. Today's avoidable day #6. (3) Hepatic encephalopathy resolved. Impression: Improved: He is alert, oriented, able to converse in normal sentences and has no psychomotor slowing. Patient had his dose of lactulose decrease due to too many BMs a day. We had him off his gabapentin which may have added to the initial lethargy and when he requested it for his neuropathy, and that was restarted. He has gone from doing some short shuffling steps to his chair from his bedside. To being able to get up on his own with standby assist to go to the bathroom, and then walked back to the bed. He is getting in and out of the bed on his own. He is spending more time in the bedside chair than in bed. At his worst his ammonia was 105 on July 16. Ammonia has been coming down with the lactulose. He seems to live in the 40s now. On July 31 he was 48.1. Today he is having too many bowel movements. As such I will decrease the lactulose from alternating once a day, twice a day to just strictly once a day.So He will be on 10 gram po daily (4) Anasarca He developed anasarca while in the ICU from receiving iv saline for his severe hyponatremia. He was also on a salt tablet daily. The salt tablet was stopped several days ago. IV Lasix daily was started. His fluid restriction was changed from free water restriction to a total liquid restricted down to 2000 cc/day (1000 cc with meals, 1000 cc for nursing). RNs have caught his sister trying to sneak him extra fluids. Weight on admission was 194 kg, And his weight on July 30 was 213 kg. On 07/31 the weight is 171.9 kg. So I had the nurse zero the bed, and we weighed him. His weight was 205. Today 206.8. He feels like the weight is coming off of him quite nicely. He likes the ability to be more mobile. He says that the skin of his legs does not feel nearly as tight. Echocardiogram done 07/31 was technically difficult to do because of his size. His ejection fraction is 55%. No regional wall motion abnormality seen. Atria were not well visualized. No significant valvular heart disease was identified. As such cardiac dysfunction is not the cause of his anasarca. He does not have alcoholic cardiomyopathy. Lasix IV stopped August 01. Spironolactone 25 mg p.o. twice daily started. He tells me that urine output has slowed down. His legs are getting a little bit more edematous. Scrotum is little bit more edematous. And he is up by weight by 2 kg. Plan: Increase spironolactone to 50 mg p.o. twice daily. Add Lasix 40 mg p.o. daily I need to really be vigilant about following his BUN and creatinine now. I was going to be checking labs every third day. I think I will check labs daily again Resolved or chronic probelms (5) Hypotension resolved From July 16 to the he required Levophed to keep his blood pressure up and to maintain his urine output. We looked for signs of infection, repeated blood cultures, urinalysis, chest x-ray and no source of infection was found. He was not having an SD. No lactic acidosis. Suspect he was intravascularly depleted due to cirrhosis and alcoholism. A July 22 urine culture grew out Enterococcus. He was not placed on antibiotics for that. Since he does not have a fever, elevated white cell count, and is asymptomatic hospitalist did not treat. (6) Alcoholism Impression: Initially he was on iv banana bags and transitioned to multivit and thiamin orally whgen he was able to swallow. He needed librium and CIWA protocol, but librium stopped 07/17. Pt is on lactulose for his high Ammonia level and confusion and psychomotor slowing, which are improving. Labs are all reviewed: The bilirubin is mostly plateaued around 14, ammonia level has decreased He has met with social work. They have given him opportunities for following up with rehab once he is done with physical rehab. (7) Right breast nipple inversion Plan: Outpatient work up with mammo (8) Morbid obesity BMI 60-69 At admission he weighed about 59 BMI, this increased to BMI of 67 after getting IV fluids and developing anasarca. His morbid obesity makes all of his care more difficult. Plan: In the outpatient setting, the patient will need to continue a low calorie diet, improve his mobility to be able to exercise. Stay off alcohol. (9) Skin rash Rash covering the skin of both buttocks and is a result of being on his back and having the loose stool. A shower was ordered and he can now sit up in a bariatric chair in shower. The rash continues to be present. There is been no change in the geographic distribution since it was first identified. Nonblanching red skin. Plan: Continue hygiene and nystatin powder (10) Hyponatremia Resolved as of 07/21 On admission, he presented is almost meeting the criteria for beer potomania. He was severely hyponatremic at 114 but not hypokalemic. He was on saline in the ICU. A daily salt tablet was added (by Telemed[facility] ). By July 16 Na was 118. By July 17 Na was 124. July 18 Na was 128 and by 07/21 his Na was 135. On 07/23 Na was 141. 07/30 and 07/31 he was 131 and 08/01 he was 135. Plan: Remain off the the salt tablet, due to persistent anasarca Cont on restricted total fluid intake/day Spironolacton eot 50 mg po bid Lasix 40 mg po daily (11) Abnormal urinalysis His first urinalysis showed bacteriuria but was negative in its growth. He did not have any symptoms of urgency, and frequency but did have AMS (psychomotor slowing). He did not have a fever or an elevated white cell count. We did not treat this abnormal urinalysis (12) Boil Left anterior thigh that has come to a head. Patient scratched it and boil ruptured, no cellulitis. (13) Conjunctivitis Resolved on eye drops
[2022-08-03] MEDS: FUROSEMIDE 40 MG TABLET PO SCH (13:24)
[2022-08-03] MEDS: SODIUM CHLORIDE FLUSH 0.9% 10 ML SYRINGE IVP PRN ×2 (23:46)
[2022-08-04 05:15] LABS: BASOPHILS % (AUTO) 0.8 %; EOSINOPHILS % (AUTO) 1.9 %; HGB - HEMOGLOBIN 11.4 g/dL (14.0-18.0); LYMPHOCYTES % (AUTO) 21.3 %; MEAN CORPUSCULAR HEMOGLOBIN 34.9 pg (27.0-31.0); MEAN CORPUSCULAR HGB CONC 33.5 g/dL (32.0-36.0); MEAN PLATELET VOLUME 10.7 fL (7.4-11.4); MONOCYTES % (AUTO) 9.2 %; PLT - PLATELET COUNT 110 10^3/uL (130-450); RED BLOOD COUNT 3.27 10^6/uL (4.70-6.10); RED CELL DISTRIBUTION WIDTH 16.5 % (12.0-15.0); WHITE BLOOD COUNT 11.3 x10^3/uL (4.8-10.8)
[2022-08-04 05:19] LABS: ABNORMAL LYMPHS % (MANUAL) 0 %
[2022-08-04 05:32] LABS: CALCIUM 8.3 mg/dL (8.5-10.3); POTASSIUM 4.6 mmol/L (3.5-5.0)
[2022-08-04] MEDS: GABAPENTIN 300 MG CAPSULE PO SCH ×3 (05:45→21:42)
[2022-08-04] MEDS: PANTOPRAZOLE 40 MG TABLET PO SCH (05:45)
[2022-08-04 05:49] LABS: BAND NEUTROPHILS % (MANUAL) 6 %; BASOPHILS # (MANUAL) 0.1 10^3/uL (0-0.1); BASOPHILS % (MANUAL) 1 %; DIFFERENTIAL COMMENT MANUAL DIFFERENTIAL; LYMPHOCYTES # (MANUAL) 2.6 10^3/uL (1.5-3.5); LYMPHOCYTES % (MANUAL) 18 %; METAMYELOCYTES % (MANUAL) 2 %; MONOCYTES # (MANUAL) 0.7 10^3/uL (0.0-1.0); MYELOCYTES % (MANUAL) 1 %; NEUTROPHILS # (MANUAL) 7.6 10^3/uL (1.5-6.6); PLATELET ESTIMATE, MANUAL DECREASED (<130,000) (NORMAL); RBC MORPHOLOGY (MULTIPLE) NORMAL APPEARANCE (NORMAL); REACTIVE LYMPHS % (MANUAL) 5 %
[2022-08-04] MEDS: PRENATAL VITAMIN TABLET PO SCH (08:17)
[2022-08-04] MEDS: FUROSEMIDE 40 MG TABLET PO SCH (08:17)
[2022-08-04] MEDS: POTASSIUM CHLORIDE 10 MEQ CAPSULE PO SCH (08:17)
[2022-08-04] MEDS: LACTOBACILLUS RHAMNOSUS GG CAPSULE PO SCH (08:17)
[2022-08-04] MEDS: rifAXIMin 550 MG TABLET PO SCH ×2 (08:17→21:43)
[2022-08-04] MEDS: THIAMINE 100 MG TABLET PO SCH (08:17)
[2022-08-04] MEDS: NYSTATIN POWDER 15 GM TOP SCH ×2 (08:18→21:44)
[2022-08-04] MEDS: SPIRONOLACTONE 25 MG TABLET PO SCH ×2 (08:18→21:43)
[2022-08-04] MEDS: traMADol 50 MG TABLET PO SCH ×2 (08:18→21:44)
[2022-08-04] MEDS: LACTULOSE 10 GM/15 ML BOTTLE PO SCH (08:18)
[2022-08-04] MEDS: ENOXAPARIN 40 MG/0.4 ML SYRINGE SUBQ SCH ×2 (08:20→21:43)
[2022-08-04] MEDS: CLOTRIMAZOLE 1% CREAM 15 GM TUBE TOP SCH ×2 (08:20→21:43)
--- NOTE | 2022-08-04 16:11 | PROVIDER PROGRESS NOTE ---
Subjective - Prog Note Date Prog Note Date: 08/04/22 Prog Note Time: 16:08 - Subjective Subjective: up in chair, alert, walking w standby assist, legs still w edema. Current Medications - Current Medications Current Medications: Active Medications Calcium Carbonate/Glycine (Calcium Carbonate Chew 500 Mg Tablet) 500 mg PO BID PRN PRN Reason: Heartburn Last Admin: 07/24/22 18:15 Dose: 500 mg Carboxymethylcellulose (Carboxymethylcellulose Ophth Drops) 1 drops EACHEYE PRN PRN PRN Reason: Dry Eye Last Admin: 07/31/22 08:17 Dose: 1 drops Clotrimazole (Clotrimazole 1% Cream 15 Gm Tube) 1 applic TOP BID REPLACED BY [facility] Last Admin: 08/04/22 08:20 Dose: 1 applic Enoxaparin Sodium (Enoxaparin 40 Mg/0.4 Ml Syringe) 40 mg SUBQ BID REPLACED BY [facility] Last Admin: 08/04/22 08:20 Dose: 40 mg Furosemide (Furosemide 40 Mg/4 Ml Vial) 40 mg IVP DAILY REPLACED BY [facility] Gabapentin (Gabapentin 300 Mg Capsule) 600 mg PO TID REPLACED BY [facility] Last Admin: 08/04/22 13:52 Dose: 600 mg Lactobacillus Rhamnosus (Lactobacillus Rhamnosus Gg Capsule) 1 cap PO DAILY REPLACED BY [facility] Last Admin: 08/04/22 08:17 Dose: 1 cap Lactulose (Lactulose 10 Gm/15 Ml Bottle) 10 gm PO Q48H REPLACED BY [facility] Multi-Ingredient Ointment (Zinc Oxide 20% Oint 30 Gm Tube) 1 applic TOP PRN PRN PRN Reason: Skin Care Last Admin: 07/31/22 08:17 Dose: 1 applic Nystatin (Nystatin Powder 15 Gm) 1 applic TOP BID REPLACED BY [facility] Last Admin: 08/04/22 08:18 Dose: 1 applic Ondansetron HCl (Ondansetron 4 Mg/2 Ml Vial) 4 mg IVP Q6HR PRN PRN Reason: Nausea / Vomiting Last Admin: 07/16/22 08:12 Dose: 4 mg Pantoprazole Sodium (Pantoprazole 40 Mg Tablet) 40 mg PO QDAC REPLACED BY [facility] Last Admin: 08/04/22 05:45 Dose: 40 mg Mometasone Furoate (0.1% Ointment) 1 each TOP BID PRN PRN Reason: ITCHING Last Admin: 08/03/22 08:13 Dose: 1 each Potassium Chloride (Potassium Chloride 10 Meq Capsule) 30 meq PO DAILYWM REPLACED BY [facility] Last Admin: 08/04/22 08:17 Dose: 30 meq Multivit/Folic Acid/Iron ( Vitamin Tablet) 1 tab PO DAILYWM REPLACED BY [facility] Last Admin: 08/04/22 08:17 Dose: 1 tab Prochlorperazine Edisylate (Prochlorperazine 10 Mg/2 Ml Vial) 10 mg IVP Q6HR PRN PRN Reason: Nausea / Vomiting Last Admin: 07/22/22 23:58 Dose: 10 mg Rifaximin (Rifaximin 550 Mg Tablet) 550 mg PO BID REPLACED BY [facility] Last Admin: 08/04/22 08:17 Dose: 550 mg Sodium Chloride (Sodium Chloride Flush 0.9% 10 Ml Syringe) 10 ml IVP PRN PRN PRN Reason: NEEDED PER PROVIDER ORDERS Last Admin: 08/03/22 23:46 Dose: 10 ml Sodium Chloride (Sodium Chloride Flush 0.9% 10 Ml Syringe) 20 ml IVP PRN PRN PRN Reason: After Blood Draw Last Admin: 07/22/22 05:00 Dose: 20 ml Spironolactone (Spironolactone 25 Mg Tablet) 25 mg PO BID REPLACED BY [facility] Thiamine HCl (Thiamine 100 Mg Tablet) 100 mg PO DAILY REPLACED BY [facility] Last Admin: 08/04/22 08:17 Dose: 100 mg Tramadol HCl (Tramadol 50 Mg Tablet) 25 mg PO BID REPLACED BY [facility] Last Admin: 08/04/22 08:18 Dose: 25 mg Zinc Oxide (Cod Liver Oil/Zinc Oxide 113 Gm Tube) 113 gm TOP PRN PRN PRN Reason: Skin Care Last Admin: 07/22/22 23:47 Dose: 1 applic Omeprazole 20 mg PO DAILY 05/10/16 Gabapentin [Neurontin] 2 cap PO TID 07/15/22 Clotrimazole 1% Cream [Lotrimin 1% Cream] 1 gm TOP BID 07/22/22 Mometasone Furoate 1 gm TOP BID PRN 07/22/22 Objective - Vital Signs/Intake & Output Reviewed Vital Signs: Yes Vital Signs: Vital Signs x48h Temp Pulse Resp BP Pulse Ox 08/04/22 15:55 36.1 C L 87 20 103/59 L 97 08/04/22 11:40 90 104/56 L Intake & Output: Intake & Output 08/01/22 08/02/22 08/03/22 08/04/22 23:59 23:59 23:59 23:59 Intake Total 2520 545 3703 900 Output Total 568 042 725 985 Balance 270 -430 505 -85 - Objective General Appearance: positive: Alert, Other (superobese white male, wearing his glasses, sitting in chair) Eyes Bilateral: positive: PERRL, EOMI ENT: positive: No signs of dehydration Neck: negative: Stiff neck Respiratory: positive: No respiratory distress. negative: Wheezes, Rales, Rhonchi Cardiovascular: positive: Regular rate & rhythm Abdomen: positive: Nml bowel sounds, No distention, Other (large panus) Skin: positive: Warm, Dry Extremities: positive: Full ROM, Pedal edema (woody, increasing) - Lab Results Fish Bones: 08/04/22 05:00 08/04/22 05:00 Other Labs: Lab Results x24hrs 08/04/22 08/04/22 Range/Units 05:00 05:00 WBC 11.3 H (4.8-10.8) x10^3/uL RBC 3.27 L (4.70-6.10) 10^6/uL Hgb 11.4 L (14.0-18.0) g/dL Hct 34.0 L (42.0-52.0) % MCV 104.0 H (80.0-94.0) fL MCH 34.9 H (27.0-31.0) pg MCHC 33.5 (32.0-36.0) g/dL RDW 16.5 H (12.0-15.0) % Plt Count 110 L (130-450) 10^3/uL MPV 10.7 (7.4-11.4) fL Neut # (Auto) Not Reportable Lymph # (Auto) Not Reportable Labette # (Auto) Not Reportable Eos # (Auto) Not Reportable Baso # (Auto) Not Reportable Absolute Nucleated RBC Not Reportable Total Counted 100 Band Neuts % (Manual) 6 (0 - 10) % Reactive Lymphs % (Man) 5 % Abnorm Lymph % (Manual) 0 % Metamyelocytes % 2 H ( - 0) % Myelocytes % 1 H ( - 0) % Nucleated RBC % Not Reportable Neutrophils # (Manual) 7.6 H (1.5-6.6) 10^3/uL Lymphocytes # (Manual) 2.6 (1.5-3.5) 10^3/uL Monocytes # (Manual) 0.7 (0.0-1.0) 10^3/uL Eosinophils # (Manual) 0.0 (0-0.7) 10^3/uL Basophils # (Manual) 0.1 (0-0.1) 10^3/uL Differential Comment MANUAL DIFFERENTIAL Platelet Estimate DECREASED (<130,000) (NORMAL) RBC Morph Micro Appear NORMAL APPEARANCE (NORMAL) Sodium 129 L (135-145) mmol/L Potassium 4.6 (3.5-5.0) mmol/L Chloride 101 (101-111) mmol/L Carbon Dioxide 22 (21-32) mmol/L Anion Gap 6.0 (6-13) BUN 30 H (6-20) mg/dL Creatinine 1.0 (0.6-1.2) mg/dL Estimated GFR (MDRD) 78 L (>89) Glucose 130 H (70-100) mg/dL Calcium 8.3 L (8.5-10.3) mg/dL Assessment/Plan - Problem List (1) Weakness Impression: He had fallen before coming to the ER and was so weak at admission that he could not lift up his buttocks, when in his bed, by pushing up using his legs. He also admitted that over the past week before admission, he had been mostly on his couch, hardly got up, did not eat, had his beer delivered to him by [employer]. He is now on day #20 of a very prolonged stay for liver failure. Most of it was in the intensive care unit initially and has been severely deconditioned because of that prolonged stay. He has been working with physical therapy, gradually getting stronger. In the week I have been on service (started July 30) he is progressing on a daily basis. He is able to get out of bed now, walk to the bathroom, walk 40 feet. This is in contrast distinction to person who needed 4 people to sit him up in bed 2 weeks ago. Plan: Cont PT and OT Currently working with social work and case management to find placement for him that [facility] pays for and accepts a bariatric patient (2) Liver failure without hepatic coma Impression: He has liver failure from alcoholic liver disease. He presented with months of increased beer drinking after he lost his job. On admission his bili and LFTs were elevated. INR 1.8. While his LFTs were improving, his bili improvement lagged. He got a CT of abd to check for gallbladder disease or intraductal dilatation and that was negative. Labs were all reviewed. Bili peaked on 07/19 at 23.8. Bili has plateaued at 14-16. Per phone call consult with Dr. Pa from GI @ [facility] on 07/19, she advised us to increase lactulose dose, start rifaximin 550 along w/ methylprednisolone 1mg/kg for the treatment of his alcoholic liver disease and pantoprazole 40mg IV push for stomach ulcer protection. However, Dr. Pa did not feel it necessary to give 200mg of steroids and aim for 40mg a day for 5 days. He had psychomotor sl owing until 07/26. His Maddrey score was 54.6 points, and >32 indicates poor prognosis and would benefit from glucocorticoid therapy. Patient received solumedrol 40 mg IVP for 5 days, the last dose was on 07/22/22. His MELD score was 29 points which equates to an estimated 76.5% indication for short term survival and approximately a 19.6% chance of mortality for patient's with end stage liver disease for considerations for liver transplant. Once he was on the steroids, lactulose, rifaximin there was slow improvement that has been very steady. He completed his steroid treatment. And we have him on lactulose once a day alternated with twice a day every other day. He continues on rifaximin, and is working with physical therapy/Occupational Therapy. He has reached maximal medical benefit. Now our treatment is focused on improving his mobility and his strength. Today's avoidable day #7. (3) Hepatic encephalopathy resolved. Impression: Improved: He is alert, oriented, able to converse in normal sentences and has no psychomotor slowing. Patient had his dose of lactulose decrease due to too many BMs a day. We had him off his gabapentin which may have added to the initial lethargy and when he requested it for his neuropathy, and that was restarted. He has gone from doing some short shuffling steps to his chair from his bedside. To being able to get up on his own with standby assist to go to the bathroom, and then walked back to the bed. He is getting in and out of the bed on his own. He is spending more time in the bedside chair than in bed. At his worst his ammonia was 105 on July 16. Ammonia has been coming down with the lactulose. He seems to live in the 40s now. On July 31 he was 48.1. 08/03 he was having too many bowel movements. As such I will decrease the lactulose from alternating once a day, twice a day to just strictly once a day.So He is on 10 gram po daily but today he had 5 BMs. I will change to q48 hours. (4) Anasarca He developed anasarca while in the ICU from receiving iv saline for his severe hyponatremia. He was also on a salt tablet daily. The salt tablet was stopped several days ago. IV Lasix daily was started. His fluid restriction was changed from free water restriction to a total liquid restricted down to 2000 cc/day (1000 cc with meals, 1000 cc for nursing). RNs have caught his sister trying to sneak him extra fluids. Weight on admission was 194 kg, And his weight on July 30 was 213 kg. On 07/31 the weight is 171.9 kg. So I had the nurse zero the bed, and we weighed him. His weight was 205. Today 206.8. He feels like the weight is coming off of him quite nicely. He likes the ability to be more mobile. He says that the skin of his legs does not feel nearly as tight. Echocardiogram done 07/31 was technically difficult to do because of his size. His ejection fraction is 55%. No regional wall motion abnormality seen. Atria were not well visualized. No significant valvular heart disease was identified. As such cardiac dysfunction is not the cause of his anasarca. He does not have alcoholic cardiomyopathy. Lasix IV stopped August 01. Spironolactone 25 mg p.o. twice daily started. I increased to 50 mg p.o. twice daily on August 03. He tells me that urine output has slowed down. His legs are getting a little bit more edematous. Scrotum is little bit more edematous. I started him on p.o. Lasix approximately August 02. He was 206.8 kg. On August 03 he was 209. Today he is 210. Plan: Continue spironolactone to 50 mg p.o. twice daily. Go back to Lasix 40 mg IV push daily Weigh daily. I am using his weight is a measurement of success with regards to controlling his edema. Resolved or chronic probelms (5) Hypotension resolved From July 16 to the he required Levophed to keep his blood pressure up and to maintain his urine output. We looked for signs of infection, repeated blood cultures, urinalysis, chest x-ray and no source of infection was found. He was not having an [place]. No lactic acidosis. Suspect he was intravascularly depleted due to cirrhosis and alcoholism. A [facility] 20 urine culture grew out Enterococcus. He was not placed on antibiotics for that. Since he does not have a fever, elevated white cell count, and is asymptomatic hospitalist did not treat. (6) Alcoholism Impression: Initially he was on iv banana bags and transitioned to multivit and thiamin orally whgen he was able to swallow. He needed librium and CIWA protocol, but librium stopped 07/17. Pt is on lactulose for his high Ammonia level and confusion and psychomotor slowing, which are improving. Labs are all reviewed: The bilirubin is mostly plateaued around 14, ammonia level has decreased He has met with social work. They have given him opportunities for following up with rehab once he is done with physical rehab. (7) Right breast nipple inversion Plan: Outpatient work up with mammo (8) Morbid obesity BMI 60-69 At admission he weighed about 59 BMI, this increased to BMI of 67 after getting IV fluids and developing anasarca. His morbid obesity makes all of his care more difficult. Plan: In the outpatient setting, the patient will need to continue a low calorie diet, improve his mobility to be able to exercise. Stay off alcohol. (9) Skin rash Rash covering the skin of both buttocks and is a result of being on his back and having the loose stool. A shower was ordered and he can now sit up in a bariatric chair in shower. The rash continues to be present. There is been no change in the geographic distribution since it was first identified. Nonblanching red skin. Plan: Continue hygiene and nystatin powder (10) Hyponatremia Resolved as of 07/21 On admission, he presented is almost meeting the criteria for beer potomania. He was severely hyponatremic at 114 but not hypokalemic. He was on saline in the ICU. A daily salt tablet was added (by Telemed[facility] ). By July 16 Na was 118. By July 17 Na was 124. July 18 Na was 128 and by 07/21 his Na was 135. On 07/23 Na was 141. 07/30 and 07/31 he was 131 and 08/01 he was 135. Plan: Remain off the the salt tablet, due to persistent anasarca Cont on restricted total fluid intake/day (11) Abnormal urinalysis His first urinalysis showed bacteriuria but was negative in its growth. He did not have any symptoms of urgency, and frequency but did have AMS (psychomotor slowing). He did not have a fever or an elevated white cell count. We did not treat this abnormal urinalysis (12) Boil Left anterior thigh that has come to a head. Patient scratched it and boil ruptured, no cellulitis. (13) Conjunctivitis Resolved on eye drops
[2022-08-04] MEDS: ZINC OXIDE 20% OINT 30 GM TUBE TOP PRN (17:40)
[2022-08-05] MEDS: ZINC OXIDE 20% OINT 30 GM TUBE TOP PRN (03:05)
[2022-08-05] MEDS: MOMETASONE FUROATE 0.1% TOP PRN (03:08)
[2022-08-05] MEDS: GABAPENTIN 300 MG CAPSULE PO SCH ×3 (05:40→21:43)
[2022-08-05] MEDS: PANTOPRAZOLE 40 MG TABLET PO SCH (05:41)
[2022-08-05] MEDS: PRENATAL VITAMIN TABLET PO SCH (08:32)
[2022-08-05] MEDS: SPIRONOLACTONE 25 MG TABLET PO SCH ×2 (08:32→21:42)
[2022-08-05] MEDS: traMADol 50 MG TABLET PO SCH ×2 (08:32→21:43)
[2022-08-05] MEDS: THIAMINE 100 MG TABLET PO SCH (08:32)
[2022-08-05] MEDS: ENOXAPARIN 40 MG/0.4 ML SYRINGE SUBQ SCH ×2 (08:32→21:42)
[2022-08-05] MEDS: POTASSIUM CHLORIDE 10 MEQ CAPSULE PO SCH (08:32)
[2022-08-05] MEDS: rifAXIMin 550 MG TABLET PO SCH ×2 (08:32→21:42)
[2022-08-05] MEDS: LACTOBACILLUS RHAMNOSUS GG CAPSULE PO SCH (08:32)
[2022-08-05] MEDS: FUROSEMIDE 20 MG/2 ML VIAL IVP SCH (08:32)
[2022-08-05] MEDS: CLOTRIMAZOLE 1% CREAM 15 GM TUBE TOP SCH ×2 (08:33→21:42)
[2022-08-05] MEDS: NYSTATIN POWDER 15 GM TOP SCH ×2 (08:33→21:42)
[2022-08-05] MEDS ORDERED: FUROSEMIDE 40 MG/4 ML VIAL IVP SCH (09:00)
--- NOTE | 2022-08-05 11:38 | PROVIDER PROGRESS NOTE ---
Subjective - Prog Note Date Prog Note Date: 08/05/22 Prog Note Time: 11:38 - Subjective Pt reports feeling: No change Subjective: He is sitting up in a chair. Right now the only thing he needs is a standby assist or a 1 person assist to get him out of bed. Once he is up and out of bed, he is ambulating in the room with a walker. He has been insisting on showering by himself as long as the door is open and in a can be outside the door. We really worry about him falling. He is alert, oriented. Current Medications - Current Medications Current Medications: Active Medications Calcium Carbonate/Glycine (Calcium Carbonate Chew 500 Mg Tablet) 500 mg PO BID PRN PRN Reason: Heartburn Last Admin: 07/24/22 18:15 Dose: 500 mg Carboxymethylcellulose (Carboxymethylcellulose Ophth Drops) 1 drops EACHEYE PRN PRN PRN Reason: Dry Eye Last Admin: 07/31/22 08:17 Dose: 1 drops Clotrimazole (Clotrimazole 1% Cream 15 Gm Tube) 1 applic TOP BID [facility] Last Admin: 08/05/22 08:33 Dose: 1 applic Enoxaparin Sodium (Enoxaparin 40 Mg/0.4 Ml Syringe) 40 mg SUBQ BID [facility] Last Admin: 08/05/22 08:32 Dose: 40 mg Furosemide (Furosemide 20 Mg/2 Ml Vial) 20 mg IVP DAILY [facility] Last Admin: 08/05/22 08:32 Dose: 20 mg Gabapentin (Gabapentin 300 Mg Capsule) 600 mg PO TID [facility] Last Admin: 08/05/22 05:40 Dose: 600 mg Lactobacillus Rhamnosus (Lactobacillus Rhamnosus Gg Capsule) 1 cap PO DAILY [facility] Last Admin: 08/05/22 08:32 Dose: 1 cap Lactulose (Lactulose 10 Gm/15 Ml Bottle) 10 gm PO Q48H [facility] Multi-Ingredient Ointment (Zinc Oxide 20% Oint 30 Gm Tube) 1 applic TOP PRN PRN PRN Reason: Skin Care Last Admin: 08/05/22 03:05 Dose: 1 applic Nystatin (Nystatin Powder 15 Gm) 1 applic TOP BID [facility] Last Admin: 08/05/22 08:33 Dose: 1 applic Ondansetron HCl (Ondansetron 4 Mg/2 Ml Vial) 4 mg IVP Q6HR PRN PRN Reason: Nausea / Vomiting Last Admin: 07/16/22 08:12 Dose: 4 mg Pantoprazole Sodium (Pantoprazole 40 Mg Tablet) 40 mg PO QDAC [facility] Last Admin: 08/05/22 05:41 Dose: 40 mg Mometasone Furoate (0.1% Ointment) 1 each TOP BID PRN PRN Reason: ITCHING Last Admin: 08/05/22 03:08 Dose: 1 each Potassium Chloride (Potassium Chloride 10 Meq Capsule) 30 meq PO DAILYWM [facility] Last Admin: 08/05/22 08:32 Dose: 30 meq Multivit/Folic Acid/Iron ( Vitamin Tablet) 1 tab PO DAILYWM [facility] Last Admin: 08/05/22 08:32 Dose: 1 tab Prochlorperazine Edisylate (Prochlorperazine 10 Mg/2 Ml Vial) 10 mg IVP Q6HR PRN PRN Reason: Nausea / Vomiting Last Admin: 07/22/22 23:58 Dose: 10 mg Rifaximin (Rifaximin 550 Mg Tablet) 550 mg PO BID [facility] Last Admin: 08/05/22 08:32 Dose: 550 mg Sodium Chloride (Sodium Chloride Flush 0.9% 10 Ml Syringe) 10 ml IVP PRN PRN PRN Reason: NEEDED PER PROVIDER ORDERS Last Admin: 08/03/22 23:46 Dose: 10 ml Sodium Chloride (Sodium Chloride Flush 0.9% 10 Ml Syringe) 20 ml IVP PRN PRN PRN Reason: After Blood Draw Last Admin: 07/22/22 05:00 Dose: 20 ml Spironolactone (Spironolactone 25 Mg Tablet) 25 mg PO BID [facility] Last Admin: 08/05/22 08:32 Dose: 25 mg Thiamine HCl (Thiamine 100 Mg Tablet) 100 mg PO DAILY [facility] Last Admin: 08/05/22 08:32 Dose: 100 mg Tramadol HCl (Tramadol 50 Mg Tablet) 25 mg PO BID [facility] Last Admin: 08/05/22 08:32 Dose: 25 mg Zinc Oxide (Cod Liver Oil/Zinc Oxide 113 Gm Tube) 113 gm TOP PRN PRN PRN Reason: Skin Care Last Admin: 07/22/22 23:47 Dose: 1 applic Omeprazole 20 mg PO DAILY 05/10/16 Gabapentin [Neurontin] 2 cap PO TID 07/15/22 Clotrimazole 1% Cream [Lotrimin 1% Cream] 1 gm TOP BID 07/22/22 Mometasone Furoate 1 gm TOP BID PRN 07/22/22 Objective - Vital Signs/Intake & Output Reviewed Vital Signs: Yes Vital Signs: Vital Signs x48h Temp Pulse Resp BP BP Pulse Ox 08/05/22 08:53 36.4 C L 88 20 111/54 L 98 08/05/22 06:09 36.6 C 87 20 103/55 L 96 Intake & Output: Intake & Output 08/02/22 08/03/22 08/04/22 08/05/22 23:59 23:59 23:59 23:59 Intake Total 420 1230 900 680 Output Total 231 269 8293 200 Balance -430 505 -485 480 - Objective General Appearance: positive: Alert, Other (Morbidly obese white male, sitting comfortably at the edge of his reclining chair, watching the women's final for excerpts. We have a lively discussion on [facility] and [place].) Eyes Bilateral: positive: PERRL, EOMI ENT: positive: No signs of dehydration Neck: positive: No JVD. negative: Stiff neck Respiratory: positive: No respiratory distress, Other (Diminished breath sounds at the bases). negative: Wheezes, Rales, Rhonchi Cardiovascular: positive: Regular rate & rhythm Abdomen: positive: Non-tender, Nml bowel sounds, No distention, Other (Huge, ob curly large abdominal pannus. Really cannot assess for organomegaly. Currently nontender. Underneath gynecomastia, and under his panus, skin has been well taken care of by aides and nursing. And Marcy intertrigo has completely resolved.) Skin: positive: Other (Still with the dense, red, nonblanching rash of both buttocks.) Extremities: positive: Full ROM, Pedal edema Neurologic/Psychiatric: positive: Oriented x3, CN's nml (2-12), Motor nml - Lab Results Fish Bones: 08/04/22 05:00 08/04/22 05:00 Assessment/Plan - Problem List (1) Weakness Impression: He had fallen before coming to the ER and was so weak at admission that he could not lift up his buttocks, when in his bed, by pushing up using his legs. He also admitted that over the past week before admission, he had been mostly on his couch, hardly got up, did not eat, had his beer delivered to him by [employer]. He is now on day #20 of a very prolonged stay for liver failure. Most of it was in the intensive care unit initially and has been severely deconditioned because of that prolonged stay. He has been working with physical therapy, gradually getting stronger. In the week I have been on service (started July 30) he is progressing on a daily basis. He is able to get out of bed now, walk to the bathroom, walk 40 feet. This is in contrast distinction to person who needed 4 people to sit him up in bed 2 weeks ago. Plan: Cont PT and OT . I am asking them to reevaluate him from the custodial facility standpoint. He may be at goals to be able to leave the facility without having to go to a custodial facility. I think the main barrier is getting out of bed without an assist. But everything else seems to be going well. If he can get out of bed on his own, and complete his activities of daily living he can be discharged to alcohol rehab. Currently working with social work and case management to find placement for him that [place] pays for and accepts a bariatric patient (2) Liver failure without hepatic coma Impression: He has liver failure from alcoholic liver disease. He presented with months of increased beer drinking after he lost his job. On admission his bili and LFTs were elevated. INR 1.8. While his LFTs were improving, his bili improvement la gged. He got a CT of abd to check for gallbladder disease or intraductal dilatation and that was negative. Labs were all reviewed. Bili peaked on 07/19 at 23.8. Bili has plateaued at 14-16. Per phone call consult with Dr. Pa from GI @ [facility] on 07/19, she advised us to increase lactulose dose, start rifaximin 550 along w/ methylprednisolone 1mg/kg for the treatment of his alcoholic liver disease and pantoprazole 40mg IV push for stomach ulcer protection. However, Dr. Pa did not feel it necessary to give 200mg of steroids and aim for 40mg a day for 5 days. He had psychomotor slowing until 07/26. His Maddrey score was 54.6 points, and >32 indicates poor prognosis and would benefit from glucocorticoid therapy. Patient received solumedrol 40 mg IVP for 5 days, the last dose was on 07/22/22. His MELD score was 29 points which equates to an estimated 76.5% indication for short term survival and approximately a 19.6% chance of mortality for patient's with end stage liver disease for considerations for liver transplant. Once he was on the steroids, lactulose, rifaximin there was slow improvement that has been very steady. He completed his steroid treatment. And we have him on lactulose once a day alternated with twice a day every other day. He continues on rifaximin, and is working with physical therapy/Occupational Therapy. He has reached maximal medical benefit. Now our treatment is focused on improving his mobility and his strength. Today's avoidable day #8. (3) Hepatic encephalopathy resolved. Impression: Improved: He is alert, oriented, able to converse in normal sentences and has no psychomotor slowing. Patient had his dose of lactulose decrease due to too many BMs a day. We had him off his gabapentin which may have added to the initial lethargy and when he requested it for his neuropathy, and that was restarted. He has gone from doing some short shuffling steps to his chair from his bedside to being able to get up on his own with standby assist to go to the bathroom, and then walked back to the bed. He is spending more time in the bedside chair than in bed. He does not like walking outside his room. He is embarrassed by his appearance. At his worst his ammonia was 105 on July 16. Ammonia has been coming down with the lactulose. He seems to live in the 40s now. On July 31 he was 48.1. 08/03 he was having too many bowel movements. As such I will decrease the lactulose from alternating once a day, twice a day to just strictly once a day.August 04 he was still having 5 bowel movements a day on lactulose once a day. So he is now on lactulose every other day. (4) Anasarca He developed anasarca while in the ICU from receiving iv saline for his severe hyponatremia. He was also on a salt tablet daily. The salt tablet was stopped several days ago. IV Lasix daily was started. His fluid restriction was changed from free water restriction to a total liquid restricted down to 2000 cc/day (1000 cc with meals, 1000 cc for nursing). RNs have caught his sister trying to sneak him extra fluids. Weight on admission was 194 kg, And his weight on July 30 was 213 kg. On 07/31 the weight is 171.9 kg. So I had the nurse zero the bed, and we weighed him. His weight was 205. Today 206.8. He feels like the weight is coming off of him quite nicely. He likes the ability to be more mobile. He says that the skin of his legs does not feel nearly as tight. Echocardiogram done 07/31 was technically difficult to do because of his size. His ejection fraction is 55%. No regional wall motion abnormality seen. Atria were not well visualized. No significant valvular heart disease was identified. As such cardiac dysfunction is not the cause of his anasarca. He does not have alcoholic cardiomyopathy. August 01 Lasix 20 mg IVP was stopped. Spironolactone 25 mg p.o. twice daily started. Weight 206.8 kg August 03, I increased to 50 mg p.o. twice daily from 25 mg dose. He tells me that urine output has slowed down. His legs are getting a little bit more edematous. Scrotum is little bit more edematous. Weight 209. Lasix 40 mg po started. August 04 weight is 210 kg, he received his lasix 40 mg po, but for the next day I changed to 20 mg IVP. cut back his spironolactone to 25 mg po bid to avoid changing his Na and K too much. Today weight is 209 kg. I will continue with Lasix 20 mg IV push. I think it is going to take us a while to figure out what doses to keep this man on to avoid worsening anasarca and increasing fluid weight Plan: eventually change his meds to po so he can go home on a steady outpatient regemine. I have also asked nutrition services to talk to him again about low- salt. He loves his V8. Family will be bringing him V8 juice. We have to constantly be monitoring outside fluid intake brought in by family, and then reconstructing him on low-salt intake, and fluid restriction. I would like to liberalize his fluid restriction from 2000 mils a day but if he is getting be eating a lot of salt, or drinking a lot of salt, is can make it difficult to balance his fluid weight. Resolved or chronic probelms (5) Hypotension resolved From July 16 to the he required Levophed to keep his blood pressure up and to maintain his urine output. We looked for signs of infection, repeated blood cultures, urinalysis, chest x-ray and no source of infection was found. He was not having an ID. No lactic acidosis. Suspect he was intravascularly depleted due to cirrhosis and alcoholism. A [facility] 20 urine culture grew out Enterococcus. He was not placed on antibiotics for that. Since he does not have a fever, elevated white cell count, and is asymptomatic hospitalist did not treat. (6) Alcoholism Impression: Initially he was on iv banana bags and transitioned to multivit and thiamin orally whgen he was able to swallow. He needed librium and CIWA protocol, but librium stopped 07/17. Pt is on lactulose for his high Ammonia level and confusion and psychomotor slowing, which are improving. Labs are all reviewed: The bilirubin is mostly plateaued around 14, ammonia level has decreased He has met with social work. They have given him opportunities for following up with rehab once he is done with physical rehab. (7) Right breast nipple inversion Plan: Outpatient work up with mammo (8) Morbid obesity BMI 60-69 At admission he weighed about 59 BMI, this increased to BMI of 67 after getting IV fluids and developing anasarca. His morbid obesity makes all of his care more difficult. Plan: In the outpatient setting, the patient will need to continue a low calorie diet, improve his mobility to be able to exercise. Stay off alcohol. (9) Skin rash Rash covering the skin of both buttocks and is a result of being on his back and having the loose stool. A shower was ordered and he can now sit up in a bariatric chair in shower. The rash continues to be present. There is been no change in the geographic distribution since it was first identified. Nonblanching red skin. Plan: Continue hygiene and nystatin powder (10) Hyponatremia Resolved as of 07/21 On admission, he presented is almost meeting the criteria for beer potomania. He was severely hyponatremic at 114 but not hypokalemic. He was on saline in the ICU. A daily salt tablet was added (by Tele[facility] ). By July 16 Na was 118. By July 17 Na was 124. July 18 Na was 128 and by 07/21 his Na was 135. On 07/23 Na was 141. 07/30 and 07/31 he was 131 and 08/01 he was 135. 4/ was dropping a bit. Plan: Remain off the the salt tablet, due to persistent anasarca Cont on restricted total fluid intake/day Check BMP and CBC tomorrow. (11) Abnormal urinalysis His first urinalysis showed bacteriuria but was negative in its growth. He did not have any symptoms of urgency, and frequency but did have AMS (psychomotor slowing). He did not have a fever or an elevated white cell count. We did not treat this abnormal urinalysis (12) Boil Left anterior thigh that has come to a head. Patient scratched it and boil rup tured, no cellulitis. (13) Conjunctivitis Resolved on eye drops
[2022-08-06] MEDS: GABAPENTIN 300 MG CAPSULE PO SCH ×3 (05:02→21:36)
[2022-08-06] MEDS: PANTOPRAZOLE 40 MG TABLET PO SCH (05:02)
[2022-08-06 06:19] LABS: BASOPHILS % (AUTO) 0.9 %; EOSINOPHILS % (AUTO) 2.3 %; HCT - HEMATOCRIT 32.1 % (42.0-52.0); HGB - HEMOGLOBIN 10.8 g/dL (14.0-18.0); MEAN CORPUSCULAR HEMOGLOBIN 34.5 pg (27.0-31.0); MEAN CORPUSCULAR HGB CONC 33.6 g/dL (32.0-36.0); MEAN CORPUSCULAR VOLUME 102.6 fL (80.0-94.0); MEAN PLATELET VOLUME 10.9 fL (7.4-11.4); MONOCYTES % (AUTO) 9.9 %; NEUTROPHILS % (AUTO) 59.2 %; PLT - PLATELET COUNT 114 10^3/uL (130-450); RED BLOOD COUNT 3.13 10^6/uL (4.70-6.10); RED CELL DISTRIBUTION WIDTH 16.1 % (12.0-15.0)
[2022-08-06 06:27] LABS: CALCIUM 8.2 mg/dL (8.5-10.3); CREATININE 0.9 mg/dL (0.6-1.2); POTASSIUM 4.5 mmol/L (3.5-5.0)
[2022-08-06 06:32] LABS: ABNORMAL LYMPHS % (MANUAL) 0 %
[2022-08-06 06:52] LABS: BAND NEUTROPHILS % (MANUAL) 4 %; BASOPHILS # (MANUAL) 0.1 10^3/uL (0-0.1); BASOPHILS % (MANUAL) 1 %; EOSINOPHILS # (MANUAL) 0.2 10^3/uL (0-0.7); LYMPHOCYTES # (MANUAL) 2.5 10^3/uL (1.5-3.5); LYMPHOCYTES % (MANUAL) 25 %; METAMYELOCYTES % (MANUAL) 2 %; MONOCYTES # (MANUAL) 0.6 10^3/uL (0.0-1.0); MYELOCYTES % (MANUAL) 2 %; NEUTROPHILS # (MANUAL) 6.2 10^3/uL (1.5-6.6)
[2022-08-06 06:53] LABS: DIFFERENTIAL COMMENT MANUAL DIFFERENTIAL; PLATELET ESTIMATE, MANUAL DECREASED (<130,000) (NORMAL); PLATELET MORPHOLOGY NORMAL APPEARANCE (NORMAL); RBC MORPHOLOGY (MULTIPLE) NORMAL APPEARANCE (NORMAL); WBC MORPHOLOGY (MULTIPLE) NORMAL APPEARANCE (NORMAL)
[2022-08-06] MEDS: POTASSIUM CHLORIDE 10 MEQ CAPSULE PO SCH (08:10)
[2022-08-06] MEDS: PRENATAL VITAMIN TABLET PO SCH (08:10)
[2022-08-06] MEDS: FUROSEMIDE 20 MG/2 ML VIAL IVP SCH (08:12)
[2022-08-06] MEDS: ENOXAPARIN 40 MG/0.4 ML SYRINGE SUBQ SCH ×2 (08:12→21:35)
[2022-08-06] MEDS: LACTOBACILLUS RHAMNOSUS GG CAPSULE PO SCH (08:12)
[2022-08-06] MEDS: rifAXIMin 550 MG TABLET PO SCH ×2 (08:13→21:35)
[2022-08-06] MEDS: THIAMINE 100 MG TABLET PO SCH (08:13)
[2022-08-06] MEDS: SPIRONOLACTONE 25 MG TABLET PO SCH ×2 (08:13→21:35)
[2022-08-06] MEDS: NYSTATIN POWDER 15 GM TOP SCH ×2 (08:13→21:33)
[2022-08-06] MEDS: CLOTRIMAZOLE 1% CREAM 15 GM TUBE TOP SCH ×2 (08:26→21:34)
[2022-08-06] MEDS: traMADol 50 MG TABLET PO SCH ×2 (08:26→21:35)
[2022-08-06] MEDS: LACTULOSE 10 GM/15 ML BOTTLE PO SCH (08:26)
[2022-08-06] MEDS: SODIUM CHLORIDE FLUSH 0.9% 10 ML SYRINGE IVP PRN ×3 (08:30→18:44)
--- NOTE | 2022-08-06 15:11 | PROVIDER PROGRESS NOTE ---
Assessment/Plan - Problem List (1) Weakness Assessment/Plan: He had fallen before coming to the ER and was so weak at admission that he could not lift up his buttocks by pushing using his legs, when in bed. He also admitted that over the past week before admission, he had been mostly on his couch, hardly got up, did not eat, had his beer delivered to him by [employer]. He has now had a very prolonged stay for liver failure, in the intensive care unit initially and has been severely deconditioned because of this prolonged stay plus from morbid obesity. He has been working with physical therapy, alethea hernandez getting stronger, progressing on a daily basis. He is able to get out of bed now, walk to the bathroom, walk 40 feet. This is in contrast distinction to person who needed 4 people to sit him up in bed 2 weeks ago. Plan: Cont PT and OT . Possibly he is a halfway facility candidate. It is difficult for him getting out of bed without an assist. But everything else seems to be going well. If he can get out of bed on his own, and complete his activities of daily living he can be discharged. Currently working with social work and case management to find placement for him that [facility] pays for and accepts a bariatric patient (2) Liver failure without hepatic coma Impression: He has liver failure from alcoholic liver disease. He presented with months of increased beer drinking after he lost his job. On admission his bili and LFTs were elevated. INR 1.8. While his LFTs were improving, his bili improvement lagged. He got a CT of abd to check for gallbladder disease or intraductal dilatation and that was negative. Labs were all reviewed. Bili peaked on 07/19 at 23.8. Bili has plateaued at 14-16. Per phone call consult with Dr. Pa from GI @ [facility] on 07/19, she advised us to increase lactulose dose, start rifaximin 550 along w/ methylprednisolone 1mg/kg for the treatment of his alcoholic liver disease and pantoprazole 40mg IV push for stomach ulcer protection. However, Dr. Pa did not feel it necessary to give 200mg of steroids and aim for 40mg a day for 5 days. He had psychomotor slowing until 07/26. His Maddrey score was 54.6 points, and >32 indicates poor prognosis and would benefit from glucocorticoid therapy. Patient received solumedrol 40 mg IVP for 5 days, the last dose was on 07/22/22. His MELD score was 29 points which equates to an estimated 76.5% indication for short term survival and approximately a 19.6% chance of mortality for patient's with end stage liver disease for considerations for liver transplant. Once he was on the steroids, lactulose, rifaximin there was slow improvement that has been very steady. He completed his steroid treatment. And we have him on lactulose. He continues on rifaximin, and is working with physical therapy/Occupational Therapy. He has reached maximal medical benefit. Now our treatment is focused on diuresing his anasarca and improving his mobility and his strength. (3) Hepatic encephalopathy Impression: Improved: He is alert, oriented, able to converse in normal sentences and has no psychomotor slowing. Patient had his dose of lactulose decrease due to too many BMs a day. We had him off his gabapentin which may have added to the initial lethargy and when he requested it for his neuropathy, and that was restarted. He has gone from doing some short shuffling steps to his chair from his bedside to being able to get up on his own with standby assist to go to the bathroom, and then walked back to the bed. He is spending more time in the bedside chair than in bed. He does not like walking outside his room, he is embarrassed by his appearance. At his worst his ammonia was 105 on July 16. Ammonia has been coming down with the lactulose. When he has too many bowel movements, we decrease the lactulose. So he is now on lactulose every other day. (4) Anasarca He developed anasarca while in the ICU from receiving iv saline for his severe hyponatremia. He was also on a salt tablet daily. The salt tablet was stopped several days ago. IV Lasix daily was started. His fluid restriction was changed from free water restriction to a total liquid restricted down to 2000 cc/day (1000 cc with meals, 1000 cc for nursing). RNs have caught his sister trying to sneak him extra fluids. Weight on admission was 194 kg, And his weight on July 30 was 213 kg. On 07/31 weight was 205.He feels like the weight is coming off of him and he likes the ability to be more mobile. He says that the skin of his legs does not feel nearly as tight. Echocardiogram done 07/31 was technically difficult to do because of his size. His ejection fraction is 55%. No regional wall motion abnormality seen. Atria were not well visualized. No significant valvular heart disease was identified. As such cardiac dysfunction is not the cause of his anasarca, ie. he does not have alcoholic cardiomyopathy. Plan: Will not alow family bringing him V8 juice, and extra liquids. Contnue his fluid restriction of 2000 mls a day Continue Lasix and Spironolactone (5) Morbid obesity BMI 60-69 At admission he weighed about 59 BMI, this increased to BMI of 67 after getting IV fluids and developing anasarca. His morbid obesity makes all of his care more difficult. Plan: In the outpatient setting, the patient will need to continue a low calorie diet, improve his mobility to be able to exercise. Resolved or chronic probelms (6) Hypotension resolved From July 16 to the he required Levophed to keep his blood pressure up and to maintain his urine output. We looked for signs of infection, repeated blood cultures, urinalysis, chest x-ray and no source of infection was found. He was not having an [place]. No lactic acidosis. Suspect he was intravascularly depleted due to cirrhosis and alcoholism. A July 22 urine culture grew out Enterococcus. He was not placed on antibiotics for that. Since he does not have a fever, elevated white cell count, and is asymptomatic hospitalist did not treat. (7) Alcoholism Impression: Initially he was on iv banana bags and transitioned to multivit and thiamin orally whgen he was able to swallow. He needed librium and CIWA protocol, but librium stopped 07/17. Pt is on lactulose for his high Ammonia level and confusion and psychomotor slowing, which are improving. Labs are all reviewed: The bilirubin is mostly plateaued around 14, ammonia level has decreased He has met with social work. They have given him opportunities for following up with rehab once he is done with physical rehab. (8) Right breast nipple inversion Plan: Outpatient work up with mammo (9) Skin rash Rash covering the skin of both buttocks and is a result of being on his back and having the loose stool. A shower was ordered and he can now sit up in a bariatric chair in shower. The rash continues to be present. There is been no change in the geographic distribution since it was first identified. Nonblanching red skin. Plan: Continue hygiene and nystatin powder (10) Hyponatremia Resolved as of 07/21 On admission, he presented is almost meeting the criteria for beer potomania. He was severely hyponatremic at 114 but not hypokalemic. He was on saline in the ICU. A daily salt tablet was added (by Telemedicine Dr). By July 16 Na was 118. By July 17 Na was 124. July 18 Na was 128 and by 07/21 his Na was 135. On 07/23 Na was 141. / and 07/31 he was 131 and 08/01 he was 135. 4/ was dropping a bit. Plan: Remain off the the salt tablet, due to persistent anasarca Cont on restricted total fluid intake/day Follow BMP intermittently. (11) Abnormal urinalysis His first urinalysis showed bacteriuria but was negative in its growth. He did not have any symptoms of urgency, and frequency but did have AMS (psychomotor slowing). He did not have a fever or an elevated white cell count. We did not treat this abnormal urinalysis (12) Boil Left anterior thigh that has come to a head. Patient scratched it and boil ruptured, no cellulitis. (13) Conjunctivitis Resolved on eye drops - Current Meds Current Meds: Current Medications Generic Name Dose Route Start Last Admin Trade Name Freq PRN Reason Stop Dose Admin Calcium Carbonate/Glycine 500 mg 07/21/22 03:51 07/24/22 18:15 Calcium Carbonate Chew 500 Mg Tablet PO 500 mg BID PRN Administration Heartburn Carboxymethylcellulose 1 drops 07/17/22 08:19 07/31/22 08:17 Carboxymethylcellulose Ophth Drops EACHEYE 1 drops PRN PRN Administration Dry Eye Clotrimazole 1 applic 08/04/22 09:00 08/06/22 08:26 Clotrimazole 1% Cream 15 Gm Tube TOP 1 applic BID KANU Administration Enoxaparin Sodium 40 mg 07/24/22 09:41 08/06/22 08:12 Enoxaparin 40 Mg/0.4 Ml Syringe SUBQ 40 mg BID KANU Administration Furosemide 20 mg 08/05/22 09:00 08/06/22 08:12 Furosemide 20 Mg/2 Ml Vial IVP 20 mg DAILY KANU Administration Gabapentin 600 mg 07/27/22 14:00 08/06/22 13:54 Gabapentin 300 Mg Capsule PO 600 mg TID KANU Administration Lactobacillus Rhamnosus 1 cap 07/16/22 11:00 08/06/22 08:12 Lactobacillus Rhamnosus Gg Capsule PO 1 cap DAILY KANU Administration Lactulose 10 gm 08/06/22 09:00 08/06/22 08:26 Lactulose 10 Gm/15 Ml Bottle PO 10 gm Q48H KANU Administration Multi-Ingredient Ointment 1 applic 07/16/22 01:24 08/05/22 03:05 Zinc Oxide 20% Oint 30 Gm Tube TOP 1 applic PRN PRN Administration Skin Care Nystatin 1 applic 07/15/22 21:00 08/06/22 08:13 Nystatin Powder 15 Gm TOP 1 applic BID KANU Administration Ondansetron HCl 4 mg 07/15/22 11:15 07/16/22 08:12 Ondansetron 4 Mg/2 Ml Vial IVP 4 mg Q6HR PRN Administration Nausea / Vomiting Pantoprazole Sodium 40 mg 07/19/22 11:00 08/06/22 05:02 Pantoprazole 40 Mg Tablet PO 40 mg QDAC KANU Administration Mometasone Furoate 1 each 07/22/22 17:00 08/05/22 03:08 0.1% Ointment TOP 1 each BID PRN Administration ITCHING Potassium Chloride 30 meq 07/27/22 08:00 08/06/22 08:10 Potassium Chloride 10 Meq Capsule PO 30 meq DAILYWM KANU Administration Multivit/Folic Acid/Iron 1 tab 07/16/22 11:00 08/06/22 08:10 Vitamin Tablet PO 1 tab DAILYWM KANU Administration Prochlorperazine Edisylate 10 mg 07/15/22 11:15 07/22/22 23:58 Prochlorperazine 10 Mg/2 Ml Vial IVP 10 mg Q6HR PRN Administration Nausea / Vomiting Rifaximin 550 mg 07/18/22 21:00 08/06/22 08:13 Rifaximin 550 Mg Tablet PO 550 mg BID KANU Administration Sodium Chloride 10 ml 07/15/22 11:15 08/03/22 23:46 Sodium Chloride Flush 0.9% 10 Ml Syringe IVP 10 ml PRN PRN Administration NEEDED PER PROVIDER ORDERS Sodium Chloride 20 ml 07/16/22 22:36 07/22/22 05:00 Sodium Chloride Flush 0.9% 10 Ml Syringe IVP 20 ml PRN PRN Administration After Blood Draw Spironolactone 25 mg 08/04/22 21:00 08/06/22 08:13 Spironolactone 25 Mg Tablet PO 25 mg BID KANU Administration Thiamine HCl 100 mg 07/16/22 11:00 08/06/22 08:13 Thiamine 100 Mg Tablet PO 100 mg DAILY KANU Administration Tramadol HCl 25 mg 07/27/22 09:00 08/06/22 08:26 Tramadol 50 Mg Tablet PO 25 mg BID KANU Administration Zinc Oxide 113 gm 07/19/22 17:01 07/22/22 23:47 Cod Liver Oil/Zinc Oxide 113 Gm Tube TOP 1 applic PRN PRN Administration Skin Care - Lab Result Fish Bone Diagrams: 08/13/22 06:11 08/13/22 06:11 - Additional Planning My Orders: My Active Orders 08/06/22 Wound Consult MAC [MAC] Routine 08/06/22 12:16 Miscellaenous Nursing Order [RC] QSHIFT 08/06/22 12:18 Miscellaenous Nursing Order [RC] QSHIFT Subjective - Subjective Nursing Reports: Other (He is manipulative asking for fluids, since he is to be on a resteriction) Objective Vital Signs: Vital Signs - 24 hr 08/05/22 08/05/22 08/06/22 19:33 23:08 08:27 Temperature 36.9 C 36.7 C 36.4 C L Heart Rate [ 93 88 90 Radial] Respiratory 24 20 20 Rate Blood Pressure 121/75 102/64 147/87 H [Right Radial artery] O2 Saturation 96 97 96 Oxygen O2 Source Room air I&O (Last 24 Hrs): Intake and Output Totals x24h 08/04/22 08/05/22 08/06/22 23:59 23:59 23:59 Intake Total 900 1430 780 Output Total 1385 1100 800 Balance -485 330 -20 General: Alert, Oriented x3, Other (morbidly obese) HEENT: PERRLA Neck: Supple Neuro: Alert, Other (generalized weakness) Cardiovascular: Regular rate Respiratory: No respiratory distress Abdomen: Other (Obese with a large pannus nearly down to knees) Extremities: Other (4+ edema to knees and blisters on shins) - Results Results: Laboratory Results WBC 10.0 x10^3/uL (4.8-10.8) 08/06/22 06:02 RBC 3.13 10^6/uL (4.70-6.10) L 08/06/22 06:02 Hgb 10.8 g/dL (14.0-18.0) L 08/06/22 06:02 Hct 32.1 % (42.0-52.0) L 08/06/22 06:02 MCV 102.6 fL (80.0-94.0) H 08/06/22 06:02 MCH 34.5 pg (27.0-31.0) H 08/06/22 06:02 MCHC 33.6 g/dL (32.0-36.0) 08/06/22 06:02 RDW 16.1 % (12.0-15.0) H 08/06/22 06:02 Plt Count 114 10^3/uL (130-450) L 08/06/22 06:02 MPV 10.9 fL (7.4-11.4) 08/06/22 06:02 Neut # (Auto) Not Reportable 08/06/22 06:02 Lymph # (Auto) Not Reportable 08/06/22 06:02 [place] # (Auto) Not Reportable 08/06/22 06:02 Eos # (Auto) Not Reportable 08/06/22 06:02 Baso # (Auto) Not Reportable 08/06/22 06:02 Absolute Nucleated RBC Not Reportable 08/06/22 06:02 Total Counted 100 08/06/22 06:02 Band Neuts % (Manual) 4 % (0-10) 08/06/22 06:02 Reactive Lymphs % (Man) 5 % 08/04/22 05:00 Abnorm Lymph % (Manual) 0 % 08/06/22 06:02 Metamyelocytes % 2 % (-0) H 08/06/22 06:02 Myelocytes % 2 % (-0) H 08/06/22 06:02 Nucleated RBC % Not Reportable 08/06/22 06:02 Neutrophils # (Manual) 6.2 10^3/uL (1.5-6.6) 08/06/22 06:02 Lymphocytes # (Manual) 2.5 10^3/uL (1.5-3.5) 08/06/22 06:02 Monocytes # (Manual) 0.6 10^3/uL (0.0-1.0) 08/06/22 06:02 Eosinophils # (Manual) 0.2 10^3/uL (0-0.7) 08/06/22 06:02 Basophils # (Manual) 0.1 10^3/uL (0-0.1) 08/06/22 06:02 Differential Comment MANUAL DIFFERENTIAL 08/06/22 06:02 WBC Morphology NORMAL APPEARANCE (NORMAL) 08/06/22 06:02 Platelet Estimate DECREASED (<130,000) (NORMAL) 08/06/22 06:02 Platelet Morphology NORMAL APPEARANCE (NORMAL) 08/06/22 06:02 RBC Morph Micro Appear NORMAL APPEARANCE (NORMAL) 08/06/22 06:02 PT 19.3 secs (9.9-12.6) H 07/15/22 12:26 INR 1.8 (0.8-1.2) H 07/15/22 12:26 VBG pH 7.317 (7.31-7.41) 07/23/22 05:45 Ionized Calcium 1.16 mmol/L (1.15-1.33) 07/23/22 05:45 Sodium 130 mmol/L (135-145) L 08/06/22 06:02 Potassium 4.5 mmol/L (3.5-5.0) 08/06/22 06:02 Chloride 101 mmol/L (101-111) 08/06/22 06:02 Carbon Dioxide 22 mmol/L (21-32) 08/06/22 06:02 Anion Gap 7.0 (6-13) 08/06/22 06:02 BUN 25 mg/dL (6-20) H 08/06/22 06:02 Creatinine 0.9 mg/dL (0.6-1.2) 08/06/22 06:02 Estimated GFR (MDRD) 88 (>89) L 08/06/22 06:02 Glucose 147 mg/dL (70-100) H 08/06/22 06:02 Estimat Average Glucose 105 mg/dL (70-100) H 07/16/22 04:27 Hemoglobin A1c % 5.3 % (4.27-6.07) 07/16/22 04:27 Calcium 8.2 mg/dL (8.5-10.3) L 08/06/22 06:02 Phosphorus 2.9 mg/dL (2.5-4.6) 07/23/22 05:45 Magnesium 1.9 mg/dL (1.7-2.8) 08/01/22 05:15 Total Bilirubin 13.2 mg/dL (0.2-1.0) H 08/01/22 05:15 AST 99 IU/L (10-42) H 08/01/22 05:15 ALT 67 IU/L (10-60) H 08/01/22 05:15 Alkaline Phosphatase 301 IU/L (42-121) H 08/01/22 05:15 Ammonia 48.1 umol/L (7-35) H 07/31/22 06:30 Total Creatine Kinase 171 IU/L (22-269) 07/18/22 05:18 Troponin I High Sens 27.6 ng/L (2.3-19.7) H* 07/16/22 20:52 Total Protein 5.4 g/dL (6.7-8.2) L 08/01/22 05:15 Albumin 1.9 g/dL (3.2-5.5) L 08/01/22 05:15 Globulin 3.5 g/dL (2.1-4.2) 08/01/22 05:15 Albumin/Globulin Ratio 0.5 (1.0-2.2) L 08/01/22 05:15 Lipase 36 U/L (22-51) 07/15/22 09:54 Whole Bld Vitamin B1 138.4 nmol/L (66.5-200.0) 07/23/22 05:45 Vitamin B12 404 pg/mL (180-914) 07/16/22 04:27 Folate 8.12 ng/mL (5.90 - >24.8) 07/16/22 04:27 TSH 2.59 uIU/mL (0.34-5.60) 07/15/22 09:54 Urine Color DARK YELLOW 07/22/22 12:50 Urine Clarity HAZY (CLEAR) 07/22/22 12:50 Urine pH 6.0 PH (5.0-7.5) 07/22/22 12:50 Ur Specific [place] 1.020 (1.002-1.030) 07/22/22 12:50 Urine Protein NEGATIVE mg/dL (NEGATIVE) 07/22/22 12:50 Urine Glucose (UA) 250 mg/dL (NEGATIVE) H 07/22/22 12:50 Urine Ketones NEGATIVE mg/dL (NEGATIVE) 07/22/22 12:50 Urine Occult Blood MODERATE (NEGATIVE) H 07/22/22 12:50 Urine Nitrite POSITIVE (NEGATIVE) H 07/22/22 12:50 Urine Bilirubin LARGE (NEGATIVE) H 07/22/22 12:50 Urine Urobilinogen 2 E.U./dL (NORMAL) H 07/22/22 12:50 Ur Leukocyte Esterase SMALL (NEGATIVE) H 07/22/22 12:50 Urine RBC 0-5 /HPF (0-5) 07/22/22 12:50 Urine WBC 6-10 /HPF (0-3) H 07/22/22 12:50 Ur Squamous Epith Cells FEW Squamous (<= Few) 07/22/22 12:50 Urine Bacteria Many /HPF (None Seen) H 07/22/22 12:50 Urine Casts 0-2 WBC Casts /LPF 07/22/22 12:50 Urine Culture Comments INDICATED 07/22/22 12:50 Nasal Screen MRSA (PCR) NEGATIVE (NEGATIVE) 07/15/22 11:58 Stl C. diff Tox B Gene NEGATIVE (NEGATIVE) 07/16/22 02:05 Urine Opiates Screen NEGATIVE (NEGATIVE) 07/15/22 12:59 Ur Oxycodone Screen NEGATIVE (NEGATIVE) 07/15/22 12:59 Urine Methadone Screen NEGATIVE (NEGATIVE) 07/15/22 12:59 Ur Propoxyphene Screen NEGATIVE (NEGATIVE) 07/15/22 12:59 Ur Barbiturates Screen NEGATIVE (NEGATIVE) 07/15/22 12:59 Ur Tricyclics Screen NEGATIVE (NEGATIVE) 07/15/22 12:59 Ur Phencyclidine Scrn NEGATIVE (NEGATIVE) 07/15/22 12:59 Ur Amphetamine Screen NEGATIVE (NEGATIVE) 07/15/22 12:59 U Methamphetamines Scrn NEGATIVE (NEGATIVE) 07/15/22 12:59 U Benzodiazepines Scrn NEGATIVE (NEGATIVE) 07/15/22 12:59 Urine Cocaine Screen NEGATIVE (NEGATIVE) 07/15/22 12:59 U Cannabinoids Screen NEGATIVE (NEGATIVE) 07/15/22 12:59 Ethyl Alcohol 103.7 mg/dL 07/15/22 09:54 SARS-CoV-2 (PCR) NOT DETECTED 07/31/22 18:35
[2022-08-06] MEDS: ZINC OXIDE 20% OINT 30 GM TUBE TOP PRN (18:43)
[2022-08-07] MEDS: GABAPENTIN 300 MG CAPSULE PO SCH ×3 (05:05→21:18)
[2022-08-07] MEDS: PANTOPRAZOLE 40 MG TABLET PO SCH (05:06)
[2022-08-07 05:34] LABS: BASOPHILS % (AUTO) 0.2 %; EOSINOPHILS % (AUTO) 2.5 %; HCT - HEMATOCRIT 31.2 % (42.0-52.0); HGB - HEMOGLOBIN 10.4 g/dL (14.0-18.0); LYMPHOCYTES % (AUTO) 19.9 %; MEAN CORPUSCULAR HEMOGLOBIN 33.9 pg (27.0-31.0); MEAN CORPUSCULAR HGB CONC 33.3 g/dL (32.0-36.0); MEAN CORPUSCULAR VOLUME 101.6 fL (80.0-94.0); MEAN PLATELET VOLUME 10.9 fL (7.4-11.4); MONOCYTES % (AUTO) 9.5 %; NEUTROPHILS % (AUTO) 60.9 %; PLT - PLATELET COUNT 112 10^3/uL (130-450); RED BLOOD COUNT 3.07 10^6/uL (4.70-6.10); RED CELL DISTRIBUTION WIDTH 15.9 % (12.0-15.0)
[2022-08-07 05:36] LABS: ABNORMAL LYMPHS % (MANUAL) 0 %
[2022-08-07 05:58] LABS: CALCIUM 8.2 mg/dL (8.5-10.3); CREATININE 0.8 mg/dL (0.6-1.2); POTASSIUM 4.5 mmol/L (3.5-5.0)
[2022-08-07 06:06] LABS: BAND NEUTROPHILS % (MANUAL) 2 %; BASOPHILS # (MANUAL) 0.2 10^3/uL (0-0.1); BASOPHILS % (MANUAL) 2 %; EOSINOPHILS # (MANUAL) 0.1 10^3/uL (0-0.7); LYMPHOCYTES # (MANUAL) 2.6 10^3/uL (1.5-3.5); LYMPHOCYTES % (MANUAL) 26 %; METAMYELOCYTES % (MANUAL) 1 %; MONOCYTES # (MANUAL) 0.9 10^3/uL (0.0-1.0); MYELOCYTES % (MANUAL) 4 %; NEUTROPHILS # (MANUAL) 5.7 10^3/uL (1.5-6.6); PLATELET ESTIMATE, MANUAL DECREASED (<130,000) (NORMAL); PLATELET MORPHOLOGY NORMAL APPEARANCE (NORMAL); RBC MORPHOLOGY (MULTIPLE) NORMAL APPEARANCE (NORMAL); WBC MORPHOLOGY (MULTIPLE) NORMAL APPEARANCE (NORMAL)
[2022-08-07 06:07] LABS: DIFFERENTIAL COMMENT MANUAL DIFFERENTIAL
[2022-08-07] MEDS: THIAMINE 100 MG TABLET PO SCH (07:47)
[2022-08-07] MEDS: LACTOBACILLUS RHAMNOSUS GG CAPSULE PO SCH (07:47)
[2022-08-07] MEDS: POTASSIUM CHLORIDE 10 MEQ CAPSULE PO SCH (07:47)
[2022-08-07] MEDS: traMADol 50 MG TABLET PO SCH ×2 (07:47→21:19)
[2022-08-07] MEDS: ENOXAPARIN 40 MG/0.4 ML SYRINGE SUBQ SCH ×2 (07:48→21:18)
[2022-08-07] MEDS: PRENATAL VITAMIN TABLET PO SCH (07:48)
[2022-08-07] MEDS: rifAXIMin 550 MG TABLET PO SCH ×2 (07:48→21:18)
[2022-08-07] MEDS: FUROSEMIDE 20 MG/2 ML VIAL IVP SCH (07:48)
[2022-08-07] MEDS: SPIRONOLACTONE 25 MG TABLET PO SCH ×2 (07:48→21:20)
[2022-08-07] MEDS: NYSTATIN POWDER 15 GM TOP SCH ×2 (07:54→21:19)
[2022-08-07] MEDS: CLOTRIMAZOLE 1% CREAM 15 GM TUBE TOP SCH ×2 (07:55→21:19)
--- NOTE | 2022-08-07 16:20 | PROVIDER PROGRESS NOTE ---
Assessment/Plan - Problem List (1) Weakness Assessment/Plan: He had fallen before coming to the ER and was so weak at admission that he could not lift up his buttocks by pushing using his legs, when in bed. He also admitted that over the past week before admission, he had been mostly on his couch, hardly got up, did not eat, had his beer delivered to him by [employer]. He has now had a very prolonged stay for liver failure, in the intensive care unit initially and has been severely deconditioned because of this prolonged stay plus from morbid obesity. He has been working with physical therapy, alethea hernandez getting stronger, progressing on a daily basis. He is able to get out of bed now, walk to the bathroom, walk 40 feet. This is in contrast distinction to person who needed 4 people to sit him up in bed 2 weeks ago. Plan: Cont PT and OT . Possibly he is a usp facility candidate. It is difficult for him getting out of bed without an assist. But everything else seems to be going well. If he can get out of bed on his own, and complete his activities of daily living he can be discharged. Currently working with social work and case management to find placement for him that [place] pays for and accepts a bariatric patient (2) Liver failure without hepatic coma Impression: He has liver failure from alcoholic liver disease. He presented with months of increased beer drinking after he lost his job. On admission his bili and LFTs were elevated. INR 1.8. While his LFTs were improving, his bili improvement lagged. He got a CT of abd to check for gallbladder disease or intraductal dilatation and that was negative. Labs were all reviewed. Bili peaked on 07/19 at 23.8. Bili has plateaued at 14-16. Per phone call consult with Dr. Pa from GI @ [facility] on 07/19, she advised us to increase lactulose dose, start rifaximin 550 along w/ methylprednisolone 1mg/kg for the treatment of his alcoholic liver disease and pantoprazole 40mg IV push for stomach ulcer protection. However, Dr. Pa did not feel it necessary to give 200mg of steroids and aim for 40mg a day for 5 days. He had psychomotor slowing until 07/26. His Maddrey score was 54.6 points, and >32 indicates poor prognosis and would benefit from glucocorticoid therapy. Patient received solumedrol 40 mg IVP for 5 days, the last dose was on 07/22/22. His MELD score was 29 points which equates to an estimated 76.5% indication for short term survival and approximately a 19.6% chance of mortality for patient's with end stage liver disease for considerations for liver transplant. Once he was on the steroids, lactulose, rifaximin there was slow improvement that has been very steady. He completed his steroid treatment. And we have him on lactulose. He continues on rifaximin, and is working with physical therapy/Occupational Therapy. He has reached maximal medical benefit. Now our treatment is focused on diuresing his anasarca and improving his mobility and his strength. (3) Hepatic encephalopathy Impression: Improved: He is alert, oriented, able to converse in normal sentences and has no psychomotor slowing. Patient had his dose of lactulose decrease due to too many BMs a day. We had him off his gabapentin which may have added to the initial lethargy and when he requested it for his neuropathy, and that was restarted. He has gone from doing some short shuffling steps to his chair from his bedside to being able to get up on his own with standby assist to go to the bathroom, and then walked back to the bed. He is spending more time in the bedside chair than in bed. He does not like walking outside his room, he is embarrassed by his appearance. At his worst his ammonia was 105 on July 16. Ammonia has been coming down with the lactulose. Plan: Since he has too many bowel movements, will decrease the lactulose from every other day to every third day. (4) Anasarca He developed anasarca while in the ICU from receiving iv saline for his severe hyponatremia. He was also on a salt tablet daily. The salt tablet was stopped several days ago. IV Lasix daily was started. His fluid restriction was changed from free water restriction to a total liquid restricted down to 2000 c c/day (1000 cc with meals, 1000 cc for nursing). RNs have caught his sister trying to sneak him extra fluids. Weight on admission was 194 kg, And his weight on July 30 was 213 kg. On 07/31 weight was 205.He feels like the weight is coming off of him and he likes the ability to be more mobile. He says that the skin of his legs does not feel nearly as tight. Echocardiogram done 07/31 was technically difficult to do because of his size. His ejection fraction is 55%. No regional wall motion abnormality seen. Atria were not well visualized. No significant valvular heart disease was identified. As such cardiac dysfunction is not the cause of his anasarca, ie. he does not have alcoholic cardiomyopathy. Plan: Will not alow family bringing him V8 juice, and extra liquids. Also no extra calories, since they bring in candy. Contnue his fluid restriction of 2000 mls a day Continue Lasix and Spironolactone (5) Morbid obesity BMI 60-69 At admission he weighed about 59 BMI, this increased to BMI of 67 after getting IV fluids and developing anasarca. His morbid obesity makes all of his care more difficult. Plan: In the outpatient setting, the patient will need to continue a low calorie diet, improve his mobility to be able to exercise. Resolved or chronic problems (6) Hypotension resolved From July 16 to the he required Levophed to keep his blood pressure up and to maintain his urine output. We looked for signs of infection, repeated blood cultures, urinalysis, chest x-ray and no source of infection was found. He was not having an ND. No lactic acidosis. Suspect he was intravascularly depleted due to cirrhosis and alcoholism. A July 22 urine culture grew out Enterococcus. He was not placed on antibiotics for that. Since he does not have a fever, elevated white cell count, and is asymptomatic hospitalist did not treat. (7) Alcoholism Impression: Initially he was on iv banana bags and transitioned to multivit and thiamin orally whgen he was able to swallow. He needed librium and CIWA protocol, but librium stopped 07/17. Pt is on lactulose for his high Ammonia level and confusion and psychomotor slowing, which are improving. Labs are all reviewed: T he bilirubin is mostly plateaued around 14, ammonia level has decreased He has met with social work. They have given him opportunities for following up with rehab once he is done with physical rehab. (8) Right breast nipple inversion Plan: Outpatient work up with mammo (9) Skin rash Rash covering the skin of both buttocks and is a result of being on his back and having the loose stool. A shower was ordered and he can now sit up in a bariatri c chair in shower. The rash continues to be present. There is been no change in the geographic distribution since it was first identified. Nonblanching red skin. Plan: Continue hygiene and nystatin powder (10) Hyponatremia Resolved as of 07/21 On admission, he presented is almost meeting the criteria for beer potomania. He was severely hyponatremic at 114 but not hypokalemic. He was on saline in the ICU. A daily salt tablet was added (by Telemedicine Dr). By July 16 Na was 118. By July 17 Na was 124. July 18 Na was 128 and by 07/21 his Na was 135. On 07/23 Na was 141. 3/ and 07/31 he was 131 and 08/01 he was 135. 4/2 was dropping a bit. Plan: Remain off the the salt tablet, due to persistent anasarca Cont on restricted total fluid intake/day Follow BMP intermittently. (11) Abnormal urinalysis His first urinalysis showed bacteriuria but was negative in its growth. He did not have any symptoms of urgency, and frequency but did have AMS (psychomotor slowing). He did not have a fever or an elevated white cell count. We did not treat this abnormal urinalysis (12) Boil Left anterior thigh that has come to a head. Patient scratched it and boil ruptured, no cellulitis. (13) Conjunctivitis Resolved on eye drops - Current Meds Current Meds: Current Medications Generic Name Dose Route Start Last Admin Trade Name Freq PRN Reason Stop Dose Admin Calcium Carbonate/Glycine 500 mg 07/21/22 03:51 07/24/22 18:15 Calcium Carbonate Chew 500 Mg Tablet PO 500 mg BID PRN Administration Heartburn Carboxymethylcellulose 1 drops 07/17/22 08:19 07/31/22 08:17 Carboxymethylcellulose Ophth Drops EACHEYE 1 drops PRN PRN Administration Dry Eye Clotrimazole 1 applic 08/04/22 09:00 08/07/22 07:55 Clotrimazole 1% Cream 15 Gm Tube TOP 1 applic BID KANU Administration Enoxaparin Sodium 40 mg 07/24/22 09:41 08/07/22 07:48 Enoxaparin 40 Mg/0.4 Ml Syringe SUBQ 40 mg BID KANU Administration Furosemide 20 mg 08/05/22 09:00 08/07/22 07:48 Furosemide 20 Mg/2 Ml Vial IVP 20 mg DAILY KANU Administration Gabapentin 600 mg 07/27/22 14:00 08/07/22 15:38 Gabapentin 300 Mg Capsule PO 600 mg TID KANU Administration Lactobacillus Rhamnosus 1 cap 07/16/22 11:00 08/07/22 07:47 Lactobacillus Rhamnosus Gg Capsule PO 1 cap DAILY KANU Administration Lactulose 10 gm 08/06/22 09:00 08/06/22 08:26 Lactulose 10 Gm/15 Ml Bottle PO 10 gm Q48H KANU Administration Multi-Ingredient Ointment 1 applic 07/16/22 01:24 08/06/22 18:43 Zinc Oxide 20% Oint 30 Gm Tube TOP 1 applic PRN PRN Administration Skin Care Nystatin 1 applic 07/15/22 21:00 08/07/22 07:54 Nystatin Powder 15 Gm TOP 1 applic BID KANU Administration Ondansetron HCl 4 mg 07/15/22 11:15 07/16/22 08:12 Ondansetron 4 Mg/2 Ml Vial IVP 4 mg Q6HR PRN Administration Nausea / Vomiting Pantoprazole Sodium 40 mg 07/19/22 11:00 08/07/22 05:06 Pantoprazole 40 Mg Tablet PO 40 mg QDAC KANU Administration Mometasone Furoate 1 each 07/22/22 17:00 08/05/22 03:08 0.1% Ointment TOP 1 each BID PRN Administration ITCHING Potassium Chloride 30 meq 07/27/22 08:00 08/07/22 07:47 Potassium Chloride 10 Meq Capsule PO 30 meq DAILYWM KANU Administration Multivit/Folic Acid/Iron 1 tab 07/16/22 11:00 08/07/22 07:48 Vitamin Tablet PO 1 tab DAILYWM KANU Administration Prochlorperazine Edisylate 10 mg 07/15/22 11:15 07/22/22 23:58 Prochlorperazine 10 Mg/2 Ml Vial IVP 10 mg Q6HR PRN Administration Nausea / Vomiting Rifaximin 550 mg 07/18/22 21:00 08/07/22 07:48 Rifaximin 550 Mg Tablet PO 550 mg BID KANU Administration Sodium Chloride 10 ml 07/15/22 11:15 08/06/22 08:30 Sodium Chloride Flush 0.9% 10 Ml Syringe IVP 10 ml PRN PRN Administration NEEDED PER PROVIDER ORDERS Sodium Chloride 20 ml 07/16/22 22:36 08/06/22 18:44 Sodium Chloride Flush 0.9% 10 Ml Syringe IVP 20 ml PRN PRN Administration After Blood Draw Spironolactone 25 mg 08/04/22 21:00 08/07/22 07:48 Spironolactone 25 Mg Tablet PO 25 mg BID KANU Administration Thiamine HCl 100 mg 07/16/22 11:00 08/07/22 07:47 Thiamine 100 Mg Tablet PO 100 mg DAILY KANU Administration Tramadol HCl 25 mg 07/27/22 09:00 08/07/22 07:47 Tramadol 50 Mg Tablet PO 25 mg BID KANU Administration Zinc Oxide 113 gm 07/19/22 17:01 07/22/22 23:47 Cod Liver Oil/Zinc Oxide 113 Gm Tube TOP 1 applic PRN PRN Administration Skin Care - Lab Result Fish Bone Diagrams: 08/13/22 06:11 08/13/22 06:11 Subjective - Subjective Nursing Reports: Other (Manipulates staff, asks for more iquids) Objective Vital Signs: Vital Signs - 24 hr 08/06/22 08/07/22 08/07/22 23:53 07:42 15:47 Temperature 36.5 C 36.4 C L 36.3 C L Heart Rate [ 88 Brachial] Heart Rate [ 85 90 Radial] Respiratory 22 20 20 Rate Blood Pressure 102/58 L 109/66 124/64 [Right Radial artery] O2 Saturation 96 98 97 Oxygen O2 Source Room air I&O (Last 24 Hrs): Intake and Output Totals x24h 08/05/22 08/06/22 08/07/22 23:59 23:59 23:59 Intake Total 1430 1250 440 Output Total 1100 1100 775 Balance 330 150 -335 General: Alert, Oriented x3 HEENT: Atraumatic, PERRLA Neck: Supple Neuro: Alert, Non Focal Cardiovascular: Regular rate Respiratory: No respiratory distress Abdomen: Other (Obese with a large pannus nearly down to knees) Extremities: Other (4+ edema to knees with blistering) - Results Results: Laboratory Results WBC 10.0 x10^3/uL (4.8-10.8) 08/07/22 04:55 RBC 3.07 10^6/uL (4.70-6.10) L 08/07/22 04:55 Hgb 10.4 g/dL (14.0-18.0) L 08/07/22 04:55 Hct 31.2 % (42.0-52.0) L 08/07/22 04:55 MCV 101.6 fL (80.0-94.0) H 08/07/22 04:55 MCH 33.9 pg (27.0-31.0) H 08/07/22 04:55 MCHC 33.3 g/dL (32.0-36.0) 08/07/22 04:55 RDW 15.9 % (12.0-15.0) H 08/07/22 04:55 Plt Count 112 10^3/uL (130-450) L 08/07/22 04:55 MPV 10.9 fL (7.4-11.4) 08/07/22 04:55 Neut # (Auto) Not Reportable 08/07/22 04:55 Lymph # (Auto) Not Reportable 08/07/22 04:55 [place] # (Auto) Not Reportable 08/07/22 04:55 Eos # (Auto) Not Reportable 08/07/22 04:55 Baso # (Auto) Not Reportable 08/07/22 04:55 Absolute Nucleated RBC Not Reportable 08/07/22 04:55 Total Counted 100 08/07/22 04:55 Band Neuts % (Manual) 2 % (0-10) 08/07/22 04:55 Reactive Lymphs % (Man) 5 % 08/04/22 05:00 Abnorm Lymph % (Manual) 0 % 08/07/22 04:55 Metamyelocytes % 1 % (-0) H 08/07/22 04:55 Myelocytes % 4 % (-0) H 08/07/22 04:55 Nucleated RBC % Not Reportable 08/07/22 04:55 Neutrophils # (Manual) 5.7 10^3/uL (1.5-6.6) 08/07/22 04:55 Lymphocytes # (Manual) 2.6 10^3/uL (1.5-3.5) 08/07/22 04:55 Monocytes # (Manual) 0.9 10^3/uL (0.0-1.0) 08/07/22 04:55 Eosinophils # (Manual) 0.1 10^3/uL (0-0.7) 08/07/22 04:55 Basophils # (Manual) 0.2 10^3/uL (0-0.1) H 08/07/22 04:55 Differential Comment MANUAL DIFFERENTIAL 08/07/22 04:55 WBC Morphology NORMAL APPEARANCE (NORMAL) 08/07/22 04:55 Platelet Estimate DECREASED (<130,000) (NORMAL) 08/07/22 04:55 Platelet Morphology NORMAL APPEARANCE (NORMAL) 08/07/22 04:55 RBC Morph Micro Appear NORMAL APPEARANCE (NORMAL) 08/07/22 04:55 PT 19.3 secs (9.9-12.6) H 07/15/22 12:26 INR 1.8 (0.8-1.2) H 07/15/22 12:26 VBG pH 7.317 (7.31-7.41) 07/23/22 05:45 Ionized Calcium 1.16 mmol/L (1.15-1.33) 07/23/22 05:45 Sodium 129 mmol/L (135-145) L 08/07/22 04:55 Potassium 4.5 mmol/L (3.5-5.0) 08/07/22 04:55 Chloride 101 mmol/L (101-111) 08/07/22 04:55 Carbon Dioxide 23 mmol/L (21-32) 08/07/22 04:55 Anion Gap 5.0 (6-13) L 08/07/22 04:55 BUN 23 mg/dL (6-20) H 08/07/22 04:55 Creatinine 0.8 mg/dL (0.6-1.2) 08/07/22 04:55 Estimated GFR (MDRD) 101 (>89) 08/07/22 04:55 Glucose 99 mg/dL (70-100) 08/07/22 04:55 Estimat Average Glucose 105 mg/dL (70-100) H 07/16/22 04:27 Hemoglobin A1c % 5.3 % (4.27-6.07) 07/16/22 04:27 Calcium 8.2 mg/dL (8.5-10.3) L 08/07/22 04:55 Phosphorus 2.9 mg/dL (2.5-4.6) 07/23/22 05:45 Magnesium 1.9 mg/dL (1.7-2.8) 08/01/22 05:15 Total Bilirubin 13.2 mg/dL (0.2-1.0) H 08/01/22 05:15 AST 99 IU/L (10-42) H 08/01/22 05:15 ALT 67 IU/L (10-60) H 08/01/22 05:15 Alkaline Phosphatase 301 IU/L (42-121) H 08/01/22 05:15 Ammonia 48.1 umol/L (7-35) H 07/31/22 06:30 Total Creatine Kinase 171 IU/L (22-269) 07/18/22 05:18 Troponin I High Sens 27.6 ng/L (2.3-19.7) H* 07/16/22 20:52 Total Protein 5.4 g/dL (6.7-8.2) L 08/01/22 05:15 Albumin 1.9 g/dL (3.2-5.5) L 08/01/22 05:15 Globulin 3.5 g/dL (2.1-4.2) 08/01/22 05:15 Albumin/Globulin Ratio 0.5 (1.0-2.2) L 08/01/22 05:15 Lipase 36 U/L (22-51) 07/15/22 09:54 Whole Bld Vitamin B1 138.4 nmol/L (66.5-200.0) 07/23/22 05:45 Vitamin B12 404 pg/mL (180-914) 07/16/22 04:27 Folate 8.12 ng/mL (5.90 - >24.8) 07/16/22 04:27 TSH 2.59 uIU/mL (0.34-5.60) 07/15/22 09:54 Urine Color DARK YELLOW 07/22/22 12:50 Urine Clarity HAZY (CLEAR) 07/22/22 12:50 Urine pH 6.0 PH (5.0-7.5) 07/22/22 12:50 Ur Specific [place] 1.020 (1.002-1.030) 07/22/22 12:50 Urine Protein NEGATIVE mg/dL (NEGATIVE) 07/22/22 12:50 Urine Glucose (UA) 250 mg/dL (NEGATIVE) H 07/22/22 12:50 Urine Ketones NEGATIVE mg/dL (NEGATIVE) 07/22/22 12:50 Urine Occult Blood MODERATE (NEGATIVE) H 07/22/22 12:50 Urine Nitrite POSITIVE (NEGATIVE) H 07/22/22 12:50 Urine Bilirubin LARGE (NEGATIVE) H 07/22/22 12:50 Urine Urobilinogen 2 E.U./dL (NORMAL) H 07/22/22 12:50 Ur Leukocyte Esterase SMALL (NEGATIVE) H 07/22/22 12:50 Urine RBC 0-5 /HPF (0-5) 07/22/22 12:50 Urine WBC 6-10 /HPF (0-3) H 07/22/22 12:50 Ur Squamous Epith Cells FEW Squamous (<= Few) 07/22/22 12:50 Urine Bacteria Many /HPF (None Seen) H 07/22/22 12:50 Urine Casts 0-2 WBC Casts /LPF 07/22/22 12:50 Urine Culture Comments INDICATED 07/22/22 12:50 Nasal Screen MRSA (PCR) NEGATIVE (NEGATIVE) 07/15/22 11:58 Stl C. diff Tox B Gene NEGATIVE (NEGATIVE) 07/16/22 02:05 Urine Opiates Screen NEGATIVE (NEGATIVE) 07/15/22 12:59 Ur Oxycodone Screen NEGATIVE (NEGATIVE) 07/15/22 12:59 Urine Methadone Screen NEGATIVE (NEGATIVE) 07/15/22 12:59 Ur Propoxyphene Screen NEGATIVE (NEGATIVE) 07/15/22 12:59 Ur Barbiturates Screen NEGATIVE (NEGATIVE) 07/15/22 12:59 Ur Tricyclics Screen NEGATIVE (NEGATIVE) 07/15/22 12:59 Ur Phencyclidine Scrn NEGATIVE (NEGATIVE) 07/15/22 12:59 Ur Amphetamine Screen NEGATIVE (NEGATIVE) 07/15/22 12:59 U Methamphetamines Scrn NEGATIVE (NEGATIVE) 07/15/22 12:59 U Benzodiazepines Scrn NEGATIVE (NEGATIVE) 07/15/22 12:59 Urine Cocaine Screen NEGATIVE (NEGATIVE) 07/15/22 12:59 U Cannabinoids Screen NEGATIVE (NEGATIVE) 07/15/22 12:59 Ethyl Alcohol 103.7 mg/dL 07/15/22 09:54 SARS-CoV-2 (PCR) NOT DETECTED 07/31/22 18:35
[2022-08-08 05:04] LABS: BASOPHILS % (AUTO) 0.7 %; EOSINOPHILS % (AUTO) 2.5 %; HCT - HEMATOCRIT 31.1 % (42.0-52.0); HGB - HEMOGLOBIN 10.3 g/dL (14.0-18.0); LYMPHOCYTES % (AUTO) 19.2 %; MEAN CORPUSCULAR HEMOGLOBIN 33.6 pg (27.0-31.0); MEAN CORPUSCULAR HGB CONC 33.1 g/dL (32.0-36.0); MEAN CORPUSCULAR VOLUME 101.3 fL (80.0-94.0); MEAN PLATELET VOLUME 10.6 fL (7.4-11.4); MONOCYTES % (AUTO) 9.5 %; NEUTROPHILS % (AUTO) 60.7 %; PLT - PLATELET COUNT 114 10^3/uL (130-450); RED BLOOD COUNT 3.07 10^6/uL (4.70-6.10); RED CELL DISTRIBUTION WIDTH 15.8 % (12.0-15.0); WHITE BLOOD COUNT 10.6 x10^3/uL (4.8-10.8)
[2022-08-08] MEDS: PANTOPRAZOLE 40 MG TABLET PO SCH (05:07)
[2022-08-08] MEDS: GABAPENTIN 300 MG CAPSULE PO SCH ×3 (05:07→21:44)
[2022-08-08 05:09] LABS: ABNORMAL LYMPHS % (MANUAL) 0 %
[2022-08-08 05:16] LABS: CALCIUM 8.4 mg/dL (8.5-10.3); CREATININE 0.8 mg/dL (0.6-1.2); POTASSIUM 4.5 mmol/L (3.5-5.0)
[2022-08-08 05:29] LABS: BAND NEUTROPHILS % (MANUAL) 2 %; DIFFERENTIAL COMMENT MANUAL DIFFERENTIAL; EOSINOPHILS # (MANUAL) 0.4 10^3/uL (0-0.7); LYMPHOCYTES # (MANUAL) 2.4 10^3/uL (1.5-3.5); LYMPHOCYTES % (MANUAL) 23 %; MONOCYTES # (MANUAL) 1.2 10^3/uL (0.0-1.0); MYELOCYTES % (MANUAL) 7 %; NEUTROPHILS # (MANUAL) 5.8 10^3/uL (1.5-6.6); PLATELET ESTIMATE, MANUAL DECREASED (<130,000) (NORMAL); PLATELET MORPHOLOGY NORMAL APPEARANCE (NORMAL); RBC MORPHOLOGY (MULTIPLE) NORMAL APPEARANCE (NORMAL); WBC MORPHOLOGY (MULTIPLE) NORMAL APPEARANCE (NORMAL)
[2022-08-08] MEDS: rifAXIMin 550 MG TABLET PO SCH ×2 (08:11→21:44)
[2022-08-08] MEDS: PRENATAL VITAMIN TABLET PO SCH (08:11)
[2022-08-08] MEDS: POTASSIUM CHLORIDE 10 MEQ CAPSULE PO SCH (08:11)
[2022-08-08] MEDS: THIAMINE 100 MG TABLET PO SCH (08:11)
[2022-08-08] MEDS: LACTOBACILLUS RHAMNOSUS GG CAPSULE PO SCH (08:11)
[2022-08-08] MEDS: traMADol 50 MG TABLET PO SCH ×2 (08:11→21:44)
[2022-08-08] MEDS: ENOXAPARIN 40 MG/0.4 ML SYRINGE SUBQ SCH ×2 (08:12→21:43)
[2022-08-08] MEDS: LACTULOSE 10 GM/15 ML BOTTLE PO SCH (08:13)
[2022-08-08] MEDS: NYSTATIN POWDER 15 GM TOP SCH ×2 (08:14→21:44)
[2022-08-08] MEDS: CLOTRIMAZOLE 1% CREAM 15 GM TUBE TOP SCH ×2 (08:14→21:56)
[2022-08-08] MEDS: ZINC OXIDE 20% OINT 30 GM TUBE TOP PRN (08:14)
[2022-08-08] MEDS: SPIRONOLACTONE 25 MG TABLET PO SCH ×2 (08:16→21:44)
[2022-08-08] MEDS: FUROSEMIDE 20 MG/2 ML VIAL IVP SCH ×2 (08:21→15:06)
[2022-08-08 12:15] LABS: ALBUMIN 1.8 g/dL (3.2-5.5); BILIRUBIN,DIRECT 8.2 mg/dL (0.1-0.5); BILIRUBIN,TOTAL 13.9 mg/dL (0.2-1.0); TOTAL PROTEIN 5.4 g/dL (6.7-8.2)
--- NOTE | 2022-08-08 17:45 | PROVIDER PROGRESS NOTE ---
Assessment/Plan - Problem List (1) Weakness Assessment/Plan: He had fallen before coming to the ER and was so weak at admission that he could not lift up his buttocks by pushing using his legs, when in bed. He also admitted that over the past week before admission, he had been mostly on his couch, hardly got up, did not eat, had his beer delivered to him by [employer]. He has now had a very prolonged stay for liver failure, in the intensive care unit initially and has been severely deconditioned because of this prolonged stay plus from morbid obesity. He has been working with physical therapy, alethea hernandez getting stronger, progressing on a daily basis. He is able to get out of bed now, walk to the bathroom, walk 40 feet. This is in contrast distinction to person who needed 4 people to sit him up in bed 2 weeks ago. Plan: Cont PT and OT . Possibly he is a care home facility candidate. It is difficult for him getting out of bed without an assist. But everything else seems to be going well. If he can get out of bed on his own, and complete his activities of daily living he can be discharged. Currently working with social work and case management to find placement for him that [facility] pays for and accepts a bariatric patient (2) Liver failure without hepatic coma Impression: He has liver failure from alcoholic liver disease. He presented with months of increased beer drinking after he lost his job. On admission his bili and LFTs were elevated. INR 1.8. While his LFTs were improving, his bili improvement lagged. He got a CT of abd to check for gallbladder disease or intraductal dilatation and that was negative. Labs were all reviewed. Bili peaked on 07/19 at 23.8. Bili has plateaued at 14-16. Per phone call consult with Dr. Pa from GI @ [facility] on 07/19, she advised us to increase lactulose dose, start rifaximin 550 along w/ methylprednisolone 1mg/kg for the treatment of his alcoholic liver disease and pantoprazole 40mg IV push for stomach ulcer protection. However, Dr. Pa did not feel it necessary to give 200mg of steroids and aim for 40mg a day for 5 days. He had psychomotor slowing until 07/26. His Maddrey score was 54.6 points, and >32 indicates poor prognosis and would benefit from glucocorticoid therapy. Patient received solumedrol 40 mg IVP for 5 days, the last dose was on 07/22/22. His MELD score was 29 points which equates to an estimated 76.5% indication for short term survival and approximately a 19.6% chance of mortality for patient's with end stage liver disease for considerations for liver transplant. Once he was on the steroids, lactulose, rifaximin there was slow improvement that has been very steady. He completed his steroid treatment. And we have him on lactulose. He continues on rifaximin, and is working with physical therapy/Occupational Therapy. He has reached maximal medical benefit. Now our treatment is focused on diuresing his anasarca and improving his mobility and his strength. (3) Hepatic encephalopathy Impression: Improved: He is alert, oriented, able to converse in normal sentences and has no psychomotor slowing. Patient had his dose of lactulose decrease due to too many BMs a day. We had him off his gabapentin which may have added to the initial lethargy and when he requested it for his neuropathy, and that was restarted. He has gone from doing some short shuffling steps to his chair from his bedside to being able to get up on his own with standby assist to go to the bathroom, and then walked back to the bed. He is spending more time in the bedside chair than in bed. He does not like walking outside his room, he is embarrassed by his appearance. At his worst his ammonia was 105 on July 16. Ammonia has been coming down with the lactulose. Plan: Since he has too many bowel movements, will decrease the lactulose from every other day to every third day. (4) Anasarca He developed anasarca while in the ICU from receiving iv saline for his severe hyponatremia. He was also on a salt tablet daily. The salt tablet was stopped several days ago. IV Lasix daily was started. His fluid restriction was changed from free water restriction to a total liquid restricted down to 2000 c c/day (1000 cc with meals, 1000 cc for nursing). RNs have caught his sister trying to sneak him extra fluids. Weight on admission was 194 kg, And his weight on July 30 was 213 kg. On 07/31 weight was 205.He feels like the weight is coming off of him and he likes the ability to be more mobile. He says that the skin of his legs does not feel nearly as tight. Echocardiogram done 07/31 was technically difficult to do because of his size. His ejection fraction is 55%. No regional wall motion abnormality seen. Atria were not well visualized. No significant valvular heart disease was identified. As such cardiac dysfunction is not the cause of his anasarca, ie. he does not have alcoholic cardiomyopathy. Plan: Will not allow family bringing him V8 juice, and extra liquids. Also no extra calories, since they bring in candy. Continue his fluid restriction of 2000 mls a day Continue Lasix and Spironolactone. We will increase his Lasix to IV twice daily since he is not is neg fluid balance (5) Morbid obesity BMI 60-69 At admission he weighed about 59 BMI, this increased to BMI of 67 after getting IV fluids and developing anasarca. His morbid obesity makes all of his care more difficult. Plan: In the outpatient setting, the patient will need to continue a low calorie diet, improve his mobility to be able to exercise. Resolved or chronic problems (6) Hypotension resolved From July 16 to the he required Levophed to keep his blood pressure up and to maintain his urine output. We looked for signs of infection, repeated blood cultures, urinalysis, chest x-ray and no source of infection was found. He was not having an IN. No lactic acidosis. Suspect he was intravascularly depleted due to cirrhosis and alcoholism. A July 22 urine culture grew out Enterococcus. He was not placed on antibiotics for that. Since he does not have a fever, elevated white cell count, and is asymptomatic hospitalist did not treat. (7) Alcoholism Impression: Initially he was on iv banana bags and transitioned to multivit and thiamin orally whgen he was able to swallow. He needed librium and CIWA protocol, but librium stopped 07/17. Pt is on lactulose for his high Ammonia level and confusion and psychomotor slowing, which are improving. Labs are all reviewed: The bilirubin is mostly plateaued around 14, ammonia level has decreased He has met with social work. They have given him opportunities for following up with rehab once he is done with physical rehab. (8) Right breast nipple inversion Plan: Outpatient work up with mammo (9) Skin rash Rash covering the skin of both buttocks and is a result of being on his back and having the loose stool. A shower was ordered and he can now sit up in a bariatric chair in shower. The rash continues to be present. There is been no change in the geographic distribution since it was first identified. Nonblanching red skin. Plan: Continue hygiene and nystatin powder (10) Hyponatremia Resolved as of 07/21 On admission, he presented is almost meeting the criteria for beer potomania. He was severely hyponatremic at 114 but not hypokalemic. He was on saline in the ICU. A daily salt tablet was added (by Telemedicine Dr). By July 16 Na was 118. By July 17 Na was 124. July 18 Na was 128 and by 07/21 his Na was 135. On 07/23 Na was 141. / and 07/31 he was 131 and 08/01 he was 135. 4/2 was dropping a bit. Plan: Remain off the the salt tablet, due to persistent anasarca Cont on restricted total fluid intake/day Follow BMP intermittently. (11) Abnormal urinalysis His first urinalysis showed bacteriuria but was negative in its growth. He did not have any symptoms of urgency, and frequency but did have AMS (psychomotor slowing). He did not have a fever or an elevated white cell count. We did not treat this abnormal urinalysis (12) Boil Left anterior thigh that has come to a head. Patient scratched it and boil ruptured, no cellulitis. (13) Conjunctivitis Resolved on eye drops - Current Meds Current Meds: Current Medications Generic Name Dose Route Start Last Admin Trade Name Freq PRN Reason Stop Dose Admin Calcium Carbonate/Glycine 500 mg 07/21/22 03:51 07/24/22 18:15 Calcium Carbonate Chew 500 Mg Tablet PO 500 mg BID PRN Administration Heartburn Carboxymethylcellulose 1 drops 07/17/22 08:19 07/31/22 08:17 Carboxymethylcellulose Ophth Drops EACHEYE 1 drops PRN PRN Administration Dry Eye Clotrimazole 1 applic 08/04/22 09:00 08/08/22 08:14 Clotrimazole 1% Cream 15 Gm Tube TOP 1 applic BID KANU Administration Enoxaparin Sodium 40 mg 07/24/22 09:41 08/08/22 08:12 Enoxaparin 40 Mg/0.4 Ml Syringe SUBQ 40 mg BID KANU Administration Furosemide 20 mg 08/08/22 14:00 08/08/22 15:06 Furosemide 20 Mg/2 Ml Vial IVP 20 mg BIDDIURETIC KANU Administration Gabapentin 600 mg 07/27/22 14:00 08/08/22 15:06 Gabapentin 300 Mg Capsule PO 600 mg TID KANU Administration Lactobacillus Rhamnosus 1 cap 07/16/22 11:00 08/08/22 08:11 Lactobacillus Rhamnosus Gg Capsule PO 1 cap DAILY KANU Administration Multi-Ingredient Ointment 1 applic 07/16/22 01:24 08/08/22 08:14 Zinc Oxide 20% Oint 30 Gm Tube TOP 1 applic PRN PRN Administration Skin Care Nystatin 1 applic 07/15/22 21:00 08/08/22 08:14 Nystatin Powder 15 Gm TOP 1 applic BID KANU Administration Ondansetron HCl 4 mg 07/15/22 11:15 07/16/22 08:12 Ondansetron 4 Mg/2 Ml Vial IVP 4 mg Q6HR PRN Administration Nausea / Vomiting Pantoprazole Sodium 40 mg 07/19/22 11:00 08/08/22 05:07 Pantoprazole 40 Mg Tablet PO 40 mg QDAC KANU Administration Mometasone Furoate 1 each 07/22/22 17:00 08/05/22 03:08 0.1% Ointment TOP 1 each BID PRN Administration ITCHING Multivit/Folic Acid/Iron 1 tab 07/16/22 11:00 08/08/22 08:11 Vitamin Tablet PO 1 tab DAILYWM KANU Administration Prochlorperazine Edisylate 10 mg 07/15/22 11:15 07/22/22 23:58 Prochlorperazine 10 Mg/2 Ml Vial IVP 10 mg Q6HR PRN Administration Nausea / Vomiting Rifaximin 550 mg 07/18/22 21:00 08/08/22 08:11 Rifaximin 550 Mg Tablet PO 550 mg BID KANU Administration Sodium Chloride 10 ml 07/15/22 11:15 08/06/22 08:30 Sodium Chloride Flush 0.9% 10 Ml Syringe IVP 10 ml PRN PRN Administration NEEDED PER PROVIDER ORDERS Sodium Chloride 20 ml 07/16/22 22:36 08/06/22 18:44 Sodium Chloride Flush 0.9% 10 Ml Syringe IVP 20 ml PRN PRN Administration After Blood Draw Spironolactone 25 mg 08/04/22 21:00 08/08/22 08:16 Spironolactone 25 Mg Tablet PO 25 mg BID KANU Administration Thiamine HCl 100 mg 07/16/22 11:00 08/08/22 08:11 Thiamine 100 Mg Tablet PO 100 mg DAILY KANU Administration Tramadol HCl 25 mg 07/27/22 09:00 08/08/22 08:11 Tramadol 50 Mg Tablet PO 25 mg BID KANU Administration Zinc Oxide 113 gm 07/19/22 17:01 07/22/22 23:47 Cod Liver Oil/Zinc Oxide 113 Gm Tube TOP 1 applic PRN PRN Administration Skin Care - Lab Result Fish Bone Diagrams: 08/13/22 06:11 08/13/22 06:11 - Additional Planning My Orders: My Active Orders 08/08/22 C DIFF PCR Stat 08/08/22 08:00 Miscellaenous Nursing Order [RC] QSHIFT 08/08/22 14:00 FUROSEMIDE INJ 20mg VIAL [LASIX INJ 20mg VIAL] 20 mg IVP BIDDIURETIC 08/09/22 08:00 Potassium Chloride [Micro-K] 20 meq PO DAILYWM 08/09/22 09:00 Lactulose 10 gm PO Q72H Subjective - Subjective Nursing Reports: Other (Having diarrhea, there is some blood in the toilet bowl as well but stool is brown. RN gives examples of his manipulative behavior to get more fluid than what is restricted per day and more food or candy then what is ordered in his diet.) Objective Vital Signs: Vital Signs - 24 hr 08/08/22 08/08/22 08/08/22 00:21 07:50 16:24 Temperature 37.2 C 37.5 C 36.1 C L Heart Rate [ 91 87 102 H Radial] Respiratory 24 20 24 Rate Blood Pressure 124/73 126/76 145/86 H [Right Radial artery] O2 Saturation 98 95 96 Oxygen O2 Source Room air I&O (Last 24 Hrs): Intake and Output Totals x24h 08/06/22 08/07/22 08/08/22 23:59 23:59 23:59 Intake Total 1250 1027 897 Output Total 1100 950 800 Balance 150 77 97 General: Alert, Oriented x3 HEENT: PERRLA Neck: Supple Neuro: Alert, Non Focal Respiratory: No respiratory distress Abdomen: Other (Obese with a very large pannus, nearly down to knees) Genitourinary: Other (Swollen scrotum) Extremities: No clubbing, Other (4+ anahi, ventura blisters) - Results Results: Laboratory Results WBC 10.6 x10^3/uL (4.8-10.8) 08/08/22 04:45 RBC 3.07 10^6/uL (4.70-6.10) L 08/08/22 04:45 Hgb 10.3 g/dL (14.0-18.0) L 08/08/22 04:45 Hct 31.1 % (42.0-52.0) L 08/08/22 04:45 MCV 101.3 fL (80.0-94.0) H 08/08/22 04:45 MCH 33.6 pg (27.0-31.0) H 08/08/22 04:45 MCHC 33.1 g/dL (32.0-36.0) 08/08/22 04:45 RDW 15.8 % (12.0-15.0) H 08/08/22 04:45 Plt Count 114 10^3/uL (130-450) L 08/08/22 04:45 MPV 10.6 fL (7.4-11.4) 08/08/22 04:45 Neut # (Auto) Not Reportable 08/08/22 04:45 Lymph # (Auto) Not Reportable 08/08/22 04:45 [place] # (Auto) Not Reportable 08/08/22 04:45 Eos # (Auto) Not Reportable 08/08/22 04:45 Baso # (Auto) Not Reportable 08/08/22 04:45 Absolute Nucleated RBC Not Reportable 08/08/22 04:45 Total Counted 100 08/08/22 04:45 Band Neuts % (Manual) 2 % (0-10) 08/08/22 04:45 Reactive Lymphs % (Man) 5 % 08/04/22 05:00 Abnorm Lymph % (Manual) 0 % 08/08/22 04:45 Metamyelocytes % 1 % (-0) H 08/07/22 04:55 Myelocytes % 7 % (-0) H 08/08/22 04:45 Nucleated RBC % Not Reportable 08/08/22 04:45 Neutrophils # (Manual) 5.8 10^3/uL (1.5-6.6) 08/08/22 04:45 Lymphocytes # (Manual) 2.4 10^3/uL (1.5-3.5) 08/08/22 04:45 Monocytes # (Manual) 1.2 10^3/uL (0.0-1.0) H 08/08/22 04:45 Eosinophils # (Manual) 0.4 10^3/uL (0-0.7) 08/08/22 04:45 Basophils # (Manual) 0.0 10^3/uL (0-0.1) 08/08/22 04:45 Differential Comment MANUAL DIFFERENTIAL 08/08/22 04:45 WBC Morphology NORMAL APPEARANCE (NORMAL) 08/08/22 04:45 Platelet Estimate DECREASED (<130,000) (NORMAL) 08/08/22 04:45 Platelet Morphology NORMAL APPEARANCE (NORMAL) 08/08/22 04:45 RBC Morph Micro Appear NORMAL APPEARANCE (NORMAL) 08/08/22 04:45 PT 19.3 secs (9.9-12.6) H 07/15/22 12:26 INR 1.8 (0.8-1.2) H 07/15/22 12:26 VBG pH 7.317 (7.31-7.41) 07/23/22 05:45 Ionized Calcium 1.16 mmol/L (1.15-1.33) 07/23/22 05:45 Sodium 132 mmol/L (135-145) L 08/08/22 04:45 Potassium 4.5 mmol/L (3.5-5.0) 08/08/22 04:45 Chloride 105 mmol/L (101-111) 08/08/22 04:45 Carbon Dioxide 23 mmol/L (21-32) 08/08/22 04:45 Anion Gap 4.0 (6-13) L 08/08/22 04:45 BUN 22 mg/dL (6-20) H 08/08/22 04:45 Creatinine 0.8 mg/dL (0.6-1.2) 08/08/22 04:45 Estimated GFR (MDRD) 101 (>89) 08/08/22 04:45 Glucose 104 mg/dL (70-100) H 08/08/22 04:45 Estimat Average Glucose 105 mg/dL (70-100) H 07/16/22 04:27 Hemoglobin A1c % 5.3 % (4.27-6.07) 07/16/22 04:27 Calcium 8.4 mg/dL (8.5-10.3) L 08/08/22 04:45 Phosphorus 2.9 mg/dL (2.5-4.6) 07/23/22 05:45 Magnesium 1.9 mg/dL (1.7-2.8) 08/01/22 05:15 Total Bilirubin 13.9 mg/dL (0.2-1.0) H 08/08/22 04:45 Direct Bilirubin 8.2 mg/dL (0.1-0.5) H 08/08/22 04:45 AST 111 IU/L (10-42) H 08/08/22 04:45 ALT 46 IU/L (10-60) 08/08/22 04:45 Alkaline Phosphatase 302 IU/L (42-121) H 08/08/22 04:45 Ammonia 48.1 umol/L (7-35) H 07/31/22 06:30 Total Creatine Kinase 171 IU/L (22-269) 07/18/22 05:18 Troponin I High Sens 27.6 ng/L (2.3-19.7) H* 07/16/22 20:52 Total Protein 5.4 g/dL (6.7-8.2) L 08/08/22 04:45 Albumin 1.8 g/dL (3.2-5.5) L 08/08/22 04:45 Globulin 3.6 g/dL (2.1-4.2) 08/08/22 04:45 Albumin/Globulin Ratio 0.5 (1.0-2.2) L 08/01/22 05:15 Lipase 36 U/L (22-51) 07/15/22 09:54 Whole Bld Vitamin B1 138.4 nmol/L (66.5-200.0) 07/23/22 05:45 Vitamin B12 404 pg/mL (180-914) 07/16/22 04:27 Folate 8.12 ng/mL (5.90 - >24.8) 07/16/22 04:27 TSH 2.59 uIU/mL (0.34-5.60) 07/15/22 09:54 Urine Color DARK YELLOW 07/22/22 12:50 Urine Clarity HAZY (CLEAR) 07/22/22 12:50 Urine pH 6.0 PH (5.0-7.5) 07/22/22 12:50 Ur Specific Cache 1.020 (1.002-1.030) 07/22/22 12:50 Urine Protein NEGATIVE mg/dL (NEGATIVE) 07/22/22 12:50 Urine Glucose (UA) 250 mg/dL (NEGATIVE) H 07/22/22 12:50 Urine Ketones NEGATIVE mg/dL (NEGATIVE) 07/22/22 12:50 Urine Occult Blood MODERATE (NEGATIVE) H 07/22/22 12:50 Urine Nitrite POSITIVE (NEGATIVE) H 07/22/22 12:50 Urine Bilirubin LARGE (NEGATIVE) H 07/22/22 12:50 Urine Urobilinogen 2 E.U./dL (NORMAL) H 07/22/22 12:50 Ur Leukocyte Esterase SMALL (NEGATIVE) H 07/22/22 12:50 Urine RBC 0-5 /HPF (0-5) 07/22/22 12:50 Urine WBC 6-10 /HPF (0-3) H 07/22/22 12:50 Ur Squamous Epith Cells FEW Squamous (<= Few) 07/22/22 12:50 Urine Bacteria Many /HPF (None Seen) H 07/22/22 12:50 Urine Casts 0-2 WBC Casts /LPF 07/22/22 12:50 Urine Culture Comments INDICATED 07/22/22 12:50 Nasal Screen MRSA (PCR) NEGATIVE (NEGATIVE) 07/15/22 11:58 Stl C. diff Tox B Gene NEGATIVE (NEGATIVE) 07/16/22 02:05 Urine Opiates Screen NEGATIVE (NEGATIVE) 07/15/22 12:59 Ur Oxycodone Screen NEGATIVE (NEGATIVE) 07/15/22 12:59 Urine Methadone Screen NEGATIVE (NEGATIVE) 07/15/22 12:59 Ur Propoxyphene Screen NEGATIVE (NEGATIVE) 07/15/22 12:59 Ur Barbiturates Screen NEGATIVE (NEGATIVE) 07/15/22 12:59 Ur Tricyclics Screen NEGATIVE (NEGATIVE) 07/15/22 12:59 Ur Phencyclidine Scrn NEGATIVE (NEGATIVE) 07/15/22 12:59 Ur Amphetamine Screen NEGATIVE (NEGATIVE) 07/15/22 12:59 U Methamphetamines Scrn NEGATIVE (NEGATIVE) 07/15/22 12:59 U Benzodiazepines Scrn NEGATIVE (NEGATIVE) 07/15/22 12:59 Urine Cocaine Screen NEGATIVE (NEGATIVE) 07/15/22 12:59 U Cannabinoids Screen NEGATIVE (NEGATIVE) 07/15/22 12:59 Ethyl Alcohol 103.7 mg/dL 07/15/22 09:54 SARS-CoV-2 (PCR) NOT DETECTED 07/31/22 18:35
[2022-08-09] MEDS ORDERED: MORPHINE 2 MG/ML CARPUJECT IVP PRN (03:49)
[2022-08-09] MEDS: SODIUM CHLORIDE FLUSH 0.9% 10 ML SYRINGE IVP PRN (04:01)
[2022-08-09] MEDS: GABAPENTIN 300 MG CAPSULE PO SCH ×3 (06:38→21:33)
[2022-08-09] MEDS: FUROSEMIDE 20 MG/2 ML VIAL IVP SCH ×2 (06:38→14:50)
[2022-08-09] MEDS: PANTOPRAZOLE 40 MG TABLET PO SCH (06:39)
[2022-08-09] MEDS: THIAMINE 100 MG TABLET PO SCH (07:42)
[2022-08-09] MEDS: SPIRONOLACTONE 25 MG TABLET PO SCH ×2 (07:42→21:33)
[2022-08-09] MEDS: traMADol 50 MG TABLET PO SCH ×2 (07:42→21:33)
[2022-08-09] MEDS: POTASSIUM CHLORIDE 10 MEQ CAPSULE PO SCH (07:42)
[2022-08-09] MEDS: PRENATAL VITAMIN TABLET PO SCH (07:42)
[2022-08-09] MEDS: LACTOBACILLUS RHAMNOSUS GG CAPSULE PO SCH (07:42)
[2022-08-09] MEDS: rifAXIMin 550 MG TABLET PO SCH ×2 (07:43→21:33)
[2022-08-09] MEDS: ENOXAPARIN 40 MG/0.4 ML SYRINGE SUBQ SCH ×2 (07:43→21:33)
[2022-08-09] MEDS: NYSTATIN POWDER 15 GM TOP SCH ×2 (07:43→21:39)
[2022-08-09] MEDS: CLOTRIMAZOLE 1% CREAM 15 GM TUBE TOP SCH ×2 (07:44→21:46)
[2022-08-09] MEDS ORDERED: LACTULOSE 10 GM/15 ML BOTTLE PO SCH (09:00)
[2022-08-09] MEDS ORDERED: COLLAGEN TOP SCH (14:00)
[2022-08-09] MEDS ORDERED: LIDOCAINE TOP SCH (14:00)
[2022-08-09] MEDS ORDERED: ALOE TOP SCH (14:00)
[2022-08-09] MEDS ORDERED: VIT E TOP SCH (14:00)
[2022-08-09] MEDS: LIDOCAINE OINTMENT 5% 35.44 GM TUBE TOP SCH ×3 (15:28→21:37)
[2022-08-09] MEDS ORDERED: ALBUMIN 25% 12.5 GM/50 ML VIAL IV STA (16:42)
--- NOTE | 2022-08-09 16:42 | PROVIDER PROGRESS NOTE ---
Assessment/Plan - Problem List (1) Weakness Assessment/Plan: He had fallen before coming to the ER and was so weak at admission that he could not lift up his buttocks by pushing using his legs, when in bed. He also admitted that over the past week before admission, he had been mostly on his couch, hardly got up, did not eat, had his beer delivered to him by [employer]. He has now had a very prolonged stay for liver failure, in the intensive care unit initially and has been severely deconditioned because of this prolonged stay plus from morbid obesity. He has been working with physical therapy, alethea hernandez getting stronger, progressing on a daily basis. He is able to get out of bed now, walk to the bathroom, walk 40 feet. This is in contrast distinction to person who needed 4 people to sit him up in bed 2 weeks ago. Plan: Cont PT and OT . Possibly he is a senior living facility candidate. It is difficult for him getting out of bed without an assist. But everything else seems to be going well. If he can get out of bed on his own, and complete his activities of daily living he can be discharged. Currently working with social work and case management to find a SNF for him that [facility] pays for and accepts a bariatric patient (2) Liver failure without hepatic coma Impression: He has liver failure from alcoholic liver disease. He presented with months of increased beer drinking after he lost his job. On admission his bili and LFTs were elevated. INR 1.8. While his LFTs were improving, his bili improvement lagged. He got a CT of abd to check for gallbladder disease or intraductal dilatation and that was negative. Labs were all reviewed. Bili peaked on 07/19 at 23.8. Bili has plateaued at 14-16. Per phone call consult with Dr. Pa from GI @ [facility] on 07/19, she advised us to increase lactulose dose, start rifaximin 550 along w/ methylprednisolone 1mg/kg for the treatment of his alcoholic liver disease and pantoprazole 40mg IV push f or stomach ulcer protection. However, Dr. Pa did not feel it necessary to give 200mg of steroids and aim for 40mg a day for 5 days. He had psychomotor slowing until 07/26. His Maddrey score was 54.6 points, and >32 indicates poor prognosis and would benefit from glucocorticoid therapy. Patient received solumedrol 40 mg IVP for 5 days, the last dose was on 07/22/22. His MELD score was 29 points which equates to an estimated 76.5% indication for short term survival and approximately a 19.6% chance of mortality for patient's with end stage liver disease for considerations for liver transplant. Once he was on the steroids, lactulose, rifaximin there was slow improvement that has been very steady. He completed his steroid treatment. And we have him on lactulose. He continues on rifaximin, and is working with physical therapy/Occupational Therapy. He has reached maximal medical benefit. Now our treatment is focused on diuresing his anasarca and improving his mobility and his strength. (3) Hepatic encephalopathy Impression: Improved: He is alert, oriented, able to converse in normal sentences and has no psychomotor slowing. Patient had his dose of lactulose decrease due to too many BMs a day. We had him off his gabapentin which may have added to the initial lethargy and when he requested it for his neuropathy, and that was restarted. He has gone from doing some short shuffling steps to his chair from his bedside to being able to get up on his own with standby assist to go to the bathroom, and then walked back to the bed. He is spending more time in the bedside chair than in bed. He does not like walking outside his room, he is embarrassed by his appearance. At his worst his ammonia was 105 on July 16. Ammonia has been coming down with the lactulose. Plan: Since he has too many bowel movements, will decreased the lactulose from every other day to every third day. Will check Ammonia level intermittently. (4) Anasarca He developed anasarca while in the ICU from receiving iv saline for his severe hyponatremia. He was also on a salt tablet daily. The salt tablet was stopped several days ago. IV Lasix daily was started. His fluid restriction was changed from free water restriction to a total liquid restricted down to 2000 cc/day (1000 cc with meals, 1000 cc for nursing). RNs have caught his sister trying to sneak him extra fluids. Weight on admission was 194 kg, And his weight on July 30 was 213 kg. On 07/31 weight was 205.He feels like the weight is coming off of him and he likes the ability to be more mobile. He says that the skin of his legs does not feel nearly as tight. Echocardiogram done 07/31 was technically difficult to do because of his size. His ejection fraction is 55%. No regional wall motion abnormality seen. Atria were not well visualized. No significant valvular heart disease was identified. As such cardiac dysfunction is not the cause of his anasarca, ie. he does not have alcoholic cardiomyopathy. Plan: Will not allow family bringing him V8 juice, and extra liquids. Also no extra calories, since they bring in candy. I spoke to the mother in the room about this. Continue his fluid restriction of 2000 mls a day Continue Lasix and Spironolactone. Continue on the increase Lasix IV twice daily since he was not is neg fluid balance Promote leg elevation. (5) Morbid obesity BMI 60-69 At admission he weighed about 59 BMI, this increased to BMI of 67 after getting IV fluids and developing anasarca. His morbid obesity makes all of his care more difficult. Plan: In the outpatient setting, the patient will need to continue a low calorie diet, improve his mobility to be able to exercise. Resolved or chronic problems (6) Hypotension resolved From July 16 to the he required Levophed to keep his blood pressure up and to maintain his urine output. We looked for signs of infection, repeated blood cultures, urinalysis, chest x-ray and no source of infection was found. He was not having an DC. No lactic acidosis. Suspect he was intravascularly depleted due to cirrhosis and alcoholism. A July 22 urine culture grew out Enterococcus. He was not placed on antibiotics for that. Since he does not have a fever, elevated white cell count, and is asymptomatic hospitalist did not treat. (7) Alcoholism Impression: Initially he was on iv banana bags and transitioned to multivit and thiamin orally whgen he was able to swallow. He needed librium and CIWA protocol, but librium stopped 07/17. Pt is on lactulose for his high Ammonia level and confusion and psychomotor slowing, which are improving. Labs are all reviewed: The bilirubin is mostly plateaued around 14, ammonia level has decreased He has met with social work. They have given him opportunities for following up with rehab once he is done with physical rehab. (8) Right breast nipple inversion Plan: Outpatient work up with mammo (9) Skin rash Rash covering the skin of both buttocks and is a result of being on his back and having the loose stool. A shower was ordered and he can now sit up in a bariatric chair in shower. The rash continues to be present. There is been no change in the geographic distribution since it was first identified. Nonblanching red skin. Plan: Continue hygiene and nystatin powder (10) Hyponatremia Resolved as of 07/21 On admission, he presented is almost meeting the criteria for beer potomania. He was severely hyponatremic at 114 but not hypokalemic. He was on saline in the ICU. A daily salt tablet was added (by Telemedicine Dr). By July 16 Na was 118. By July 17 Na was 124. July 18 Na was 128 and by 07/21 his Na was 135. On 07/23 Na was 141. 3/ and 07/31 he was 131 and 08/01 he was 135. 4/2 was dropping a bit. Plan: Remain off the the salt tablet, due to persistent anasarca Cont on restricted total fluid intake/day Follow BMP intermittently. (11) Abnormal urinalysis His first urinalysis showed bacteriuria but was negative in its growth. He did not have any symptoms of urgency, and frequency but did have AMS (psychomotor slowing). He did not have a fever or an elevated white cell count. We did not treat this abnormal urinalysis (12) Boil Left anterior thigh that has come to a head. Patient scratched it and boil ruptured, no cellulitis. (13) Conjunctivitis Resolved on eye drops - Current Meds Current Meds: Current Medications Generic Name Dose Route Start Last Admin Trade Name Becca PRN Reason Stop Dose Admin Calcium Carbonate/Glycine 500 mg 07/21/22 03:51 07/24/22 18:15 Calcium Carbonate Chew 500 Mg Tablet PO 500 mg BID PRN Administration Heartburn Carboxymethylcellulose 1 drops 07/17/22 08:19 07/31/22 08:17 Carboxymethylcellulose Ophth Drops EACHEYE 1 drops PRN PRN Administration Dry Eye Clotrimazole 1 applic 08/04/22 09:00 08/09/22 07:44 Clotrimazole 1% Cream 15 Gm Tube TOP 1 applic BID KANU Administration Enoxaparin Sodium 40 mg 07/24/22 09:41 08/09/22 07:43 Enoxaparin 40 Mg/0.4 Ml Syringe SUBQ 40 mg BID KANU Administration Furosemide 20 mg 08/08/22 14:00 08/09/22 14:50 Furosemide 20 Mg/2 Ml Vial IVP 20 mg BIDDIURETIC KANU Administration Gabapentin 600 mg 07/27/22 14:00 08/09/22 14:50 Gabapentin 300 Mg Capsule PO 600 mg TID KANU Administration Lactobacillus Rhamnosus 1 cap 07/16/22 11:00 08/09/22 07:42 Lactobacillus Rhamnosus Gg Capsule PO 1 cap DAILY KANU Administration Lidocaine 1 applic 08/09/22 14:31 08/09/22 15:28 Lidocaine Ointment 5% 35.44 Gm Tube TOP 1 applic QID KANU Administration Multi-Ingredient Ointment 1 applic 07/16/22 01:24 08/08/22 08:14 Zinc Oxide 20% Oint 30 Gm Tube TOP 1 applic PRN PRN Administration Skin Care Nystatin 1 applic 07/15/22 21:00 08/09/22 07:43 Nystatin Powder 15 Gm TOP 1 applic BID KANU Administration Ondansetron HCl 4 mg 07/15/22 11:15 07/16/22 08:12 Ondansetron 4 Mg/2 Ml Vial IVP 4 mg Q6HR PRN Administration Nausea / Vomiting Pantoprazole Sodium 40 mg 07/19/22 11:00 08/09/22 06:39 Pantoprazole 40 Mg Tablet PO 40 mg QDAC KANU Administration Mometasone Furoate 1 each 07/22/22 17:00 08/05/22 03:08 0.1% Ointment TOP 1 each BID PRN Administration ITCHING Potassium Chloride 20 meq 08/09/22 08:00 08/09/22 07:42 Potassium Chloride 10 Meq Capsule PO 20 meq DAILYWM KANU Administration Multivit/Folic Acid/Iron 1 tab 07/16/22 11:00 08/09/22 07:42 Vitamin Tablet PO 1 tab DAILYWM KANU Administration Prochlorperazine Edisylate 10 mg 07/15/22 11:15 07/22/22 23:58 Prochlorperazine 10 Mg/2 Ml Vial IVP 10 mg Q6HR PRN Administration Nausea / Vomiting Rifaximin 550 mg 07/18/22 21:00 08/09/22 07:43 Rifaximin 550 Mg Tablet PO 550 mg BID KANU Administration Sodium Chloride 10 ml 07/15/22 11:15 08/06/22 08:30 Sodium Chloride Flush 0.9% 10 Ml Syringe IVP 10 ml PRN PRN Administration NEEDED PER PROVIDER ORDERS Sodium Chloride 20 ml 07/16/22 22:36 08/09/22 04:01 Sodium Chloride Flush 0.9% 10 Ml Syringe IVP 20 ml PRN PRN Administration After Blood Draw Spironolactone 25 mg 08/04/22 21:00 08/09/22 07:42 Spironolactone 25 Mg Tablet PO 25 mg BID KANU Administration Thiamine HCl 100 mg 07/16/22 11:00 08/09/22 07:42 Thiamine 100 Mg Tablet PO 100 mg DAILY KANU Administration Tramadol HCl 25 mg 07/27/22 09:00 08/09/22 07:42 Tramadol 50 Mg Tablet PO 25 mg BID KANU Administration Zinc Oxide 113 gm 07/19/22 17:01 07/22/22 23:47 Cod Liver Oil/Zinc Oxide 113 Gm Tube TOP 1 applic PRN PRN Administration Skin Care - Lab Result Fish Bone Diagrams: 08/13/22 06:11 08/13/22 06:11 - Additional Planning My Orders: My Active Orders 08/08/22 20:04 C DIFF PCR Routine 08/09/22 08:00 Potassium Chloride [Micro-K] 20 meq PO DAILYWM 08/09/22 10:27 Miscellaenous Nursing Order [RC] ONCE 08/09/22 12:23 Nutrition Consult [CONS] Routine 08/09/22 14:31 Lidocaine Ointment 5% [Xylocaine Ointment 5%] 1 applic TOP QID 08/09/22 Dinner Carb-controlled Diet [DIET] 08/11/22 10:00 Lactulose 10 gm PO Q72H Subjective - Subjective Nursing Reports: Other (He is walking further. He is sill trying to get more liquids, asking differet staff.) Objective Vital Signs: Vital Signs - 24 hr 08/08/22 08/09/22 08/09/22 23:30 07:47 08:47 Temperature 36.2 C L 36.3 C L Heart Rate [ 87 Brachial] Heart Rate [ 89 Radial] Respiratory 20 22 Rate Blood Pressure 114/65 113/73 114/69 [Right Radial artery] O2 Saturation 96 95 Oxygen O2 Source Room air I&O (Last 24 Hrs): Intake and Output Totals x24h 08/07/22 08/08/22 08/09/22 23:59 23:59 23:59 Intake Total 1027 1247 760 Output Total 950 1125 1125 Balance 77 122 -365 General: Alert, Oriented x3 HEENT: Atraumatic, PERRLA Neck: Supple Neuro: Alert, Non Focal Cardiovascular: Regular rate Respiratory: No respiratory distress Abdomen: Other (Obese with a very large pannus nearly to his knees) Extremities: No clubbing, Other (4+ edema, ventura blisters) - Results Results: Laboratory Results WBC 10.6 x10^3/uL (4.8-10.8) 08/08/22 04:45 RBC 3.07 10^6/uL (4.70-6.10) L 08/08/22 04:45 Hgb 10.3 g/dL (14.0-18.0) L 08/08/22 04:45 Hct 31.1 % (42.0-52.0) L 08/08/22 04:45 MCV 101.3 fL (80.0-94.0) H 08/08/22 04:45 MCH 33.6 pg (27.0-31.0) H 08/08/22 04:45 MCHC 33.1 g/dL (32.0-36.0) 08/08/22 04:45 RDW 15.8 % (12.0-15.0) H 08/08/22 04:45 Plt Count 114 10^3/uL (130-450) L 08/08/22 04:45 MPV 10.6 fL (7.4-11.4) 08/08/22 04:45 Neut # (Auto) Not Reportable 08/08/22 04:45 Lymph # (Auto) Not Reportable 08/08/22 04:45 [place] # (Auto) Not Reportable 08/08/22 04:45 Eos # (Auto) Not Reportable 08/08/22 04:45 Baso # (Auto) Not Reportable 08/08/22 04:45 Absolute Nucleated RBC Not Reportable 08/08/22 04:45 Total Counted 100 08/08/22 04:45 Band Neuts % (Manual) 2 % (0-10) 08/08/22 04:45 Reactive Lymphs % (Man) 5 % 08/04/22 05:00 Abnorm Lymph % (Manual) 0 % 08/08/22 04:45 Metamyelocytes % 1 % (-0) H 08/07/22 04:55 Myelocytes % 7 % (-0) H 08/08/22 04:45 Nucleated RBC % Not Reportable 08/08/22 04:45 Neutrophils # (Manual) 5.8 10^3/uL (1.5-6.6) 08/08/22 04:45 Lymphocytes # (Manual) 2.4 10^3/uL (1.5-3.5) 08/08/22 04:45 Monocytes # (Manual) 1.2 10^3/uL (0.0-1.0) H 08/08/22 04:45 Eosinophils # (Manual) 0.4 10^3/uL (0-0.7) 08/08/22 04:45 Basophils # (Manual) 0.0 10^3/uL (0-0.1) 08/08/22 04:45 Differential Comment MANUAL DIFFERENTIAL 08/08/22 04:45 WBC Morphology NORMAL APPEARANCE (NORMAL) 08/08/22 04:45 Platelet Estimate DECREASED (<130,000) (NORMAL) 08/08/22 04:45 Platelet Morphology NORMAL APPEARANCE (NORMAL) 08/08/22 04:45 RBC Morph Micro Appear NORMAL APPEARANCE (NORMAL) 08/08/22 04:45 PT 19.3 secs (9.9-12.6) H 07/15/22 12:26 INR 1.8 (0.8-1.2) H 07/15/22 12:26 VBG pH 7.317 (7.31-7.41) 07/23/22 05:45 Ionized Calcium 1.16 mmol/L (1.15-1.33) 07/23/22 05:45 Sodium 132 mmol/L (135-145) L 08/08/22 04:45 Potassium 4.5 mmol/L (3.5-5.0) 08/08/22 04:45 Chloride 105 mmol/L (101-111) 08/08/22 04:45 Carbon Dioxide 23 mmol/L (21-32) 08/08/22 04:45 Anion Gap 4.0 (6-13) L 08/08/22 04:45 BUN 22 mg/dL (6-20) H 08/08/22 04:45 Creatinine 0.8 mg/dL (0.6-1.2) 08/08/22 04:45 Estimated GFR (MDRD) 101 (>89) 08/08/22 04:45 Glucose 104 mg/dL (70-100) H 08/08/22 04:45 Estimat Average Glucose 105 mg/dL (70-100) H 07/16/22 04:27 Hemoglobin A1c % 5.3 % (4.27-6.07) 07/16/22 04:27 Calcium 8.4 mg/dL (8.5-10.3) L 08/08/22 04:45 Phosphorus 2.9 mg/dL (2.5-4.6) 07/23/22 05:45 Magnesium 1.9 mg/dL (1.7-2.8) 08/01/22 05:15 Total Bilirubin 13.9 mg/dL (0.2-1.0) H 08/08/22 04:45 Direct Bilirubin 8.2 mg/dL (0.1-0.5) H 08/08/22 04:45 AST 111 IU/L (10-42) H 08/08/22 04:45 ALT 46 IU/L (10-60) 08/08/22 04:45 Alkaline Phosphatase 302 IU/L (42-121) H 08/08/22 04:45 Ammonia 48.1 umol/L (7-35) H 07/31/22 06:30 Total Creatine Kinase 171 IU/L (22-269) 07/18/22 05:18 Troponin I High Sens 27.6 ng/L (2.3-19.7) H* 07/16/22 20:52 Total Protein 5.4 g/dL (6.7-8.2) L 08/08/22 04:45 Albumin 1.8 g/dL (3.2-5.5) L 08/08/22 04:45 Globulin 3.6 g/dL (2.1-4.2) 08/08/22 04:45 Albumin/Globulin Ratio 0.5 (1.0-2.2) L 08/01/22 05:15 Lipase 36 U/L (22-51) 03/13/23 09:54 Whole Bld Vitamin B1 138.4 nmol/L (66.5-200.0) 07/23/22 05:45 Vitamin B12 404 pg/mL (180-914) 07/16/22 04:27 Folate 8.12 ng/mL (5.90 - >24.8) 07/16/22 04:27 TSH 2.59 uIU/mL (0.34-5.60) 07/15/22 09:54 Urine Color DARK YELLOW 07/22/22 12:50 Urine Clarity HAZY (CLEAR) 07/22/22 12:50 Urine pH 6.0 PH (5.0-7.5) 07/22/22 12:50 Ur Specific [place] 1.020 (1.002-1.030) 07/22/22 12:50 Urine Protein NEGATIVE mg/dL (NEGATIVE) 07/22/22 12:50 Urine Glucose (UA) 250 mg/dL (NEGATIVE) H 07/22/22 12:50 Urine Ketones NEGATIVE mg/dL (NEGATIVE) 07/22/22 12:50 Urine Occult Blood MODERATE (NEGATIVE) H 07/22/22 12:50 Urine Nitrite POSITIVE (NEGATIVE) H 07/22/22 12:50 Urine Bilirubin LARGE (NEGATIVE) H 07/22/22 12:50 Urine Urobilinogen 2 E.U./dL (NORMAL) H 07/22/22 12:50 Ur Leukocyte Esterase SMALL (NEGATIVE) H 07/22/22 12:50 Urine RBC 0-5 /HPF (0-5) 07/22/22 12:50 Urine WBC 6-10 /HPF (0-3) H 07/22/22 12:50 Ur Squamous Epith Cells FEW Squamous (<= Few) 07/22/22 12:50 Urine Bacteria Many /HPF (None Seen) H 07/22/22 12:50 Urine Casts 0-2 WBC Casts /LPF 07/22/22 12:50 Urine Culture Comments INDICATED 07/22/22 12:50 Nasal Screen MRSA (PCR) NEGATIVE (NEGATIVE) 07/15/22 11:58 Stl C. diff Tox B Gene NEGATIVE (NEGATIVE) 07/16/22 02:05 Urine Opiates Screen NEGATIVE (NEGATIVE) 07/15/22 12:59 Ur Oxycodone Screen NEGATIVE (NEGATIVE) 07/15/22 12:59 Urine Methadone Screen NEGATIVE (NEGATIVE) 07/15/22 12:59 Ur Propoxyphene Screen NEGATIVE (NEGATIVE) 07/15/22 12:59 Ur Barbiturates Screen NEGATIVE (NEGATIVE) 07/15/22 12:59 Ur Tricyclics Screen NEGATIVE (NEGATIVE) 07/15/22 12:59 Ur Phencyclidine Scrn NEGATIVE (NEGATIVE) 07/15/22 12:59 Ur Amphetamine Screen NEGATIVE (NEGATIVE) 07/15/22 12:59 U Methamphetamines Scrn NEGATIVE (NEGATIVE) 07/15/22 12:59 U Benzodiazepines Scrn NEGATIVE (NEGATIVE) 07/15/22 12:59 Urine Cocaine Screen NEGATIVE (NEGATIVE) 07/15/22 12:59 U Cannabinoids Screen NEGATIVE (NEGATIVE) 07/15/22 12:59 Ethyl Alcohol 103.7 mg/dL 07/15/22 09:54 SARS-CoV-2 (PCR) NOT DETECTED 07/31/22 18:35
[2022-08-09] MEDS: MOMETASONE FUROATE 0.1% TOP PRN (22:07)
[2022-08-10] MEDS ORDERED: oxyCODONE 5 MG TABLET PO PRN ×2 (03:54→09:18)
[2022-08-10] MEDS: GABAPENTIN 300 MG CAPSULE PO SCH ×3 (06:33→21:43)
[2022-08-10] MEDS: PANTOPRAZOLE 40 MG TABLET PO SCH (06:33)
[2022-08-10] MEDS: FUROSEMIDE 20 MG/2 ML VIAL IVP SCH ×2 (06:34→14:00)
[2022-08-10] MEDS: ENOXAPARIN 40 MG/0.4 ML SYRINGE SUBQ SCH ×2 (07:55→21:47)
[2022-08-10] MEDS: LACTOBACILLUS RHAMNOSUS GG CAPSULE PO SCH (07:56)
[2022-08-10] MEDS: THIAMINE 100 MG TABLET PO SCH (07:56)
[2022-08-10] MEDS: traMADol 50 MG TABLET PO SCH ×2 (07:56→21:44)
[2022-08-10] MEDS: SPIRONOLACTONE 25 MG TABLET PO SCH ×2 (07:56→21:43)
[2022-08-10] MEDS: POTASSIUM CHLORIDE 10 MEQ CAPSULE PO SCH (07:56)
[2022-08-10] MEDS: PRENATAL VITAMIN TABLET PO SCH (07:57)
[2022-08-10] MEDS: rifAXIMin 550 MG TABLET PO SCH ×2 (07:57→21:42)
[2022-08-10] MEDS: LIDOCAINE OINTMENT 5% 35.44 GM TUBE TOP SCH ×4 (08:07→21:48)
[2022-08-10] MEDS: NYSTATIN POWDER 15 GM TOP SCH ×2 (08:07→21:50)
[2022-08-10] MEDS: CLOTRIMAZOLE 1% CREAM 15 GM TUBE TOP SCH ×2 (08:07→21:51)
--- NOTE | 2022-08-10 17:05 | PROVIDER PROGRESS NOTE ---
Assessment/Plan - Problem List (1) Weakness Assessment/Plan: He had fallen before coming to the ER and was so weak at admission that he could not lift up his buttocks by pushing using his legs, when in bed. He also admitted that over the past week before admission, he had been mostly on his couch, hardly got up, did not eat, had his beer delivered to him by [employer]. He has now had a very prolonged stay for liver failure, in the intensive care unit initially and has been severely deconditioned because of this prolonged stay plus from morbid obesity. He has been working with physical therapy, alethea hernandez getting stronger, progressing on a daily basis. He is able to get out of bed now, walk to the bathroom, walk 40 feet. This is in contrast distinction to person who needed 4 people to sit him up in bed 2 weeks ago. Plan: Cont PT and OT . Possibly he is a half-way facility candidate. It is difficult for him getting out of bed without an assist. But everything else seems to be going well. If he can get out of bed on his own, and complete his activities of daily living he can be discharged. Currently working with social work and case management to find a SNF for him that [facility] pays for and accepts a bariatric patient (2) Liver failure without hepatic coma Impression: He has liver failure from alcoholic liver disease. He presented with months of increased beer drinking after he lost his job. On admission his bili and LFTs were elevated. INR 1.8. While his LFTs were improving, his bili improvement lagged. He got a CT of abd to check for gallbladder disease or intraductal dilatation and that was negative. Labs were all reviewed. Bili peaked on 07/19 at 23.8. Bili has plateaued at 14-16. Per phone call consult with Dr. Pa from [facility] @ [facility] on 07/19, she advised us to increase lactulose dose, start rifaximin 550 along w/ methylprednisolone 1mg/kg for the treatment of his alcoholic liver disease and pantoprazole 40mg IV push f or stomach ulcer protection. However, Dr. Pa did not feel it necessary to give 200mg of steroids and aim for 40mg a day for 5 days. He had psychomotor slowing until 07/26. His Maddrey score was 54.6 points, and >32 indicates poor prognosis and would benefit from glucocorticoid therapy. Patient received solumedrol 40 mg IVP for 5 days, the last dose was on 07/22/22. His MELD score was 29 points which equates to an estimated 76.5% indication for short term survival and approximately a 19.6% chance of mortality for patient's with end stage liver disease for considerations for liver transplant. Once he was on the steroids, lactulose, rifaximin there was slow improvement that has been very steady. He completed his steroid treatment. And we have him on lactulose. He continues on rifaximin, and is working with physical therapy/Occupational Therapy. He has reached maximal medical benefit. Now our treatment is focused on diuresing his anasarca and improving his mobility and his strength. (3) Hepatic encephalopathy Impression: Improved: He is alert, oriented, able to converse in normal sentences and has no psychomotor slowing. Patient had his dose of lactulose decrease due to too many BMs a day. We had him off his gabapentin which may have added to the initial lethargy and when he requested it for his neuropathy, and that was restarted. He has gone from doing some short shuffling steps to his chair from his bedside to being able to get up on his own with standby assist to go to the bathroom, and then walked back to the bed. He is spending more time in the bedside chair than in bed. He does not like walking outside his room, he is embarrassed by his appearance. At his worst his ammonia was 105 on July 16. Ammonia has been coming down with the lactulose. Plan: Since he has too many bowel movements, will decreased the lactulose from every other day to every third day. Will check Ammonia level intermittently. (4) Anasarca He developed anasarca while in the ICU from receiving iv saline for his severe hyponatremia. He was also on a salt tablet daily. The salt tablet was stopped several days ago. IV Lasix daily was started. His fluid restriction was changed from free water restriction to a total liquid restricted down to 2000 cc/day (1000 cc with meals, 1000 cc for nursing). RNs have caught his sister trying to sneak him extra fluids. Weight on admission was 194 kg, And his weight on July 30 was 213 kg. On 07/31 weight was 205.He feels like the weight is coming off of him and he likes the ability to be more mobile. He says that the skin of his legs does not feel nearly as tight. Echocardiogram done 07/31 was technically difficult to do because of his size. His ejection fraction is 55%. No regional wall motion abnormality seen. Atria were not well visualized. No significant valvular heart disease was identified. As such cardiac dysfunction is not the cause of his anasarca, ie. he does not have alcoholic cardiomyopathy. Plan: Will not allow family bringing him V8 juice, and extra liquids. Also no extra calories, since they bring in candy. Low sugar hard candy is OK. Continue his fluid restriction of 2000 mls a day He can have applesauce for thirst quenching. Continue Lasix and Spironolactone. Continue on the increase Lasix IV twice daily since he was not is neg fluid balance Promote leg elevation. (5) Morbid obesity BMI 60-69 At admission he weighed about 59 BMI, this increased to BMI of 67 after getting IV fluids and developing anasarca. His morbid obesity makes all of his care more difficult. Plan: Will ask [employer] Maintenance Engineer to discuss his specific dietary requests with calorie restrictions In the outpatient setting, the patient will need to continue a low calorie diet, improve his mobility to be able to exercise. Resolved or chronic problems (6) Hypotension resolved From July 16 to the he required Levophed to keep his blood pressure up and to maintain his urine output. We looked for signs of infection, repeated blood cultures, urinalysis, chest x-ray and no source of infection was found. He was not having an SD. No lactic acidosis. Suspect he was intravascularly depleted due to cirrhosis and alcoholism. A July 22 urine culture grew out Enterococcus. He was not placed on antibiotics for that. Since he does not have a fever, elevated white cell count, and is asymptomatic hospitalist did not treat. (7) Alcoholism Impression: Initially he was on iv banana bags and transitioned to multivit and thiamine orally when he was able to swallow. He needed librium and CIWA protocol, but librium stopped 07/17. Pt is on lactulose for his high Ammonia level and confusion and psychomotor slowing, which are improving. Labs are all reviewed: The bilirubin is mostly plateaued around 14, ammonia level has decreased He has met with social work. They have given him opportunities for following up with rehab once he is done with physical rehab. (8) Right breast nipple inversion Plan: Outpatient work up with mammo (9) Skin rash Rash covering the skin of both buttocks and is a result of being on his back and having the loose stool. A shower was ordered and he can now sit up in a bariatric chair in shower. The rash continues to be present. There is been no change in the geographic distribution since it was first identified. Nonblanching red skin. Plan: Continue hygiene and nystatin powder (10) Hyponatremia Resolved as of 07/21 On admission, he presented is almost meeting the criteria for beer potomania. He was severely hyponatremic at 114 but not hypokalemic. He was on saline in the ICU. A daily salt tablet was added (by Telemedicine Dr). By July 16 Na was 118. By July 17 Na was 124. July 18 Na was 128 and by 07/21 his Na was 135. On 07/23 Na was 141. 3/28 and 07/31 he was 131 and 08/01 he was 135. 4/2 was dropping a bit. Plan: Remain off the the salt tablet, due to persistent anasarca Cont on restricted total fluid intake/day Follow BMP intermittently. (11) Abnormal urinalysis His first urinalysis showed bacteriuria but was negative in its growth. He did not have any symptoms of urgency, and frequency but did have AMS (psychomotor slowing). He did not have a fever or an elevated white cell count. We did not treat this abnormal urinalysis (12) Boil Left anterior thigh that has come to a head. Patient scratched it and boil ruptured, no cellulitis. (13) Conjunctivitis Resolved on eye drops - Current Meds Current Meds: Current Medications Generic Name Dose Route Start Last Admin Trade Name Freq PRN Reason Stop Dose Admin Calcium Carbonate/Glycine 500 mg 07/21/22 03:51 07/24/22 18:15 Calcium Carbonate Chew 500 Mg Tablet PO 500 mg BID PRN Administration Heartburn Carboxymethylcellulose 1 drops 07/17/22 08:19 07/31/22 08:17 Carboxymethylcellulose Ophth Drops EACHEYE 1 drops PRN PRN Administration Dry Eye Clotrimazole 1 applic 08/04/22 09:00 08/10/22 08:07 Clotrimazole 1% Cream 15 Gm Tube TOP 1 applic BID KANU Administration Enoxaparin Sodium 40 mg 07/24/22 09:41 08/10/22 07:55 Enoxaparin 40 Mg/0.4 Ml Syringe SUBQ 40 mg BID KANU Administration Furosemide 20 mg 08/08/22 14:00 08/10/22 14:00 Furosemide 20 Mg/2 Ml Vial IVP 20 mg BIDDIURETIC KANU Administration Gabapentin 600 mg 07/27/22 14:00 08/10/22 14:36 Gabapentin 300 Mg Capsule PO 600 mg TID KANU Administration Lactobacillus Rhamnosus 1 cap 07/16/22 11:00 08/10/22 07:56 Lactobacillus Rhamnosus Gg Capsule PO 1 cap DAILY KANU Administration Lidocaine 1 applic 08/09/22 14:31 08/10/22 16:29 Lidocaine Ointment 5% 35.44 Gm Tube TOP 1 applic QID KANU Administration Multi-Ingredient Ointment 1 applic 07/16/22 01:24 08/08/22 08:14 Zinc Oxide 20% Oint 30 Gm Tube TOP 1 applic PRN PRN Administration Skin Care Nystatin 1 applic 07/15/22 21:00 08/10/22 08:07 Nystatin Powder 15 Gm TOP 1 applic BID KANU Administration Ondansetron HCl 4 mg 07/15/22 11:15 07/16/22 08:12 Ondansetron 4 Mg/2 Ml Vial IVP 4 mg Q6HR PRN Administration Nausea / Vomiting Oxycodone HCl 5 mg 08/10/22 03:54 08/10/22 04:21 Oxycodone 5 Mg Tablet PO 08/11/22 03:53 5 mg Q6HR PRN Administration Severe Pain (Level 7-10) Pantoprazole Sodium 40 mg 07/19/22 11:00 08/10/22 06:33 Pantoprazole 40 Mg Tablet PO 40 mg QDAC KANU Administration Mometasone Furoate 1 each 07/22/22 17:00 08/09/22 22:07 0.1% Ointment TOP 1 each BID PRN Administration ITCHING Potassium Chloride 20 meq 08/09/22 08:00 08/10/22 07:56 Potassium Chloride 10 Meq Capsule PO 20 meq DAILYWM KANU Administration Multivit/Folic Acid/Iron 1 tab 07/16/22 11:00 08/10/22 07:57 Vitamin Tablet PO 1 tab DAILYWM KANU Administration Prochlorperazine Edisylate 10 mg 07/15/22 11:15 07/22/22 23:58 Prochlorperazine 10 Mg/2 Ml Vial IVP 10 mg Q6HR PRN Administration Nausea / Vomiting Rifaximin 550 mg 07/18/22 21:00 08/10/22 07:57 Rifaximin 550 Mg Tablet PO 550 mg BID KANU Administration Sodium Chloride 10 ml 07/15/22 11:15 08/06/22 08:30 Sodium Chloride Flush 0.9% 10 Ml Syringe IVP 10 ml PRN PRN Administration NEEDED PER PROVIDER ORDERS Sodium Chloride 20 ml 07/16/22 22:36 08/09/22 04:01 Sodium Chloride Flush 0.9% 10 Ml Syringe IVP 20 ml PRN PRN Administration After Blood Draw Spironolactone 25 mg 08/04/22 21:00 08/10/22 07:56 Spironolactone 25 Mg Tablet PO 25 mg BID KANU Administration Thiamine HCl 100 mg 07/16/22 11:00 08/10/22 07:56 Thiamine 100 Mg Tablet PO 100 mg DAILY KANU Administration Tramadol HCl 25 mg 07/27/22 09:00 08/10/22 07:56 Tramadol 50 Mg Tablet PO 25 mg BID KANU Administration Zinc Oxide 113 gm 07/19/22 17:01 07/22/22 23:47 Cod Liver Oil/Zinc Oxide 113 Gm Tube TOP 1 applic PRN PRN Administration Skin Care - Lab Result Fish Bone Diagrams: 08/13/22 06:11 08/13/22 06:11 - Additional Planning My Orders: My Active Orders 08/09/22 Dinner Carb-controlled Diet [DIET] 08/10/22 09:18 oxyCODONE [Roxicodone] 5 mg PO QPM PRN 08/11/22 05:00 AMMONIA [CHEM] DAILYLAB CBC - COMP BLD CT W/AUTO DIFF [HEME] DAILYLAB CMP [COMPREHENSIVE METABOLIC PANEL] [CHEM] DAILYLAB MAGNESIUM [CHEM] DAILYLAB 08/11/22 10:00 Lactulose 10 gm PO Q72H Subjective - Subjective Nursing Reports: Other (Asking about fluids often, wants more, thirst was quenched with applesauce) Objective Vital Signs: Vital Signs - 24 hr 08/09/22 08/10/22 08/10/22 23:58 08:08 16:44 Temperature 35.9 C L 36.3 C L 36.5 C Heart Rate [ 87 Brachial] Heart Rate [ 87 88 Radial] Respiratory 20 20 21 Rate Blood Pressure 102/61 107/59 L 94/54 L [Right Radial artery] O2 Saturation 95 96 95 Oxygen O2 Source Room air I&O (Last 24 Hrs): Intake and Output Totals x24h 08/08/22 08/09/22 08/10/22 23:59 23:59 23:59 Intake Total 1247 1130 630 Output Total 1125 1725 1250 Balance 122 -595 -620 General: Alert, Oriented x3 HEENT: Atraumatic, PERRLA Neck: Supple Neuro: Alert, Non Focal Cardiovascular: Regular rate Respiratory: No respiratory distress Abdomen: Other (Very obese with a large pannus down to nearly his knees) Extremities: No clubbing, Other (4+ edema with ventura blisters, wrapped daytime) - Results Results: Laboratory Results WBC 10.6 x10^3/uL (4.8-10.8) 08/08/22 04:45 RBC 3.07 10^6/uL (4.70-6.10) L 08/08/22 04:45 Hgb 10.3 g/dL (14.0-18.0) L 08/08/22 04:45 Hct 31.1 % (42.0-52.0) L 08/08/22 04:45 MCV 101.3 fL (80.0-94.0) H 08/08/22 04:45 MCH 33.6 pg (27.0-31.0) H 08/08/22 04:45 MCHC 33.1 g/dL (32.0-36.0) 08/08/22 04:45 RDW 15.8 % (12.0-15.0) H 08/08/22 04:45 Plt Count 114 10^3/uL (130-450) L 08/08/22 04:45 MPV 10.6 fL (7.4-11.4) 08/08/22 04:45 Neut # (Auto) Not Reportable 08/08/22 04:45 Lymph # (Auto) Not Reportable 08/08/22 04:45 Lares # (Auto) Not Reportable 08/08/22 04:45 Eos # (Auto) Not Reportable 08/08/22 04:45 Baso # (Auto) Not Reportable 08/08/22 04:45 Absolute Nucleated RBC Not Reportable 08/08/22 04:45 Total Counted 100 08/08/22 04:45 Band Neuts % (Manual) 2 % (0-10) 08/08/22 04:45 Reactive Lymphs % (Man) 5 % 08/04/22 05:00 Abnorm Lymph % (Manual) 0 % 08/08/22 04:45 Metamyelocytes % 1 % (-0) H 08/07/22 04:55 Myelocytes % 7 % (-0) H 08/08/22 04:45 Nucleated RBC % Not Reportable 08/08/22 04:45 Neutrophils # (Manual) 5.8 10^3/uL (1.5-6.6) 08/08/22 04:45 Lymphocytes # (Manual) 2.4 10^3/uL (1.5-3.5) 08/08/22 04:45 Monocytes # (Manual) 1.2 10^3/uL (0.0-1.0) H 08/08/22 04:45 Eosinophils # (Manual) 0.4 10^3/uL (0-0.7) 08/08/22 04:45 Basophils # (Manual) 0.0 10^3/uL (0-0.1) 08/08/22 04:45 Differential Comment MANUAL DIFFERENTIAL 08/08/22 04:45 WBC Morphology NORMAL APPEARANCE (NORMAL) 08/08/22 04:45 Platelet Estimate DECREASED (<130,000) (NORMAL) 08/08/22 04:45 Platelet Morphology NORMAL APPEARANCE (NORMAL) 08/08/22 04:45 RBC Morph Micro Appear NORMAL APPEARANCE (NORMAL) 08/08/22 04:45 PT 19.3 secs (9.9-12.6) H 07/15/22 12:26 INR 1.8 (0.8-1.2) H 07/15/22 12:26 VBG pH 7.317 (7.31-7.41) 07/23/22 05:45 Ionized Calcium 1.16 mmol/L (1.15-1.33) 07/23/22 05:45 Sodium 132 mmol/L (135-145) L 08/08/22 04:45 Potassium 4.5 mmol/L (3.5-5.0) 08/08/22 04:45 Chloride 105 mmol/L (101-111) 08/08/22 04:45 Carbon Dioxide 23 mmol/L (21-32) 08/08/22 04:45 Anion Gap 4.0 (6-13) L 08/08/22 04:45 BUN 22 mg/dL (6-20) H 08/08/22 04:45 Creatinine 0.8 mg/dL (0.6-1.2) 08/08/22 04:45 Estimated GFR (MDRD) 101 (>89) 08/08/22 04:45 Glucose 104 mg/dL (70-100) H 08/08/22 04:45 Estimat Average Glucose 105 mg/dL (70-100) H 07/16/22 04:27 Hemoglobin A1c % 5.3 % (4.27-6.07) 07/16/22 04:27 Calcium 8.4 mg/dL (8.5-10.3) L 08/08/22 04:45 Phosphorus 2.9 mg/dL (2.5-4.6) 07/23/22 05:45 Magnesium 1.9 mg/dL (1.7-2.8) 08/01/22 05:15 Total Bilirubin 13.9 mg/dL (0.2-1.0) H 08/08/22 04:45 Direct Bilirubin 8.2 mg/dL (0.1-0.5) H 08/08/22 04:45 AST 111 IU/L (10-42) H 08/08/22 04:45 ALT 46 IU/L (10-60) 08/08/22 04:45 Alkaline Phosphatase 302 IU/L (42-121) H 08/08/22 04:45 Ammonia 48.1 umol/L (7-35) H 07/31/22 06:30 Total Creatine Kinase 171 IU/L (22-269) 07/18/22 05:18 Troponin I High Sens 27.6 ng/L (2.3-19.7) H* 07/16/22 20:52 Total Protein 5.4 g/dL (6.7-8.2) L 08/08/22 04:45 Albumin 1.8 g/dL (3.2-5.5) L 08/08/22 04:45 Globulin 3.6 g/dL (2.1-4.2) 08/08/22 04:45 Albumin/Globulin Ratio 0.5 (1.0-2.2) L 08/01/22 05:15 Lipase 36 U/L (22-51) 07/15/22 09:54 Whole Bld Vitamin B1 138.4 nmol/L (66.5-200.0) 07/23/22 05:45 Vitamin B12 404 pg/mL (180-914) 07/16/22 04:27 Folate 8.12 ng/mL (5.90 - >24.8) 07/16/22 04:27 TSH 2.59 uIU/mL (0.34-5.60) 07/15/22 09:54 Urine Color DARK YELLOW 07/22/22 12:50 Urine Clarity HAZY (CLEAR) 07/22/22 12:50 Urine pH 6.0 PH (5.0-7.5) 07/22/22 12:50 Ur Specific [place] 1.020 (1.002-1.030) 07/22/22 12:50 Urine Protein NEGATIVE mg/dL (NEGATIVE) 07/22/22 12:50 Urine Glucose (UA) 250 mg/dL (NEGATIVE) H 07/22/22 12:50 Urine Ketones NEGATIVE mg/dL (NEGATIVE) 07/22/22 12:50 Urine Occult Blood MODERATE (NEGATIVE) H 07/22/22 12:50 Urine Nitrite POSITIVE (NEGATIVE) H 07/22/22 12:50 Urine Bilirubin LARGE (NEGATIVE) H 07/22/22 12:50 Urine Urobilinogen 2 E.U./dL (NORMAL) H 07/22/22 12:50 Ur Leukocyte Esterase SMALL (NEGATIVE) H 07/22/22 12:50 Urine RBC 0-5 /HPF (0-5) 07/22/22 12:50 Urine WBC 6-10 /HPF (0-3) H 07/22/22 12:50 Ur Squamous Epith Cells FEW Squamous (<= Few) 07/22/22 12:50 Urine Bacteria Many /HPF (None Seen) H 07/22/22 12:50 Urine Casts 0-2 WBC Casts /LPF 07/22/22 12:50 Urine Culture Comments INDICATED 07/22/22 12:50 Nasal Screen MRSA (PCR) NEGATIVE (NEGATIVE) 07/15/22 11:58 Stl C. diff Tox B Gene NEGATIVE (NEGATIVE) 07/16/22 02:05 Urine Opiates Screen NEGATIVE (NEGATIVE) 07/15/22 12:59 Ur Oxycodone Screen NEGATIVE (NEGATIVE) 07/15/22 12:59 Urine Methadone Screen NEGATIVE (NEGATIVE) 07/15/22 12:59 Ur Propoxyphene Screen NEGATIVE (NEGATIVE) 07/15/22 12:59 Ur Barbiturates Screen NEGATIVE (NEGATIVE) 07/15/22 12:59 Ur Tricyclics Screen NEGATIVE (NEGATIVE) 07/15/22 12:59 Ur Phencyclidine Scrn NEGATIVE (NEGATIVE) 07/15/22 12:59 Ur Amphetamine Screen NEGATIVE (NEGATIVE) 07/15/22 12:59 U Methamphetamines Scrn NEGATIVE (NEGATIVE) 07/15/22 12:59 U Benzodiazepines Scrn NEGATIVE (NEGATIVE) 07/15/22 12:59 Urine Cocaine Screen NEGATIVE (NEGATIVE) 07/15/22 12:59 U Cannabinoids Screen NEGATIVE (NEGATIVE) 07/15/22 12:59 Ethyl Alcohol 103.7 mg/dL 07/15/22 09:54 SARS-CoV-2 (PCR) NOT DETECTED 07/31/22 18:35
[2022-08-11 05:30] LABS: BASOPHILS % (AUTO) 0.7 %; EOSINOPHILS % (AUTO) 2.3 %; HCT - HEMATOCRIT 32.4 % (42.0-52.0); HGB - HEMOGLOBIN 10.7 g/dL (14.0-18.0); LYMPHOCYTES % (AUTO) 15.7 %; MEAN CORPUSCULAR VOLUME 102.9 fL (80.0-94.0); MEAN PLATELET VOLUME 10.2 fL (7.4-11.4); MONOCYTES % (AUTO) 10.3 %; NEUTROPHILS % (AUTO) 64.4 %; PLT - PLATELET COUNT 133 10^3/uL (130-450); RED BLOOD COUNT 3.15 10^6/uL (4.70-6.10); RED CELL DISTRIBUTION WIDTH 15.4 % (12.0-15.0); WHITE BLOOD COUNT 10.6 x10^3/uL (4.8-10.8)
[2022-08-11 05:43] LABS: ABNORMAL LYMPHS % (MANUAL) 0 %; ALBUMIN 1.9 g/dL (3.2-5.5); ALBUMIN/GLOBULIN RATIO 0.5 (1.0-2.2); CALCIUM 8.3 mg/dL (8.5-10.3); MAGNESIUM 1.9 mg/dL (1.7-2.8); POTASSIUM 3.9 mmol/L (3.5-5.0); TOTAL PROTEIN 5.5 g/dL (6.7-8.2)
[2022-08-11 06:24] LABS: BAND NEUTROPHILS % (MANUAL) 2 %; DIFFERENTIAL COMMENT MANUAL DIFFERENTIAL; EOSINOPHILS # (MANUAL) 0.6 10^3/uL (0-0.7); LYMPHOCYTES # (MANUAL) 1.5 10^3/uL (1.5-3.5); LYMPHOCYTES % (MANUAL) 14 %; METAMYELOCYTES % (MANUAL) 4 %; MONOCYTES # (MANUAL) 0.3 10^3/uL (0.0-1.0); MYELOCYTES % (MANUAL) 4 %; NEUTROPHILS # (MANUAL) 7.3 10^3/uL (1.5-6.6); PLATELET ESTIMATE, MANUAL NORMAL (130-450,000) (NORMAL); RBC MORPHOLOGY (MULTIPLE) NORMAL APPEARANCE (NORMAL)
[2022-08-11] MEDS: GABAPENTIN 300 MG CAPSULE PO SCH ×3 (06:46→21:42)
[2022-08-11] MEDS: PANTOPRAZOLE 40 MG TABLET PO SCH (06:46)
[2022-08-11] MEDS: FUROSEMIDE 20 MG/2 ML VIAL IVP SCH ×2 (06:46→13:35)
[2022-08-11] MEDS: traMADol 50 MG TABLET PO SCH ×2 (08:06→21:40)
[2022-08-11] MEDS: THIAMINE 100 MG TABLET PO SCH (08:07)
[2022-08-11] MEDS: PRENATAL VITAMIN TABLET PO SCH (08:07)
[2022-08-11] MEDS: POTASSIUM CHLORIDE 10 MEQ CAPSULE PO SCH (08:08)
[2022-08-11] MEDS: LIDOCAINE OINTMENT 5% 35.44 GM TUBE TOP SCH ×4 (08:09→21:40)
[2022-08-11] MEDS: SPIRONOLACTONE 25 MG TABLET PO SCH ×2 (08:09→21:39)
[2022-08-11] MEDS: ENOXAPARIN 40 MG/0.4 ML SYRINGE SUBQ SCH ×2 (08:10→21:40)
[2022-08-11] MEDS: LACTOBACILLUS RHAMNOSUS GG CAPSULE PO SCH (08:10)
[2022-08-11] MEDS: rifAXIMin 550 MG TABLET PO SCH ×2 (08:10→21:41)
[2022-08-11] MEDS: NYSTATIN POWDER 15 GM TOP SCH ×2 (08:11→21:40)
[2022-08-11] MEDS: CLOTRIMAZOLE 1% CREAM 15 GM TUBE TOP SCH ×2 (08:12→21:44)
[2022-08-11] MEDS: LACTULOSE 10 GM/15 ML BOTTLE PO SCH (10:37)
--- NOTE | 2022-08-11 18:33 | PROVIDER PROGRESS NOTE ---
Assessment/Plan - Problem List (1) Weakness Assessment/Plan: He had fallen before coming to the ER and was so weak at admission that he could not lift up his buttocks by pushing using his legs, when in bed. He also admitted that over the past week before admission, he had been mostly on his couch, hardly got up, did not eat, had his beer delivered to him by [employer]. He has now had a very prolonged stay for liver failure, in the intensive care unit initially and has been severely deconditioned because of this prolonged stay plus from morbid obesity. He has been working with physical therapy, alethea hernandez getting stronger, progressing on a daily basis. He is able to get out of bed now, walk to the bathroom, walk 40 feet. This is in contrast distinction to person who needed 4 people to sit him up in bed 2 weeks ago. He can now complete his activities of daily living Plan: Cont PT and OT . Possibly he is a prison facility candidate. It is difficult for him getting out of bed without an assist. But everything else seems to be going well. If he can get out of bed on his own, he can be discharged. Currently working with social work and case management to find a SNF for him that [place] pays for and accepts a bariatric patient (2) Liver failure without hepatic coma Impression: He has liver failure from alcoholic liver disease. He presented with months of increased beer drinking after he lost his job. On admission his bili and LFTs were elevated. INR 1.8. While his LFTs were improving, his bili improvement lagged. He got a CT of abd to check for gallbladder disease or intraductal dilatation and that was negative. Labs were all reviewed. Bili peaked on 07/19 at 23.8. Bili has plateaued at 14-16. Per phone call consult with Dr. Pa from GI @ [facility] on 07/19, she advised us to increase lactulose dose, start rifaximin 550 along w/ methylprednisolone 1mg/kg for the treatment of his alcoholic liver disease and pantoprazole 40mg IV push for stomach ulcer protection. However, Dr. Pa did not feel it necessary to give 200mg of steroids and aim for 40mg a day for 5 days. He had psychomotor slowing until 07/26. His Maddrey score was 54.6 points, and >32 indicates poor prognosis and would benefit from glucocorticoid therapy. Patient received solumedrol 40 mg IVP for 5 days, the last dose was on 07/22/22. His MELD score was 29 points which equates to an estimated 76.5% indication for short term survival and approximately a 19.6% chance of mortality for patient's with end stage liver disease for considerations for liver transplant. Once he was on the steroids, lactulose, rifaximin there was slow improvement that has been very steady. He completed his steroid treatment. And we have him on lactulose. He continues on rifaximin, and is working with physical therapy/Occupational Therapy. He has reached maximal medical benefit. Now our treatment is focused on diuresing his anasarca and improving his mobility and his strength. (3) Hepatic encephalopathy Impression: Improved: He is alert, oriented, able to converse in normal sentences and has no psychomotor slowing. Patient had his dose of lactulose decrease due to too many BMs a day. We had him off his gabapentin which may have added to the initial lethargy and when he requested it for his neuropathy, and that was restarted. He has gone from doing some short shuffling steps to his chair from his bedside to being able to get up on his own with standby assist to go to the bathroom, and then walked back to the bed. He is spending more time in the bedside chair than in bed. He does not like walking outside his room, he is embarrassed by his appearance. At his worst his ammonia was 105 on July 16. Ammonia has been coming down with the lactulose. Plan: Since he had too many bowel movements, we decreased the lactulose from every other day to every third day. Will check Ammonia level intermittently. (4) Anasarca He developed anasarca while in the ICU from receiving iv saline for his severe hyponatremia. He was also on a salt tablet daily. The salt tablet was stopped several days ago. IV Lasix daily was started. His fluid restriction was changed from free water restriction to a total liquid restricted down to 2000 cc/day (1000 cc with meals, 1000 cc for nursing). RNs have caught his sister trying to sneak him extra fluids. Weight on admission was 194 kg, And his weight on July 30 was 213 kg. On 07/31 weight was 205.He feels like the weight is coming off of him and he likes the ability to be more mobile. He says that the skin of his legs does not feel nearly as tight. Echocardiogram done 07/31 was technically difficult to do because of his size. His ejection fraction is 55%. No regional wall motion abnormality seen. Atria were not well visualized. No significant valvular heart disease was identified. As such cardiac dysfunction is not the cause of his anasarca, ie. he does not have alcoholic cardiomyopathy. Plan: Will not allow family bringing him V8 juice, and extra liquids. Also no extra calories, since they bring in candy. Low sugar hard candy is OK. Continue his fluid restriction of 2000 mls a day He can have applesauce for thirst quenching. Continue Lasix and Spironolactone. Continue on the increase Lasix IV twice daily since he was not is neg fluid balance Promote leg elevation. (5) Morbid obesity BMI 60-69 At admission he weighed about 59 BMI, this increased to BMI of 67 after getting IV fluids and developing anasarca. His morbid obesity makes all of his care more difficult. Plan: Will ask Kamla Copy Editor to discuss his specific dietary requests with calorie restrictions In the outpatient setting, the patient will need to continue a low calorie diet, improve his mobility to be able to exercise. Resolved or chronic problems (6) Hypotension resolved From July 16 to the he required Levophed to keep his blood pressure up and to maintain his urine output. We looked for signs of infection, repeated blood cultures, urinalysis, chest x-ray and no source of infection was found. He was not having an AK. No lactic acidosis. Suspect he was intravascularly depleted due to cirrhosis and alcoholism. A July 22 urine culture grew out Enterococcus. He was not placed on antibiotics for that. Since he does not have a fever, elevated white cell count, and is asymptomatic hospitalist did not treat. (7) Alcoholism Impression: Initially he was on iv banana bags and transitioned to multivit and thiamine orally when he was able to swallow. He needed librium and CIWA protocol, but librium stopped 07/17. Pt is on lactulose for his high Ammonia level and confusion and psychomotor slowing, which are improving. Labs are all reviewed: The bilirubin is mostly plateaued around 14, ammonia level has decreased He has met with social work. They have given him opportunities for following up with rehab once he is done with physical rehab. (8) Right breast nipple inversion Plan: Outpatient work up with mammo (9) Skin rash Rash covering the skin of both buttocks and is a result of being on his back and having the loose stool. A shower was ordered and he can now sit up in a bariatric chair in shower. The rash continues to be present. There is been no change in the geographic distribution since it was first identified. Nonblanching red skin. Plan: Continue hygiene and nystatin powder (10) Hyponatremia Resolved as of 07/21 On admission, he presented is almost meeting the criteria for beer potomania. He was severely hyponatremic at 114 but not hypokalemic. He was on saline in the ICU. A daily salt tablet was added (by Telemedicine Dr). By July 16 Na was 118. By July 17 Na was 124. July 18 Na was 128 and by 07/21 his Na was 135. On 07/23 Na was 141. 3/28 and 07/31 he was 131 and 08/01 he was 135. 4/2 was dropping a bit. Plan: Remain off the the salt tablet, due to persistent anasarca Cont on restricted total fluid intake/day Follow BMP intermittently. (11) Abnormal urinalysis His first urinalysis showed bacteriuria but was negative in its growth. He did not have any symptoms of urgency, and frequency but did have AMS (psychomotor slowing). He did not have a fever or an elevated white cell count. We did not treat this abnormal urinalysis (12) Boil Left anterior thigh that has come to a head. Patient scratched it and boil ruptured, no cellulitis. (13) Conjunctivitis Resolved on eye drops - Current Meds Current Meds: Current Medications Generic Name Dose Route Start Last Admin Trade Name Freq PRN Reason Stop Dose Admin Calcium Carbonate/Glycine 500 mg 07/21/22 03:51 07/24/22 18:15 Calcium Carbonate Chew 500 Mg Tablet PO 500 mg BID PRN Administration Heartburn Carboxymethylcellulose 1 drops 07/17/22 08:19 07/31/22 08:17 Carboxymethylcellulose Ophth Drops EACHEYE 1 drops PRN PRN Administration Dry Eye Clotrimazole 1 applic 08/04/22 09:00 08/11/22 08:12 Clotrimazole 1% Cream 15 Gm Tube TOP 1 applic BID KANU Administration Enoxaparin Sodium 40 mg 07/24/22 09:41 08/11/22 08:10 Enoxaparin 40 Mg/0.4 Ml Syringe SUBQ 40 mg BID KANU Administration Furosemide 20 mg 08/08/22 14:00 08/11/22 13:35 Furosemide 20 Mg/2 Ml Vial IVP 20 mg BIDDIURETIC KANU Administration Gabapentin 600 mg 07/27/22 14:00 08/11/22 13:35 Gabapentin 300 Mg Capsule PO 600 mg TID KANU Administration Lactobacillus Rhamnosus 1 cap 07/16/22 11:00 08/11/22 08:10 Lactobacillus Rhamnosus Gg Capsule PO 1 cap DAILY KANU Administration Lactulose 10 gm 08/11/22 10:00 08/11/22 10:37 Lactulose 10 Gm/15 Ml Bottle PO 10 gm Q72H KANU Administration Lidocaine 1 applic 08/09/22 14:31 08/11/22 17:00 Lidocaine Ointment 5% 35.44 Gm Tube TOP 1 applic QID KANU Administration Multi-Ingredient Ointment 1 applic 07/16/22 01:24 08/08/22 08:14 Zinc Oxide 20% Oint 30 Gm Tube TOP 1 applic PRN PRN Administration Skin Care Nystatin 1 applic 07/15/22 21:00 08/11/22 08:11 Nystatin Powder 15 Gm TOP 1 applic BID KANU Administration Ondansetron HCl 4 mg 07/15/22 11:15 07/16/22 08:12 Ondansetron 4 Mg/2 Ml Vial IVP 4 mg Q6HR PRN Administration Nausea / Vomiting Pantoprazole Sodium 40 mg 07/19/22 11:00 08/11/22 06:46 Pantoprazole 40 Mg Tablet PO 40 mg QDAC KANU Administration Mometasone Furoate 1 each 07/22/22 17:00 08/09/22 22:07 0.1% Ointment TOP 1 each BID PRN Administration ITCHING Potassium Chloride 20 meq 08/09/22 08:00 08/11/22 08:08 Potassium Chloride 10 Meq Capsule PO 20 meq DAILYWM KANU Administration Multivit/Folic Acid/Iron 1 tab 07/16/22 11:00 08/11/22 08:07 Vitamin Tablet PO 1 tab DAILYWM KANU Administration Prochlorperazine Edisylate 10 mg 07/15/22 11:15 07/22/22 23:58 Prochlorperazine 10 Mg/2 Ml Vial IVP 10 mg Q6HR PRN Administration Nausea / Vomiting Rifaximin 550 mg 07/18/22 21:00 08/11/22 08:10 Rifaximin 550 Mg Tablet PO 550 mg BID KANU Administration Sodium Chloride 10 ml 07/15/22 11:15 08/06/22 08:30 Sodium Chloride Flush 0.9% 10 Ml Syringe IVP 10 ml PRN PRN Administration NEEDED PER PROVIDER ORDERS Sodium Chloride 20 ml 07/16/22 22:36 08/09/22 04:01 Sodium Chloride Flush 0.9% 10 Ml Syringe IVP 20 ml PRN PRN Administration After Blood Draw Spironolactone 25 mg 08/04/22 21:00 08/11/22 08:09 Spironolactone 25 Mg Tablet PO 25 mg BID KANU Administration Thiamine HCl 100 mg 07/16/22 11:00 08/11/22 08:07 Thiamine 100 Mg Tablet PO 100 mg DAILY KANU Administration Tramadol HCl 25 mg 07/27/22 09:00 08/11/22 08:06 Tramadol 50 Mg Tablet PO 25 mg BID KANU Administration Zinc Oxide 113 gm 07/19/22 17:01 07/22/22 23:47 Cod Liver Oil/Zinc Oxide 113 Gm Tube TOP 1 applic PRN PRN Administration Skin Care - Lab Result Fish Bone Diagrams: 08/13/22 06:11 08/13/22 06:11 - Additional Planning My Orders: My Active Orders 08/11/22 10:00 Lactulose 10 gm PO Q72H Subjective - Subjective Patient Reports: Feeling Better (The diet options were changed by Kamla Copy Editor and are much better.) Nursing Reports: Other (He is needing a sling for his swollen scrotum) Objective Vital Signs: Vital Signs - 24 hr 08/10/22 08/11/22 08/11/22 23:42 08:21 16:56 Temperature 36.6 C 36.5 C 37.0 C Heart Rate [ 92 Brachial] Heart Rate [ 80 81 Radial] Respiratory 20 20 21 Rate Blood Pressure 106/57 L 132/89 H 108/59 L [Right Radial artery] O2 Saturation 95 95 97 Oxygen O2 Source Room air I&O (Last 24 Hrs): Intake and Output Totals x24h 08/09/22 08/10/22 08/11/22 23:59 23:59 23:59 Intake Total 1130 1220 1190 Output Total 1725 1550 1700 Balance -595 -330 -510 General: Alert, Oriented x3 HEENT: Atraumatic, PERRLA Neck: Supple Neuro: Alert, Non Focal Cardiovascular: Regular rate Respiratory: No respiratory distress Abdomen: Other (Obese with a very large pannus, nearly down to his knees) Extremities: Other (4+ edema with ventura blisters) - Results Results: Laboratory Results WBC 10.6 x10^3/uL (4.8-10.8) 08/11/22 05:17 RBC 3.15 10^6/uL (4.70-6.10) L 08/11/22 05:17 Hgb 10.7 g/dL (14.0-18.0) L 08/11/22 05:17 Hct 32.4 % (42.0-52.0) L 08/11/22 05:17 MCV 102.9 fL (80.0-94.0) H 08/11/22 05:17 MCH 34.0 pg (27.0-31.0) H 08/11/22 05:17 MCHC 33.0 g/dL (32.0-36.0) 08/11/22 05:17 RDW 15.4 % (12.0-15.0) H 08/11/22 05:17 Plt Count 133 10^3/uL (130-450) 08/11/22 05:17 MPV 10.2 fL (7.4-11.4) 08/11/22 05:17 Neut # (Auto) Not Reportable 08/11/22 05:17 Lymph # (Auto) Not Reportable 08/11/22 05:17 [place] # (Auto) Not Reportable 08/11/22 05:17 Eos # (Auto) Not Reportable 08/11/22 05:17 Baso # (Auto) Not Reportable 08/11/22 05:17 Absolute Nucleated RBC Not Reportable 08/11/22 05:17 Total Counted 100 08/11/22 05:17 Band Neuts % (Manual) 2 % (0-10) 08/11/22 05:17 Reactive Lymphs % (Man) 5 % 08/04/22 05:00 Abnorm Lymph % (Manual) 0 % 08/11/22 05:17 Metamyelocytes % 4 % (-0) H 08/11/22 05:17 Myelocytes % 4 % (-0) H 08/11/22 05:17 Nucleated RBC % Not Reportable 08/11/22 05:17 Neutrophils # (Manual) 7.3 10^3/uL (1.5-6.6) H 08/11/22 05:17 Lymphocytes # (Manual) 1.5 10^3/uL (1.5-3.5) 08/11/22 05:17 Monocytes # (Manual) 0.3 10^3/uL (0.0-1.0) 08/11/22 05:17 Eosinophils # (Manual) 0.6 10^3/uL (0-0.7) 08/11/22 05:17 Basophils # (Manual) 0.0 10^3/uL (0-0.1) 08/11/22 05:17 Differential Comment MANUAL DIFFERENTIAL 08/11/22 05:17 WBC Morphology NORMAL APPEARANCE (NORMAL) 08/08/22 04:45 Platelet Estimate NORMAL (130-450,000) (NORMAL) 08/11/22 05:17 Platelet Morphology NORMAL APPEARANCE (NORMAL) 08/08/22 04:45 RBC Morph Micro Appear NORMAL APPEARANCE (NORMAL) 08/11/22 05:17 PT 19.3 secs (9.9-12.6) H 07/15/22 12:26 INR 1.8 (0.8-1.2) H 07/15/22 12:26 VBG pH 7.317 (7.31-7.41) 07/23/22 05:45 Ionized Calcium 1.16 mmol/L (1.15-1.33) 07/23/22 05:45 Sodium 132 mmol/L (135-145) L 08/11/22 05:17 Potassium 3.9 mmol/L (3.5-5.0) 08/11/22 05:17 Chloride 101 mmol/L (101-111) 08/11/22 05:17 Carbon Dioxide 23 mmol/L (21-32) 08/11/22 05:17 Anion Gap 8.0 (6-13) 08/11/22 05:17 BUN 23 mg/dL (6-20) H 08/11/22 05:17 Creatinine 1.0 mg/dL (0.6-1.2) 08/11/22 05:17 Estimated GFR (MDRD) 78 (>89) L 08/11/22 05:17 Glucose 120 mg/dL (70-100) H 08/11/22 05:17 Estimat Average Glucose 105 mg/dL (70-100) H 07/16/22 04:27 Hemoglobin A1c % 5.3 % (4.27-6.07) 07/16/22 04:27 Calcium 8.3 mg/dL (8.5-10.3) L 08/11/22 05:17 Phosphorus 2.9 mg/dL (2.5-4.6) 07/23/22 05:45 Magnesium 1.9 mg/dL (1.7-2.8) 08/11/22 05:17 Total Bilirubin 14.0 mg/dL (0.2-1.0) H 08/11/22 05:17 Direct Bilirubin 8.2 mg/dL (0.1-0.5) H 08/08/22 04:45 AST 109 IU/L (10-42) H 08/11/22 05:17 ALT 40 IU/L (10-60) 08/11/22 05:17 Alkaline Phosphatase 304 IU/L (42-121) H 08/11/22 05:17 Ammonia 64.5 umol/L (7-35) H 08/11/22 05:17 Total Creatine Kinase 171 IU/L (22-269) 07/18/22 05:18 Troponin I High Sens 27.6 ng/L (2.3-19.7) H* 07/16/22 20:52 Total Protein 5.5 g/dL (6.7-8.2) L 08/11/22 05:17 Albumin 1.9 g/dL (3.2-5.5) L 08/11/22 05:17 Globulin 3.6 g/dL (2.1-4.2) 08/11/22 05:17 Albumin/Globulin Ratio 0.5 (1.0-2.2) L 08/11/22 05:17 Lipase 36 U/L (22-51) 07/15/22 09:54 Whole Bld Vitamin B1 138.4 nmol/L (66.5-200.0) 07/23/22 05:45 Vitamin B12 404 pg/mL (180-914) 07/16/22 04:27 Folate 8.12 ng/mL (5.90 - >24.8) 07/16/22 04:27 TSH 2.59 uIU/mL (0.34-5.60) 07/15/22 09:54 Urine Color DARK YELLOW 07/22/22 12:50 Urine Clarity HAZY (CLEAR) 07/22/22 12:50 Urine pH 6.0 PH (5.0-7.5) 07/22/22 12:50 Ur Specific [place] 1.020 (1.002-1.030) 07/22/22 12:50 Urine Protein NEGATIVE mg/dL (NEGATIVE) 07/22/22 12:50 Urine Glucose (UA) 250 mg/dL (NEGATIVE) H 07/22/22 12:50 Urine Ketones NEGATIVE mg/dL (NEGATIVE) 07/22/22 12:50 Urine Occult Blood MODERATE (NEGATIVE) H 07/22/22 12:50 Urine Nitrite POSITIVE (NEGATIVE) H 07/22/22 12:50 Urine Bilirubin LARGE (NEGATIVE) H 07/22/22 12:50 Urine Urobilinogen 2 E.U./dL (NORMAL) H 07/22/22 12:50 Ur Leukocyte Esterase SMALL (NEGATIVE) H 07/22/22 12:50 Urine RBC 0-5 /HPF (0-5) 07/22/22 12:50 Urine WBC 6-10 /HPF (0-3) H 07/22/22 12:50 Ur Squamous Epith Cells FEW Squamous (<= Few) 07/22/22 12:50 Urine Bacteria Many /HPF (None Seen) H 07/22/22 12:50 Urine Casts 0-2 WBC Casts /LPF 07/22/22 12:50 Urine Culture Comments INDICATED 07/22/22 12:50 Nasal Screen MRSA (PCR) NEGATIVE (NEGATIVE) 07/15/22 11:58 Stl C. diff Tox B Gene NEGATIVE (NEGATIVE) 07/16/22 02:05 Urine Opiates Screen NEGATIVE (NEGATIVE) 07/15/22 12:59 Ur Oxycodone Screen NEGATIVE (NEGATIVE) 07/15/22 12:59 Urine Methadone Screen NEGATIVE (NEGATIVE) 07/15/22 12:59 Ur Propoxyphene Screen NEGATIVE (NEGATIVE) 07/15/22 12:59 Ur Barbiturates Screen NEGATIVE (NEGATIVE) 07/15/22 12:59 Ur Tricyclics Screen NEGATIVE (NEGATIVE) 07/15/22 12:59 Ur Phencyclidine Scrn NEGATIVE (NEGATIVE) 07/15/22 12:59 Ur Amphetamine Screen NEGATIVE (NEGATIVE) 07/15/22 12:59 U Methamphetamines Scrn NEGATIVE (NEGATIVE) 07/15/22 12:59 U Benzodiazepines Scrn NEGATIVE (NEGATIVE) 07/15/22 12:59 Urine Cocaine Screen NEGATIVE (NEGATIVE) 07/15/22 12:59 U Cannabinoids Screen NEGATIVE (NEGATIVE) 07/15/22 12:59 Ethyl Alcohol 103.7 mg/dL 07/15/22 09:54 SARS-CoV-2 (PCR) NOT DETECTED 07/31/22 18:35
[2022-08-11] MEDS: MOMETASONE FUROATE 0.1% TOP PRN (21:38)
[2022-08-11] MEDS: ZINC OXIDE 20% OINT 30 GM TUBE TOP PRN (21:38)
[2022-08-12] MEDS: GABAPENTIN 300 MG CAPSULE PO SCH ×3 (06:21→21:36)
[2022-08-12] MEDS: PANTOPRAZOLE 40 MG TABLET PO SCH (06:21)
[2022-08-12] MEDS: FUROSEMIDE 20 MG/2 ML VIAL IVP SCH ×2 (06:22→14:05)
[2022-08-12] MEDS: SPIRONOLACTONE 25 MG TABLET PO SCH ×2 (08:01→21:35)
[2022-08-12] MEDS: PRENATAL VITAMIN TABLET PO SCH (08:01)
[2022-08-12] MEDS: LIDOCAINE OINTMENT 5% 35.44 GM TUBE TOP SCH ×4 (08:01→21:39)
[2022-08-12] MEDS: traMADol 50 MG TABLET PO SCH ×2 (08:01→21:32)
[2022-08-12] MEDS: ENOXAPARIN 40 MG/0.4 ML SYRINGE SUBQ SCH ×2 (08:01→21:33)
[2022-08-12] MEDS: NYSTATIN POWDER 15 GM TOP SCH ×2 (08:02→21:38)
[2022-08-12] MEDS: POTASSIUM CHLORIDE 10 MEQ CAPSULE PO SCH (08:02)
[2022-08-12] MEDS: rifAXIMin 550 MG TABLET PO SCH ×2 (08:02→21:32)
[2022-08-12] MEDS: THIAMINE 100 MG TABLET PO SCH (08:02)
[2022-08-12] MEDS: LACTOBACILLUS RHAMNOSUS GG CAPSULE PO SCH (08:02)
[2022-08-12] MEDS: CLOTRIMAZOLE 1% CREAM 15 GM TUBE TOP SCH ×2 (08:02→21:39)
[2022-08-12] MEDS: MOMETASONE FUROATE 0.1% TOP PRN (20:19)
--- NOTE | 2022-08-12 20:30 | PROVIDER PROGRESS NOTE ---
Assessment/Plan - Problem List (1) Weakness Assessment/Plan: He had fallen before coming to the ER and was so weak at admission that he could not lift up his buttocks by pushing using his legs, when in his bed. He also admitted that over the past week before admission, he had been mostly on his couch, hardly got up, did not eat, had his beer delivered to him by [employer]. He started with extreme weakness, could not even roll in bed, was bedbound for over a week here, needed 4 people to sit him up in bed several weeks ago. He has now had a very long hospital stay, in the ICU initially and is severely deconditioned because of this prolonged stay plus from morbid obesity and previous immobolity. He then started to work with PT and OT and has progressed slowly due to his morbid obesity (BMI 66), and swollen legs and very large abdominal pannus. He has been on iv Lasix for eliminating the anasarca. When the Lasix dose was daily, this produced no neg fluid balance. Then when Lasix was increased to BID about 5 days ago, plus the continued total daily fluid restriction, he has had 200-550 vero fluid balance daily. Due to his low serum Albumen, I ordered 1 bag of iv Albumen several days ago, to help his oncotic pressure too. In addition, all outside food, including candy was restricted, and he and family have complied with this. His weight has only dropped about 2 kg Plan: The plan had been to have him lose the 9 lbs or so to be under the 450 lb bariatric limit, to be accepted at a SNF to do aggressive rehab. About a week ago, his [employer] was in contact with and [facility] agreed to cover him go to any SNF. (Today is Fri and) on Fri, a notice arrived from [employer] indicating that [facility] would not pay for further inpatient days. tried on Sat 08/10 and Sun 08/11 to reach [facility] to explain the circumstances, but there was no one at [facility] that would work on this matter and we were told to discuss this on Mon. Today, Mon, 08/12, first JORGE then I spoke to an MD at [facility] and explained our plan. That MD told me that the pt could be [facility] home to lose the weight to then be accepted into a SNF. I told the pt this today. However, the pt lives alone, would need arrangements made for getting food, meds, and help with toileting and ADLs. I suggested that he may want to go to his mother's house. He will speak to his mother. SW needs to be updated. The [facility] RN and and Lay Santoyo, human services manager, were informed of all the above by me. (2) Liver failure without hepatic coma Impression: He has liver failure from alcoholic liver disease. He presented with months of increased beer drinking after he lost his job. On admission his bili and LFTs were elevated. INR 1.8. While his LFTs were improving, his bili improvement lagged. He got a CT of abd to check for gallbladder disease or intraductal dilatation and that was negative. Labs were all reviewed. Bili peaked on 07/19 at 23.8. Bili has plateaued at 14-16. Per phone call consult with Dr. Pa from GI @ [facility] on 07/19, she advised us to increase lactulose dose, start rifaximin 550 along w/ methylprednisolone 1mg/kg for the treatment of his alcoholic liver disease and pantoprazole 40mg IV push for stomach ulcer protection. However, Dr. Pa did not feel it necessary to give 200mg of steroids and aim for 40mg a day for 5 days. He had psychomotor slowing until 07/26. His Maddrey score was 54.6 points, and >32 indicates poor prognosis and would benefit from glucocorticoid therapy. Patient received solumedrol 40 mg IVP for 5 days, the last dose was on 07/22/22. His MELD score was 29 points which equates to an estimated 76.5% indication for short term survival and approximately a 19.6% chance of mortality for patient's with end stage liver disease for considerations for liver transplant. Once he was on the steroids, lactulose, rifaximin there was slow improvement that has been very steady. He completed his steroid treatment. And we have him on lactulose once a day alternated with twice a day every other day. He continues on rifaximin, and is working with physical therapy/Occupational Therapy. He has reached maximal medical benefit. Now our treatment is focused on improving his mobility and his strength. (3) Hepatic encephalopathy Impression: Improved: He is alert, oriented, able to converse in normal sentences and has no psychomotor slowing. Patient had his dose of lactulose decrease due to too many BMs a day. We had him off his gabapentin which may have added to the initial lethargy and when he requested it for his neuropathy, and that was restarted. He has gone from doing some short shuffling steps to his chair from his bedside to being able to get up on his own with standby assist to go to the bathroom, a nd then walked back to the bed. He is spending more time in the bedside chair than in bed. He does not like walking outside his room. He is embarrassed by his appearance. At his worst his ammonia was 105 on July 16. Ammonia has been coming down with the lactulose. He seems to live in the 40s now. On July 31 he was 48.1. On 08/03 he was having too many bowel movements. As such we decreased the lactulose. August 04 he was still having 5 bowel movements a day on lactulose once a day. So then lactulose became every other day. On 08/08, he again had many episodes of watery diarrhea. A C. difficile test was ordered but he had no further diarrhea, so that test was cancelled. Also, his Lactulose was made every 3rd day (3 days ago) Plan: Cont the changed lactulose from every 48 hrs to every 72 hour Follwo Ammonia level intermittently (4) Anasarca He developed anasarca while in the ICU from receiving iv saline for his severe hyponatremia. He was also on a salt tablet daily. The salt tablet was stopped several days ago. IV Lasix daily was started. His fluid restriction was changed from free water restriction to a total liquid restricted down to 2000 cc/day (1000 cc with meals, 1000 cc for nursing). RNs have caught his sister trying to sneak him extra fluids. He feels like the weight is coming off of him and likes the ability to be more mobile. He says that the skin of his legs does not feel nearly as tight. However, his scrotum is swollen and red, needs a sling and Lidocaine jelly applied. Echocardiogram done 07/31 was technically difficult to do because of his size. His ejection fraction is 55%. No regional wall motion abnormality seen. Atria were not well visualized. No significant valvular heart disease was identified. As such cardiac dysfunction is not the cause of his anasarca. He does not have alcoholic cardiomyopathy. August 01 Lasix 20 mg IVP was stopped. Spironolactone 25 mg p.o. twice daily started. August 03, I increased to 50 mg p.o. twice daily from 25 mg dose. but urine output slowed down and legs were getting a little bit more edematous. Scrotum is little bit more edematous. Lasix 40 mg po started. August 04 his lasix 40 mg po, but 08/05 Lasix changed to 20 mg daily and we cut back his spironolactone to 25 mg po bid. On 08/06 his salt tablet was stopped and Lasix iv was increased from 20 mg to 40 mg iv, Spironolactone continued. On 08/07 Lasix was increased to 40 iv BID, Spironolactone continued. With that combination he has finally had neg fluid balance for the last 5 days. Plan: Continue this fluid restriction, applesauce quenches his thirst, continue this LAsix and Spirolactone dose. If he needs to be discharged, his po Lasix dose probably needs to be 40 or 60 mg po BID at 0800 and 1400. He will need supervision senior tax analyst Home [facility] to assure he is following diet and fluid restrictions and taking all meds correctly. With his painful and swollen scrotum, he needs nursing to arrange the sling to support the scrotum and apply Lidocaine jelly, since he cannot reach his groin himself, due to morbid obesity and a large pannus. (5) Morbid obesity BMI 60-69 At admission he weighed about 59 BMI, this increased to BMI of 67 after getting IV fluids and developing anasarca. His morbid obesity makes all of his care more difficult. Plan: In the outpatient setting, the patient will need to continue a low calorie diet, improve his mobility to be able to exercise. Resolved or chronic probelms (6) Hypotension resolved From July 16 to the he required Levophed to keep his blood pressure up and to maintain his urine output. We looked for signs of infection, repeated blood cultures, urinalysis, chest x-ray and no source of infection was found. He was not having an ME. No lactic acidosis. Suspect he was intravascularly depleted due to cirrhosis and alcoholism. A July 22 urine culture grew out Enterococcus. He was not placed on antibiotics for that. Since he does not have a fever, elevated white cell count, and is asymptomatic hospitalist did not treat. (7) Alcoholism Impression: Initially he was on iv banana bags and transitioned to multivit and thiamin orally whgen he was able to swallow. He needed librium and CIWA protocol, but librium stopped 07/17. Pt is on lactulose for his high Ammonia level and confusion and psychomotor slowing, which are improving. Labs are all reviewed: The bilirubin is mostly plateaued around 14, ammonia level has decreased He has met with social work. They have given him opportunities for following up with rehab once he is done with physical rehab. (8) Right breast nipple inversion Plan: Outpatient work up with mammo (9) Skin rash Rash covering the skin of both buttocks and is a result of being on his back and having the loose stool. A shower was ordered and he can now sit up in a bariat sukumar chair in shower. The rash continues to be present. There is been no change in the geographic distribution since it was first identified. Nonblanching red skin. Plan: Continue hygiene and nystatin powder (10) Hyponatremia Resolved as of 07/21 On admission, he presented is almost meeting the criteria for beer potomania. He was severely hyponatremic at 114 but not hypokalemic. He was on saline in the ICU. A daily salt tablet was added (by Telemedicine Dr). WE follow his BMP daily. Plan: Remain off the the salt tablet, due to persistent anasarca Cont on restricted total fluid intake/day Sonja ue loop diuretic Check BMP and CBC tomorrow. (11) Abnormal urinalysis His first urinalysis showed bacteriuria but was negative in its growth. He did not have any symptoms of urgency, and frequency but did have AMS (psychomotor slowing). He did not have a fever or an elevated white cell count. We did not treat this abnormal urinalysis (12) Boil Left anterior thigh that has come to a head. Patient scratched it and boil ruptured, no cellulitis. (13) Conjunctivitis Resolved on eye drops - Current Meds Current Meds: Current Medications Generic Name Dose Route Start Last Admin Trade Name Freq PRN Reason Stop Dose Admin Calcium Carbonate/Glycine 500 mg 07/21/22 03:51 07/24/22 18:15 Calcium Carbonate Chew 500 Mg Tablet PO 500 mg BID PRN Administration Heartburn Carboxymethylcellulose 1 drops 07/17/22 08:19 07/31/22 08:17 Carboxymethylcellulose Ophth Drops EACHEYE 1 drops PRN PRN Administration Dry Eye Clotrimazole 1 applic 08/04/22 09:00 08/12/22 08:02 Clotrimazole 1% Cream 15 Gm Tube TOP 1 applic BID KANU Administration Enoxaparin Sodium 40 mg 07/24/22 09:41 08/12/22 08:01 Enoxaparin 40 Mg/0.4 Ml Syringe SUBQ 40 mg BID KANU Administration Furosemide 20 mg 08/08/22 14:00 08/12/22 14:05 Furosemide 20 Mg/2 Ml Vial IVP 20 mg BIDDIURETIC KANU Administration Gabapentin 600 mg 07/27/22 14:00 08/12/22 14:05 Gabapentin 300 Mg Capsule PO 600 mg TID KANU Administration Lactobacillus Rhamnosus 1 cap 07/16/22 11:00 08/12/22 08:02 Lactobacillus Rhamnosus Gg Capsule PO 1 cap DAILY KANU Administration Lactulose 10 gm 08/11/22 10:00 08/11/22 10:37 Lactulose 10 Gm/15 Ml Bottle PO 10 gm Q72H KANU Administration Lidocaine 1 applic 08/09/22 14:31 08/12/22 16:19 Lidocaine Ointment 5% 35.44 Gm Tube TOP 1 applic QID KANU Administration Multi-Ingredient Ointment 1 applic 07/16/22 01:24 08/11/22 21:38 Zinc Oxide 20% Oint 30 Gm Tube TOP 1 applic PRN PRN Administration Skin Care Nystatin 1 applic 07/15/22 21:00 08/12/22 08:02 Nystatin Powder 15 Gm TOP 1 applic BID KANU Administration Ondansetron HCl 4 mg 07/15/22 11:15 07/16/22 08:12 Ondansetron 4 Mg/2 Ml Vial IVP 4 mg Q6HR PRN Administration Nausea / Vomiting Pantoprazole Sodium 40 mg 07/19/22 11:00 08/12/22 06:21 Pantoprazole 40 Mg Tablet PO 40 mg QDAC KANU Administration Mometasone Furoate 1 each 07/22/22 17:00 08/12/22 20:19 0.1% Ointment TOP 1 each BID PRN Administration ITCHING Potassium Chloride 20 meq 08/09/22 08:00 08/12/22 08:02 Potassium Chloride 10 Meq Capsule PO 20 meq DAILYWM KANU Administration Multivit/Folic Acid/Iron 1 tab 07/16/22 11:00 08/12/22 08:01 Vitamin Tablet PO 1 tab DAILYWM KANU Administration Prochlorperazine Edisylate 10 mg 07/15/22 11:15 07/22/22 23:58 Prochlorperazine 10 Mg/2 Ml Vial IVP 10 mg Q6HR PRN Administration Nausea / Vomiting Rifaximin 550 mg 07/18/22 21:00 08/12/22 08:02 Rifaximin 550 Mg Tablet PO 550 mg BID KANU Administration Sodium Chloride 10 ml 07/15/22 11:15 08/06/22 08:30 Sodium Chloride Flush 0.9% 10 Ml Syringe IVP 10 ml PRN PRN Administration NEEDED PER PROVIDER ORDERS Sodium Chloride 20 ml 07/16/22 22:36 08/09/22 04:01 Sodium Chloride Flush 0.9% 10 Ml Syringe IVP 20 ml PRN PRN Administration After Blood Draw Spironolactone 25 mg 08/04/22 21:00 08/12/22 08:01 Spironolactone 25 Mg Tablet PO 25 mg BID KANU Administration Thiamine HCl 100 mg 07/16/22 11:00 08/12/22 08:02 Thiamine 100 Mg Tablet PO 100 mg DAILY KANU Administration Tramadol HCl 25 mg 07/27/22 09:00 08/12/22 08:01 Tramadol 50 Mg Tablet PO 25 mg BID KANU Administration Zinc Oxide 113 gm 07/19/22 17:01 07/22/22 23:47 Cod Liver Oil/Zinc Oxide 113 Gm Tube TOP 1 applic PRN PRN Administration Skin Care - Lab Result Fish Bone Diagrams: 08/11/22 05:17 08/11/22 05:17 - Additional Planning My Orders: My Active Orders 08/13/22 05:00 AMMONIA [CHEM] DAILYLAB CBC - COMP BLD CT W/AUTO DIFF [HEME] DAILYLAB COMPREHENSIVE METABOLIC PANEL [CHEM] DAILYLAB MAGNESIUM [CHEM] DAILYLAB 08/14/22 05:00 AMMONIA [CHEM] DAILYLAB Subjective - Subjective Patient Reports: Feeling Better, Pain (Has worsened pain on ventral side of swollen scrotum, despite a sling, an ice pack and topical Lidocaine jelly being applied) Nursing Reports: Other (Can stand from sated position on his own, needs assist and cuing when walking with a walker) Objective Vital Signs: Vital Signs - 24 hr 08/11/22 08/11/22 08/12/22 21:48 23:49 10:00 Temperature 36.6 C 36.4 C L Heart Rate [ 79 80 Brachial] Heart Rate [ 88 Radial] Respiratory 20 18 Rate Blood Pressure 107/56 L 94/52 L 124/74 [Right Radial artery] O2 Saturation 97 95 08/12/22 16:22 Temperature 36.4 C L Heart Rate [ Brachial] Heart Rate [ 81 Radial] Respiratory 20 Rate Blood Pressure 108/60 [Right Radial artery] O2 Saturation 96 Oxygen O2 Source Room air I&O (Last 24 Hrs): Intake and Output Totals x24h 08/10/22 08/11/22 08/12/22 23:59 23:59 23:59 Intake Total 1220 2020 840 Output Total 1550 2150 1550 Balance -330 -130 -710 General: Alert, Oriented x3 HEENT: Atraumatic, EOMI, Other (Clean shaven. Wearing glasses) Neck: Supple, Other (Cannot eval JVP due to morbid obesity) Neuro: Alert, Non Focal, Other (Still has generalized weakness) Respiratory: No respiratory distress Abdomen: Soft, Other (Obese with a pnnus down to knees) Genitourinary: Other (Swollen scrotum) Extremities: Other (4+ edema, blisters on both ant shins) - Results Results: Laboratory Results WBC 10.6 x10^3/uL (4.8-10.8) 08/11/22 05:17 RBC 3.15 10^6/uL (4.70-6.10) L 08/11/22 05:17 Hgb 10.7 g/dL (14.0-18.0) L 08/11/22 05:17 Hct 32.4 % (42.0-52.0) L 08/11/22 05:17 MCV 102.9 fL (80.0-94.0) H 08/11/22 05:17 MCH 34.0 pg (27.0-31.0) H 08/11/22 05:17 MCHC 33.0 g/dL (32.0-36.0) 08/11/22 05:17 RDW 15.4 % (12.0-15.0) H 08/11/22 05:17 Plt Count 133 10^3/uL (130-450) 08/11/22 05:17 MPV 10.2 fL (7.4-11.4) 08/11/22 05:17 Neut # (Auto) Not Reportable 08/11/22 05:17 Lymph # (Auto) Not Reportable 08/11/22 05:17 [place] # (Auto) Not Reportable 08/11/22 05:17 Eos # (Auto) Not Reportable 08/11/22 05:17 Baso # (Auto) Not Reportable 08/11/22 05:17 Absolute Nucleated RBC Not Reportable 08/11/22 05:17 Total Counted 100 08/11/22 05:17 Band Neuts % (Manual) 2 % (0-10) 08/11/22 05:17 Reactive Lymphs % (Man) 5 % 08/04/22 05:00 Abnorm Lymph % (Manual) 0 % 08/11/22 05:17 Metamyelocytes % 4 % (-0) H 08/11/22 05:17 Myelocytes % 4 % (-0) H 08/11/22 05:17 Nucleated RBC % Not Reportable 08/11/22 05:17 Neutrophils # (Manual) 7.3 10^3/uL (1.5-6.6) H 08/11/22 05:17 Lymphocytes # (Manual) 1.5 10^3/uL (1.5-3.5) 08/11/22 05:17 Monocytes # (Manual) 0.3 10^3/uL (0.0-1.0) 08/11/22 05:17 Eosinophils # (Manual) 0.6 10^3/uL (0-0.7) 08/11/22 05:17 Basophils # (Manual) 0.0 10^3/uL (0-0.1) 08/11/22 05:17 Differential Comment MANUAL DIFFERENTIAL 08/11/22 05:17 WBC Morphology NORMAL APPEARANCE (NORMAL) 08/08/22 04:45 Platelet Estimate NORMAL (130-450,000) (NORMAL) 08/11/22 05:17 Platelet Morphology NORMAL APPEARANCE (NORMAL) 08/08/22 04:45 RBC Morph Micro Appear NORMAL APPEARANCE (NORMAL) 08/11/22 05:17 PT 19.3 secs (9.9-12.6) H 07/15/22 12:26 INR 1.8 (0.8-1.2) H 07/15/22 12:26 VBG pH 7.317 (7.31-7.41) 07/23/22 05:45 Ionized Calcium 1.16 mmol/L (1.15-1.33) 07/23/22 05:45 Sodium 132 mmol/L (135-145) L 08/11/22 05:17 Potassium 3.9 mmol/L (3.5-5.0) 08/11/22 05:17 Chloride 101 mmol/L (101-111) 08/11/22 05:17 Carbon Dioxide 23 mmol/L (21-32) 08/11/22 05:17 Anion Gap 8.0 (6-13) 08/11/22 05:17 BUN 23 mg/dL (6-20) H 08/11/22 05:17 Creatinine 1.0 mg/dL (0.6-1.2) 08/11/22 05:17 Estimated GFR (MDRD) 78 (>89) L 08/11/22 05:17 Glucose 120 mg/dL (70-100) H 08/11/22 05:17 Estimat Average Glucose 105 mg/dL (70-100) H 07/16/22 04:27 Hemoglobin A1c % 5.3 % (4.27-6.07) 07/16/22 04:27 Calcium 8.3 mg/dL (8.5-10.3) L 08/11/22 05:17 Phosphorus 2.9 mg/dL (2.5-4.6) 07/23/22 05:45 Magnesium 1.9 mg/dL (1.7-2.8) 08/11/22 05:17 Total Bilirubin 14.0 mg/dL (0.2-1.0) H 08/11/22 05:17 Direct Bilirubin 8.2 mg/dL (0.1-0.5) H 08/08/22 04:45 AST 109 IU/L (10-42) H 08/11/22 05:17 ALT 40 IU/L (10-60) 08/11/22 05:17 Alkaline Phosphatase 304 IU/L (42-121) H 08/11/22 05:17 Ammonia 64.5 umol/L (7-35) H 08/11/22 05:17 Total Creatine Kinase 171 IU/L (22-269) 07/18/22 05:18 Troponin I High Sens 27.6 ng/L (2.3-19.7) H* 07/16/22 20:52 Total Protein 5.5 g/dL (6.7-8.2) L 08/11/22 05:17 Albumin 1.9 g/dL (3.2-5.5) L 08/11/22 05:17 Globulin 3.6 g/dL (2.1-4.2) 08/11/22 05:17 Albumin/Globulin Ratio 0.5 (1.0-2.2) L 08/11/22 05:17 Lipase 36 U/L (22-51) 07/15/22 09:54 Whole Bld Vitamin B1 138.4 nmol/L (66.5-200.0) 07/23/22 05:45 Vitamin B12 404 pg/mL (180-914) 07/16/22 04:27 Folate 8.12 ng/mL (5.90 - >24.8) 07/16/22 04:27 TSH 2.59 uIU/mL (0.34-5.60) 07/15/22 09:54 Urine Color DARK YELLOW 07/22/22 12:50 Urine Clarity HAZY (CLEAR) 07/22/22 12:50 Urine pH 6.0 PH (5.0-7.5) 07/22/22 12:50 Ur Specific [place] 1.020 (1.002-1.030) 07/22/22 12:50 Urine Protein NEGATIVE mg/dL (NEGATIVE) 07/22/22 12:50 Urine Glucose (UA) 250 mg/dL (NEGATIVE) H 07/22/22 12:50 Urine Ketones NEGATIVE mg/dL (NEGATIVE) 07/22/22 12:50 Urine Occult Blood MODERATE (NEGATIVE) H 07/22/22 12:50 Urine Nitrite POSITIVE (NEGATIVE) H 07/22/22 12:50 Urine Bilirubin LARGE (NEGATIVE) H 07/22/22 12:50 Urine Urobilinogen 2 E.U./dL (NORMAL) H 07/22/22 12:50 Ur Leukocyte Esterase SMALL (NEGATIVE) H 07/22/22 12:50 Urine RBC 0-5 /HPF (0-5) 07/22/22 12:50 Urine WBC 6-10 /HPF (0-3) H 07/22/22 12:50 Ur Squamous Epith Cells FEW Squamous (<= Few) 07/22/22 12:50 Urine Bacteria Many /HPF (None Seen) H 07/22/22 12:50 Urine Casts 0-2 WBC Casts /LPF 07/22/22 12:50 Urine Culture Comments INDICATED 07/22/22 12:50 Nasal Screen MRSA (PCR) NEGATIVE (NEGATIVE) 07/15/22 11:58 Stl C. diff Tox B Gene NEGATIVE (NEGATIVE) 07/16/22 02:05 Urine Opiates Screen NEGATIVE (NEGATIVE) 07/15/22 12:59 Ur Oxycodone Screen NEGATIVE (NEGATIVE) 07/15/22 12:59 Urine Methadone Screen NEGATIVE (NEGATIVE) 07/15/22 12:59 Ur Propoxyphene Screen NEGATIVE (NEGATIVE) 07/15/22 12:59 Ur Barbiturates Screen NEGATIVE (NEGATIVE) 07/15/22 12:59 Ur Tricyclics Screen NEGATIVE (NEGATIVE) 07/15/22 12:59 Ur Phencyclidine Scrn NEGATIVE (NEGATIVE) 07/15/22 12:59 Ur Amphetamine Screen NEGATIVE (NEGATIVE) 07/15/22 12:59 U Methamphetamines Scrn NEGATIVE (NEGATIVE) 07/15/22 12:59 U Benzodiazepines Scrn NEGATIVE (NEGATIVE) 07/15/22 12:59 Urine Cocaine Screen NEGATIVE (NEGATIVE) 07/15/22 12:59 U Cannabinoids Screen NEGATIVE (NEGATIVE) 07/15/22 12:59 Ethyl Alcohol 103.7 mg/dL 07/15/22 09:54 SARS-CoV-2 (PCR) NOT DETECTED 07/31/22 18:35
[2022-08-13 06:19] LABS: BASOPHILS # (AUTO) 0.1 10^3/uL (0.0-0.1); BASOPHILS % (AUTO) 0.6 %; EOSINOPHILS # (AUTO) 0.2 10^3/uL (0.0-0.7); EOSINOPHILS % (AUTO) 2.4 %; HGB - HEMOGLOBIN 11.1 g/dL (14.0-18.0); LYMPHOCYTES # (AUTO) 1.2 10^3/uL (1.5-3.5); LYMPHOCYTES % (AUTO) 12.8 %; MEAN CORPUSCULAR HEMOGLOBIN 33.1 pg (27.0-31.0); MEAN CORPUSCULAR HGB CONC 32.6 g/dL (32.0-36.0); MEAN CORPUSCULAR VOLUME 101.5 fL (80.0-94.0); MEAN PLATELET VOLUME 9.6 fL (7.4-11.4); MONOCYTES # (AUTO) 0.8 10^3/uL (0.0-1.0); MONOCYTES % (AUTO) 8.3 %; NEUTROPHILS # (AUTO) 6.7 10^3/uL (1.5-6.6); PLT - PLATELET COUNT 134 10^3/uL (130-450); RED BLOOD COUNT 3.35 10^6/uL (4.70-6.10); RED CELL DISTRIBUTION WIDTH 15.2 % (12.0-15.0); WHITE BLOOD COUNT 9.5 x10^3/uL (4.8-10.8)
[2022-08-13 06:34] LABS: ALBUMIN 1.8 g/dL (3.2-5.5); ALBUMIN/GLOBULIN RATIO 0.5 (1.0-2.2); BILIRUBIN,TOTAL 13.8 mg/dL (0.2-1.0); CALCIUM 8.3 mg/dL (8.5-10.3); CREATININE 0.8 mg/dL (0.6-1.2); POTASSIUM 3.6 mmol/L (3.5-5.0); TOTAL PROTEIN 5.6 g/dL (6.7-8.2)
[2022-08-13] MEDS: FUROSEMIDE 20 MG/2 ML VIAL IVP SCH ×2 (06:40→14:17)
[2022-08-13] MEDS: PANTOPRAZOLE 40 MG TABLET PO SCH (06:40)
[2022-08-13] MEDS: GABAPENTIN 300 MG CAPSULE PO SCH ×3 (06:40→21:17)
[2022-08-13] MEDS: SPIRONOLACTONE 25 MG TABLET PO SCH ×2 (08:25→21:17)
[2022-08-13] MEDS: rifAXIMin 550 MG TABLET PO SCH ×2 (08:25→21:17)
[2022-08-13] MEDS: traMADol 50 MG TABLET PO SCH ×2 (08:25→21:17)
[2022-08-13] MEDS: PRENATAL VITAMIN TABLET PO SCH (08:25)
[2022-08-13] MEDS: CLOTRIMAZOLE 1% CREAM 15 GM TUBE TOP SCH ×2 (08:25→21:21)
[2022-08-13] MEDS: THIAMINE 100 MG TABLET PO SCH (08:25)
[2022-08-13] MEDS: POTASSIUM CHLORIDE 10 MEQ CAPSULE PO SCH (08:25)
[2022-08-13] MEDS: ENOXAPARIN 40 MG/0.4 ML SYRINGE SUBQ SCH ×2 (08:25→21:19)
[2022-08-13] MEDS: LACTOBACILLUS RHAMNOSUS GG CAPSULE PO SCH (08:25)
[2022-08-13] MEDS: NYSTATIN POWDER 15 GM TOP SCH ×2 (08:26→21:20)
[2022-08-13] MEDS: LIDOCAINE OINTMENT 5% 35.44 GM TUBE TOP SCH ×4 (08:26→21:20)
--- NOTE | 2022-08-13 14:20 | Discharge Plan ---
Discharge Plan Problem Reviewed?: Yes Disposition: 06 Home Health Service Condition: Stable Prescriptions: Spironolactone [Aldactone] 25 mg PO BID #60 tab Lactulose 10 gm PO Q72H #946 ml Furosemide [Lasix] 40 mg PO BID #60 tablet Clotrimazole 1% Cream [Lotrimin 1% Cream] 1 gm TOP BID #1 ea Potassium Chloride [Micro-K] 20 meq PO DAILYWM #30 cap Nystatin [Nystop] 1 applic TOP BID #2 each Vit No.180/Iron/Folic [ Plus Vitamin-Mineral] 1 each PO DAILY #30 tablet Protectives Combination No.2 [Tetrix] 90 gm TP BID #1 each traMADol [Ultram] 25 mg PO BID #60 tab Thiamine [Vitamin B-1] 100 mg PO DAILY #30 tab rifAXIMin [Xifaxan] 550 mg PO BID #60 tab Diet: Low Sodium Activity Restrictions: Activity as Tolerated Shower Restrictions: No (shower chair) Driving Restrictions: Yes (no driving) Assistance Devices: Wheelchair, Walker Weight Bearing: Full Weight Instruction Topics: Facts Dietary Fat, Cooking Tips Low Fat, Serving Size, Lose Weight, Alcoholism Myths Facts, Alcoholism Impact, Alcoholism Info Family Friends, Alcoholism Get Help Health Concerns: Unfortunately you presented to our hospital with a history of severe morbid obesity, and severe depression that was exacerbated by you losing your job. You became very withdrawn, and to make yourself feel better, you began drinking nonstop. You had been nonstop drinking for several weeks. Your family became concerned when you were no longer responsive and called an ambulance. When you came to the hospital you were essentially unresponsive, unable to roll yourself over, unable to sit up. You were completely dependent for activities of daily living with regards to feeding, dressing, toileting. You went through alcohol withdrawal. Your liver failure was very severe. We did various measurements of your liver failure, and you had a 19.6% chance of dying with end-stage liver disease in the next 30 to 60 days. However, you eventually respond to our treatment. We gave you special antibiotics called rifaximin, steroids for your inflamed liver, and a medicine called lactulose to quinn the bilirubin out of your system. You gradually woke up. You were able to work with physical therapy and Occupational Therapy but still have a ways to go. Your liver failure has given you severe water retention. Unfortunately your insurance company will no longer pay for you to stay in the hospital. If they feel that you are medically stable. They do not feel that you are a candidate for rehab and are not giving you the authorization to send you to a rehab facility. Most of the rehabilitation facilities we have called are not able to accept you due to your size. Plan of Treatment: 1. Treatment for the liver failure with ascites (water retention from the liver) is the rifaximin, lactulose, spironolactone, and Lasix. Not only do you have to take these medications, you also need to have fluid restrictions of no more than 2000 cc of water a day. It must be all fluids. Soda, water, tea, coffee, Gatorade, juice, etc. 2. You must eat a salt restricted diet. Otherwise the water rate will come back on. This in and of itself can be lethal. You cannot eat more than 2000 mg of salt a day. 3. You cannot ever drink alcohol again. Not even low alcoholic or nonalcoholic beer. Again, if you do so, it will be lethal. 4. We are ordering home health nursing to see you. We will order home health physical therapy, Occupational Therapy, and a bath aide. We will also have social work continue to follow you through the home health agency. 5. Please see your primary care provider, Alicia Pfeiffer, in follow-up in the next 1 to 2 weeks. 6. Please weigh yourself daily. We hope to see you lose weight down to 200 kg strictly on the loss of the water retention. But if you start to gain water weight, your diuretic therapy of Lasix and spironolactone need to be adjusted. You would also need to be evaluated for possible worsening of you liver disease. 7. At this time your main pain issue is from scrotal edema. Please discuss with your primary care provider, and see if you get a referral to urology for evaluation of some type of sling or support. Care Goals: Hopefully your liver will eventually heal itself. It may take up to 2 or 3 years. But again we can only stress that you cannot ever drink again. Hopefully you could also lose some of the water weight and get down to her dry weight. Your liver failure has caused severe water retention with fluid in your abdomen and legs. We also hope that your depression will improve. Assessment: Patient is alert, oriented, able to make his own decisions Follow-Up Care: Home Health - RN, Home Health - PT, Home Health - OT, Home Health - ST No Smoking: If you smoke, Please STOP! Call for help. Follow-up with: Aura Pfeiffer PA-C [Primary Care Provider] -
[2022-08-13] MEDS: MOMETASONE FUROATE 0.1% TOP PRN (18:21)
--- NOTE | 2022-08-13 19:55 | PROVIDER PROGRESS NOTE ---
Progress Note August 13, 2022 7:47 PM After care conference today, we had received news from the insurance company that they were longer in a be paying for continued stay here. They felt that the patient did not meet criteria for detention facility treatment and were not going to authorize that. Weight or no weight. At this time we have been receiving quite a bit of resistance and transferring because of his bariatric size. We will let the patient and the family know that we were making arrangements for discharge to home with home health. Many many conversations were had between case management, utilization review. In the end the patient will be staying here. His mom has agreed to pay for him to stay here for the next few days as they make arrangements to receive him at home. Temperature is 36.5, heart rate 88, blood pressure 112/60. Respirations 20. 99% on room air. 210 kg. He was 212 kg on August 09 and has gone down to 210 by the next day but has not really come down much further. Main complaint is scrotal edema which makes it painful to comply with PT He is alert, oriented, and able to walk in his room Large AP diameter chest with diminished breath sounds at the bases but no respiratory distress Regular rate and rhythm Large abdominal pannus with many intertriginous folds. Nontender. Normal bowel sounds. He is having daily bowel movements. Urine is still lesvia. Legs are still large with edema, anterior erythema, dry scaling rash. Edema is 3+. Sodium 132, potassium 3.6, BUN 19, creatinine 0.8. Ammonia level 55 White cell count 9.5, hemoglobin 11.1, MCV 101.5, platelets 134 Assessment/plan 1. Continued generalized weakness in a morbidly obese white male who has survived severe liver failure, had a prolonged ICU stay, and was already bedbound for days before admission. He has had a slow recovery to be able to get him to be ambulatory and he is able to ambulate to the bathroom. But he needs help with toileting hygiene because he cannot reach to white. On top of that he has scrotal edema that is painful. He will continue to work with physical therapy while here. Family is making arrangements to get him home. We will use BLS and and assist to get him into his house. He will also have home health with PT and OT. All of this will happen over the next few days as his family makes arrangements. 2. Liver failure without hepatic coma from alcoholic liver disease. He finally started responding when he was started on rifaximin and steroids. Steroids were for 5 days. Lactulose has been used to control his ammonia but he has frequent bowel movements with that so is down to every third day lactulose. Mentation is improved tremendously over the course of his stay. I would say that he is at baseline with alertness for the last 10 days. 3.. Hepatic encephalopathy resolved 4. Anasarca continues to be problematic. He is on Lasix IV, spironolactone p.o. 2000 mg salt diet. Fluid restriction. Nursing is working with his scrotum for sling support, as well as lidocaine jelly. He will need help with this at home.
[2022-08-14] MEDS: PANTOPRAZOLE 40 MG TABLET PO SCH (06:07)
[2022-08-14] MEDS: FUROSEMIDE 20 MG/2 ML VIAL IVP SCH ×2 (06:07→14:35)
[2022-08-14] MEDS: GABAPENTIN 300 MG CAPSULE PO SCH ×3 (06:07→21:57)
[2022-08-14] MEDS: rifAXIMin 550 MG TABLET PO SCH ×2 (08:18→21:57)
[2022-08-14] MEDS: ENOXAPARIN 40 MG/0.4 ML SYRINGE SUBQ SCH ×2 (08:18→21:57)
[2022-08-14] MEDS: SPIRONOLACTONE 25 MG TABLET PO SCH ×2 (08:18→21:57)
[2022-08-14] MEDS: PRENATAL VITAMIN TABLET PO SCH (08:18)
[2022-08-14] MEDS: POTASSIUM CHLORIDE 10 MEQ CAPSULE PO SCH (08:18)
[2022-08-14] MEDS: LACTOBACILLUS RHAMNOSUS GG CAPSULE PO SCH (08:18)
[2022-08-14] MEDS: THIAMINE 100 MG TABLET PO SCH (08:18)
[2022-08-14] MEDS: traMADol 50 MG TABLET PO SCH ×2 (08:18→21:57)
[2022-08-14] MEDS: CLOTRIMAZOLE 1% CREAM 15 GM TUBE TOP SCH ×2 (08:18→22:01)
[2022-08-14] MEDS: NYSTATIN POWDER 15 GM TOP SCH ×2 (08:19→21:59)
[2022-08-14] MEDS: LIDOCAINE OINTMENT 5% 35.44 GM TUBE TOP SCH ×4 (08:19→22:00)
[2022-08-14] MEDS: LACTULOSE 10 GM/15 ML BOTTLE PO SCH (10:59)
--- NOTE | 2022-08-14 16:32 | PROVIDER PROGRESS NOTE ---
Progress Note August 14, 2022 4:24 PM Family conference was held between the patient, patient's mother, patient's father, and sister. They have been angry for several days according to reports from utilization review and case management. They disagree with the insurance company's decision where the insurance company is no longer going to pay for acute care stay. The insurance company also feel that he has met most of his goals with regards to physical therapy and are not authorizing stay at a [place] [facility] facility. It does not help with the patient's obesity is also proven a barrier for him getting accepted in facilities. I got them to focus on medical questions. Quite a bit of their frustration and anger is in trying to navigate the system with regards to getting him appropriate caregiver support. Medical questions answered had to do with liver failure, prognosis for his liver failure. The treatment of ascites and scrotal edema and leg edema. The mechanics of why I am not going to over diurese instantly since it would only cause intravascular depletion and hypotension and acute kidney injury. I also explained to the group that is a whole that the focus should be on caloric restriction of food. No more than 2000 to 2500 kenny a day. Fluid restriction of no more than 1500 to 2000 cc of combined fluid intake a day. No more than 2000 mg of salt a day. He is very concerned about his scrotal edema. It is painful. The skin has stretched and cracked to now that he has serous drainage. Where he sits he has a pool of water between his legs, and is dripping it on the floor. His sister was concerned because he is now only on "1 pill a day". It took me a couple of questions to figure out that the patient had relayed to her that he was only on 1 pill a day. But I went through his list and the patient is on Tums, Lasix IV, Neurontin, lactobacillus, lactulose, Roxicodone, Protonix, potassium, vitamin, Xifaxan, Aldactone, thiamine, tramadol. Not just 1 pill a day. Active Medications Calcium Carbonate/Glycine (Calcium Carbonate Chew 500 Mg Tablet) 500 mg PO BID PRN PRN Reason: Heartburn Last Admin: 07/24/22 18:15 Dose: 500 mg Carboxymethylcellulose (Carboxymethylcellulose Ophth Drops) 1 drops EACHEYE PRN PRN PRN Reason: Dry Eye Last Admin: 07/31/22 08:17 Dose: 1 drops Clotrimazole (Clotrimazole 1% Cream 15 Gm Tube) 1 applic TOP BID [facility] Last Admin: 08/14/22 08:18 Dose: 1 applic Enoxaparin Sodium (Enoxaparin 40 Mg/0.4 Ml Syringe) 40 mg SUBQ BID [facility] Last Admin: 08/14/22 08:18 Dose: 40 mg Furosemide (Furosemide 20 Mg/2 Ml Vial) 20 mg IVP BIDDIURETIC [facility] Last Admin: 08/14/22 14:35 Dose: 20 mg Gabapentin (Gabapentin 300 Mg Capsule) 600 mg PO TID [facility] Last Admin: 08/14/22 14:35 Dose: 600 mg Lactobacillus Rhamnosus (Lactobacillus Rhamnosus Gg Capsule) 1 cap PO DAILY [facility] Last Admin: 08/14/22 08:18 Dose: 1 cap Lactulose (Lactulose 10 Gm/15 Ml Bottle) 10 gm PO Q72H [facility] Last Admin: 08/14/22 10:59 Dose: 10 gm Lidocaine (Lidocaine Ointment 5% 35.44 Gm Tube) 1 applic TOP QID [facility] Last Admin: 08/14/22 16:07 Dose: 1 applic Multi-Ingredient Ointment (Zinc Oxide 20% Oint 30 Gm Tube) 1 applic TOP PRN PRN PRN Reason: Skin Care Last Admin: 08/11/22 21:38 Dose: 1 applic Nystatin (Nystatin Powder 15 Gm) 1 applic TOP BID [facility] Last Admin: 08/14/22 08:19 Dose: 1 applic Ondansetron HCl (Ondansetron 4 Mg/2 Ml Vial) 4 mg IVP Q6HR PRN PRN Reason: Nausea / Vomiting Last Admin: 07/16/22 08:12 Dose: 4 mg Oxycodone HCl (Oxycodone 5 Mg Tablet) 5 mg PO QPM PRN PRN Reason: Moderate Pain (Level 4-6) Last Admin: 08/14/22 15:59 Dose: 5 mg Pantoprazole Sodium (Pantoprazole 40 Mg Tablet) 40 mg PO QDAC [facility] Last Admin: 08/14/22 06:07 Dose: 40 mg Mometasone Furoate (0.1% Ointment) 1 each TOP BID PRN PRN Reason: ITCHING Last Admin: 08/13/22 18:21 Dose: 1 each Potassium Chloride (Potassium Chloride 10 Meq Capsule) 20 meq PO DAILYWM [facility] Last Admin: 08/14/22 08:18 Dose: 20 meq Multivit/Folic Acid/Iron ( Vitamin Tablet) 1 tab PO DAILYWM [facility] Last Admin: 08/14/22 08:18 Dose: 1 tab Prochlorperazine Edisylate (Prochlorperazine 10 Mg/2 Ml Vial) 10 mg IVP Q6HR PRN PRN Reason: Nausea / Vomiting Last Admin: 07/22/22 23:58 Dose: 10 mg Rifaximin (Rifaximin 550 Mg Tablet) 550 mg PO BID [facility] Last Admin: 08/14/22 08:18 Dose: 550 mg Sodium Chloride (Sodium Chloride Flush 0.9% 10 Ml Syringe) 10 ml IVP PRN PRN PRN Reason: NEEDED PER PROVIDER ORDERS Last Admin: 08/06/22 08:30 Dose: 10 ml Sodium Chloride (Sodium Chloride Flush 0.9% 10 Ml Syringe) 20 ml IVP PRN PRN PRN Reason: After Blood Draw Last Admin: 08/09/22 04:01 Dose: 20 ml Spironolactone (Spironolactone 25 Mg Tablet) 25 mg PO BID [facility] Last Admin: 08/14/22 08:18 Dose: 25 mg Thiamine HCl (Thiamine 100 Mg Tablet) 100 mg PO DAILY [facility] Last Admin: 08/14/22 08:18 Dose: 100 mg Tramadol HCl (Tramadol 50 Mg Tablet) 25 mg PO BID [facility] Last Admin: 08/14/22 08:18 Dose: 25 mg Zinc Oxide (Cod Liver Oil/Zinc Oxide 113 Gm Tube) 113 gm TOP PRN PRN PRN Reason: Skin Care Last Admin: 07/22/22 23:47 Dose: 1 applic Home Meds: Omeprazole 20 mg PO DAILY 05/10/16 Gabapentin [Neurontin] 2 cap PO TID 07/15/22 Mometasone Furoate 1 gm TOP BID PRN 07/22/22 Exam: Temperature 36.5. Heart rate 87. Blood pressure 108/62. Respirations 20. 95% on room air. He is 210.78 kg. 5 foot 10 inches tall. Severely morbidly obese pleasant white male who still looks jaundiced. Neck is unable to be assessed for JVD because of girth Diminished breath sounds at the bases and a very wide AP diameter. But no respiratory distress, no crackles, rhonchi, wheezing. Regular rate and rhythm with distant cardiac tones Hugely obese pannus. Underneath gynecomastia, abdominal folds, intertriginous folds he has Desitin and zinc for prevention and treatment of Marcy inte rtrigo. He continues to have nipple inversion in the right breast. No masses Extremities have edema. His legs are wrapped. Wearing compression. Even though we have a bariatric chair for him and a bariatric bed, they are not very comfortable. They fit him but he needs something more spacious. He is able to cysts go from supine to sitting to standing. Able to toilet himself. However trying to get off the toilet is difficult because his testicles are large enough that they stay stuck between the toilet bowl lead and he needs the nurse to unstick them to him to set up. Scrotal edema is severe with cracked skin. Slight phimosis. No labs were done today. He asked why. And I explained that that at this point we are trying to manage him as if he were an outpatient. Daily labs are not n ecessarily required. Maybe once a week at this point. Assessment/plan 1. Continued generalized weakness in a morbidly obese white male who has survived severe liver failure, had a prolonged ICU stay, and was already bedbound for days before admission. He has had a slow recovery to be able to get him to be ambulatory and he is able to ambulate to the bathroom and in his room. Mobility is limited by his girth, testicular pain/scrotal pain, leg pain. He needs help with toileting hygiene because he cannot reach to wipe. On top of that he has scrotal edema that is painful. He will continue to work with physical therapy while here. Family is making arrangements to get him home. We will use BLS and and assist to get him into his house. He will also have home health with PT and OT. All of this will happen over the next few days as his family makes arrangements. I have spoken to case management, [place]. I have asked him to discuss this with occupational therapy to see if there is any type of support sling we can use for scrotum. If they could please call urology and speak to urology and see if they have any recommendations. 2. Liver failure without hepatic coma from alcoholic liver disease. He finally started responding when he was started on rifaximin and steroids. Steroids were for 5 days. Lactulose has been used to control his ammonia but he has frequent bowel movements with that so is down to every third day lactulose. Mentation is improved tremendously over the course of his stay. I would say that he is at baseline with alertness for the last 10 days. 3.. Hepatic encephalopathy resolved 4. Anasarca continues to be problematic. He is on Lasix IV, spironolactone p.o. 2000 mg salt diet. Fluid restriction. Nursing is working with his scrotum for sling support, as well as lidocaine jelly. He will need help with this at home.
[2022-08-15] MEDS: FUROSEMIDE 20 MG/2 ML VIAL IVP SCH ×2 (07:00→13:59)
[2022-08-15] MEDS: GABAPENTIN 300 MG CAPSULE PO SCH ×3 (07:00→21:32)
[2022-08-15] MEDS: PANTOPRAZOLE 40 MG TABLET PO SCH (07:00)
[2022-08-15] MEDS: PRENATAL VITAMIN TABLET PO SCH (09:23)
[2022-08-15] MEDS: rifAXIMin 550 MG TABLET PO SCH ×2 (09:24→21:32)
[2022-08-15] MEDS: POTASSIUM CHLORIDE 10 MEQ CAPSULE PO SCH (09:24)
[2022-08-15] MEDS: traMADol 50 MG TABLET PO SCH ×2 (09:24→21:39)
[2022-08-15] MEDS: THIAMINE 100 MG TABLET PO SCH (09:25)
[2022-08-15] MEDS: SPIRONOLACTONE 25 MG TABLET PO SCH ×2 (09:25→21:32)
[2022-08-15] MEDS: oxyCODONE 5 MG TABLET PO SCH ×2 (09:25→21:32)
[2022-08-15] MEDS: LACTOBACILLUS RHAMNOSUS GG CAPSULE PO SCH (09:25)
[2022-08-15] MEDS: SODIUM CHLORIDE FLUSH 0.9% 10 ML SYRINGE IVP PRN (09:26)
[2022-08-15] MEDS: ENOXAPARIN 40 MG/0.4 ML SYRINGE SUBQ SCH ×2 (09:27→21:32)
[2022-08-15] MEDS: CLOTRIMAZOLE 1% CREAM 15 GM TUBE TOP SCH ×2 (09:28→21:40)
[2022-08-15] MEDS: LIDOCAINE OINTMENT 5% 35.44 GM TUBE TOP SCH ×4 (09:29→21:40)
[2022-08-15] MEDS: NYSTATIN POWDER 15 GM TOP SCH ×2 (09:29→21:40)
--- NOTE | 2022-08-15 17:04 | PROVIDER PROGRESS NOTE ---
Assessment/Plan - Problem List (1) Scrotal edema Assessment/Plan: Likely 2/2 chronic liver failure, in setting of hospitalized, mostly bed bound pt, w/ developing Dependent edema Patient has had skin laceration, with significant seepage from the scrotal edema. On exam does not appear to be acutely infected Significant amounts of interstitial edema and serous fluid appreciated While unlikely, will obtain ultrasound to rule out seroma, or other identifiable collection of fluid amenable to drainage We will request wound care consult to help with maximizing comfort in the meantime (3) Liver failure without hepatic coma Qualifiers: Liver failure chronicity: subacute Qualified Code(s): K72.00 - Acute and subacute hepatic failure without coma Assessment/Plan: Improved, continue supportive care. No longer a candidate for continued steroid use. (4) Morbid obesity with BMI of 60.0-69.9, adult Assessment/Plan: Continue to work with PT to improve mobility which will help with multiple secondary problems such as skin breakdown from edema - Current Meds Current Meds: Current Medications Generic Name Dose Route Start Last Admin Trade Name Freq PRN Reason Stop Dose Admin Calcium Carbonate/Glycine 500 mg 07/21/22 03:51 07/24/22 18:15 Calcium Carbonate Chew 500 Mg Tablet PO 500 mg BID PRN Administration Heartburn Carboxymethylcellulose 1 drops 07/17/22 08:19 07/31/22 08:17 Carboxymethylcellulose Ophth Drops EACHEYE 1 drops PRN PRN Administration Dry Eye Clotrimazole 1 applic 08/04/22 09:00 08/15/22 09:28 Clotrimazole 1% Cream 15 Gm Tube TOP 1 applic BID KANU Administration Enoxaparin Sodium 40 mg 07/24/22 09:41 08/15/22 09:27 Enoxaparin 40 Mg/0.4 Ml Syringe SUBQ 40 mg BID KANU Administration Furosemide 20 mg 08/08/22 14:00 08/15/22 13:59 Furosemide 20 Mg/2 Ml Vial IVP 20 mg BIDDIURETIC KANU Administration Gabapentin 600 mg 07/27/22 14:00 08/15/22 13:59 Gabapentin 300 Mg Capsule PO 600 mg TID KANU Administration Lactobacillus Rhamnosus 1 cap 07/16/22 11:00 08/15/22 09:25 Lactobacillus Rhamnosus Gg Capsule PO 1 cap DAILY KANU Administration Lactulose 10 gm 08/11/22 10:00 08/14/22 10:59 Lactulose 10 Gm/15 Ml Bottle PO 10 gm Q72H KANU Administration Lidocaine 1 applic 08/09/22 14:31 08/15/22 14:00 Lidocaine Ointment 5% 35.44 Gm Tube TOP 1 applic QID KANU Administration Multi-Ingredient Ointment 1 applic 07/16/22 01:24 08/11/22 21:38 Zinc Oxide 20% Oint 30 Gm Tube TOP 1 applic PRN PRN Administration Skin Care Nystatin 1 applic 07/15/22 21:00 08/15/22 09:29 Nystatin Powder 15 Gm TOP 1 applic BID KANU Administration Ondansetron HCl 4 mg 07/15/22 11:15 07/16/22 08:12 Ondansetron 4 Mg/2 Ml Vial IVP 4 mg Q6HR PRN Administration Nausea / Vomiting Oxycodone HCl 5 mg 08/15/22 09:00 08/15/22 09:25 Oxycodone 5 Mg Tablet PO 5 mg BID KANU Administration Pantoprazole Sodium 40 mg 07/19/22 11:00 08/15/22 07:00 Pantoprazole 40 Mg Tablet PO 40 mg QDAC KANU Administration Mometasone Furoate 1 each 07/22/22 17:00 08/13/22 18:21 0.1% Ointment TOP 1 each BID PRN Administration ITCHING Potassium Chloride 20 meq 08/09/22 08:00 08/15/22 09:24 Potassium Chloride 10 Meq Capsule PO 20 meq DAILYWM KANU Administration Multivit/Folic Acid/Iron 1 tab 07/16/22 11:00 08/15/22 09:23 Vitamin Tablet PO 1 tab DAILYWM KANU Administration Prochlorperazine Edisylate 10 mg 07/15/22 11:15 07/22/22 23:58 Prochlorperazine 10 Mg/2 Ml Vial IVP 10 mg Q6HR PRN Administration Nausea / Vomiting Rifaximin 550 mg 07/18/22 21:00 08/15/22 09:24 Rifaximin 550 Mg Tablet PO 550 mg BID KANU Administration Sodium Chloride 10 ml 07/15/22 11:15 08/15/22 09:26 Sodium Chloride Flush 0.9% 10 Ml Syringe IVP 10 ml PRN PRN Administration NEEDED PER PROVIDER ORDERS Sodium Chloride 20 ml 07/16/22 22:36 08/09/22 04:01 Sodium Chloride Flush 0.9% 10 Ml Syringe IVP 20 ml PRN PRN Administration After Blood Draw Spironolactone 25 mg 08/04/22 21:00 08/15/22 09:25 Spironolactone 25 Mg Tablet PO 25 mg BID KANU Administration Thiamine HCl 100 mg 07/16/22 11:00 08/15/22 09:25 Thiamine 100 Mg Tablet PO 100 mg DAILY KANU Administration Tramadol HCl 25 mg 07/27/22 09:00 08/15/22 09:24 Tramadol 50 Mg Tablet PO 25 mg BID KANU Administration Zinc Oxide 113 gm 07/19/22 17:01 07/22/22 23:47 Cod Liver Oil/Zinc Oxide 113 Gm Tube TOP 1 applic PRN PRN Administration Skin Care - Lab Result Lab results reviewed: Yes Fish Bone Diagrams: 08/13/22 06:11 08/13/22 06:11 - Additional Planning My Orders: My Active Orders 08/15/22 09:00 oxyCODONE [Roxicodone] 5 mg PO BID 08/15/22 11:06 Wound Care - MAC [RC] .ONCE 08/15/22 12:20 Testicle [US] Routine Subjective - Subjective Patient Reports: Other (Complains of worsening pain from the scrotal edema, makes it difficult to ambulate) Objective Vital Signs: Vital Signs - 24 hr 08/14/22 08/15/22 08/15/22 23:04 07:58 16:43 Temperature 36.6 C 37.1 C 37.2 C Heart Rate [ 87 79 86 Radial] Respiratory 18 20 20 Rate Blood Pressure 128/70 109/63 100/56 L [Right Radial artery] O2 Saturation 98 96 94 Oxygen O2 Source Room air I&O (Last 24 Hrs): Intake and Output Totals x24h 08/13/22 08/14/22 08/15/22 23:59 23:59 23:59 Intake Total 590 1175 660 Output Total 1000 1100 1075 Balance -410 75 -415 General: Alert, Oriented x3, Other (Morbidly obese with severe generalized anasarca including scrotum, extremities, abdomen) Cardiovascular: Regular rate, Normal S1, Normal S2 Respiratory: Chest non-tender, No respiratory distress Abdomen: Normal bowel sounds, Soft, No hepatospenomegaly, No masses Extremities: Other (Severe bilateral lower extremity edema with venous stasis dermatitis) - Results Results: Laboratory Results WBC 9.5 x10^3/uL (4.8-10.8) 08/13/22 06:11 RBC 3.35 10^6/uL (4.70-6.10) L 08/13/22 06:11 Hgb 11.1 g/dL (14.0-18.0) L 08/13/22 06:11 Hct 34.0 % (42.0-52.0) L 08/13/22 06:11 MCV 101.5 fL (80.0-94.0) H 08/13/22 06:11 MCH 33.1 pg (27.0-31.0) H 08/13/22 06:11 MCHC 32.6 g/dL (32.0-36.0) 08/13/22 06:11 RDW 15.2 % (12.0-15.0) H 08/13/22 06:11 Plt Count 134 10^3/uL (130-450) 08/13/22 06:11 MPV 9.6 fL (7.4-11.4) 08/13/22 06:11 Neut # (Auto) 6.7 10^3/uL (1.5-6.6) H 08/13/22 06:11 Lymph # (Auto) 1.2 10^3/uL (1.5-3.5) L 08/13/22 06:11 Fountain # (Auto) 0.8 10^3/uL (0.0-1.0) 08/13/22 06:11 Eos # (Auto) 0.2 10^3/uL (0.0-0.7) 08/13/22 06:11 Baso # (Auto) 0.1 10^3/uL (0.0-0.1) 08/13/22 06:11 Absolute Nucleated RBC 0.00 x10^3/uL 08/13/22 06:11 Total Counted 100 08/11/22 05:17 Band Neuts % (Manual) 2 % (0-10) 08/11/22 05:17 Reactive Lymphs % (Man) 5 % 08/04/22 05:00 Abnorm Lymph % (Manual) 0 % 08/11/22 05:17 Metamyelocytes % 4 % (-0) H 08/11/22 05:17 Myelocytes % 4 % (-0) H 08/11/22 05:17 Nucleated RBC % 0.0 /100WBC 08/13/22 06:11 Neutrophils # (Manual) 7.3 10^3/uL (1.5-6.6) H 08/11/22 05:17 Lymphocytes # (Manual) 1.5 10^3/uL (1.5-3.5) 08/11/22 05:17 Monocytes # (Manual) 0.3 10^3/uL (0.0-1.0) 08/11/22 05:17 Eosinophils # (Manual) 0.6 10^3/uL (0-0.7) 08/11/22 05:17 Basophils # (Manual) 0.0 10^3/uL (0-0.1) 08/11/22 05:17 Differential Comment MANUAL DIFFERENTIAL 08/11/22 05:17 WBC Morphology NORMAL APPEARANCE (NORMAL) 08/08/22 04:45 Platelet Estimate NORMAL (130-450,000) (NORMAL) 08/11/22 05:17 Platelet Morphology NORMAL APPEARANCE (NORMAL) 08/08/22 04:45 RBC Morph Micro Appear NORMAL APPEARANCE (NORMAL) 08/11/22 05:17 PT 19.3 secs (9.9-12.6) H 07/15/22 12:26 INR 1.8 (0.8-1.2) H 07/15/22 12:26 VBG pH 7.317 (7.31-7.41) 07/23/22 05:45 Ionized Calcium 1.16 mmol/L (1.15-1.33) 07/23/22 05:45 Sodium 132 mmol/L (135-145) L 08/13/22 06:11 Potassium 3.6 mmol/L (3.5-5.0) 08/13/22 06:11 Chloride 100 mmol/L (101-111) L 08/13/22 06:11 Carbon Dioxide 24 mmol/L (21-32) 08/13/22 06:11 Anion Gap 8.0 (6-13) 08/13/22 06:11 BUN 19 mg/dL (6-20) 08/13/22 06:11 Creatinine 0.8 mg/dL (0.6-1.2) 08/13/22 06:11 Estimated GFR (MDRD) 101 (>89) 08/13/22 06:11 Glucose 120 mg/dL (70-100) H 08/13/22 06:11 POC Whole Bld Glucose 101 mg/dL (70 - 100) H 07/26/22 16:30 Estimat Average Glucose 105 mg/dL (70-100) H 07/16/22 04:27 Hemoglobin A1c % 5.3 % (4.27-6.07) 07/16/22 04:27 Calcium 8.3 mg/dL (8.5-10.3) L 08/13/22 06:11 Phosphorus 2.9 mg/dL (2.5-4.6) 07/23/22 05:45 Magnesium 2.0 mg/dL (1.7-2.8) 08/13/22 06:11 Total Bilirubin 13.8 mg/dL (0.2-1.0) H 08/13/22 06:11 Direct Bilirubin 8.2 mg/dL (0.1-0.5) H 08/08/22 04:45 AST 107 IU/L (10-42) H 08/13/22 06:11 ALT 36 IU/L (10-60) 08/13/22 06:11 Alkaline Phosphatase 333 IU/L (42-121) H 08/13/22 06:11 Ammonia 55.5 umol/L (7-35) H 08/13/22 06:11 Total Creatine Kinase 171 IU/L (22-269) 07/18/22 05:18 Troponin I High Sens 27.6 ng/L (2.3-19.7) H* 07/16/22 20:52 Total Protein 5.6 g/dL (6.7-8.2) L 08/13/22 06:11 Albumin 1.8 g/dL (3.2-5.5) L 08/13/22 06:11 Globulin 3.8 g/dL (2.1-4.2) 08/13/22 06:11 Albumin/Globulin Ratio 0.5 (1.0-2.2) L 08/13/22 06:11 Lipase 36 U/L (22-51) 07/15/22 09:54 Whole Bld Vitamin B1 138.4 nmol/L (66.5-200.0) 07/23/22 05:45 Vitamin B12 404 pg/mL (180-914) 07/16/22 04:27 Folate 8.12 ng/mL (5.90 - >24.8) 07/16/22 04:27 TSH 2.59 uIU/mL (0.34-5.60) 07/15/22 09:54 Urine Color DARK YELLOW 07/22/22 12:50 Urine Clarity HAZY (CLEAR) 07/22/22 12:50 Urine pH 6.0 PH (5.0-7.5) 07/22/22 12:50 Ur Specific [place] 1.020 (1.002-1.030) 07/22/22 12:50 Urine Protein NEGATIVE mg/dL (NEGATIVE) 07/22/22 12:50 Urine Glucose (UA) 250 mg/dL (NEGATIVE) H 07/22/22 12:50 Urine Ketones NEGATIVE mg/dL (NEGATIVE) 07/22/22 12:50 Urine Occult Blood MODERATE (NEGATIVE) H 07/22/22 12:50 Urine Nitrite POSITIVE (NEGATIVE) H 07/22/22 12:50 Urine Bilirubin LARGE (NEGATIVE) H 07/22/22 12:50 Urine Urobilinogen 2 E.U./dL (NORMAL) H 07/22/22 12:50 Ur Leukocyte Esterase SMALL (NEGATIVE) H 07/22/22 12:50 Urine RBC 0-5 /HPF (0-5) 07/22/22 12:50 Urine WBC 6-10 /HPF (0-3) H 07/22/22 12:50 Ur Squamous Epith Cells FEW Squamous (<= Few) 07/22/22 12:50 Urine Bacteria Many /HPF (None Seen) H 07/22/22 12:50 Urine Casts 0-2 WBC Casts /LPF 07/22/22 12:50 Urine Culture Comments INDICATED 07/22/22 12:50 Nasal Screen MRSA (PCR) NEGATIVE (NEGATIVE) 07/15/22 11:58 Stl C. diff Tox B Gene NEGATIVE (NEGATIVE) 07/16/22 02:05 Urine Opiates Screen NEGATIVE (NEGATIVE) 07/15/22 12:59 Ur Oxycodone Screen NEGATIVE (NEGATIVE) 07/15/22 12:59 Urine Methadone Screen NEGATIVE (NEGATIVE) 07/15/22 12:59 Ur Propoxyphene Screen NEGATIVE (NEGATIVE) 07/15/22 12:59 Ur Barbiturates Screen NEGATIVE (NEGATIVE) 07/15/22 12:59 Ur Tricyclics Screen NEGATIVE (NEGATIVE) 07/15/22 12:59 Ur Phencyclidine Scrn NEGATIVE (NEGATIVE) 07/15/22 12:59 Ur Amphetamine Screen NEGATIVE (NEGATIVE) 07/15/22 12:59 U Methamphetamines Scrn NEGATIVE (NEGATIVE) 07/15/22 12:59 U Benzodiazepines Scrn NEGATIVE (NEGATIVE) 07/15/22 12:59 Urine Cocaine Screen NEGATIVE (NEGATIVE) 07/15/22 12:59 U Cannabinoids Screen NEGATIVE (NEGATIVE) 07/15/22 12:59 Ethyl Alcohol 103.7 mg/dL 07/15/22 09:54 SARS-CoV-2 (PCR) NOT DETECTED 07/31/22 18:35 ABX Reporting Has patient been on IV antibiotics over the past 48 hours?: No Current Medications - Current Medications Current Medications: Active Medications Generic Name Dose Route Start Last Admin Trade Name Freq PRN Reason Stop Dose Admin Calcium Carbonate/Glycine 500 mg 07/21/22 03:51 07/24/22 18:15 Calcium Carbonate Chew 500 Mg Tablet PO 500 mg BID PRN Administration Heartburn Carboxymethylcellulose 1 drops 07/17/22 08:19 07/31/22 08:17 Carboxymethylcellulose Ophth Drops EACHEYE 1 drops PRN PRN Administration Dry Eye Clotrimazole 1 applic 08/04/22 09:00 08/15/22 09:28 Clotrimazole 1% Cream 15 Gm Tube TOP 1 applic BID KANU Administration Enoxaparin Sodium 40 mg 07/24/22 09:41 08/15/22 09:27 Enoxaparin 40 Mg/0.4 Ml Syringe SUBQ 40 mg BID KANU Administration Furosemide 20 mg 08/08/22 14:00 08/15/22 13:59 Furosemide 20 Mg/2 Ml Vial IVP 20 mg BIDDIURETIC KANU Administration Gabapentin 600 mg 07/27/22 14:00 08/15/22 13:59 Gabapentin 300 Mg Capsule PO 600 mg TID KANU Administration Lactobacillus Rhamnosus 1 cap 07/16/22 11:00 08/15/22 09:25 Lactobacillus Rhamnosus Gg Capsule PO 1 cap DAILY KANU Administration Lactulose 10 gm 08/11/22 10:00 08/14/22 10:59 Lactulose 10 Gm/15 Ml Bottle PO 10 gm Q72H KANU Administration Lidocaine 1 applic 08/09/22 14:31 08/15/22 14:00 Lidocaine Ointment 5% 35.44 Gm Tube TOP 1 applic QID KANU Administration Multi-Ingredient Ointment 1 applic 07/16/22 01:24 08/11/22 21:38 Zinc Oxide 20% Oint 30 Gm Tube TOP 1 applic PRN PRN Administration Skin Care Nystatin 1 applic 07/15/22 21:00 08/15/22 09:29 Nystatin Powder 15 Gm TOP 1 applic BID KANU Administration Ondansetron HCl 4 mg 07/15/22 11:15 07/16/22 08:12 Ondansetron 4 Mg/2 Ml Vial IVP 4 mg Q6HR PRN Administration Nausea / Vomiting Oxycodone HCl 5 mg 08/15/22 09:00 08/15/22 09:25 Oxycodone 5 Mg Tablet PO 5 mg BID KANU Administration Pantoprazole Sodium 40 mg 07/19/22 11:00 08/15/22 07:00 Pantoprazole 40 Mg Tablet PO 40 mg QDAC KANU Administration Mometasone Furoate 1 each 07/22/22 17:00 08/13/22 18:21 0.1% Ointment TOP 1 each BID PRN Administration ITCHING Potassium Chloride 20 meq 08/09/22 08:00 08/15/22 09:24 Potassium Chloride 10 Meq Capsule PO 20 meq DAILYWM KANU Administration Multivit/Folic Acid/Iron 1 tab 07/16/22 11:00 08/15/22 09:23 Vitamin Tablet PO 1 tab DAILYWM KANU Administration Prochlorperazine Edisylate 10 mg 07/15/22 11:15 07/22/22 23:58 Prochlorperazine 10 Mg/2 Ml Vial IVP 10 mg Q6HR PRN Administration Nausea / Vomiting Rifaximin 550 mg 07/18/22 21:00 08/15/22 09:24 Rifaximin 550 Mg Tablet PO 550 mg BID KANU Administration Sodium Chloride 10 ml 07/15/22 11:15 08/15/22 09:26 Sodium Chloride Flush 0.9% 10 Ml Syringe IVP 10 ml PRN PRN Administration NEEDED PER PROVIDER ORDERS Sodium Chloride 20 ml 07/16/22 22:36 08/09/22 04:01 Sodium Chloride Flush 0.9% 10 Ml Syringe IVP 20 ml PRN PRN Administration After Blood Draw Spironolactone 25 mg 08/04/22 21:00 08/15/22 09:25 Spironolactone 25 Mg Tablet PO 25 mg BID KANU Administration Thiamine HCl 100 mg 07/16/22 11:00 08/15/22 09:25 Thiamine 100 Mg Tablet PO 100 mg DAILY KANU Administration Tramadol HCl 25 mg 07/27/22 09:00 08/15/22 09:24 Tramadol 50 Mg Tablet PO 25 mg BID KANU Administration Zinc Oxide 113 gm 07/19/22 17:01 07/22/22 23:47 Cod Liver Oil/Zinc Oxide 113 Gm Tube TOP 1 applic PRN PRN Administration Skin Care Omeprazole 20 mg PO DAILY 05/10/16 Gabapentin [Neurontin] 2 cap PO TID 07/15/22 Mometasone Furoate 1 gm TOP BID PRN 07/22/22
[2022-08-16] MEDS: PANTOPRAZOLE 40 MG TABLET PO SCH (06:38)
[2022-08-16] MEDS: FUROSEMIDE 20 MG/2 ML VIAL IVP SCH ×2 (06:38→15:03)
[2022-08-16] MEDS: GABAPENTIN 300 MG CAPSULE PO SCH ×2 (06:40→15:03)
--- NOTE | 2022-08-16 08:55 | Ultrasound Report ---
PROCEDURE: Testicle INDICATIONS: scrotal edema with drainage, r/o seroma, hydrocele TECHNIQUE: Real-time scanning was performed of the scrotum and testicles, with image documentation. Color and p ulse Doppler interrogation was performed of both testicles. COMPARISON: None. FINDINGS: Right: Testicle is normal in size at 3.5 x 2.5 x 2.4 cm, and homogenous in echotexture. Epididymis is normal in overall size and morphology. No hydrocele or varicoceles. Overlying scrotal skin is ma rkedly thickened. No drainable collection. Left: Testicle is normal in size at 2.9 x 2.6 x 2.1 cm, and homogeneous in echotexture. Epididymis is normal in overall size and morphology. No hydrocele or varicoceles. Overlying scrotal skin is ma rkedly thickened. No drainable collection. Doppler: Color and pulse Doppler demonstrate normal and symmetric arterial flow in both testicles. IMPRESSION: Markedly edematous scrotal wall, without drainable fluid. Reviewed by: Cody Robles on 08/16/2022 8:54 AM PDT Approved by: Cody Robles on 08/16/2022 8:54 AM PDT Station ID: [id number]
[2022-08-16] MEDS: THIAMINE 100 MG TABLET PO SCH (09:22)
[2022-08-16] MEDS: LACTOBACILLUS RHAMNOSUS GG CAPSULE PO SCH (09:22)
[2022-08-16] MEDS: ENOXAPARIN 40 MG/0.4 ML SYRINGE SUBQ SCH (09:22)
[2022-08-16] MEDS: traMADol 50 MG TABLET PO SCH (09:22)
[2022-08-16] MEDS: SPIRONOLACTONE 25 MG TABLET PO SCH (09:22)
[2022-08-16] MEDS: POTASSIUM CHLORIDE 10 MEQ CAPSULE PO SCH (09:23)
[2022-08-16] MEDS: rifAXIMin 550 MG TABLET PO SCH (09:23)
[2022-08-16] MEDS: PRENATAL VITAMIN TABLET PO SCH (09:23)
[2022-08-16] MEDS: NYSTATIN POWDER 15 GM TOP SCH (09:24)
[2022-08-16] MEDS: LIDOCAINE OINTMENT 5% 35.44 GM TUBE TOP SCH ×2 (09:24→14:58)
[2022-08-16] MEDS: oxyCODONE 5 MG TABLET PO SCH ×2 (12:32→13:32)
[2022-08-16] MEDS: CLOTRIMAZOLE 1% CREAM 15 GM TUBE TOP SCH (12:32)
[2022-08-16 16:07] VITALS: BP 129/84
--- NOTE | 2022-08-16 17:18 | DISCHARGE SUMMARY ---
Discharge Summary Admit Date: 07/15/22 Discharge Date: 08/16/22 Discharging Provider: Dr Walker Code Status: Attempt Resuscitation Condition at Discharge: Stable Discharge Disposition: 06 Home Health Service - DIAGNOSES Admission Diagnoses: Alcohol withdrawal Hyponatremia Elevated LFTs GERD Diarrhea Anasarca Generalized weakness Morbid obesity with BMI of 60-69.9 Depression Hypertension Intertriginous dermatitis associated with moisture Discharge Diagnoses with Status of Each Condition: Generalized weaknessimproved Morbid obesity with BMI of 66unchanged Liver failure without hepatic comaunchanged Hepatic encephalopathyresolved Generalized anasarcaunchanged Scrotal edemaworsened Hyponatremiaresolved - HPI History of Present Illness: This is a 52-year-old white male with a history of morbid obesity, alcohol abuse who remotely went through 2 months of inpatient alcohol rehab, history of hypertension and neuropathy. The patient has been a drinker of about 5 beers per day, 16 ounce steel beer. Priscilla bennett has been compliant with amlodipine for blood pressure, prior to that used to take lisinopril. 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 He became very depressed because of this, became a recluse and did not go out of the house, did not reach out to any friends or even have contact with family. He would order his beer to be delivered by [employer] from a [employer] store. He started to increase his beer intake up to 12 large cans or more, of beer per day. In the last several days he has had worsened weakness and did not get out of the bed much and ate nothing for a week. He did continue to drink beer. He denied any fevers, nausea, vomiting, or diarrhea. In the last 2 days he said he was feeling weaker when walking to the bathroom, and his knees felt like they were going to buckle. This morning when he got out of bed after walking down a flight of stairs, his knees did buckle and he fell forward. He does not think he landed on his face, or knees. He did not blackout, since he remembers the entire event. He was too weak to get up and crawled in the direction of the couch but was too weak to get onto the couch. He then called his mother. The family called an ambulance who brought him to the ER. In the ED he was found to have morbid obesity, he weighs 194.5 kg with a BMI of 61.5, he was feeling weak and had photophobia, he could not reposition himself in his bed or turn independently due to weakness. Nurses had to help him undress into a gown and hold a urinal, because he said his arms were too weak to hold it. VS were stable. Lab work showed that he has severe Hyponatremia with sodium of 114, normal BUN/creatinine, AST 153, ALT 47, Alk phos 382, ammonia 69, Calcium 8.3, phosphorus 1.8, albumin 3.0. White blood count 6.4, hemoglobin 13.1 with MCV 96 point, plt count 79, INR elevated at 1.8. A serum alcohol level is 103. His last alcohol drink was last night. He did admit that he was very depressed and that he has been a recluse. He did not say he was suicidal or had any ideas. The mother at bedside adds that his sister thinks he has severe PTSD from serving in the [employer]. The patient himself is asking for Social Work to help him get into alcohol rehab again. Right now, the patient complains of dyspnea, as he is supine at this moment, but does not have any pain. He does describe GERD symptoms currently and says that his hands and fingers are shaking and his jaw is starting to shake Patient will be admitted to the ICU on the Hospitalist service to manage early alcohol withdrawal, severe hyponatremia likely from beer potomania, and alcoholic liver disease. - HOSPITAL COURSE Hospital Course: Patient is a 52-year-old morbidly obese gentleman with a history of alcohol abuse who presented to the hospital after a prolonged drinking binge of several weeks. He was found to be unresponsive and was brought to ED by ambulance. He arrived unresponsive to verbal stimulus, had lab work suggestive of liver failure with a Maddrey's discriminant function suggesting a 19.6 chance of mortality in the next 30 to 60 days. He was started on rifaximin, steroids and lactulose. He showed gradual improvement and became more alert. He was started on a physical therapy and Occupational Therapy regimen and was able to ambulate with much assistance using a walker. He developed dependent edema and continued to have anasarca throughout the hospitalization, worsened in the scrotum to the extent that there developed skin breakdown.Testicular ultrasound was ordered which did not show any evidence of drainable fluid collection but rather generalized scrotal edema. He was counseled extensively on the importance of never drinking alcohol again. Extensive conversations were had with multidisciplinary team members involved including social work, PT/OT, nutrition and physicians and nurses. Patient's mother became very involved in his care and was not supportive of discharge. She was hopeful for the patient to remain in the hospital until he further recovered. This is despite the medical consensus that the patient's acute presentation had resolved and most of his medical complications are chronic in nature such as obesity, liver failure, etc. Insurance communicated with social work and it was evident that they would no longer pay for hospitalization beyond the day of discharge. Unfortunately, because of the patient's morbid obesity, he could not be accepted at [facility] facility due to their inability to provide care for patient with his BMI. This meant the only option was for the patient to discharge to private residence. His mother offered for him to discharge to her residence however he refused this and wanted to go to his own home. Per social work, the family does have means to hire caregivers and have been instructed on how to do this. They have not yet done so. Home health has been arranged including all lines of service such as nursing, PT, and OT. Wound care will also be provided. Patient will be discharged in stable medical condition with recommendations to follow-up with PCP and absolute abstinence from alcohol, alcohol rehab referrals, and referral to GI and possibly urology as well as recommended. - ALLERGIES Allergies/Adverse Reactions: Allergies Allergy/AdvReac Type Severity Reaction Status Date / Time No Known Drug Allergies Allergy Verified 05/10/16 11:59 - MEDICATIONS Home Medications: Ambulatory Orders Medication Instructions Recorded Confirmed Omeprazole 20 mg PO DAILY 05/10/16 07/15/22 Gabapentin [Neurontin] 2 cap PO TID 07/15/22 07/15/22 Mometasone Furoate 1 gm TOP BID PRN 07/22/22 07/22/22 Calcium Carbonate [Tums (Calcium 500 mg PO BID PRN tab 08/13/22 Carbonate 500mg)] Clotrimazole 1% Cream [Lotrimin 1% 1 gm TOP BID #1 ea 08/13/22 Cream] Cod Liver Oil/Zinc Oxide [Desitin] 113 gm TOP PRN PRN each 08/13/22 Lactulose 10 gm PO Q72H #946 ml 08/13/22 Nystatin [Nystop] 1 applic TOP BID #2 each 08/13/22 Potassium Chloride [Micro-K] 20 meq PO DAILYWM #30 cap 08/13/22 Vit No.180/Iron/Folic 1 each PO DAILY #30 tablet 08/13/22 [ Plus Vitamin-Mineral] Protectives Combination No.2 90 gm TP BID #1 each 08/13/22 [Tetrix] Spironolactone [Aldactone] 25 mg PO BID #60 tab 08/13/22 Thiamine [Vitamin B-1] 100 mg PO DAILY #30 tab 08/13/22 rifAXIMin [Xifaxan] 550 mg PO BID #60 tab 08/13/22 traMADol [Ultram] 25 mg PO BID #60 tab 08/13/22 Furosemide [Lasix] 40 mg PO BID #60 tablet 08/14/22 - PHYSICAL EXAM AT DISCHARGE General Appearance: positive: No acute distress, Other (Obese with generalized anasarca) Cardiovascular: positive: Regular rate & rhythm - LABS Result Diagrams: 08/13/22 06:11 08/13/22 06:11 - DIAGNOSTIC IMAGING Diagnostic Imaging Results: Final report reviewed
== END 2022-08-16 17:25 | disposition home health service (06) | DRG 897 ==
LOC: EDUNIT# → ED 08:20 → ICU 11:15 → MS2 07-24 16:45
PROVIDERS: ADMIT Internal Medicine; ATTEND Family Medicine Sports Medicine
PROC: 02HV33Z Insertion of Infusion Device into Superior Vena Cava, Percutaneous Approach (ICD-10-PCS; principal; 2022-07-16)
DX: F10.239 Alcohol dependence with withdrawal, unspecified (principal); E87.1 Hypo-osmolality and hyponatremia; Z68.44 Body mass index [BMI] 60.0-69.9, adult; R18.8 Other ascites; K70.40 Alcoholic hepatic failure without coma; Y90.5 Blood alcohol level of 100-119 mg/100 ml; E66.01 Morbid (severe) obesity due to excess calories; R53.1 Weakness; F32.A Depression, unspecified; N50.89 Other specified disorders of the male genital organs; I10 Essential (primary) hypertension; L30.4 Erythema intertrigo; K21.9 Gastro-esophageal reflux disease without esophagitis; R19.7 Diarrhea, unspecified; W18.30XA Fall on same level, unspecified, initial encounter; Y92.039 Unspecified place in apartment as the place of occurrence of the external cause; G62.9 Polyneuropathy, unspecified; Z20.822 Contact with and (suspected) exposure to COVID-19; I95.9 Hypotension, unspecified; K76.82 Hepatic encephalopathy; E83.51 Hypocalcemia; N64.59 Other signs and symptoms in breast; L02.426 Furuncle of left lower limb; H10.9 Unspecified conjunctivitis; R00.0 Tachycardia, unspecified; R82.90 Unspecified abnormal findings in urine
CPT/HCPCS: 36415; 74176; 76870; 80048; 80053; 80076; 80306; 80320; 81001; 82140; 82330; 82550; 82607; 82746; 83036; 83690; 83735; 84100; 84132; 84295; 84425; 84443; 84484; 85025; 85610; 87040; 87045; 87046; 87077; 87086; 87150; 87181; 87427; 87493; 87635; 93005; 93306; 93971; 96360; 97110; 97116; 97163; 97167; 97530; 97535; 99285; 99291; A9270; J1650; J2060; J3411; J7040; J8499; P9047; 87640

== ENCOUNTER 2022-08-16 17:32 | Outpatient (CLI) | payer OTHER, MEDICAID | END 2022-08-16 23:59 | disposition home or self-care (01) | LOC: EMS 17:32 | PROVIDERS: ATTEND Family Medicine Sports Medicine | DX: E66.01 Morbid (severe) obesity due to excess calories (principal); K72.90 Hepatic failure, unspecified without coma | CPT/HCPCS: A0425; A0428 ==

== ENCOUNTER 2022-08-17 12:14 | Outpatient (CLI) | payer OTHER, MEDICAID | END 2022-08-17 23:59 | disposition critical access hospital (66) | LOC: EMS 12:14 | DX: N50.89 Other specified disorders of the male genital organs (principal); R60.0 Localized edema; Z74.01 Bed confinement status; Z74.2 Need for assistance at home and no other household member able to render care | CPT/HCPCS: A0425; A0429 ==

== ENCOUNTER 2022-08-17 12:39 | Observation (INO) | payer OTHER, MEDICAID ==
--- NOTE | 2022-08-17 12:49 | ED Physician Documentation ---
History of Present Illness - Stated complaint Stated Complaint: SOA/WEAKNESS - History obtained from History obtained from: Patient, EMS - Additonal information Additional information: 52-year-old gentleman was originally admitted to this hospital on July 15 for hyponatremia associated with beer [place], liver disease, anasarca, morbid obesity with BMI of greater than 60, depression. He had a prolonged stay here and was eventually discharged yesterday. Ideally would have gone to a SNF, but was too obese to go to a SNF so went home yesterday with DME for mom to take care of him. Said he was doing well initially but today feels weaker with more shortness of breath. No chest pain. He has minimal cough. Says he has not had alcohol since his discharge. PD PAST MEDICAL HISTORY - Past Medical History Cardiovascular: Hypertension Neuro: Peripheral neuropathy Endocrine/Autoimmune: None Psych: Depression Musculoskeletal: Other Derm: Other - Present Medications Home Medications: Ambulatory Orders Medication Instructions Recorded Confirmed Omeprazole 20 mg PO DAILY 05/10/16 07/15/22 Gabapentin [Neurontin] 2 cap PO TID 07/15/22 07/15/22 Mometasone Furoate 1 gm TOP BID PRN 07/22/22 07/22/22 Calcium Carbonate [Tums (Calcium 500 mg PO BID PRN tab 08/13/22 Carbonate 500mg)] Clotrimazole 1% Cream [Lotrimin 1% 1 gm TOP BID #1 ea 08/13/22 Cream] Cod Liver Oil/Zinc Oxide [Desitin] 113 gm TOP PRN PRN each 08/13/22 Lactulose 10 gm PO Q72H #946 ml 08/13/22 Nystatin [Nystop] 1 applic TOP BID #2 each 08/13/22 Potassium Chloride [Micro-K] 20 meq PO DAILYWM #30 cap 08/13/22 Vit No.180/Iron/Folic 1 each PO DAILY #30 tablet 08/13/22 [ Plus Vitamin-Mineral] Protectives Combination No.2 90 gm TP BID #1 each 08/13/22 [Tetrix] Spironolactone [Aldactone] 25 mg PO BID #60 tab 08/13/22 Thiamine [Vitamin B-1] 100 mg PO DAILY #30 tab 08/13/22 rifAXIMin [Xifaxan] 550 mg PO BID #60 tab 08/13/22 traMADol [Ultram] 25 mg PO BID #60 tab 08/13/22 Furosemide [Lasix] 40 mg PO BID #60 tablet 08/14/22 - Allergies Allergies/Adverse Reactions: Allergies Allergy/AdvReac Type Severity Reaction Status Date / Time No Known Drug Allergies Allergy Verified 05/10/16 11:59 - Social History Does the pt smoke?: No Smoking Status: Never smoker Does the pt drink ETOH?: Yes Does the pt have substance abuse?: No - POLST Patient has POLST: No PD ED PE NORMAL - Vitals Vital signs reviewed: Yes - General General: Alert and oriented X 3, No acute distress - HEENT HEENT: PERRL, Other (He is quite jaundiced) - Neck Neck: Supple, no meningeal sign, No bony TTP - Cardiac Cardiac: RRR, No murmur - Respiratory Respiratory: No respiratory distress, Clear bilaterally - Abdomen Abdomen: Non tender - Back Back: No CVA TTP, No spinal TTP - Derm Derm: Normal color, Warm and dry - Extremities Extremities: Other (4+ pitting pedal edema, symmetric) - Neuro Neuro: Alert and oriented X 3 Eye Opening: Spontaneous Motor: Obeys Commands Verbal: Oriented GCS Score: 15 Results - Vitals Vitals: Vital Signs - 24 hr 08/17/22 08/17/22 12:51 14:53 Temperature 36.5 C Heart Rate 76 91 Respiratory 12 17 Rate Blood Pressure 121/67 108/65 O2 Saturation 96 97 Oxygen O2 Source Room air - EKG (time done) 1355 EKG releavant findings:: EKG personally interpreted by author of this note. Relevant findings are: Rate: Rate (enter#) (90) Rhythm: NSR [place]: LAD Intervals: Other (IVCD) QRS: Normal Ischemia: Non specific changes - Labs Labs: Laboratory Tests 08/17/22 08/17/22 08/17/22 12:59 12:59 12:59 WBC 11.4 H RBC 3.65 L Hgb 12.2 L Hct 37.1 L MCV 101.6 H MCH 33.4 H MCHC 32.9 RDW 14.9 Plt Count 136 MPV 9.7 Neut # (Auto) 7.5 H Lymph # (Auto) 1.8 [place] # (Auto) 1.2 H Eos # (Auto) 0.3 Baso # (Auto) 0.1 Absolute Nucleated RBC 0.00 Nucleated RBC % 0.0 PT 21.5 H INR 2.0 H VBG pH VBG pCO2 VBG pO2 VBG HCO3 VBG Total CO2 VBG O2 Saturation VBG Base Excess Sodium 133 L Potassium 4.1 Chloride 101 Carbon Dioxide 24 Anion Gap 8.0 BUN 22 H Creatinine 0.9 Estimated GFR (MDRD) 88 L Glucose 121 H Calcium 8.5 Phosphorus 3.9 Magnesium 2.0 Total Bilirubin 13.8 H AST 117 H ALT 37 Alkaline Phosphatase 359 H Ammonia Total Protein 5.6 L Albumin 1.9 L Globulin 3.7 Albumin/Globulin Ratio 0.5 L Ethyl Alcohol < 5.0 08/17/22 08/17/22 12:59 12:59 WBC RBC Hgb Hct MCV MCH MCHC RDW Plt Count MPV Neut # (Auto) Lymph # (Auto) [place] # (Auto) Eos # (Auto) Baso # (Auto) Absolute Nucleated RBC Nucleated RBC % PT INR VBG pH 7.426 H VBG pCO2 37.5 L VBG pO2 52.1 H VBG HCO3 24.1 VBG Total CO2 25.3 VBG O2 Saturation 87.6 H VBG Base Excess 0.0 Sodium Potassium Chloride Carbon Dioxide Anion Gap BUN Creatinine Estimated GFR (MDRD) Glucose Calcium Phosphorus Magnesium Total Bilirubin AST ALT Alkaline Phosphatase Ammonia 93.5 H* Total Protein Albumin Globulin Albumin/Globulin Ratio Ethyl Alcohol - Rads (name of study) Single view chest x-ray is limited due to body habitus but suggestive of mild pulmonary edema. Relevant Findings:: Final report received, EMP independent interpretation of test PD Medical Decision Making - ED course Complexity details: reviewed old records (Discharge summary from yesterday, grossly normal but limited echocardiogram from last month.) ED course: This is a 52-year-old gentleman with morbid obesity, alcoholic hepatitis with liver failure and a MELD score giving him approximately 30% 3-month mortality who returns now with shortness of breath and slurred speech after a month-long hospitalization and discharged yesterday. His ammonia level is elevated but he is not overtly encephalopathic. Otherwise his labs are stable. We discussed admission for treatment of his elevated ammonia level, and Dr. Walker he was willing to put him in observation, but the patient did not want to stay in the hospital. He did not feel that 1 more day in the hospital would change his overall treatment course and I did not disagree with him on that. His mom at that point had disappeared, I went out in the waiting room and looked in the parking lot and all the cars for her and could not find her. Tried calling her but there was no answer. We waited a while for his mom to represent to the emergency department but she did not and he was persistent and his wish to go home and as such he was discharged. Subsequently his mother did show up and told he could not go home. I tried to discuss with her that he is an adult and If his wishes to be discharged I would comply with that. Some low-level arguing between mom and patient ensued and they asked to speak with Dr. Walker who I asked to speak with the patient and his mother. However after that discussion the patient acquiesced to staying in the hospital for observation for safety until a better discharge plan could be formulated. Departure - Departure Disposition: ED Place in Observation Clinical Impression: Alcoholic liver disease, Hepatic encephalopathy, Morbid obesity with BMI of 60.0-69.9, adult, Anasarca Condition: Stable Record reviewed to determine appropriate education?: Yes Instructions: Cirrhosis Liver Dc Comments: Follow the discharge plan from yesterday regarding medications and further evaluation and treatment. Return for new or worsening symptoms.
[2022-08-17 13:04] LABS: VBG HCO3 24.1 mmol/L (23-28); VBG PCO2 37.5 mmHg (41-51); VBG PH 7.426 (7.31-7.41); VBG PO2 52.1 mmHg (25-47); VBG TOTAL CO2 25.3 mmol/L (24-29)
[2022-08-17 13:05] LABS: VBG OXYGEN SATURATION 87.6 % (60-80)
--- NOTE | 2022-08-17 13:07 | XRAY Report ---
PROCEDURE: Chest 1 View X-Ray INDICATIONS: dyspnea TECHNIQUE: One view of the chest was acquired. COMPARISON: None. FINDINGS: Surgical changes and devices: None. Lungs and pleura: There is pulmonary vascular congestion and extensive pulmonary edema. Elevation of right hemidiaphragm is seen, small right pleural effusion cannot be excluded. No gross pneumothorax. Mediastinum: Mediastinal contours appear normal. Heart size is enlarged. Bones and chest wall: No suspicious bony lesions. Overlying soft tissues appear unremarkable. IMPRESSION: Finding is suggestive of CHF. No definite focal infiltrate. Possible small right pleural effusion. No gross pneumothorax. Reviewed by: Vargas Barber MD on 08/17/2022 1:06 PM PDT Approved by: Vargas Barber MD on 08/17/2022 1:06 PM PDT Station ID: [id number]
[2022-08-17 13:09] LABS: BASOPHILS # (AUTO) 0.1 10^3/uL (0.0-0.1); BASOPHILS % (AUTO) 0.7 %; EOSINOPHILS # (AUTO) 0.3 10^3/uL (0.0-0.7); EOSINOPHILS % (AUTO) 2.6 %; HCT - HEMATOCRIT 37.1 % (42.0-52.0); HGB - HEMOGLOBIN 12.2 g/dL (14.0-18.0); LYMPHOCYTES # (AUTO) 1.8 10^3/uL (1.5-3.5); LYMPHOCYTES % (AUTO) 16.1 %; MEAN CORPUSCULAR HEMOGLOBIN 33.4 pg (27.0-31.0); MEAN CORPUSCULAR HGB CONC 32.9 g/dL (32.0-36.0); MEAN CORPUSCULAR VOLUME 101.6 fL (80.0-94.0); MEAN PLATELET VOLUME 9.7 fL (7.4-11.4); MONOCYTES # (AUTO) 1.2 10^3/uL (0.0-1.0); MONOCYTES % (AUTO) 10.8 %; NEUTROPHILS # (AUTO) 7.5 10^3/uL (1.5-6.6); NEUTROPHILS % (AUTO) 65.8 %; PLT - PLATELET COUNT 136 10^3/uL (130-450); RED BLOOD COUNT 3.65 10^6/uL (4.70-6.10); RED CELL DISTRIBUTION WIDTH 14.9 % (12.0-15.0); WHITE BLOOD COUNT 11.4 x10^3/uL (4.8-10.8)
[2022-08-17 13:13] LABS: PT - PROTHROMBIN TIME 21.5 secs (9.9-12.6)
[2022-08-17 13:27] LABS: ALBUMIN 1.9 g/dL (3.2-5.5); ALBUMIN/GLOBULIN RATIO 0.5 (1.0-2.2); ALKALINE PHOSPHATASE 359 IU/L (42-121); ALT ALANINE AMINOTRANSFERASE 37 IU/L (10-60); AST ASPARTATE AMINOTRANSFERASE 117 IU/L (10-42); BILIRUBIN,TOTAL 13.8 mg/dL (0.2-1.0); BUN - BLOOD UREA NITROGEN 22 mg/dL (6-20); CALCIUM 8.5 mg/dL (8.5-10.3); CARBON DIOXIDE - CO2 24 mmol/L (21-32); CHLORIDE 101 mmol/L (101-111); CREATININE 0.9 mg/dL (0.6-1.2); ETOH - ETHANOL < 5.0 mg/dL; GFR - MDRD 88 (>89); GLUCOSE 121 mg/dL (70-100); PHOSPHORUS 3.9 mg/dL (2.5-4.6); POTASSIUM 4.1 mmol/L (3.5-5.0); SODIUM 133 mmol/L (135-145); TOTAL PROTEIN 5.6 g/dL (6.7-8.2)
[2022-08-17] MEDS ORDERED: LACTULOSE 10 GM /15 ML UDC PO STA (14:05)
[2022-08-17] MEDS ORDERED: SODIUM CHLORIDE FLUSH 0.9% 10 ML SYRINGE IVP PRN (16:05)
[2022-08-17] MEDS ORDERED: ONDANSETRON ODT 4 MG TABLET TL PRN (16:28)
[2022-08-17] MEDS ORDERED: ACETAMINOPHEN 325 MG TABLET PO PRN (16:28)
[2022-08-17] MEDS ORDERED: oxyCODONE 5 MG TABLET PO PRN (16:28)
[2022-08-17] MEDS ORDERED: CALCIUM CARBONATE CHEW 500 MG TABLET PO PRN (16:40)
[2022-08-17] MEDS: SODIUM CHLORIDE FLUSH 0.9% 10 ML SYRINGE IVP SCH (16:45)
--- NOTE | 2022-08-17 17:00 | HISTORY & PHYSICAL EXAMINATION ---
Chief Complaint - Chief Complaint Chief Complaint: Shortness of breath History of Present Illness - Admitted From Admitted From:: Emergency department - History Obtained From Records Reviewed: Emergency department, prior admission History obtained from: Patient, mother, ED physician Exam Limitations: None - History of Present Illness HPI Comment/Other: Patient is a 52-year-old gentleman with history of chronic liver disease, super morbid obesity with a BMI of 66-69 who was discharged from this hospital yesterday after a more than 30-day hospital admission originally on July 15. He had a complicated stay during which discharge was somewhat delayed secondary to complications regarding finding a safe discharge plan originally attempting to discharge to group home facility. Were not able to locate any accepting facilities, patient improved medically to the extent that he no longer required hospitalization. He had multidisciplinary assistance working on providing resources with plan to have him discharge to home with home health services. Regarding the discharge plan, please see records from prior discharge as well as social work notes. Regarding current presentation patient states he was doing well yesterday after discharge, but today started to feel somewhat short of breath. Also feeling very weak. Other than that he denies any other new complaints. In the ED his oxygen saturation was 93% on room air.Chest x-ray findings show no acute findings. It is consistent with possible CHF as well as small right pleural effusion. He is not dyspneic on exam. Vital signs in the ED are stable. Lab work showed several abnormalities all of which were chronic and within patient's range during previous hospitalization. The exception is the ammonia level which is now elevated at 93 Patient was rep ortedly slightly "off" Per mother and patient. On exam patient did not appear confused or disoriented but out of concerns for possible development of hepatic encephalopathy and the difficulty of patient providing self-care at home, observation admission was requested to help manage mild hepatic encephalopathy with hyperammonemia. History - Past Medical History Cardiovascular: reports: Hypertension Neuro: reports: Peripheral neuropathy Endocrine/Autoimmune: reports: None Psych: reports: Depression Musculoskeletal: reports: Other Derm: reports: Other - Family & Social History Family History: Mother: Alive and Well, Father: Alive and Well, Sister: Alive and Well Living Situation: With family (mother) Social History Notes: He lives alone in an apartment. He normally drives a car. He has been self isolating for the past 1 month and admits that he is very depressed. He smokes no cigarettes, uses no marijuana or any illicit drugs. Alcohol is beer intake, up to 12 beers per day of 16 ounce cans - POLST Patient has POLST: No Meds/Allgy - Home Medications Home Medications: Ambulatory Orders Medication Instructions Recorded Confirmed Omeprazole 20 mg PO DAILY 05/10/16 08/17/22 Gabapentin [Neurontin] 2 cap PO TID 07/15/22 08/17/22 Mometasone Furoate 1 gm TOP BID PRN 07/22/22 08/17/22 Calcium Carbonate [Tums (Calcium 500 mg PO BID PRN tab 08/13/22 08/17/22 Carbonate 500mg)] Clotrimazole 1% Cream [Lotrimin 1% 1 gm TOP BID #1 ea 08/13/22 08/17/22 Cream] Cod Liver Oil/Zinc Oxide [Desitin] 113 gm TOP PRN PRN each 08/13/22 08/17/22 Lactulose 10 gm PO Q72H #946 ml 08/13/22 08/17/22 Nystatin [Nystop] 1 applic TOP BID #2 each 08/13/22 08/17/22 Potassium Chloride [Micro-K] 20 meq PO DAILYWM #30 cap 08/13/22 08/17/22 Vit No.180/Iron/Folic 1 each PO DAILY #30 tablet 08/13/22 08/17/22 [ Plus Vitamin-Mineral] Protectives Combination No.2 90 gm TP BID #1 each 08/13/22 08/17/22 [Tetrix] Spironolactone [Aldactone] 25 mg PO BID #60 tab 08/13/22 08/17/22 Thiamine [Vitamin B-1] 100 mg PO DAILY #30 tab 08/13/22 08/17/22 rifAXIMin [Xifaxan] 550 mg PO BID #60 tab 08/13/22 08/17/22 traMADol [Ultram] 25 mg PO BID #60 tab 08/13/22 08/17/22 Furosemide [Lasix] 40 mg PO BID #60 tablet 08/14/22 08/17/22 - Allergies Allergies/Adverse Reactions: Allergies Allergy/AdvReac Type Severity Reaction Status Date / Time No Known Drug Allergies Allergy Verified 05/10/16 11:59 Review of Systems - Cardiovascular Cariovascular: denies: Chest pain - Respiratory Respiratory: denies: Cough - Gastrointestinal Gastrointestinal: denies: Abdominal pain - Genitourinary Genitourinary: reports: Other (Scrotal swelling, which was present on previous admission) - Musculoskeletal Musculoskeletal: reports: Muscle weakness - Integumentary Integumentary: reports: Other (Skin maceration of the scrotum) - Neurological Neurological: reports: Other (Mental fogginess) - All Other Systems All Other Systems: reports: Reviewed and negative Prior Level of Functionality: Due to patient's super morbid obesity, he has difficulty ambulating but can do so with a walker. Exam - Vital Signs Reviewed Vital Signs: Yes Vital Signs: Vital Signs x48h Temp Pulse Resp BP Pulse Ox 08/17/22 14:53 91 17 108/65 97 08/17/22 12:51 36.5 C 76 12 121/67 96 - Physical Exam General Appearance: positive: No acute distress, Alert, Other (Very obese) Eyes Bilateral: negative: No scleral icterus Respiratory: positive: Chest non-tender, No respiratory distress, Breath sounds nml. negative: Wheezes, Rales, Rhonchi Cardiovascular: positive: Regular rate & rhythm, No murmur, No gallop Peripheral Pulses: positive: 2+ Abdomen: positive: Non-tender Skin: positive: Color nml (Venous stasis dermatitis of bilateral lower extremities) Extremities: positive: Pedal edema Neurologic/Psychiatric: positive: Oriented x3 Conclusion/Plan - Problem List (1) Hepatic encephalopathy Conclusion/Plan: Patient is alert and oriented x3. Perhaps there is a slight drop in mental acuity, but this is difficult to milly reciate having seen him yesterday I do not appreciate a dramatic difference in his mental status Given his ammonia level of 93, he does need additional lactulose We will admit him start lactulose tonight, repeat ammonia level in the a.m. and adjust medication dosing accordingly (2) Shortness of breath Conclusion/Plan: Patient subjectively complained of shortness of breath Chest x-ray shows nothing acute Patient is already on medications for diuresis, heart failure Pulse oximetry is normal on room air Continue to monitor (3) Alcoholic liver disease Conclusion/Plan: Patient has known alcoholic liver disease and has multiple lab abnormalities all of which are consistent with recent labs during hospital stay that ended yesterday. He has no acute manifestations We will continue current home medication regimen As was the plan at discharge yesterday, would recommend follow-up with PCP and consideration of referral to criminalist technician - Lab Results Lab results reviewed: Yes Bashir Bones: 08/17/22 12:59 08/17/22 12:59 - Diagnostic Imaging Results Diagnostic Imaging Results: positive: Final report reviewed Core Measures - Anticipated LOS I expect patient to be DC'd or transferred within 96 hours.: Yes - DVT/VTE - Prophylaxis VTE/DVT Device ordered at admit?: Yes
[2022-08-17] MEDS: FUROSEMIDE 40 MG TABLET PO SCH (18:56)
[2022-08-17] MEDS ORDERED: FUROSEMIDE 40 MG TABLET PO SCH (21:00)
[2022-08-17] MEDS: CLOTRIMAZOLE 1% CREAM 15 GM TUBE TOP SCH (21:26)
[2022-08-17] MEDS: SPIRONOLACTONE 25 MG TABLET PO SCH (21:27)
[2022-08-17] MEDS: rifAXIMin 550 MG TABLET PO SCH (21:27)
[2022-08-17] MEDS: NYSTATIN POWDER 15 GM TOP SCH (21:27)
[2022-08-17] MEDS: GABAPENTIN 300 MG CAPSULE PO SCH (21:27)
[2022-08-17] MEDS: HEPARIN 5,000 UNIT/ML VIAL SUBQ SCH (21:29)
[2022-08-17] MEDS: NYSTATIN CREAM 15 GM TUBE TOP SCH (21:39)
[2022-08-18] MEDS: SODIUM CHLORIDE FLUSH 0.9% 10 ML SYRINGE IVP SCH ×3 (00:26→17:59)
[2022-08-18] MEDS: ZINC OXIDE 20% OINT 30 GM TUBE TOP PRN ×3 (00:31→22:36)
[2022-08-18] MEDS: oxyCODONE 5 MG TABLET PO PRN ×2 (00:31→05:08)
[2022-08-18] MEDS: GABAPENTIN 300 MG CAPSULE PO SCH ×3 (05:24→22:33)
[2022-08-18] MEDS: PANTOPRAZOLE 40 MG TABLET PO SCH (06:07)
[2022-08-18] MEDS ORDERED: LACTULOSE 10 GM /15 ML UDC PO SCH (09:00)
[2022-08-18] MEDS: rifAXIMin 550 MG TABLET PO SCH ×2 (09:22→22:34)
[2022-08-18] MEDS: PRENATAL VITAMIN TABLET PO SCH (09:22)
[2022-08-18] MEDS: SPIRONOLACTONE 25 MG TABLET PO SCH ×2 (09:22→22:34)
[2022-08-18] MEDS: THIAMINE 100 MG TABLET PO SCH (09:22)
[2022-08-18] MEDS: FUROSEMIDE 40 MG TABLET PO SCH ×2 (09:22→14:27)
[2022-08-18] MEDS: HEPARIN 5,000 UNIT/ML VIAL SUBQ SCH ×2 (09:23→22:33)
[2022-08-18] MEDS: CLOTRIMAZOLE 1% CREAM 15 GM TUBE TOP SCH ×2 (09:28→22:35)
[2022-08-18] MEDS: NYSTATIN POWDER 15 GM TOP SCH ×2 (09:28→22:36)
[2022-08-18] MEDS: NYSTATIN CREAM 15 GM TUBE TOP SCH ×2 (09:28→22:36)
[2022-08-18 13:06] LABS: HCT - HEMATOCRIT 38.8 % (42.0-52.0); HGB - HEMOGLOBIN 12.4 g/dL (14.0-18.0); MEAN CORPUSCULAR HEMOGLOBIN 32.7 pg (27.0-31.0); MEAN CORPUSCULAR VOLUME 102.4 fL (80.0-94.0); MEAN PLATELET VOLUME 9.6 fL (7.4-11.4); RED BLOOD COUNT 3.79 10^6/uL (4.70-6.10); RED CELL DISTRIBUTION WIDTH 15.1 % (12.0-15.0); WHITE BLOOD COUNT 8.7 x10^3/uL (4.8-10.8)
[2022-08-18 13:34] LABS: CALCIUM 8.4 mg/dL (8.5-10.3); POTASSIUM 3.5 mmol/L (3.5-5.0)
--- NOTE | 2022-08-18 14:22 | PROVIDER PROGRESS NOTE ---
Assessment/Plan - Problem List (1) Hepatic encephalopathy Assessment/Plan: Improved. NH3 44 Cont Lactulose Repeat labs in am If improving, can likely d/c in am (2) Shortness of breath Assessment/Plan: Resolved Pulse ox > 95 on RA (3) Alcoholic liver disease Assessment/Plan: Chronic Stable No changes Outpt management Cont fluid restriction Cont current meds - Current Meds Current Meds: Current Medications Generic Name Dose Route Start Last Admin Trade Name Freq PRN Reason Stop Dose Admin Clotrimazole 15 applic 08/17/22 21:00 08/18/22 09:28 Clotrimazole 1% Cream 15 Gm Tube TOP 15 applic BID KANU Administration Furosemide 40 mg 08/17/22 19:00 08/18/22 09:22 Furosemide 40 Mg Tablet PO 40 mg BID@0900,1400 KANU Administration Gabapentin 600 mg 08/17/22 22:00 08/18/22 05:24 Gabapentin 300 Mg Capsule PO 600 mg TID KANU Administration Heparin Sodium (Porcine) 5,000 unit 08/17/22 21:00 08/18/22 09:23 Heparin 5,000 Unit/Ml Vial SUBQ 5,000 unit BID KANU Administration Lactulose 10 gm 08/18/22 09:00 08/18/22 09:23 Lactulose 10 Gm /15 Ml Udc PO 10 gm Q72H KANU Administration Multi-Ingredient Ointment 1 applic 08/17/22 18:54 08/18/22 04:59 Zinc Oxide 20% Oint 30 Gm Tube TOP 1 applic PRN PRN Administration Skin Care Nystatin 1 applic 08/17/22 21:00 08/18/22 09:28 Nystatin Powder 15 Gm TOP 1 applic BID KANU Administration Nystatin 1 applic 08/17/22 21:00 08/18/22 09:28 Nystatin Cream 15 Gm Tube TOP 1 applic BID KANU Administration Oxycodone HCl 5 mg 08/17/22 16:28 08/18/22 05:08 Oxycodone 5 Mg Tablet PO 5 mg Q4HR PRN Administration Pain 5 to 7 Pantoprazole Sodium 40 mg 08/18/22 07:00 08/18/22 06:07 Pantoprazole 40 Mg Tablet PO 40 mg QDAC KANU Administration Multivit/Folic Acid/Iron 1 tab 08/18/22 08:00 08/18/22 09:22 Vitamin Tablet PO 1 tab DAILYWM KANU Administration Rifaximin 550 mg 08/17/22 21:00 08/18/22 09:22 Rifaximin 550 Mg Tablet PO 550 mg BID KANU Administration Sodium Chloride 10 ml 08/17/22 17:00 08/18/22 09:30 Sodium Chloride Flush 0.9% 10 Ml Syringe IVP 10 ml 0100,0900,1700 KANU Administration Spironolactone 25 mg 08/17/22 21:00 08/18/22 09:22 Spironolactone 25 Mg Tablet PO 25 mg BID KANU Administration Thiamine HCl 100 mg 08/18/22 09:00 08/18/22 09:22 Thiamine 100 Mg Tablet PO 100 mg DAILY KANU Administration - Lab Result Lab results reviewed: Yes Fish Bone Diagrams: 08/18/22 13:00 08/18/22 13:00 - EKG Results EKG Interpreted Independently: No - Additional Planning My Orders: My Active Orders 08/17/22 16:05 Activity Orders [RC] Q2HR IO [RC] IOSHIFT Initiate Bowel Care Protocol [RC] .protocol Initiate Line Care Protocol [RC] QSHIFT Initiate Personal Care Protoco [RC] .protocol Oxygen Therapy [RC] .PRN Vital Signs [RC] Q4HR Sodium Chloride Flush 0.9% [Normal Saline Flush 0.9%] 10 ml IVP PRN PRN Code Status [OTHERS] Routine Condition of Patient [OTHERS] Routine DVT Prophylaxis [OTHERS] Routine 08/17/22 16:28 Acetaminophen [Tylenol] 650 mg PO Q4HR PRN Ondansetron Odt [Zofran Odt] 4 mg TL Q6HR PRN oxyCODONE [Roxicodone] 10 mg PO Q4HR PRN oxyCODONE [Roxicodone] 5 mg PO Q4HR PRN 08/17/22 16:40 Calcium Carbonate [Tums] 500 mg PO BID PRN 08/17/22 17:00 Sodium Chloride Flush 0.9% [Normal Saline Flush 0.9%] 10 ml IVP 0100,0900,1700 08/17/22 18:54 Zinc Oxide 20% Oint [Zinc Oxide] 1 applic TOP PRN PRN 08/17/22 19:00 Furosemide [Lasix] 40 mg PO BID@0900,1400 08/17/22 21:00 Clotrimazole 1% Cream [Lotrimin 1% Cream] 15 applic TOP BID Heparin [Heparin Sodium (Porcine)] 5,000 unit SUBQ BID Nystatin Cream [Mycostatin Cream] 1 applic TOP BID Nystatin [Nystop] 1 applic TOP BID Spironolactone [Aldactone] 25 mg PO BID rifAXIMin [Xifaxan] 550 mg PO BID 08/17/22 22:00 Gabapentin [Neurontin] 600 mg PO TID 08/18/22 Breakfast Cardiac Diet [DIET] 08/18/22 07:00 Pantoprazole [Protonix] 40 mg PO QDAC 08/18/22 08:00 Vitamin [Trinatal Rx 1] 1 tab PO DAILYWM 08/18/22 09:00 Lactulose [Enulose] 10 gm PO Q72H Thiamine [Vitamin B-1] 100 mg PO DAILY 08/19/22 05:00 AMMONIA [CHEM] DAILYLAB BMP - BASIC METABOLIC PANEL [CHEM] DAILYLAB CBC W/O DIFF (HEMOGRAM) [HEME] DAILYLAB 08/20/22 05:00 BMP - BASIC METABOLIC PANEL [CHEM] DAILYLAB CBC W/O DIFF (HEMOGRAM) [HEME] DAILYLAB Subjective - Subjective Patient Reports: Feeling Better Objective Vital Signs: Vital Signs - 24 hr 08/17/22 08/18/22 08/18/22 14:53 00:25 05:20 Temperature 36.2 C L 36.7 C Heart Rate 91 Heart Rate [ 82 81 Radial] Respiratory 17 22 18 Rate Blood Pressure 108/65 Blood Pressure 107/62 107/65 [Right Radial artery] O2 Saturation 97 94 97 08/18/22 08/18/22 09:00 12:34 Temperature 36.3 C L 36.9 C Heart Rate Heart Rate [ 855 H 87 Radial] Respiratory 17 18 Rate Blood Pressure Blood Pressure 105/85 H 116/67 [Right Radial artery] O2 Saturation 97 96 Oxygen O2 Source Room air I&O (Last 24 Hrs): Intake and Output Totals x24h 08/16/22 08/17/22 08/18/22 23:59 23:59 23:59 Intake Total 590 540 Output Total 225 1150 Balance 365 -610 General: Alert, Oriented x3, Cooperative, No acute distress HEENT: Atraumatic, EOMI Neuro: Alert, CN 2-12 Grossly Intact, Oriented Times 3 Respiratory: Chest non-tender, No respiratory distress, Breath sounds nml Extremities: No clubbing, Other (Bilateral LE edema) - Results Results: Laboratory Results WBC 8.7 x10^3/uL (4.8-10.8) 08/18/22 13:00 RBC 3.79 10^6/uL (4.70-6.10) L 08/18/22 13:00 Hgb 12.4 g/dL (14.0-18.0) L 08/18/22 13:00 Hct 38.8 % (42.0-52.0) L 08/18/22 13:00 MCV 102.4 fL (80.0-94.0) H 08/18/22 13:00 MCH 32.7 pg (27.0-31.0) H 08/18/22 13:00 MCHC 32.0 g/dL (32.0-36.0) 08/18/22 13:00 RDW 15.1 % (12.0-15.0) H 08/18/22 13:00 Plt Count 137 10^3/uL (130-450) 08/18/22 13:00 MPV 9.6 fL (7.4-11.4) 08/18/22 13:00 Neut # (Auto) 7.5 10^3/uL (1.5-6.6) H 08/17/22 12:59 Lymph # (Auto) 1.8 10^3/uL (1.5-3.5) 08/17/22 12:59 [place] # (Auto) 1.2 10^3/uL (0.0-1.0) H 08/17/22 12:59 Eos # (Auto) 0.3 10^3/uL (0.0-0.7) 08/17/22 12:59 Baso # (Auto) 0.1 10^3/uL (0.0-0.1) 08/17/22 12:59 Absolute Nucleated RBC 0.00 x10^3/uL 08/17/22 12:59 Nucleated RBC % 0.0 /100WBC 08/17/22 12:59 PT 21.5 secs (9.9-12.6) H 08/17/22 12:59 INR 2.0 (0.8-1.2) H 08/17/22 12:59 VBG pH 7.426 (7.31-7.41) H 08/17/22 12:59 VBG pCO2 37.5 mmHg (41-51) L 08/17/22 12:59 VBG pO2 52.1 mmHg (25-47) H 08/17/22 12:59 VBG HCO3 24.1 mmol/L (23-28) 08/17/22 12:59 VBG Total CO2 25.3 mmol/L (24-29) 08/17/22 12:59 VBG O2 Saturation 87.6 % (60-80) H 08/17/22 12:59 VBG Base Excess 0.0 mmol/L (-2 - +2) 08/17/22 12:59 Sodium 132 mmol/L (135-145) L 08/18/22 13:00 Potassium 3.5 mmol/L (3.5-5.0) 08/18/22 13:00 Chloride 99 mmol/L (101-111) L 08/18/22 13:00 Carbon Dioxide 25 mmol/L (21-32) 08/18/22 13:00 Anion Gap 8.0 (6-13) 08/18/22 13:00 BUN 22 mg/dL (6-20) H 08/18/22 13:00 Creatinine 1.0 mg/dL (0.6-1.2) 08/18/22 13:00 Estimated GFR (MDRD) 78 (>89) L 08/18/22 13:00 Glucose 138 mg/dL (70-100) H 08/18/22 13:00 Calcium 8.4 mg/dL (8.5-10.3) L 08/18/22 13:00 Phosphorus 3.9 mg/dL (2.5-4.6) 08/17/22 12:59 Magnesium 2.0 mg/dL (1.7-2.8) 08/17/22 12:59 Total Bilirubin 13.8 mg/dL (0.2-1.0) H 08/17/22 12:59 AST 117 IU/L (10-42) H 08/17/22 12:59 ALT 37 IU/L (10-60) 08/17/22 12:59 Alkaline Phosphatase 359 IU/L (42-121) H 08/17/22 12:59 Ammonia 44.7 umol/L (7-35) H 08/18/22 13:00 Total Protein 5.6 g/dL (6.7-8.2) L 08/17/22 12:59 Albumin 1.9 g/dL (3.2-5.5) L 08/17/22 12:59 Globulin 3.7 g/dL (2.1-4.2) 08/17/22 12:59 Albumin/Globulin Ratio 0.5 (1.0-2.2) L 08/17/22 12:59 Ethyl Alcohol < 5.0 mg/dL 08/17/22 12:59 ABX Reporting Has patient been on IV antibiotics over the past 48 hours?: No Current Medications - Current Medications Current Medications: Active Medications Generic Name Dose Route Start Last Admin Trade Name Freq PRN Reason Stop Dose Admin Acetaminophen 650 mg 08/17/22 16:28 Acetaminophen 325 Mg Tablet PO Q4HR PRN Pain 1 to 4, or Fever Calcium Carbonate/Glycine 500 mg 08/17/22 16:40 Calcium Carbonate Chew 500 Mg Tablet PO BID PRN Heartburn Clotrimazole 15 applic 08/17/22 21:00 08/18/22 09:28 Clotrimazole 1% Cream 15 Gm Tube TOP 15 applic BID KANU Administration Furosemide 40 mg 08/17/22 19:00 08/18/22 09:22 Furosemide 40 Mg Tablet PO 40 mg BID@0900,1400 KANU Administration Gabapentin 600 mg 08/17/22 22:00 08/18/22 05:24 Gabapentin 300 Mg Capsule PO 600 mg TID KANU Administration Heparin Sodium (Porcine) 5,000 unit 08/17/22 21:00 08/18/22 09:23 Heparin 5,000 Unit/Ml Vial SUBQ 5,000 unit BID KANU Administration Lactulose 10 gm 08/18/22 09:00 08/18/22 09:23 Lactulose 10 Gm /15 Ml Udc PO 10 gm Q72H KANU Administration Multi-Ingredient Ointment 1 applic 08/17/22 18:54 08/18/22 04:59 Zinc Oxide 20% Oint 30 Gm Tube TOP 1 applic PRN PRN Administration Skin Care Nystatin 1 applic 08/17/22 21:00 08/18/22 09:28 Nystatin Powder 15 Gm TOP 1 applic BID KANU Administration Nystatin 1 applic 08/17/22 21:00 08/18/22 09:28 Nystatin Cream 15 Gm Tube TOP 1 applic BID KANU Administration Ondansetron HCl 4 mg 08/17/22 16:28 Ondansetron Odt 4 Mg Tablet TL Q6HR PRN Nausea / Vomiting Oxycodone HCl 5 mg 08/17/22 16:28 08/18/22 05:08 Oxycodone 5 Mg Tablet PO 5 mg Q4HR PRN Administration Pain 5 to 7 Oxycodone HCl 10 mg 08/17/22 16:28 Oxycodone 5 Mg Tablet PO Q4HR PRN Pain 8 to 10 Pantoprazole Sodium 40 mg 08/18/22 07:00 08/18/22 06:07 Pantoprazole 40 Mg Tablet PO 40 mg QDAC KANU Administration Multivit/Folic Acid/Iron 1 tab 08/18/22 08:00 08/18/22 09:22 Vitamin Tablet PO 1 tab DAILYWM KANU Administration Rifaximin 550 mg 08/17/22 21:00 08/18/22 09:22 Rifaximin 550 Mg Tablet PO 550 mg BID KANU Administration Sodium Chloride 10 ml 08/17/22 16:05 Sodium Chloride Flush 0.9% 10 Ml Syringe IVP PRN PRN NEEDED PER PROVIDER ORDERS Sodium Chloride 10 ml 08/17/22 17:00 08/18/22 09:30 Sodium Chloride Flush 0.9% 10 Ml Syringe IVP 10 ml 0100,0900,1700 KANU Administration Spironolactone 25 mg 08/17/22 21:00 08/18/22 09:22 Spironolactone 25 Mg Tablet PO 25 mg BID KANU Administration Thiamine HCl 100 mg 08/18/22 09:00 08/18/22 09:22 Thiamine 100 Mg Tablet PO 100 mg DAILY KANU Administration Omeprazole 20 mg PO DAILY 05/10/16 Gabapentin [Neurontin] 2 cap PO TID 07/15/22 Mometasone Furoate 1 gm TOP BID PRN 07/22/22
[2022-08-19] MEDS: oxyCODONE 5 MG TABLET PO PRN ×2 (01:41→12:05)
[2022-08-19] MEDS: SODIUM CHLORIDE FLUSH 0.9% 10 ML SYRINGE IVP SCH ×3 (01:41→21:27)
[2022-08-19 05:47] LABS: HCT - HEMATOCRIT 38.7 % (42.0-52.0); HGB - HEMOGLOBIN 12.6 g/dL (14.0-18.0); MEAN CORPUSCULAR HEMOGLOBIN 33.2 pg (27.0-31.0); MEAN CORPUSCULAR HGB CONC 32.6 g/dL (32.0-36.0); MEAN CORPUSCULAR VOLUME 101.8 fL (80.0-94.0); MEAN PLATELET VOLUME 9.3 fL (7.4-11.4); RED BLOOD COUNT 3.8 10^6/uL (4.70-6.10); RED CELL DISTRIBUTION WIDTH 15.1 % (12.0-15.0); WHITE BLOOD COUNT 9.7 x10^3/uL (4.8-10.8)
[2022-08-19 06:00] LABS: CALCIUM 8.5 mg/dL (8.5-10.3); POTASSIUM 3.5 mmol/L (3.5-5.0)
[2022-08-19] MEDS: GABAPENTIN 300 MG CAPSULE PO SCH ×3 (06:20→21:25)
[2022-08-19] MEDS: PANTOPRAZOLE 40 MG TABLET PO SCH (06:20)
[2022-08-19] MEDS: SPIRONOLACTONE 25 MG TABLET PO SCH ×2 (09:13→21:25)
[2022-08-19] MEDS: PRENATAL VITAMIN TABLET PO SCH (09:13)
[2022-08-19] MEDS: FUROSEMIDE 40 MG TABLET PO SCH ×2 (09:13→14:01)
[2022-08-19] MEDS: THIAMINE 100 MG TABLET PO SCH (09:13)
[2022-08-19] MEDS: rifAXIMin 550 MG TABLET PO SCH ×2 (09:14→21:25)
[2022-08-19] MEDS: LACTULOSE 10 GM /15 ML UDC PO SCH (09:14)
[2022-08-19] MEDS: NYSTATIN POWDER 15 GM TOP SCH ×2 (09:16→21:26)
[2022-08-19] MEDS: HEPARIN 5,000 UNIT/ML VIAL SUBQ SCH ×2 (09:30→21:29)
--- NOTE | 2022-08-19 10:47 | Discharge Plan ---
Discharge Plan Problem Reviewed?: Yes Disposition: Home, Self Care Condition: Stable Prescriptions: oxyCODONE [Roxicodone] 5 mg PO Q4HR PRN #20 tab PRN Reason: Pain 5 to 7 Furosemide [Lasix] 40 mg PO BID #60 tablet Lidocaine Patch 5% [Lidoderm Patch] 1 each PATCH DAILY PRN #30 patch PRN Reason: Pain 1-4 Zinc Oxide 20% Oint [Zinc Oxide] 1 applic TOP PRN PRN #2 each PRN Reason: Skin Care Diet: Low Sodium Activity Restrictions: Wt Bearing as Tolerated Instruction Topics: Cirrhosis Liver Dc Plan of Treatment: Please take your lactulose every day instead of every 3 days that this appears to be working better to keep your ammonia levels low. Additional Instructions or Follow Up instructions: Follow the discharge plan from yesterday regarding medications and further evaluation and treatment. Return for new or worsening symptoms. No Smoking: If you smoke, Please STOP! Call for help.
--- NOTE | 2022-08-19 12:40 | PROVIDER PROGRESS NOTE ---
Assessment/Plan - Problem List (1) Hepatic encephalopathy Assessment/Plan: Encephalopathy has resolved. Ammonia level trended back up today. Was 44.7 yesterday, 65.7 today. I am going to increase his lactulose to daily dosing. I discussed with the patient the importance on monitoring bowel movements and to be open to adjusting dosing in a titrating manner based on a goal of 2-3 bowel movements per day. We will monitor bowel movement while in hospital and adjust accordingly, and continue to monitor ammonia level while inpatient. (2) Shortness of breath Assessment/Plan: Resolved (3) Alcoholic liver disease Assessment/Plan: Stable Continue fluid restriction and diuresis and monitor weights Continue to monitor daily ammonia levels and management as above (4) Morbid obesity with BMI of 60.0-69.9, adult Assessment/Plan: Because of the patient's morbid obesity, discharge has been a challenge. He has limited mobility after his previous prolonged hospitalization and on the last discharge was discharged with a prescription for a bariatric hospital bed. Unfortunately when he went home, the company supplied him the wrong bed which is not bariatric. Because of this, it is very difficult for him to utilize the bed and once he is in it he is unable to self extricate himself from the bed. This means he cannot provide himself bowel movements as he is not even able to amb ulate to a bedside commode. A bedpan is not an option also due to his weight. Therefore, at this time we do not have a safe discharge plan. However, case management is actively working on pursuing a replacement for his hospital bed and when a bariatric hospital bed can be provided he will most likely be safe to discharge home barring any unforeseen developments. In the meantime, they are additionally seeking possible [facility] facility placement to help him recondition and if an accepting facility can be found, his discharge will be directed as such. - Current Meds Current Meds: Current Medications Generic Name Dose Route Start Last Admin Trade Name Freq PRN Reason Stop Dose Admin Acetaminophen 650 mg 08/17/22 16:28 08/19/22 09:14 Acetaminophen 325 Mg Tablet PO 650 mg Q4HR PRN Administration Pain 1 to 4, or Fever Clotrimazole 15 applic 08/17/22 21:00 08/18/22 22:35 Clotrimazole 1% Cream 15 Gm Tube TOP 15 applic BID KANU Administration Furosemide 40 mg 08/17/22 19:00 08/19/22 09:13 Furosemide 40 Mg Tablet PO 40 mg BID@0900,1400 KANU Administration Gabapentin 600 mg 08/17/22 22:00 08/19/22 06:20 Gabapentin 300 Mg Capsule PO 600 mg TID KANU Administration Heparin Sodium (Porcine) 5,000 unit 08/17/22 21:00 08/19/22 09:30 Heparin 5,000 Unit/Ml Vial SUBQ 5,000 unit BID KANU Administration Lactulose 10 gm 08/19/22 09:00 08/19/22 09:14 Lactulose 10 Gm /15 Ml Udc PO 10 gm DAILY KANU Administration Multi-Ingredient Ointment 1 applic 08/17/22 18:54 08/18/22 22:36 Zinc Oxide 20% Oint 30 Gm Tube TOP 1 applic PRN PRN Administration Skin Care Nystatin 1 applic 08/17/22 21:00 08/19/22 09:16 Nystatin Powder 15 Gm TOP 1 applic BID KANU Administration Nystatin 1 applic 08/17/22 21:00 08/18/22 22:36 Nystatin Cream 15 Gm Tube TOP 1 applic BID KANU Administration Oxycodone HCl 5 mg 08/17/22 16:28 08/19/22 12:05 Oxycodone 5 Mg Tablet PO 5 mg Q4HR PRN Administration Pain 5 to 7 Pantoprazole Sodium 40 mg 08/18/22 07:00 08/19/22 06:20 Pantoprazole 40 Mg Tablet PO 40 mg QDAC KANU Administration Multivit/Folic Acid/Iron 1 tab 08/18/22 08:00 08/19/22 09:13 Vitamin Tablet PO 1 tab DAILYWM KANU Administration Rifaximin 550 mg 08/17/22 21:00 08/19/22 09:14 Rifaximin 550 Mg Tablet PO 550 mg BID KANU Administration Sodium Chloride 10 ml 08/17/22 17:00 08/19/22 09:15 Sodium Chloride Flush 0.9% 10 Ml Syringe IVP 10 ml 0100,0900,1700 KANU Administration Spironolactone 25 mg 08/17/22 21:00 08/19/22 09:13 Spironolactone 25 Mg Tablet PO 25 mg BID KANU Administration Thiamine HCl 100 mg 08/18/22 09:00 08/19/22 09:13 Thiamine 100 Mg Tablet PO 100 mg DAILY KANU Administration - Lab Result Lab results reviewed: Yes Fish Bone Diagrams: 08/19/22 05:42 08/19/22 05:42 - Additional Planning Condition/Complexity: Stable My Orders: My Active Orders 08/19/22 09:00 Lactulose [Enulose] 10 gm PO DAILY 08/19/22 Lunch Carb-controlled Diet [DIET] 08/20/22 05:00 BMP - BASIC METABOLIC PANEL [CHEM] DAILYLAB CBC W/O DIFF (HEMOGRAM) [HEME] DAILYLAB Subjective - Subjective Patient Reports: Feeling Better Objective Vital Signs: Vital Signs - 24 hr 08/18/22 08/18/22 08/19/22 16:17 21:35 00:52 Temperature 36.3 C L 36.5 C 36.6 C Heart Rate [ 84 87 93 Radial] Respiratory 22 20 22 Rate Blood Pressure 95/56 L 105/56 L 96/59 L [Right Radial artery] O2 Saturation 97 98 95 08/19/22 08/19/22 06:00 09:00 Temperature 36.4 C L 36.3 C L Heart Rate [ 85 92 Radial] Respiratory 22 20 Rate Blood Pressure 119/68 124/80 [Right Radial artery] O2 Saturation 97 98 Oxygen O2 Source Room air I&O (Last 24 Hrs): Intake and Output Totals x24h 08/17/22 08/18/22 08/19/22 23:59 23:59 23:59 Intake Total 590 740 420 Output Total 225 1625 450 Balance 365 -935 -30 General: Alert, Oriented x3 HEENT: Atraumatic Neuro: Alert, Oriented Times 3 Cardiovascular: Regular rate, Normal S1, Normal S2 Respiratory: Chest non-tender, No respiratory distress, Breath sounds nml Abdomen: Normal bowel sounds, Soft, No tenderness Extremities: Other (Bilateral lower extremity edema with venous stasis dermatitis) - Results Results: Laboratory Results WBC 9.7 x10^3/uL (4.8-10.8) 08/19/22 05:42 RBC 3.80 10^6/uL (4.70-6.10) L 08/19/22 05:42 Hgb 12.6 g/dL (14.0-18.0) L 08/19/22 05:42 Hct 38.7 % (42.0-52.0) L 08/19/22 05:42 MCV 101.8 fL (80.0-94.0) H 08/19/22 05:42 MCH 33.2 pg (27.0-31.0) H 08/19/22 05:42 MCHC 32.6 g/dL (32.0-36.0) 08/19/22 05:42 RDW 15.1 % (12.0-15.0) H 08/19/22 05:42 Plt Count 135 10^3/uL (130-450) 08/19/22 05:42 MPV 9.3 fL (7.4-11.4) 08/19/22 05:42 Neut # (Auto) 7.5 10^3/uL (1.5-6.6) H 08/17/22 12:59 Lymph # (Auto) 1.8 10^3/uL (1.5-3.5) 08/17/22 12:59 [place] # (Auto) 1.2 10^3/uL (0.0-1.0) H 08/17/22 12:59 Eos # (Auto) 0.3 10^3/uL (0.0-0.7) 08/17/22 12:59 Baso # (Auto) 0.1 10^3/uL (0.0-0.1) 08/17/22 12:59 Absolute Nucleated RBC 0.00 x10^3/uL 08/17/22 12:59 Nucleated RBC % 0.0 /100WBC 08/17/22 12:59 PT 21.5 secs (9.9-12.6) H 08/17/22 12:59 INR 2.0 (0.8-1.2) H 08/17/22 12:59 VBG pH 7.426 (7.31-7.41) H 08/17/22 12:59 VBG pCO2 37.5 mmHg (41-51) L 08/17/22 12:59 VBG pO2 52.1 mmHg (25-47) H 08/17/22 12:59 VBG HCO3 24.1 mmol/L (23-28) 08/17/22 12:59 VBG Total CO2 25.3 mmol/L (24-29) 08/17/22 12:59 VBG O2 Saturation 87.6 % (60-80) H 08/17/22 12:59 VBG Base Excess 0.0 mmol/L (-2 - +2) 08/17/22 12:59 Sodium 131 mmol/L (135-145) L 08/19/22 05:42 Potassium 3.5 mmol/L (3.5-5.0) 08/19/22 05:42 Chloride 98 mmol/L (101-111) L 08/19/22 05:42 Carbon Dioxide 25 mmol/L (21-32) 08/19/22 05:42 Anion Gap 8.0 (6-13) 08/19/22 05:42 BUN 23 mg/dL (6-20) H 08/19/22 05:42 Creatinine 1.0 mg/dL (0.6-1.2) 08/19/22 05:42 Estimated GFR (MDRD) 78 (>89) L 08/19/22 05:42 Glucose 116 mg/dL (70-100) H 08/19/22 05:42 Calcium 8.5 mg/dL (8.5-10.3) 08/19/22 05:42 Phosphorus 3.9 mg/dL (2.5-4.6) 08/17/22 12:59 Magnesium 2.0 mg/dL (1.7-2.8) 08/17/22 12:59 Total Bilirubin 13.8 mg/dL (0.2-1.0) H 08/17/22 12:59 AST 117 IU/L (10-42) H 08/17/22 12:59 ALT 37 IU/L (10-60) 08/17/22 12:59 Alkaline Phosphatase 359 IU/L (42-121) H 08/17/22 12:59 Ammonia 65.7 umol/L (7-35) H 08/19/22 05:42 Total Protein 5.6 g/dL (6.7-8.2) L 08/17/22 12:59 Albumin 1.9 g/dL (3.2-5.5) L 08/17/22 12:59 Globulin 3.7 g/dL (2.1-4.2) 08/17/22 12:59 Albumin/Globulin Ratio 0.5 (1.0-2.2) L 08/17/22 12:59 Ethyl Alcohol < 5.0 mg/dL 08/17/22 12:59 ABX Reporting Has patient been on IV antibiotics over the past 48 hours?: No Current Medications - Current Medications Current Medications: Active Medications Acetaminophen (Acetaminophen 325 Mg Tablet) 650 mg PO Q4HR PRN PRN Reason: Pain 1 to 4, or Fever Last Admin: 08/19/22 09:14 Dose: 650 mg Calcium Carbonate/Glycine (Calcium Carbonate Chew 500 Mg Tablet) 500 mg PO BID PRN PRN Reason: Heartburn Clotrimazole (Clotrimazole 1% Cream 15 Gm Tube) 15 applic TOP BID [facility] Last Admin: 08/18/22 22:35 Dose: 15 applic Furosemide (Furosemide 40 Mg Tablet) 40 mg PO BID@0900,1400 [facility] Last Admin: 08/19/22 09:13 Dose: 40 mg Gabapentin (Gabapentin 300 Mg Capsule) 600 mg PO TID [facility] Last Admin: 08/19/22 06:20 Dose: 600 mg Heparin Sodium (Porcine) (Heparin 5,000 Unit/Ml Vial) 5,000 unit SUBQ BID [facility] Last Admin: 08/19/22 09:30 Dose: 5,000 unit Lactulose (Lactulose 10 Gm /15 Ml Udc) 10 gm PO DAILY [facility] Last Admin: 08/19/22 09:14 Dose: 10 gm Multi-Ingredient Ointment (Zinc Oxide 20% Oint 30 Gm Tube) 1 applic TOP PRN PRN PRN Reason: Skin Care Last Admin: 08/18/22 22:36 Dose: 1 applic Nystatin (Nystatin Powder 15 Gm) 1 applic TOP BID [facility] Last Admin: 08/19/22 09:16 Dose: 1 applic Nystatin (Nystatin Cream 15 Gm Tube) 1 applic TOP BID [facility] Last Admin: 08/18/22 22:36 Dose: 1 applic Ondansetron HCl (Ondansetron Odt 4 Mg Tablet) 4 mg TL Q6HR PRN PRN Reason: Nausea / Vomiting Oxycodone HCl (Oxycodone 5 Mg Tablet) 5 mg PO Q4HR PRN PRN Reason: Pain 5 to 7 Last Admin: 08/19/22 12:05 Dose: 5 mg Oxycodone HCl (Oxycodone 5 Mg Tablet) 10 mg PO Q4HR PRN PRN Reason: Pain 8 to 10 Pantoprazole Sodium (Pantoprazole 40 Mg Tablet) 40 mg PO QDAC [facility] Last Admin: 08/19/22 06:20 Dose: 40 mg Multivit/Folic Acid/Iron ( Vitamin Tablet) 1 tab PO DAILYWM [facility] Last Admin: 08/19/22 09:13 Dose: 1 tab Rifaximin (Rifaximin 550 Mg Tablet) 550 mg PO BID [facility] Last Admin: 08/19/22 09:14 Dose: 550 mg Sodium Chloride (Sodium Chloride Flush 0.9% 10 Ml Syringe) 10 ml IVP PRN PRN PRN Reason: NEEDED PER PROVIDER ORDERS Sodium Chloride (Sodium Chloride Flush 0.9% 10 Ml Syringe) 10 ml IVP 0100,0900,1700 [facility] Last Admin: 08/19/22 09:15 Dose: 10 ml Spironolactone (Spironolactone 25 Mg Tablet) 25 mg PO BID [facility] Last Admin: 08/19/22 09:13 Dose: 25 mg Thiamine HCl (Thiamine 100 Mg Tablet) 100 mg PO DAILY [facility] Last Admin: 08/19/22 09:13 Dose: 100 mg Omeprazole 20 mg PO DAILY 05/10/16 Gabapentin [Neurontin] 2 cap PO TID 07/15/22 Mometasone Furoate 1 gm TOP BID PRN 07/22/22
[2022-08-19] MEDS: CLOTRIMAZOLE 1% CREAM 15 GM TUBE TOP SCH (14:10)
[2022-08-19] MEDS: NYSTATIN CREAM 15 GM TUBE TOP SCH ×2 (14:51→21:26)
[2022-08-19] MEDS ORDERED: CLOTRIMAZOLE 1% CREAM 15 GM TUBE TOP SCH (16:15)
[2022-08-19] MEDS: KETOCONAZOLE 2% CREAM 15 GM TUBE TOP SCH (21:25)
[2022-08-20] MEDS: oxyCODONE 5 MG TABLET PO PRN ×2 (00:14→05:30)
[2022-08-20] MEDS: SODIUM CHLORIDE FLUSH 0.9% 10 ML SYRINGE IVP SCH ×3 (04:16→16:22)
[2022-08-20] MEDS: GABAPENTIN 300 MG CAPSULE PO SCH ×3 (05:29→21:30)
[2022-08-20] MEDS: PANTOPRAZOLE 40 MG TABLET PO SCH (05:30)
[2022-08-20 06:20] LABS: HCT - HEMATOCRIT 37.4 % (42.0-52.0); MEAN CORPUSCULAR HEMOGLOBIN 32.8 pg (27.0-31.0); MEAN CORPUSCULAR HGB CONC 32.1 g/dL (32.0-36.0); MEAN CORPUSCULAR VOLUME 102.2 fL (80.0-94.0); MEAN PLATELET VOLUME 9.5 fL (7.4-11.4); RED BLOOD COUNT 3.66 10^6/uL (4.70-6.10); RED CELL DISTRIBUTION WIDTH 14.9 % (12.0-15.0); WHITE BLOOD COUNT 9.2 x10^3/uL (4.8-10.8)
[2022-08-20 06:38] LABS: CALCIUM 8.4 mg/dL (8.5-10.3); POTASSIUM 3.6 mmol/L (3.5-5.0)
[2022-08-20] MEDS: SPIRONOLACTONE 25 MG TABLET PO SCH ×2 (08:09→21:30)
[2022-08-20] MEDS: rifAXIMin 550 MG TABLET PO SCH ×2 (08:09→21:30)
[2022-08-20] MEDS: THIAMINE 100 MG TABLET PO SCH (08:09)
[2022-08-20] MEDS: PRENATAL VITAMIN TABLET PO SCH (08:09)
[2022-08-20] MEDS: FUROSEMIDE 40 MG TABLET PO SCH ×2 (08:09→14:08)
[2022-08-20] MEDS: LACTULOSE 10 GM /15 ML UDC PO SCH (08:10)
[2022-08-20] MEDS: HEPARIN 5,000 UNIT/ML VIAL SUBQ SCH ×2 (08:13→21:34)
[2022-08-20] MEDS: KETOCONAZOLE 2% CREAM 15 GM TUBE TOP SCH ×2 (08:15→21:32)
[2022-08-20] MEDS: NYSTATIN POWDER 15 GM TOP SCH ×2 (08:15→21:32)
[2022-08-20] MEDS: NYSTATIN CREAM 15 GM TUBE TOP SCH ×2 (08:15→21:33)
[2022-08-20] MEDS: ZINC OXIDE 20% OINT 30 GM TUBE TOP PRN ×2 (12:48→21:31)
--- NOTE | 2022-08-20 15:59 | PROVIDER PROGRESS NOTE ---
Assessment/Plan - Problem List (1) Hepatic encephalopathy Assessment/Plan: Encephalopathy has resolved. He was admitted with elevated Ammonia level since he was discharged onLactulose every third day (due to frquent BMs). Ammonia level yesterday was 65.7, and down to 44 today, after we increased his lactulose back to daily dosing yesterday. The last Hospitalist discussed with the patient the importance on monitoring bowel movements and to be able to adjust dosing of Lactulose in a titrating manner based on a goal of 2-3 bowel movements per day. Plan: We will monitor bowel movement while in hospital and adjust accordingly, and continue to monitor ammonia level while inpatient. (2) Alcoholic liver disease Assessment/Plan: Stable on Lactulose and Rifaximin. Plan: Continue fluid restriction and diuresis and monitor weights Continue to monitor daily ammonia levels and management as above (3) Morbid obesity with BMI of 60.0-69.9, adult Assessment/Plan: Because of the patient's morbid obesity, discharge has been a challenge. He has limited mobility after his previous prolonged hospitalization and at the last discharge was discharged with a prescription for a bariatric hospital bed. Unfortunately when he went home, the company supplied him the wrong bed which was not bariatric. Because of this, it is very difficult for him to utilize the bed and once he is in it, he is unable to self extricate himself from the bed. This means he cannot provide himself bowel movements as he is not even able to ambulate to a bedside commode. A bedpan is not an option also due to his weight. Therefore, at this time we do not have a safe discharge plan. However, case management is actively working on pursuing a replacement for his hospital bed and when a bariatric hospital bed can be provided he will most likely be safe to discharge home barring any unforeseen developments. has learned that [place] will not approve going to a SNF, since going home and having Home Health was a safe plan. - Current Meds Current Meds: Current Medications Generic Name Dose Route Start Last Admin Trade Name Freq PRN Reason Stop Dose Admin Acetaminophen 650 mg 08/17/22 16:28 08/19/22 09:14 Acetaminophen 325 Mg Tablet PO 650 mg Q4HR PRN Administration Pain 1 to 4, or Fever Furosemide 40 mg 08/17/22 19:00 08/20/22 14:08 Furosemide 40 Mg Tablet PO 40 mg BID@0900,1400 KANU Administration Gabapentin 600 mg 08/17/22 22:00 08/20/22 14:08 Gabapentin 300 Mg Capsule PO 600 mg TID KANU Administration Heparin Sodium (Porcine) 5,000 unit 08/17/22 21:00 08/20/22 08:13 Heparin 5,000 Unit/Ml Vial SUBQ 5,000 unit BID KANU Administration Ketoconazole 7.5 applic 08/19/22 21:00 08/20/22 08:15 Ketoconazole 2% Cream 15 Gm Tube TOP 7.5 applic BID KANU Administration Lactulose 10 gm 08/19/22 09:00 08/20/22 08:10 Lactulose 10 Gm /15 Ml Udc PO 10 gm DAILY KANU Administration Multi-Ingredient Ointment 1 applic 08/17/22 18:54 08/20/22 12:48 Zinc Oxide 20% Oint 30 Gm Tube TOP 1 applic PRN PRN Administration Skin Care Nystatin 1 applic 08/17/22 21:00 08/20/22 08:15 Nystatin Powder 15 Gm TOP 1 applic BID KANU Administration Nystatin 1 applic 08/17/22 21:00 08/20/22 08:15 Nystatin Cream 15 Gm Tube TOP 1 applic BID KANU Administration Oxycodone HCl 5 mg 08/17/22 16:28 08/20/22 05:30 Oxycodone 5 Mg Tablet PO 5 mg Q4HR PRN Administration Pain 5 to 7 Pantoprazole Sodium 40 mg 08/18/22 07:00 08/20/22 05:30 Pantoprazole 40 Mg Tablet PO 40 mg QDAC KANU Administration Multivit/Folic Acid/Iron 1 tab 08/18/22 08:00 08/20/22 08:09 Vitamin Tablet PO 1 tab DAILYWM KANU Administration Rifaximin 550 mg 08/17/22 21:00 08/20/22 08:09 Rifaximin 550 Mg Tablet PO 550 mg BID KANU Administration Sodium Chloride 10 ml 08/17/22 17:00 08/20/22 08:10 Sodium Chloride Flush 0.9% 10 Ml Syringe IVP 10 ml 0100,0900,1700 KANU Administration Spironolactone 25 mg 08/17/22 21:00 08/20/22 08:09 Spironolactone 25 Mg Tablet PO 25 mg BID KANU Administration Thiamine HCl 100 mg 08/18/22 09:00 08/20/22 08:09 Thiamine 100 Mg Tablet PO 100 mg DAILY KANU Administration - Lab Result Fish Bone Diagrams: 08/20/22 06:15 08/20/22 06:15 Subjective - Subjective Patient Reports: Pain (Pain in lower back when moves) Objective Vital Signs: Vital Signs - 24 hr 08/19/22 08/19/22 08/19/22 16:53 19:55 23:20 Temperature 36.4 C L 36.8 C 36.6 C Heart Rate [ 87 84 90 Radial] Respiratory 18 20 20 Rate Blood Pressure 126/68 102/53 L 107/64 [Right Radial artery] O2 Saturation 95 96 96 08/20/22 08/20/22 08/20/22 04:54 08:06 12:03 Temperature 36.6 C 36.3 C L 36.8 C Heart Rate [ 84 86 93 Radial] Respiratory 22 20 20 Rate Blood Pressure 105/58 L 117/68 116/71 [Right Radial artery] O2 Saturation 96 98 94 Oxygen O2 Source Room air I&O (Last 24 Hrs): Intake and Output Totals x24h 08/18/22 08/19/22 08/20/22 23:59 23:59 23:59 Intake Total 740 1370 240 Output Total 1625 1175 875 Balance -885 195 -635 General: Alert, Oriented x3 HEENT: Mucous membr. moist/pink, Other (Icteric) Neck: Supple Neuro: Alert Cardiovascular: Regular rate Respiratory: No respiratory distress Abdomen: Other (Obese with a pannus to knees) Extremities: No clubbing, Other (3+ edema) - Results Results: Laboratory Results WBC 9.2 x10^3/uL (4.8-10.8) 08/20/22 06:15 RBC 3.66 10^6/uL (4.70-6.10) L 08/20/22 06:15 Hgb 12.0 g/dL (14.0-18.0) L 08/20/22 06:15 Hct 37.4 % (42.0-52.0) L 08/20/22 06:15 MCV 102.2 fL (80.0-94.0) H 08/20/22 06:15 MCH 32.8 pg (27.0-31.0) H 08/20/22 06:15 MCHC 32.1 g/dL (32.0-36.0) 08/20/22 06:15 RDW 14.9 % (12.0-15.0) 08/20/22 06:15 Plt Count 145 10^3/uL (130-450) 08/20/22 06:15 MPV 9.5 fL (7.4-11.4) 08/20/22 06:15 Neut # (Auto) 7.5 10^3/uL (1.5-6.6) H 08/17/22 12:59 Lymph # (Auto) 1.8 10^3/uL (1.5-3.5) 08/17/22 12:59 [place] # (Auto) 1.2 10^3/uL (0.0-1.0) H 08/17/22 12:59 Eos # (Auto) 0.3 10^3/uL (0.0-0.7) 08/17/22 12:59 Baso # (Auto) 0.1 10^3/uL (0.0-0.1) 08/17/22 12:59 Absolute Nucleated RBC 0.00 x10^3/uL 08/17/22 12:59 Nucleated RBC % 0.0 /100WBC 08/17/22 12:59 PT 21.5 secs (9.9-12.6) H 08/17/22 12:59 INR 2.0 (0.8-1.2) H 08/17/22 12:59 VBG pH 7.426 (7.31-7.41) H 08/17/22 12:59 VBG pCO2 37.5 mmHg (41-51) L 08/17/22 12:59 VBG pO2 52.1 mmHg (25-47) H 08/17/22 12:59 VBG HCO3 24.1 mmol/L (23-28) 08/17/22 12:59 VBG Total CO2 25.3 mmol/L (24-29) 08/17/22 12:59 VBG O2 Saturation 87.6 % (60-80) H 08/17/22 12:59 VBG Base Excess 0.0 mmol/L (-2 - +2) 08/17/22 12:59 Sodium 131 mmol/L (135-145) L 08/20/22 06:15 Potassium 3.6 mmol/L (3.5-5.0) 08/20/22 06:15 Chloride 98 mmol/L (101-111) L 08/20/22 06:15 Carbon Dioxide 25 mmol/L (21-32) 08/20/22 06:15 Anion Gap 8.0 (6-13) 08/20/22 06:15 BUN 23 mg/dL (6-20) H 08/20/22 06:15 Creatinine 1.0 mg/dL (0.6-1.2) 08/20/22 06:15 Estimated GFR (MDRD) 78 (>89) L 08/20/22 06:15 Glucose 118 mg/dL (70-100) H 08/20/22 06:15 Calcium 8.4 mg/dL (8.5-10.3) L 08/20/22 06:15 Phosphorus 3.9 mg/dL (2.5-4.6) 08/17/22 12:59 Magnesium 2.0 mg/dL (1.7-2.8) 08/17/22 12:59 Total Bilirubin 13.8 mg/dL (0.2-1.0) H 08/17/22 12:59 AST 117 IU/L (10-42) H 08/17/22 12:59 ALT 37 IU/L (10-60) 08/17/22 12:59 Alkaline Phosphatase 359 IU/L (42-121) H 08/17/22 12:59 Ammonia 43.7 umol/L (7-35) H 08/20/22 06:15 Total Protein 5.6 g/dL (6.7-8.2) L 08/17/22 12:59 Albumin 1.9 g/dL (3.2-5.5) L 08/17/22 12:59 Globulin 3.7 g/dL (2.1-4.2) 08/17/22 12:59 Albumin/Globulin Ratio 0.5 (1.0-2.2) L 08/17/22 12:59 Ethyl Alcohol < 5.0 mg/dL 08/17/22 12:59 - Procedures Procedures: Procedures INSERTION OF INFUSION DEV INTO SUP VENA CAVA, PERC APPROACH (07/15/22)
[2022-08-21] MEDS: SODIUM CHLORIDE FLUSH 0.9% 10 ML SYRINGE IVP SCH ×2 (01:11→08:40)
[2022-08-21] MEDS: PANTOPRAZOLE 40 MG TABLET PO SCH (05:59)
[2022-08-21] MEDS: GABAPENTIN 300 MG CAPSULE PO SCH ×3 (05:59→21:57)
[2022-08-21] MEDS: HEPARIN 5,000 UNIT/ML VIAL SUBQ SCH ×2 (08:30→22:00)
[2022-08-21] MEDS: SPIRONOLACTONE 25 MG TABLET PO SCH ×2 (08:31→21:57)
[2022-08-21] MEDS: THIAMINE 100 MG TABLET PO SCH (08:31)
[2022-08-21] MEDS: FUROSEMIDE 40 MG TABLET PO SCH ×2 (08:31→13:05)
[2022-08-21] MEDS: PRENATAL VITAMIN TABLET PO SCH (08:31)
[2022-08-21] MEDS: rifAXIMin 550 MG TABLET PO SCH ×2 (08:32→21:57)
[2022-08-21] MEDS: LACTULOSE 10 GM /15 ML UDC PO SCH (08:36)
[2022-08-21] MEDS: NYSTATIN CREAM 15 GM TUBE TOP SCH ×2 (08:39→21:59)
[2022-08-21] MEDS: NYSTATIN POWDER 15 GM TOP SCH ×2 (08:39→21:59)
[2022-08-21] MEDS: KETOCONAZOLE 2% CREAM 15 GM TUBE TOP SCH ×2 (08:39→22:01)
--- NOTE | 2022-08-21 12:03 | PROVIDER PROGRESS NOTE ---
Assessment/Plan - Problem List (1) Hepatic encephalopathy Assessment/Plan: Encephalopathy has improved, but seems to be oscillating. He was admitted with elevated Ammonia level of 90, after he was recently d ischarged on (new) Lactulose every third day (down from daily due to frequent BMs). Labs were all reviewed. His Ammonia level was then 65.7>> 44 after we increased his lactulose back to daily dosing at admission. However today Ammonia is up to 80 The last Hospitalist discussed with the patient the importance on monitoring bowel movements and to be able to adjust dosing of Lactulose in a titrating manner based on a goal of 2-3 bowel movements per day. Plan: We will increase the lactulose to daily alternating with twice daily, I discussed this new dosing with pharmacy We will monitor bowel movement while in hospital and adjust accordingly, and continue to monitor ammonia level while he is here. Continue to work with PT and OT (2) Alcoholic liver disease Assessment/Plan: He was a very heavy drinker. At his recent long hospital admission, he was adm itted with beer potomania, alcoholic liver failure, and hepatic encephalopathy. He was then discharged but was only home 24 hours and sought medical attention again in our ER. He is on Lactulose and Rifaximin, Thiamine and a multivitamin, oral Lasix and Spironolactone and a fluid restriction of 2L/day total. He has a history of trying to sneak extra fluids to drink. Plan: Continue fluid restriction and diuresis and monitor weights Continue to monitor daily ammonia levels and management as above (3) Morbid obesity with BMI of 60.0-69.9, adult Assessment/Plan: Because of the patient's morbid obesity, discharge has been a challenge. He has limited mobility after his previous prolonged hospitalization and at the last discharge was sent home with a prescription for a bariatric hospital bed. Unfortunately when he went home, the company ([employer], which is contracted with [employer]) supplied him the wrong bed which was not bariatric. Because of this, it is very difficult for him to utilize the bed and once he is in it, he is unable to self extricate himself from the bed. This means he cannot provide himself bowel movements as he is not even able to ambulate to a bedside commode. A bedpan is not an option also due to his weight. Plan: At this time we do not have a safe discharge plan. However, case management is actively working on pursuing a replacement for his hospital bed. There is currently a waiting list for a bariatric hospital bed. When this can be provided he will most likely be safe to discharge home but will need caregivers. His mother is trying to hire caregivers for him. (4) Deconditioning He is working with PT and OT (5) Hx of Depression He is not on meds for this currently, but carries this Dx (6) Chronic back pain Plan: Cont Ultram, Lidocaine patch and prn Oxycodone (7) Anasarca Plan: Continue Lasix po BID and Spironolactone BID and needs leg elevation (8) Pain of scrotum From scrotal swelling Plan: Applying Lidocaine jelly to underside and supporting scrotum up helps - Current Meds Current Meds: Current Medications Generic Name Dose Route Start Last Admin Trade Name Freq PRN Reason Stop Dose Admin Acetaminophen 650 mg 08/17/22 16:28 08/19/22 09:14 Acetaminophen 325 Mg Tablet PO 650 mg Q4HR PRN Administration Pain 1 to 4, or Fever Furosemide 40 mg 08/17/22 19:00 08/21/22 08:31 Furosemide 40 Mg Tablet PO 40 mg BID@0900,1400 KANU Administration Gabapentin 600 mg 08/17/22 22:00 08/21/22 05:59 Gabapentin 300 Mg Capsule PO 600 mg TID KANU Administration Heparin Sodium (Porcine) 5,000 unit 08/17/22 21:00 08/21/22 08:30 Heparin 5,000 Unit/Ml Vial SUBQ 5,000 unit BID KANU Administration Ketoconazole 7.5 applic 08/19/22 21:00 08/21/22 08:39 Ketoconazole 2% Cream 15 Gm Tube TOP Not Given BID KANU Lactulose 10 gm 08/19/22 09:00 08/21/22 08:36 Lactulose 10 Gm /15 Ml Udc PO 10 gm DAILY KANU Administration Multi-Ingredient Ointment 1 applic 08/17/22 18:54 08/20/22 21:31 Zinc Oxide 20% Oint 30 Gm Tube TOP 1 applic PRN PRN Administration Skin Care Nystatin 1 applic 08/17/22 21:00 08/21/22 08:39 Nystatin Powder 15 Gm TOP 1 applic BID KANU Administration Nystatin 1 applic 08/17/22 21:00 08/21/22 08:39 Nystatin Cream 15 Gm Tube TOP 1 applic BID KANU Administration Oxycodone HCl 5 mg 08/17/22 16:28 08/20/22 05:30 Oxycodone 5 Mg Tablet PO 5 mg Q4HR PRN Administration Pain 5 to 7 Pantoprazole Sodium 40 mg 08/18/22 07:00 08/21/22 05:59 Pantoprazole 40 Mg Tablet PO 40 mg QDAC KANU Administration Multivit/Folic Acid/Iron 1 tab 08/18/22 08:00 08/21/22 08:31 Vitamin Tablet PO 1 tab DAILYWM KANU Administration Rifaximin 550 mg 08/17/22 21:00 08/21/22 08:32 Rifaximin 550 Mg Tablet PO 550 mg BID KANU Administration Spironolactone 25 mg 08/17/22 21:00 08/21/22 08:31 Spironolactone 25 Mg Tablet PO 25 mg BID KANU Administration Thiamine HCl 100 mg 08/18/22 09:00 08/21/22 08:31 Thiamine 100 Mg Tablet PO 100 mg DAILY KANU Administration - Lab Result Fish Bone Diagrams: 08/20/22 06:15 08/20/22 06:15 - Additional Planning My Orders: My Active Orders 08/21/22 10:24 Shower [RC] PRN 08/21/22 13:00 Lidocaine Ointment 5% [Xylocaine Ointment 5%] 1 applic TOP QID 08/21/22 19:00 Lactulose [Enulose] 10 gm PO Q48H Subjective - Subjective Patient Reports: Back Pain, Pain (on under surface of scrotum) Objective Vital Signs: Vital Signs - 24 hr 08/20/22 08/20/22 08/20/22 12:03 16:27 20:05 Temperature 36.8 C 36.5 C 36.4 C L Heart Rate [ 93 86 92 Radial] Respiratory 20 20 20 Rate Blood Pressure 116/71 111/61 107/62 [Right Radial artery] O2 Saturation 94 96 96 08/21/22 08/21/22 08/21/22 00:10 04:39 08:03 Temperature 36.6 C 36.9 C 36.8 C Heart Rate [ 87 83 83 Radial] Respiratory 20 20 18 Rate Blood Pressure 103/60 93/48 L 110/67 [Right Radial artery] O2 Saturation 95 98 96 08/21/22 11:20 Temperature 37.0 C Heart Rate [ 88 Radial] Respiratory 18 Rate Blood Pressure 95/61 [Right Radial artery] O2 Saturation 96 Oxygen O2 Source Room air I&O (Last 24 Hrs): Intake and Output Totals x24h 08/19/22 08/20/22 08/21/22 23:59 23:59 23:59 Intake Total 1370 660 420 Output Total 1175 1075 450 Balance 195 -415 -30 General: Alert, Oriented x3 HEENT: Mucous membr. moist/pink, Other (wearing glasses) Neck: Supple Neuro: Alert, Non Focal Cardiovascular: Regular rate Respiratory: No respiratory distress Abdomen: Other (Obese with a pannus down to knees) Genitourinary: Other (swollen penis and scrotum) Extremities: No clubbing, Other (4+ edema to buttocks) - Results Results: Laboratory Results WBC 9.2 x10^3/uL (4.8-10.8) 08/20/22 06:15 RBC 3.66 10^6/uL (4.70-6.10) L 08/20/22 06:15 Hgb 12.0 g/dL (14.0-18.0) L 08/20/22 06:15 Hct 37.4 % (42.0-52.0) L 08/20/22 06:15 MCV 102.2 fL (80.0-94.0) H 08/20/22 06:15 MCH 32.8 pg (27.0-31.0) H 08/20/22 06:15 MCHC 32.1 g/dL (32.0-36.0) 08/20/22 06:15 RDW 14.9 % (12.0-15.0) 08/20/22 06:15 Plt Count 145 10^3/uL (130-450) 08/20/22 06:15 MPV 9.5 fL (7.4-11.4) 08/20/22 06:15 Neut # (Auto) 7.5 10^3/uL (1.5-6.6) H 08/17/22 12:59 Lymph # (Auto) 1.8 10^3/uL (1.5-3.5) 08/17/22 12:59 [place] # (Auto) 1.2 10^3/uL (0.0-1.0) H 08/17/22 12:59 Eos # (Auto) 0.3 10^3/uL (0.0-0.7) 08/17/22 12:59 Baso # (Auto) 0.1 10^3/uL (0.0-0.1) 08/17/22 12:59 Absolute Nucleated RBC 0.00 x10^3/uL 08/17/22 12:59 Nucleated RBC % 0.0 /100WBC 08/17/22 12:59 PT 21.5 secs (9.9-12.6) H 08/17/22 12:59 INR 2.0 (0.8-1.2) H 08/17/22 12:59 VBG pH 7.426 (7.31-7.41) H 08/17/22 12:59 VBG pCO2 37.5 mmHg (41-51) L 08/17/22 12:59 VBG pO2 52.1 mmHg (25-47) H 08/17/22 12:59 VBG HCO3 24.1 mmol/L (23-28) 08/17/22 12:59 VBG Total CO2 25.3 mmol/L (24-29) 08/17/22 12:59 VBG O2 Saturation 87.6 % (60-80) H 08/17/22 12:59 VBG Base Excess 0.0 mmol/L (-2 - +2) 08/17/22 12:59 Sodium 131 mmol/L (135-145) L 08/20/22 06:15 Potassium 3.6 mmol/L (3.5-5.0) 08/20/22 06:15 Chloride 98 mmol/L (101-111) L 08/20/22 06:15 Carbon Dioxide 25 mmol/L (21-32) 08/20/22 06:15 Anion Gap 8.0 (6-13) 08/20/22 06:15 BUN 23 mg/dL (6-20) H 08/20/22 06:15 Creatinine 1.0 mg/dL (0.6-1.2) 08/20/22 06:15 Estimated GFR (MDRD) 78 (>89) L 08/20/22 06:15 Glucose 118 mg/dL (70-100) H 08/20/22 06:15 Calcium 8.4 mg/dL (8.5-10.3) L 08/20/22 06:15 Phosphorus 3.9 mg/dL (2.5-4.6) 08/17/22 12:59 Magnesium 2.0 mg/dL (1.7-2.8) 08/17/22 12:59 Total Bilirubin 13.8 mg/dL (0.2-1.0) H 08/17/22 12:59 AST 117 IU/L (10-42) H 08/17/22 12:59 ALT 37 IU/L (10-60) 08/17/22 12:59 Alkaline Phosphatase 359 IU/L (42-121) H 08/17/22 12:59 Ammonia 80.9 umol/L (7-35) H* 08/21/22 09:20 Total Protein 5.6 g/dL (6.7-8.2) L 08/17/22 12:59 Albumin 1.9 g/dL (3.2-5.5) L 08/17/22 12:59 Globulin 3.7 g/dL (2.1-4.2) 08/17/22 12:59 Albumin/Globulin Ratio 0.5 (1.0-2.2) L 08/17/22 12:59 Ethyl Alcohol < 5.0 mg/dL 08/17/22 12:59 - Procedures Procedures: Procedures INSERTION OF INFUSION DEV INTO SUP VENA CAVA, PERC APPROACH (07/15/22)
[2022-08-21] MEDS: LIDOCAINE OINTMENT 5% 35.44 GM TUBE TOP SCH ×3 (13:05→21:59)
[2022-08-21] MEDS ORDERED: LACTULOSE 10 GM /15 ML UDC PO SCH (19:00)
[2022-08-22] MEDS: PANTOPRAZOLE 40 MG TABLET PO SCH (06:20)
[2022-08-22] MEDS: GABAPENTIN 300 MG CAPSULE PO SCH ×3 (06:20→21:07)
[2022-08-22] MEDS: FUROSEMIDE 40 MG TABLET PO SCH ×2 (08:28→13:23)
[2022-08-22] MEDS: PRENATAL VITAMIN TABLET PO SCH (08:28)
[2022-08-22] MEDS: LACTULOSE 10 GM /15 ML UDC PO SCH (08:28)
[2022-08-22] MEDS: rifAXIMin 550 MG TABLET PO SCH ×2 (08:28→21:07)
[2022-08-22] MEDS: THIAMINE 100 MG TABLET PO SCH (08:28)
[2022-08-22] MEDS: SPIRONOLACTONE 25 MG TABLET PO SCH ×2 (08:28→21:07)
[2022-08-22] MEDS: KETOCONAZOLE 2% CREAM 15 GM TUBE TOP SCH ×2 (08:29→21:12)
[2022-08-22] MEDS: NYSTATIN CREAM 15 GM TUBE TOP SCH ×2 (08:29→21:13)
[2022-08-22] MEDS: NYSTATIN POWDER 15 GM TOP SCH ×2 (08:29→21:13)
[2022-08-22] MEDS: LIDOCAINE OINTMENT 5% 35.44 GM TUBE TOP SCH ×4 (08:30→21:12)
[2022-08-22] MEDS: HEPARIN 5,000 UNIT/ML VIAL SUBQ SCH ×2 (08:33→21:08)
[2022-08-22] MEDS: ZINC OXIDE 20% OINT 30 GM TUBE TOP PRN ×3 (10:04→21:12)
--- NOTE | 2022-08-22 14:11 | PROVIDER PROGRESS NOTE ---
Assessment/Plan - Problem List (1) Hepatic encephalopathy Assessment/Plan: Encephalopathy has improved, but seems to be oscillating. He was admitted with elevated Ammonia level of 90, after he was recently d ischarged on (new) Lactulose every third day (down from daily due to frequent BMs). Labs were all reviewed. His Ammonia level was then 65.7>> 44 after we increased his lactulose back to daily dosing at admission. However Ammonia was up to 80 again. The last Hospitalist discussed with the patient the importance on monitoring bowel movements and to be able to adjust dosing of Lactulose in a titrating manner based on a goal of 2-3 bowel movements per day. Plan: We will increase the lactulose to daily alternating with twice daily, I discussed this new dosing with pharmacy We will monitor bowel movement while in hospital and adjust accordingly, and continue to monitor ammonia level while he is here. Continue to work with PT and OT (2) No able caregiver in household Assessment/Plan: At this time we do not have a safe discharge plan. However, case management is actively working on pursuing a replacement for his hospital bed. There is currently a waiting list for a bariatric hospital bed. When this can be provided he will most likely be safe to discharge home but will need caregivers. His mother is trying to hire caregivers for him. (3) Alcoholic liver disease He was a very heavy drinker. At his recent long hospital admission, he was admitted with beer potomania, alcoholic liver failure, and hepatic encephalopathy. He was then discharged but was only home 24 hours and sought medical attention again in our ER. He is on Lactulose and Rifaximin, Thiamine and a multivitamin, oral Lasix and Spironolactone and a fluid restriction of 2L/day total. He has a history of trying to sneak extra fluids to drink. All labs were reviewed, he has abnormal but stable liver labs Plan: Continue fluid restriction and diuresis and monitor weights Continue to monitor daily ammonia levels and management as above (4) Morbid obesity with BMI of 60.0-69.9 Because of the patient's morbid obesity, discharge has been a challenge. He has limited mobility after his previous prolonged hospitalization and at the last discharge was sent home with a prescription for a bariatric hospital bed. Unfortunately when he went home, the company ([employer], which is contracted with [employer]) supplied him the wrong bed which was not bariatric. Because of this, it is very difficult for him to utilize the bed and once he is in it, he is unable to self extricate himself from the bed. This means he cannot provide himself dung wel movements as he is not even able to ambulate to a bedside commode. A bedpan is not an option also due to his weight. Plan: Client Support Manager has him on a low-carb diet (5) Deconditioning He is working with PT and OT (6) Hx of Depression He is not on meds for this currently, but carries this Dx (7) Chronic back pain Plan: Cont prn Ultram, Lidocaine patch and prn Oxycodone (8) Anasarca Continue BID oral Lasix and BID Spironolactone, and needs leg elevation (9) Pain of scrotum From scrotal swelling Plan: Applying Lidocaine jelly to underside and supporting scrotum up helps - Current Meds Current Meds: Current Medications Generic Name Dose Route Start Last Admin Trade Name Freq PRN Reason Stop Dose Admin Acetaminophen 650 mg 08/17/22 16:28 08/19/22 09:14 Acetaminophen 325 Mg Tablet PO 650 mg Q4HR PRN Administration Pain 1 to 4, or Fever Furosemide 40 mg 08/17/22 19:00 08/22/22 13:23 Furosemide 40 Mg Tablet PO 40 mg BID@0900,1400 KANU Administration Gabapentin 600 mg 08/17/22 22:00 08/22/22 13:23 Gabapentin 300 Mg Capsule PO 600 mg TID KANU Administration Heparin Sodium (Porcine) 5,000 unit 08/17/22 21:00 08/22/22 08:33 Heparin 5,000 Unit/Ml Vial SUBQ 5,000 unit BID KANU Administration Ketoconazole 7.5 applic 08/19/22 21:00 08/22/22 08:29 Ketoconazole 2% Cream 15 Gm Tube TOP 7.5 applic BID KANU Administration Lactulose 10 gm 08/19/22 09:00 08/22/22 08:28 Lactulose 10 Gm /15 Ml Udc PO 10 gm DAILY KANU Administration Lactulose 10 gm 08/21/22 19:00 08/21/22 22:04 Lactulose 10 Gm /15 Ml Udc PO 10 gm Q48H KANU Administration Lidocaine 1 applic 08/21/22 13:00 08/22/22 13:18 Lidocaine Ointment 5% 35.44 Gm Tube TOP 1 applic QID KANU Administration Multi-Ingredient Ointment 1 applic 08/17/22 18:54 08/22/22 13:40 Zinc Oxide 20% Oint 30 Gm Tube TOP 1 applic PRN PRN Administration Skin Care Nystatin 1 applic 08/17/22 21:00 08/22/22 08:29 Nystatin Powder 15 Gm TOP 1 applic BID KANU Administration Nystatin 1 applic 08/17/22 21:00 08/22/22 08:29 Nystatin Cream 15 Gm Tube TOP 1 applic BID KANU Administration Oxycodone HCl 5 mg 08/17/22 16:28 08/20/22 05:30 Oxycodone 5 Mg Tablet PO 5 mg Q4HR PRN Administration Pain 5 to 7 Pantoprazole Sodium 40 mg 08/18/22 07:00 08/22/22 06:20 Pantoprazole 40 Mg Tablet PO 40 mg QDAC KANU Administration Multivit/Folic Acid/Iron 1 tab 08/18/22 08:00 08/22/22 08:28 Vitamin Tablet PO 1 tab DAILYWM KANU Administration Rifaximin 550 mg 08/17/22 21:00 08/22/22 08:28 Rifaximin 550 Mg Tablet PO 550 mg BID KANU Administration Spironolactone 25 mg 08/17/22 21:00 08/22/22 08:28 Spironolactone 25 Mg Tablet PO 25 mg BID KANU Administration Thiamine HCl 100 mg 08/18/22 09:00 08/22/22 08:28 Thiamine 100 Mg Tablet PO 100 mg DAILY KANU Administration - Lab Result Fish Bone Diagrams: 08/20/22 06:15 08/20/22 06:15 - Additional Planning My Orders: My Active Orders 08/21/22 19:00 Lactulose [Enulose] 10 gm PO Q48H Subjective - Subjective Patient Reports: Resting Comfortably Nursing Reports: Other (Is working with PT and OT) Objective Vital Signs: Vital Signs - 24 hr 08/21/22 08/21/22 08/21/22 15:41 20:04 23:22 Temperature 36.9 C 36.4 C L 36.3 C L Heart Rate [ 89 93 88 Radial] Respiratory 23 20 20 Rate Blood Pressure 119/69 126/61 90/49 L [Right Radial artery] O2 Saturation 92 94 94 04/08/22/22 08/22/22 23:30 05:00 08:15 Temperature 36.5 C 36.3 C L Heart Rate [ 86 86 Radial] Respiratory 20 20 Rate Blood Pressure 101/53 L 94/52 L 103/57 L [Right Radial artery] O2 Saturation 94 97 08/22/22 12:20 Temperature 36.3 C L Heart Rate [ 85 Radial] Respiratory 20 Rate Blood Pressure 100/53 L [Right Radial artery] O2 Saturation 97 Oxygen O2 Source Room air I&O (Last 24 Hrs): Intake and Output Totals x24h 08/20/22 08/21/22 08/22/22 23:59 23:59 23:59 Intake Total 660 1235 540 Output Total 1075 925 650 Balance -415 310 -110 General: Alert, Oriented x3 HEENT: Atraumatic Neck: Supple Neuro: Alert, Non Focal Cardiovascular: Regular rate Respiratory: No respiratory distress Abdomen: Other (Obese with a pannus to knees) Extremities: Other (4+ edema to posterior upper thighs) - Results Results: Laboratory Results WBC 9.2 x10^3/uL (4.8-10.8) 08/20/22 06:15 RBC 3.66 10^6/uL (4.70-6.10) L 08/20/22 06:15 Hgb 12.0 g/dL (14.0-18.0) L 08/20/22 06:15 Hct 37.4 % (42.0-52.0) L 08/20/22 06:15 MCV 102.2 fL (80.0-94.0) H 08/20/22 06:15 MCH 32.8 pg (27.0-31.0) H 08/20/22 06:15 MCHC 32.1 g/dL (32.0-36.0) 08/20/22 06:15 RDW 14.9 % (12.0-15.0) 08/20/22 06:15 Plt Count 145 10^3/uL (130-450) 08/20/22 06:15 MPV 9.5 fL (7.4-11.4) 08/20/22 06:15 Neut # (Auto) 7.5 10^3/uL (1.5-6.6) H 08/17/22 12:59 Lymph # (Auto) 1.8 10^3/uL (1.5-3.5) 08/17/22 12:59 Sumner # (Auto) 1.2 10^3/uL (0.0-1.0) H 08/17/22 12:59 Eos # (Auto) 0.3 10^3/uL (0.0-0.7) 08/17/22 12:59 Baso # (Auto) 0.1 10^3/uL (0.0-0.1) 08/17/22 12:59 Absolute Nucleated RBC 0.00 x10^3/uL 08/17/22 12:59 Nucleated RBC % 0.0 /100WBC 08/17/22 12:59 PT 21.5 secs (9.9-12.6) H 08/17/22 12:59 INR 2.0 (0.8-1.2) H 08/17/22 12:59 VBG pH 7.426 (7.31-7.41) H 08/17/22 12:59 VBG pCO2 37.5 mmHg (41-51) L 08/17/22 12:59 VBG pO2 52.1 mmHg (25-47) H 08/17/22 12:59 VBG HCO3 24.1 mmol/L (23-28) 08/17/22 12:59 VBG Total CO2 25.3 mmol/L (24-29) 08/17/22 12:59 VBG O2 Saturation 87.6 % (60-80) H 08/17/22 12:59 VBG Base Excess 0.0 mmol/L (-2 - +2) 08/17/22 12:59 Sodium 131 mmol/L (135-145) L 08/20/22 06:15 Potassium 3.6 mmol/L (3.5-5.0) 08/20/22 06:15 Chloride 98 mmol/L (101-111) L 08/20/22 06:15 Carbon Dioxide 25 mmol/L (21-32) 08/20/22 06:15 Anion Gap 8.0 (6-13) 08/20/22 06:15 BUN 23 mg/dL (6-20) H 08/20/22 06:15 Creatinine 1.0 mg/dL (0.6-1.2) 08/20/22 06:15 Estimated GFR (MDRD) 78 (>89) L 08/20/22 06:15 Glucose 118 mg/dL (70-100) H 08/20/22 06:15 Calcium 8.4 mg/dL (8.5-10.3) L 08/20/22 06:15 Phosphorus 3.9 mg/dL (2.5-4.6) 08/17/22 12:59 Magnesium 2.0 mg/dL (1.7-2.8) 08/17/22 12:59 Total Bilirubin 13.8 mg/dL (0.2-1.0) H 08/17/22 12:59 AST 117 IU/L (10-42) H 08/17/22 12:59 ALT 37 IU/L (10-60) 08/17/22 12:59 Alkaline Phosphatase 359 IU/L (42-121) H 08/17/22 12:59 Ammonia 44.3 umol/L (7-35) H 08/22/22 07:26 Total Protein 5.6 g/dL (6.7-8.2) L 08/17/22 12:59 Albumin 1.9 g/dL (3.2-5.5) L 08/17/22 12:59 Globulin 3.7 g/dL (2.1-4.2) 08/17/22 12:59 Albumin/Globulin Ratio 0.5 (1.0-2.2) L 08/17/22 12:59 Ethyl Alcohol < 5.0 mg/dL 08/17/22 12:59 - Procedures Procedures: Procedures INSERTION OF INFUSION DEV INTO SUP VENA CAVA, PERC APPROACH (07/15/22)
--- NOTE | 2022-08-22 16:38 | Discharge Plan ---
"Discharge Plan for SNF / MICHAEL - Discharge Plan And Transition Orders Problem Reviewed?: Yes Disposition: [facility] DC/Xfer Condition: Fair Allergies and Adverse Reactions: Allergies Allergy/AdvReac Type Severity Reaction Status Date / Time No Known Drug Allergies Allergy Verified 05/10/16 11:59 Health Concerns: Patient was hospitalized with elevated ammonia levels that made him confused. Meds were adjusted. He also has anasarca from alcoholic liver disease that needs continued treatment with Lasix and Spironolactone and he needs a daily total fluid restriction. He has morbid obesity (BMI 67) and had a very sedentary lifestyle, and history of depression and alcohol abuse, and became deconditioned from a very long (recent previous) hospital course. Plan of Treatment: Patient needs treatment for his anasarca, ongoing treatment for hepatic encephalopathy, and needs PT and OT rehab given his marked deconditioning partly from morbid obesity. Care Goals: Improvement in symptoms and stabilization are the goals, as well as returning home. Assessment: The patient tried going home after his recent, previous, long hospital stay but since he lived alone, had no caregivers set up and did not have a bariatric bed, he was re-admitted in 24 hours. Therefore rehab at a SNF with proper equipment and staff is felt to be his best option and [facility] approved this. He agreed. - SNF / [facility] Transition Orders Admit to (Facility): [facility] Under the care of (Name): [facility] staff medical provider Discharge Diagnosis: (1) Hepatic encephalopathy Stable on Lactulose (2) Alcoholic liver disease Abnormal but stable labs (3) Morbid obesity with BMI of 60.0-69.9 On a low-carb and fluid restricted diet (4) Deconditioning From long hospital stay, and from sedentary life style and morbid obesity. Needs aggressive PT and OT rehab. (5) Hx of Depression He is not on meds for this currently, but carries this Dx (6) Chronic back pain Gets prn Ultram, Lidocaine patch and prn Oxycodone (7) Anasarca Gets Lasix and Spironolactone, and needs leg elevation (8) Pain of scrotum From scrotal swelling, applying Lidocaine jelly to underside and supporting scrotum up helps Medicare Certification Statement: I certify that [facility] Hospital jail care is medically necessary on a continuing basis for any of the conditions for which she/he is receiving care during hospitalization. Notify PCP of admission and forward orders to primary provider for signature. Weight on admission and: Daily Call PCP immediately if weight increases by: 5 kg Other Notification Orders: Call PCP immediately if patient develops dyspnea, chest pain/tightness or edema. House Bowel Program: Yes Additional Bowel Program Orders: If no BM after 2 days, nurse may give M.O.M. 30ml PO PRN and/or ducolax Supp 1 VT and/or NEMO 250mg P.O., and/or senna 1-2 tabs PO. On day 3 nurse may give repeat above order until residents constipation is resolved. Annual Influenza Vaccine (between Jan 03 and August 02): Yes Two-step PPD per [facility] [id number] or approved exception documents: Yes Treatments & Other Orders: Daily or BID PT and OT rehab Lab Tests or X-ray Orders: Weekly serum Ammonia level to adjust Lactulose. Target Ammonia level is less than 55. Weekly BMP to check Sodium, since he is on a fluid restricted diet Medication Orders: PLEASE REFER TO THE DISCHARGE MEDICATION LIST. Insulin Orders?: No - Medications New Prescriptions: oxyCODONE [Roxicodone] 5 mg PO Q4HR PRN #20 tab PRN Reason: Pain 5 to 7 Spironolactone [Aldactone] 25 mg PO BID #60 tab Potassium Chloride [K-Dur] 20 meq PO DAILY #30 tablet Lactulose 10 gm PO BID #900 ml Furosemide [Lasix] 40 mg PO BID #60 tablet Lidocaine Patch 5% [Lidoderm Patch] 1 each PATCH DAILY PRN #30 patch PRN Reason: Pain 1-4 Mometasone Furoate 1 gm TOP BID PRN #1 ea PRN Reason: Itching Gabapentin [Neurontin] 2 cap PO TID #180 cap Vit No.180/Iron/Folic [ Plus Vitamin-Mineral] 1 each PO DAILY #30 tablet oxyCODONE [Roxicodone] 5 mg PO Q6H PRN #15 tablet PRN Reason: Severe Pain (Level 7-10) traMADol [Ultram] 25 mg PO BID PRN #60 tab PRN Reason: Severe Pain (Level 7-10) Thiamine [Vitamin B-1] 100 mg PO DAILY #30 tab rifAXIMin [Xifaxan] 550 mg PO BID #60 tab Lidocaine Ointment 5% [Xylocaine Ointment 5%] 1 applic TOP TID PRN #35.44 gm PRN Reason: Minor Pain Zinc Oxide 20% Oint [Zinc Oxide] 1 applic TOP PRN PRN #2 each PRN Reason: Skin Care - Diet Type: No added sugar Texture: Regular Liquids: Thin (2000 cc/day fluid restriction) May have monthly special meal: Yes - Therapies | Activity Therapy: Evaluation | Treat if indicated: PT, OT Rehabilitation Potential: Maximize functional status Activity: Elevate legs when OOB Weight Bearing: Full Weight Assistance Devices: Walker Additional Instructions: The patient tries to sneak extra fluid intake, or takes ice and waits for it to melt to drink, and so he must be monitored to not do that. Follow Up: See PCP after discharge from SNF."
[2022-08-23] MEDS ORDERED: MIDODRINE 2.5 MG TABLET PO PRN (00:44)
[2022-08-23] MEDS: PANTOPRAZOLE 40 MG TABLET PO SCH (06:22)
[2022-08-23] MEDS: GABAPENTIN 300 MG CAPSULE PO SCH (06:23)
--- NOTE | 2022-08-23 08:29 | DISCHARGE SUMMARY ---
Discharge Summary Admit Date: 08/17/22 Discharge Date: 08/23/22 Discharging Provider: Dr Dianelys Cleaning Primary Care Provider: LUIS F Pfeiffer Code Status: Attempt Resuscitation Condition at Discharge: Fair Discharge Disposition: SNF DC/Xfer Discharge Facility Name: [facility] - [facility] History of Present Illness: Patient is a 52-year-old gentleman with history of chronic liver disease, super morbid obesity with a BMI of 66-69 who was discharged from this hospital yesterday after a more than 30-day hospital admission originally starting on July 15. He had a complicated stay during which discharge was somewhat delayed secondary to complications regarding finding a safe discharge plan, originally attempting to discharge to group home facility. We were not able to locate any accepting facilities, and patient improved medically to the extent that he no longer required hospitalization. He had multidisciplinary assistance working on providing resources with plan to have him discharge to home with home health services and to have a bariatric bed. Regarding the discharge plan, please see records from prior discharge as well as social work notes. Regarding current presentation patient states he was doing well yesterday after discharge, but today started to feel somewhat short of breath. Also feeling very weak. He also could not "get out of the bed" that was delivered, since is was a regular bed and not a bariatric bed. Patient was reportedly slightly "off" per his mother and per patient. In the ED his oxygen saturation was 93% on room air. Chest x-ray findings show no acute findings, but is consistent with possible CHF as well as small right pleural effusion. He is not dyspneic on exam. Vital signs in the ED are stable. Lab work showed several abnormalities all of which were chronic and within patient's range during previous hospitalization. The exception is the ammonia level which is now elevated at 93. On exam patient did not appear confused or disoriented but out of concerns for possible development of hepatic encephalopathy and the difficulty of patient providing self-care at home, placing him on Observation was requested by ED provider, to help manage mild hepatic encephalopathy with hyperammonemia. - HOSPITAL COURSE Hospital Course: (1) Hepatic encephalopathy His Lactulose dose had been once every 3 days (due to excessive diarrhea), thus we increased Lactulose to daily, and then to BID. Ammonia level with those changes plateaued in the 40's and he was oriented and cooperative. (2) Alcoholic liver disease He was a very heavy drinker, admitted recently with beer potomania, alcoholic liver failure, and hepatic encephalopathy. He had abnormal but stable liver l abs. He is on Lactulose and Rifaximin, Thiamine and a multivitamin, oral Lasix and Spironolactone and a fluid restriction of 2L/day total. He has a history of trying to sneak extra fluids to drink. (3) Morbid obesity with BMI of 60.0-69.9 He was on a low-carb and fluid restricted diet. He has limited mobility and had just been sent home with a prescription for a bariatric hospital bed. Unfortunately when he went home, the company ([employer], which is contracted with [employer]) supplied him the wrong bed which was not bariatric. Because of this, it was very difficult for him to utilize it because once he is in it, he is unable to self extricate himself from the bed. This means he cannot provide himself bowel movements as he is not even able to ambulate to a bedside commode. A bedpan is not an option also due to his weight. We learned that there is currently a waiting list for a bariatric hospital bed. His mother worked on hire caregivers for him. (4) Deconditioning From long hospital stay, and from sedentary life style and super-morbid obesity. Needs aggressive PT and OT rehab and was discharged to SNF before a planned return home. (5) Hx of Depression He is not on meds for this currently, but carries this Dx (6) Chronic back pain Gets prn Ultram, Lidocaine patch and prn Oxycodone (7) Anasarca Gets Lasix and Spironolactone, and needs leg elevation (8) Pain of scrotum From scrotal swelling, applying Lidocaine jelly to underside and supporting scrotum up helps - ALLERGIES Allergies/Adverse Reactions: Allergies Allergy/AdvReac Type Severity Reaction Status Date / Time No Known Drug Allergies Allergy Verified 05/10/16 11:59 - MEDICATIONS Home Medications: Ambulatory Orders Medication Instructions Recorded Confirmed Omeprazole 20 mg PO DAILY 05/10/16 08/17/22 Calcium Carbonate [Tums (Calcium 500 mg PO BID PRN tab 08/13/22 08/17/22 Carbonate 500mg)] Clotrimazole 1% Cream [Lotrimin 1% 1 gm TOP BID #1 ea 08/13/22 08/17/22 Cream] Cod Liver Oil/Zinc Oxide [Desitin] 113 gm TOP PRN PRN each 08/13/22 08/17/22 Nystatin [Nystop] 1 applic TOP BID #2 each 08/13/22 08/17/22 Protectives Combination No.2 90 gm TP BID #1 each 08/13/22 08/17/22 [Tetrix] Furosemide [Lasix] 40 mg PO BID #60 tablet 08/19/22 Lidocaine Patch 5% [Lidoderm Patch] 1 each PATCH DAILY PRN #30 patch 08/19/22 Nystatin Cream [Mycostatin Cream] 1 applic TOP BID each 08/19/22 Zinc Oxide 20% Oint [Zinc Oxide] 1 applic TOP PRN PRN #2 each 08/19/22 oxyCODONE [Roxicodone] 5 mg PO Q4HR PRN #20 tab 08/19/22 Gabapentin [Neurontin] 2 cap PO TID #180 cap 08/22/22 Lactulose 10 gm PO BID #900 ml 08/22/22 Lidocaine Ointment 5% [Xylocaine 1 applic TOP TID PRN #35.44 gm 08/22/22 Ointment 5%] Mometasone Furoate 1 gm TOP BID PRN #1 ea 08/22/22 Potassium Chloride [K-Dur] 20 meq PO DAILY #30 tablet 08/22/22 Vit No.180/Iron/Folic 1 each PO DAILY #30 tablet 08/22/22 [ Plus Vitamin-Mineral] Spironolactone [Aldactone] 25 mg PO BID #60 tab 08/22/22 Thiamine [Vitamin B-1] 100 mg PO DAILY #30 tab 08/22/22 oxyCODONE [Roxicodone] 5 mg PO Q6H PRN #15 tablet 08/22/22 rifAXIMin [Xifaxan] 550 mg PO BID #60 tab 08/22/22 traMADol [Ultram] 25 mg PO BID PRN #60 tab 08/22/22 - PHYSICAL EXAM AT DISCHARGE General Appearance: positive: No acute distress, Alert, Other (Super-morbidly obese) Eyes Bilateral: positive: Normal inspection ENT: positive: No signs of dehydration Neck: positive: Nml inspection Respiratory: positive: No respiratory distress, Breath sounds nml Cardiovascular: positive: Regular rate & rhythm, No murmur Abdomen: positive: Other (Obese with a pannus down to his knees. Swollen testes and penile shaft.) Skin: positive: Warm, Dry Extremities: positive: Other (4+ edema to buttocks) Neurologic/Psychiatric: positive: Oriented x3, Motor nml, Other (No tremor, no nystagmus) - LABS Result Diagrams: 08/20/22 06:15 08/20/22 06:15 - FOLLOW UP Follow Up: This will be determined when he is discharged from the SNF. - TIME SPENT Time Spent in Discharge (Minutes): 50
[2022-08-23 08:54] VITALS: BP 102/61
[2022-08-23] MEDS: rifAXIMin 550 MG TABLET PO SCH (09:05)
[2022-08-23] MEDS: PRENATAL VITAMIN TABLET PO SCH (09:05)
[2022-08-23] MEDS: THIAMINE 100 MG TABLET PO SCH (09:06)
[2022-08-23] MEDS: NYSTATIN CREAM 15 GM TUBE TOP SCH (09:06)
[2022-08-23] MEDS: SPIRONOLACTONE 25 MG TABLET PO SCH (09:06)
[2022-08-23] MEDS: LIDOCAINE OINTMENT 5% 35.44 GM TUBE TOP SCH (09:07)
[2022-08-23] MEDS: LACTULOSE 10 GM /15 ML UDC PO SCH (09:07)
[2022-08-23] MEDS: NYSTATIN POWDER 15 GM TOP SCH (09:07)
[2022-08-23] MEDS: KETOCONAZOLE 2% CREAM 15 GM TUBE TOP SCH (09:08)
[2022-08-23] MEDS: FUROSEMIDE 40 MG TABLET PO SCH (09:09)
[2022-08-23] MEDS: HEPARIN 5,000 UNIT/ML VIAL SUBQ SCH (09:10)
== END 2022-08-23 12:02 ==
LOC: EDUNIT# → ED 12:39 → MS2 16:05
PROVIDERS: ADMIT Family Medicine Sports Medicine; ATTEND Internal Medicine
DX: K76.82 Hepatic encephalopathy (principal); K70.40 Alcoholic hepatic failure without coma; E66.01 Morbid (severe) obesity due to excess calories; Z68.44 Body mass index [BMI] 60.0-69.9, adult; R53.1 Weakness; F32.A Depression, unspecified; G89.29 Other chronic pain; R60.1 Generalized edema; M54.9 Dorsalgia, unspecified; N50.82 Scrotal pain; I10 Essential (primary) hypertension; G62.9 Polyneuropathy, unspecified; Z20.822 Contact with and (suspected) exposure to COVID-19; E72.20 Disorder of urea cycle metabolism, unspecified
CPT/HCPCS: 36415; 71045; 80048; 80053; 80320; 82140; 82803; 83735; 84100; 85025; 85027; 85610; 87635; 93005; 96372; 97116; 97163; 97166; 97530; 97535; 99284; 99285; A9270; G0378; J3490; J8499